=== PATIENT | male | born 1945 | race Caucasian/White ===

== ENCOUNTER 2020-04-07 11:55 | Day surgery (SDC) | payer MEDICARE, SELFPAY ==
[2020-04-04 17:33] VITALS: BMI 23.6
[2020-04-07] VITALS (7 sets, daily range): BP systolic 145–184; BP diastolic 70–89; PULSE 66–96; RESP 17–20; TEMP 36.2–36.4; O2SAT 97–100
--- NOTE | 2020-04-07 12:38 | W.PM.OPSUD ---
Surgery/Procedure H&P Update DATE OF PROCEDURE: April 07, 2020 DATE H&P PERFORMED: 03/31/20 H&P UPDATE INFORMATION: I have reviewed H&P completed within last 30 days, I have examined patient prior to procedure, No changes to prior documentation and H&P is in [facility] EMR on date indicated PREOP DIAGNOSIS: Chronic urinary retention with urethral erosion PLANNED PROCEDURE: Operation Date: 04/07/20 13:35 Proposed Procedures p Suprapubic Catheter Placement 61646 N36.8(Not Applicable) - Franklin Lopez MD s Cystoscopy(Not Applicable) - Franklin Lopez MD
--- NOTE | 2020-04-07 12:39 | P.OP_ITS ---
Operative Report Date of procedure: April 07, 2020 Pre-op Diagnosis: Chronic urinary retention with urethral erosion Post-op diagnosis: same Procedure Done: Cystoscopy, suprapubic tube placement Pathology: none sent Surgeon: John Anesthesia: General Estimated blood loss: Minimal Urine output: Not measured Complications: None Condition: stable Disposition: PACU Brief History: Mr. Lanza is a very pleasant 74-year-old white male with dementia who has a history of chronic urinary retention felt to be secondary to a flaccid neurogenic bladder. Multiple attempts at training with [facility] were pretty much unsuccessful and ultimately he insisted on indwelling catheter. Over time he developed some urethral erosion to the level of the manzano and at that point it was recommended that he undergo suprapubic tube placement. No abdominal scars. Procedure: After routine preoperative evaluation examination and obtaining of informed consent he was taken to the operating suite on 04/07/2020 where general anesthesia was administered without difficulty after appropriate timeout was performed, SCDs confirmed to be functioning, preoperative antibiotics administered, beta-sharyn protocol confirmed. Prepped and draped in usual sterile fashion in dorsolithotomy position pain careful attention to avoiding pressure points. 21 [place]an cystoscope with 30 degree lens was introduced into the urethral meatus and advanced into the bladder under videoscopy. Bladder was systematically examined. Bladder was distended and a 70 degree lens was utilized to help localize the site of entry of the suprapubic tube. A spinal needle was passed about 3 fingerbreadths above the symphysis pubis into the bladder near the dome with the bladder over distended. A puncture incision was made with a 15 blade, hemostats used to form a subcutaneous tunnel, and then a 20 [place]an peel-away suprapubic sheath with trocar was advanced under cystoscopic guidance into the distended bladder without difficulty. The trocar was removed and an 18 [place]an well-lubricated catheter was advanced through the sheath and the balloon inflated. Catheter function was confirmed prior to peeling away the sheath. The balloon was lightly snugged to the anterior abdominal wall and then the catheter secured to the skin with 2 large nonabsorbable sutures. Sterile drain dressing was applied. Catheter was confirmed to be functioning well and the procedure completed after the catheter was placed to drainage bag Tolerated procedure well without complications and was awakened in the operating room and returned to the care of room in stable condition.
--- NOTE | 2020-04-07 12:47 | ANES.PREANE2 ---
Pre-Anesthetic Assessment Pre-Anesthetic Assessment: Height/Weight: Height 1.78 m Weight 74.843 kg Temp Pulse Resp BP Pulse Ox 97.3 F L 66 18 153/70 99 04/07/20 12:18 04/07/20 12:18 04/07/20 12:18 04/07/20 12:18 04/07/20 12:18 Preop Diagnosis: Chronic urinary retention with urethral erosion Proposed Procedure: Operation Date: 04/07/20 13:35 Proposed Procedures p Suprapubic Catheter Placement 89589 N36.8(Not Applicable) - Franklin Lopez MD s Cystoscopy(Not Applicable) - Franklin Lopez MD Familial anesthetic complications: None Last intake: Intake Last Liquid Date 04/06/20 Last Liquid Time 19:00 Last Solid Date 04/06/20 Last Solid Time 19:00 Social: Social History: No alcohol and No tobacco Exam: Pre-Anes Outpt Exam: alert, oriented x 3, clear to auscultation bilaterally and regular rate & rhythm Airway: Cervical ROM: WNL MP: 2 Dentition: False Pulmonary: Pulmonary: None reported Metabolic: Metabolic: DM Anesthetic Plan: ASA status: 2 Anesthesia: General Risk of > 500 ml blood loss (7ml/kg in children): No PFSH Anesthesia PFSH: Medical History (Updated 03/31/20 @ 09:23 by Franklin Lopez MD) Bladder spasm Post-traumatic bulbous urethral stricture Urethral erosion Urinary retention Surgical History S/P dilation of urethra Scrotal abscess Family History Father , 84- Pneumonia No problems noted. Mother , 86 No problems noted. Social History Smoking and tobacco status: current some day smoker smokeless tobacco Alcohol intake: never Marital status: / Current occupational status: retired Data Anesthesia Cardiac Studies: No Data to Display
[2020-04-07] MEDS: sodium chloride 0.9% 1,000 ML 30 ML IV (13:02)
[2020-04-07 13:04] LABS: Glucose Point of Care 112 mg/dL (70-110)
[2020-04-07] MEDS: levofloxacin-dextrose 5 % 500 MG/100 ML PREMIX 100 MG IV (13:05)
[2020-04-07] MEDS: neomycin-poly-bacitracin oint 28 gm 1 APPLIC TOPICAL (13:30)
--- NOTE | 2020-04-07 13:49 | SUR.PHASEI ---
134 PATIENT TO PACU FROM OR. ORAL AIRWAY IN PLACE. SPO2 98% ON RA. CARRERA CATH IN PLACE, SECURED TO LEFT LEG.
--- NOTE | 2020-04-07 13:55 | SUR.PHASEI ---
1355 ORAL AIRWAY REMOVED. SPO2 100% ON RA.
--- NOTE | 2020-04-07 14:02 | ANE.PACU2 ---
Inpatient post-anesthesia follow up: Airway intact: Yes Vital signs: Temperature 97.6 F Pulse Rate 83 Respiratory Rate 17 Blood Pressure 178/86 Pulse Oximetry 97 Oxygen Delivery Me thod Room Air Oxygen Flow Rate Fraction of Inspir ed Oxygen Hydration adequate: Yes Nausea and vomiting: No Pain level: 1 Mental status: Baseline
--- NOTE | 2020-04-07 14:11 | SUR.PHASEI ---
1406 PATIENT TO OPS. DENIES PAIN. WHEN GETTING TO OPS PATIENT C/O NAUSEA. ZOFRAN GIVEN. SEE MAR.
[2020-04-07] MEDS: ondansetron 2 mg/ML SDV 2 mL 4 MG IVP (14:12)
== END 2020-04-07 15:04 | disposition home or self-care (01) ==
PROVIDERS: PCP Electrodiagnostic Medicine; Visit Provider Urology
PROC: (CPT 51102; principal; 2020-04-07 13:15)
PROC: 0TJB8ZZ Inspection of Bladder, Via Natural or Artificial Opening Endoscopic (ICD-10-PCS; CPT 52000; 2020-04-07 13:15)
DX: N36.8 Other specified disorders of urethra (principal); R33.9 Retention of urine, unspecified; E11.9 Type 2 diabetes mellitus without complications; N35.011 Post-traumatic bulbous urethral stricture; F17.290 Nicotine dependence, other tobacco product, uncomplicated; F03.90 Unspecified dementia, unspecified severity, without behavioral disturbance, psychotic disturbance, mood disturbance, and anxiety; N31.2 Flaccid neuropathic bladder, not elsewhere classified
CPT/HCPCS: 51102; 12345; 36416; 82962; J1956; J2405; J2704; J3010; J3490; J7030

== ENCOUNTER 2020-12-16 11:36 | Outpatient (CLI) | payer MEDICARE, SELFPAY ==
--- NOTE | 2020-12-16 12:12 | XRR_ITS ---
PROCEDURE INFORMATION: Exam: XR Chest Exam date and time: 12/16/2020 12:33 PM Age: 75 years old Clinical indication: Condition or disease; Lung condition and disease; Other: Acute bronchitis; Dyspnea; Additional info: Dyspnea on exertion/acute bronchitis TECHNIQUE: Imaging protocol: XR of the chest. Views: 2 views. COMPARISON: CR Chest 1 view [id number] 12/16/2017 5:44 PM FINDINGS: Lungs: Parenchymal densities seen in the right perihilar region increased compared to prior examination. Possible pneumonia or pulmonary edema. Low lung volumes seen. Pleural spaces: Unremarkable. No pleural effusion. No pneumothorax. Heart/Mediastinum: Unremarkable. No cardiomegaly. Bones/joints: Unremarkable. XR/XR chest 2V* [id number] IMPRESSION: 1. Right perihilar pneumonia or pulmonary edema . 2. Low lung volumes are seen. 3. Otherwise negative examination
== END 2020-12-16 11:37 | disposition home or self-care (01) ==
PROVIDERS: PCP Electrodiagnostic Medicine; Visit Provider Electrodiagnostic Medicine
DX: R06.09 Other forms of dyspnea (principal); J20.9 Acute bronchitis, unspecified
CPT/HCPCS: 71046

== ENCOUNTER 2020-12-19 16:26 | Inpatient (IN) | payer MEDICARE, SELFPAY ==
[2020-12-19 16:27] VITALS: BP 168/90; PULSE 118; RESP 22; TEMP 36.6; O2SAT 95; BMI 24.8
--- NOTE | 2020-12-19 16:33 | XRR_ITS ---
PROCEDURE INFORMATION: Exam: XR Chest Exam date and time: 12/19/2020 4:54 PM Age: 75 years old Clinical indication: Shortness of breath; Additional info: SOB TECHNIQUE: Imaging protocol: XR of the chest. Views: 1 view. Total images: 1 COMPARISON: 1. CR XR chest 2V* [id number] 12/16/2020 12:28 PM 2. CR Chest 1 view [id number] 12/16/2017 5:44:46 PM 3. CR Chest 2 views* [id number] 04/10/2014 1:43:11 PM FINDINGS: Lungs: Interval deterioration cardiopulmonary status with increased bilateral mixed reticulonodular interstitial and consolidated alveolar airspace disease of presumed active pneumonitis/pneumonia. Cannot exclude underlying component of pulmonary alveolitis or pulmonary hemorrhage. Pleural spaces: Suspected small subpulmonic pleural effusions. Heart/Mediastinum: Cardiac structures and configuration with arteriosclerosis. Bones/joints: Unremarkable for age. XR/XR chest 1V portable [id number] IMPRESSION: Interval deterioration cardiopulmonary status with increased bilateral mixed reticulonodular interstitial and consolidated alveolar airspace disease of presumed active pneumonitis/pneumonia.
--- NOTE | 2020-12-19 16:33 | ECG_ITS ---
[facility] Test Date: 2020-12-19 Pat Name: Jennifer Lanza Department: Room: Gender: Male [employer] Operator: : 1945 Requested By: Alejandra Kim I Order Number: [id number] Ann MD: Ricardo Aldrich M.D. Measurements Intervals [place] Rate: 114 P: 199 [place]: 114 QRS: 30 QRSD: 85 T: 92 QT: 324 QTc: 447 Interpretive Statements SINUS TACHYCARDIA WITH SHORT [place] INTERVAL WITH FREQUENT VENTRICULAR PREMATURE COMPLEXES POSSIBLE ANTERIOR MYOCARDIAL INFARCTION , OF INDETERMINATE AGE [30 ms Q WAVE IN V3/V4, OR R < 0.2 mV IN V4] Compared to ECG 12/16/2017 18:30:29 Short [place] interval now present Myocardial infarct finding now present Sinus rhythm no longer present Electronically Signed On 12-19-2020 21:48:33 CDT by Ricardo Aldrich M.D. [id number] f
[2020-12-19 16:35] LABS: ABG PCO2 34.2 mmHg (35-45); ABG PH Result 7.45 (7.35-7.45); Arterial Blood Gas Hematocrit 41.7 % (42-52); Base Excess ABG 0.2 mmol/L (-2.0-2.0); Blood Gas Allen Test Pos; Blood Gas Operator Identificat CAK; Blood Gas Sample Site Radial, left; Blood Gas Sample Type Arterial; HCO3 ABG 23.7 mmol/L (22-26); Oxygen Device NC; PO2 ABG 71.7 mmHg (80.0-100.0)
[2020-12-19 17:00] LABS: Basophils % 0.5 %; Eosinophils % 0.5 %; Hemoglobin 13.8 g/dL (11.7-16.6); Lymphocytes % 12.9 %; Mean Corpuscular HGB Conc 32.1 g/dL (30.0-36.0); Mean Corpuscular Hemoglobin 30.7 pg (28.0-34.0); Mean Corpuscular Volume 95.6 fL (80-94); Mean Platelet Volume 10.1 fL (7.4-10.4); Monocytes # 0.6 10^3/uL (0.2-0.9); Monocytes % 7.3 %; Neutrophils # 5.95 10^3/uL (1.8-7.7); Neutrophils % 77.5 %; Nucleated Red Blood Cells % 0 %; Platelet Count 180 10^3/cmm (130-400); Red Cell Distribution Width 15.2 % (12.1-15.1); White Blood Count 7.7 10^3/uL (4.0-10.0)
[2020-12-19 17:26] LABS: Troponin(5th) Baseline 32 ng/L (0-15)
[2020-12-19 17:33] LABS: Alanine Aminotransferase 6 U/L (0-41); Albumin Level 3.9 g/dL (3.5-5.2); Alkaline Phosphatase 503 IU/L (40-130); Anion Gap 17.5 (5-19); Aspartate Amino Transferase 11 U/L (0-40); Blood Urea Nitrogen 24 mg/dL (8-23); C Reactive Protein 7.1 mg/L (0.0-4.9); Calcium 8.5 mg/dL (8.5-10.5); Carbon Dioxide 23 mmol/L (22-29); Chloride 101 mmol/L (98-107); Globulin 2.7 g/dL (1.3-4.6); Glucose 242 mg/dL (65-115); NT Pro B Type Natriuretic Pept 9920 pg/mL (0-450); Osmolality Calculated 296 mOsm/kg (285-295); Potassium 4.5 mmol/L (3.5-5.1); Sodium 137 mmol/L (136-145); Total Bilirubin 0.2 mg/dL (0.15-1.2); Total Protein 6.6 g/dL (6.6-8.7)
--- NOTE | 2020-12-19 17:40 | ED_ITS ---
HPI - SOB/Dyspnea General: Chief Complaint: Shortness of Breath/Dyspnea Stated Complaint: DIFFICULTY BREATHING/ EDEMA Time Seen by Provider: 12/19/20 16:32 Source: patient Mode of arrival: EMS Limitations: no limitations History of Present Illness: HPI Narrative: Patient is a 75-year-old male with a history of diabetes mellitus and urinary retention who presented to the emergency department with shortness of breath that has been progressively worsening over the last 4 days. He denies any fever, denies any sick contacts. He denies cough but says he is having more trouble catching his breath. He endorses progressive leg swelling. He has a history of COPD but does not wear oxygen and has not required oxygen in the past. He went to urgent care today and he was noted to be hypoxic with oxygen saturation about 86% on room air. He was placed on oxygen and brought to the emergency department via EMS. MD elicited complaint: shortness of breath Pertinent past history: COPD Timing: constant Severity: severe Exacerbating factors: nothing Relieving factors: nothing Known history of: COPD Associated symptoms: Reports orthopnea; Deny abdominal pain, chest congestion, chest pain, cough, diaphoresis, dizziness, extremity pain, fever(s), hemoptysis, lightheadedness, myalgias, nausea, palpitations, paresthesias, polydipsia, polyuria, rash, sense of impending doom, syncope or vomiting Treatment prior to arrival: oxygen and bronchodilator Review of Systems General: Reports: 10 or more systems reviewed and unremarkable except in HPI and below Const: Denies: fever(s) or diaphoresis Card: Reports: orthopnea; Denies: chest pain, palpitations, lightheadedness or syncope Resp: Denies: hemoptysis or chest congestion GI: Denies: abdominal pain, nausea or vomiting Musc: Denies: extremity pain Neuro: Denies: dizziness Endo: Denies: polyuria or polydipsia [facility] ED PFSH: Medical History (Updated 12/19/20 @ 20:35 by Alejandra Kim [place], [facility] Bladder spasm DM type 2 (diabetes mellitus, type 2) Post-traumatic bulbous urethral stricture Suprapubic catheter Urethral erosion Urinary retention Surgical History S/P dilation of urethra Scrotal abscess Family History Father , 84- Pneumonia No problems noted. Mother , 86 No problems noted. Social History Smoking and tobacco status: former smoker Quit status (tobacco): has quit using tobacco Former quit date comment: Reportedly quit years ago. Currently chews smokeless tobacco. Alcohol intake: never Substance/Drug Use: never Lives independently: No Household members: other Details: Son Marital status: / Current occupational status: retired Physical Exam Const: COMMON NORMALS: no acute distress, average body habitus, patient oriented x3, no limitations, healthy appearing, alert and well nourished HENMT: COMMON NORMALS: normocephalic, atraumatic and moist oral mucous membranes HEAD & SCALP: normocephalic and atraumatic Neck/C-Spine: COMMON NORMALS: no meningeal signs and no JVD Chest: COMMONS NORMALS: normal inspection of the chest and normal palpation of entire chest wall Resp: COMMON NORMALS: normal respiratory effort, No retractions, No use of accessory muscles and percussion normal AUSCULTATION: rales bilateral throughout and diffuse PERCUSSION: percussion normal Cardio: COMMON NORMALS: no JVD, regular rate, regular rhythm, S1 normal heart sound present, S2 normal heart sound present, No gallops present (Cardio), No clicks present (Cardio), No murmurs present (Cardio), No rub (Cardio) and Peripheral pulses 2+ throughout RATE: regular rate RHYTHM: regular rhythm HEART SOUNDS: S1 normal heart sound present and S2 normal heart sound present PERIPHERAL PULSES: Peripheral pulses 2+ throughout GI: COMMON NORMALS: Normal to inspection, nondistended, normoactive bowel sounds present, Soft to palpation, non-tender, No hepatosplenomegaly present, no masses and no bruits PALPATION: Yes Soft to palpation and Yes No hepatosplenomegaly present Extremity: COMMON NORMALS: normal to inspection, full ROM, capillary refill normal and no calf tenderness GENERAL: Yes edema (2+ pitting bilaterally) Neuro: COMMON NORMALS: patient oriented x3 SENSORIUM/ORIENTATION: Yes alert MENINGEAL SIGNS: Yes no meningeal signs Skin: COMMON NORMALS: no rashes or lesions noted, no wounds, turgor normal, no jaundice, no petechiae and no mottling GENERAL SKIN EXAM: no rashes or lesions noted and turgor normal Course Reevaluation(s): Reevaluation #1: Discussed his lab and imaging findings with him, as well as my conversation with the hospitalist. Advised that he will benefit from hospital admission. Patient voiced understanding and is in agreement with the plan. Time: 18:18 Consultations: Consultation #1: Discussed the patient with Dr. Myers, hospitalist and he kindly accepted the patient to his service. Time: 18:13 Vital Signs: Vital signs: Vital Signs Temperature 98.1 F 12/19/20 19:58 Pulse Rate 93 12/19/20 19:58 Respiratory Rate 16 12/19/20 19:58 Blood Pressure 148/89 12/19/20 19:58 Pulse Oximetry 98 12/19/20 19:58 MDM - SOB/Dyspnea MDM Narrative: Medical decision making narrative: 75-year-old male who presents to the emergency department with shortness of breath requiring oxygen supplementation. He was hypoxic, had signs of congestive heart failure and imaging was also suggestive of pneumonia. White cell count is normal, he has no fever, and I do believe this is mostly due to CHF and less likely pneumonia. He is being admitted to the hospital for further evaluation and management. Medical Records: Attestation: I reviewed the patient's medical records. Lab Data: Attestation: I reviewed the patient's lab results. Labs: Lab Results 12/19/20 12/19/20 12/19/20 Range/Units 16:26 16:45 16:45 WBC 7.7 (4.0-10.0) 10^3/ uL RBC 4.50 (4.1-5.3) 10^6/u L Hgb 13.8 (11.7-16.6) g/dL Hct 43.0 (42.0-52.0) % MCV 95.6 H (80-94) fL MCH 30.7 (28.0-34.0) pg MCHC 32.1 (30.0-36.0) g/dL RDW 15.2 H (12.1-15.1) % Plt Count 180 (130-400) 10^3/c mm MPV 10.1 (7.4-10.4) fL Neut % (Auto) 77.5 % Lymph % (Auto) 12.9 % Martin % (Auto) 7.3 % Eos % (Auto) 0.5 % Baso % (Auto) 0.5 % Neut # (Auto) 5.95 (1.8-7.7) 10^3/u L Lymph # (Auto) 1.0 (0.8-4.8) 10^3/u L Martin # (Auto) 0.6 (0.2-0.9) 10^3/u L Eos # (Auto) 0.0 (0.0-0.8) 10^3/u L Baso # (Auto) 0.0 (0.0-0.1) 10^3/u L Nucleated RBC % (a uto) 0 % Nucleated RBCs # 0.0 /100WBC Specimen Type Arterial Sample Site Radial, left ABG pH 7.45 (7.35-7.45) ABG pCO2 34.2 L (35-45) mmHg ABG pO2 71.7 L (80.0-100.0) mmH g ABG HCO3 23.7 (22-26) mmol/L ABG Base Excess 0.2 (-2.0-2.0) mmol/ L Jas Test Pos Hematocrit 41.7 L (42-52) % O2 Delivery Device Nc O2 Liters/Min 4.0 % FiO2 33.0 % Lode Miner ID Cak Sodium 137 (136-145) mmol/L Potassium 4.5 (3.5-5.1) mmol/L Chloride 101 (98-107) mmol/L Carbon Dioxide 23 (22-29) mmol/L Anion Gap 17.5 (5-19) BUN 24 H (8-23) mg/dL Creatinine 1.2 (0.7-1.2) mg/dL GFR Calculation Not Reportable Glucose 242 H (65-115) mg/dL Calculated Osmolal ity 296 H (285-295) mOsm/k g Calcium 8.5 (8.5-10.5) mg/dL Total Bilirubin 0.2 (0.15-1.2) mg/dL AST 11 (0-40) U/L ALT 6 (0-41) U/L Alkaline Phosphata se 503 H (40-130) IU/L Troponin T Baselin e (0-15) ng/L C-Reactive Protein 7.1 H (0.0-4.9) mg/L NT-Pro-B Natriuret Pep 9920 H (0-450) pg/mL Total Protein 6.6 (6.6-8.7) g/dL Albumin 3.9 (3.5-5.2) g/dL Globulin 2.7 (1.3-4.6) g/dL SARS-CoV-2 Ag (Rap id) (Negative) 12/19/20 12/19/20 Range/Units 16:45 17:19 WBC (4.0-10.0) 10^3/ uL RBC (4.1-5.3) 10^6/u L Hgb (11.7-16.6) g/dL Hct (42.0-52.0) % MCV (80-94) fL MCH (28.0-34.0) pg MCHC (30.0-36.0) g/dL RDW (12.1-15.1) % Plt Count (130-400) 10^3/c mm MPV (7.4-10.4) fL Neut % (Auto) % Lymph % (Auto) % Martin % (Auto) % Eos % (Auto) % Baso % (Auto) % Neut # (Auto) (1.8-7.7) 10^3/u L Lymph # (Auto) (0.8-4.8) 10^3/u L Martin # (Auto) (0.2-0.9) 10^3/u L Eos # (Auto) (0.0-0.8) 10^3/u L Baso # (Auto) (0.0-0.1) 10^3/u L Nucleated RBC % (a uto) % Nucleated RBCs # /100WBC Specimen Type Sample Site ABG pH (7.35-7.45) ABG pCO2 (35-45) mmHg ABG pO2 (80.0-100.0) mmH g ABG HCO3 (22-26) mmol/L ABG Base Excess (-2.0-2.0) mmol/ L Jas Test Hematocrit (42-52) % O2 Delivery Device O2 Liters/Min % FiO2 % Lode Miner ID Sodium (136-145) mmol/L Potassium (3.5-5.1) mmol/L Chloride (98-107) mmol/L Carbon Dioxide (22-29) mmol/L Anion Gap (5-19) BUN (8-23) mg/dL Creatinine (0.7-1.2) mg/dL GFR Calculation Glucose (65-115) mg/dL Calculated Osmolal ity (285-295) mOsm/k g Calcium (8.5-10.5) mg/dL Total Bilirubin (0.15-1.2) mg/dL AST (0-40) U/L ALT (0-41) U/L Alkaline Phosphata se (40-130) IU/L Troponin T Baselin e 32 H (0-15) ng/L C-Reactive Protein (0.0-4.9) mg/L NT-Pro-B Natriuret Pep (0-450) pg/mL Total Protein (6.6-8.7) g/dL Albumin (3.5-5.2) g/dL Globulin (1.3-4.6) g/dL SARS-CoV-2 Ag (Rap id) Negative (Negative) Imaging Data^: CXR: Attestation: I personally reviewed and interpreted this imaging study as follows: Radiologist's impression: [address] [id number] ReportSigned Patient: Jennifer Lanza AUnit #: [id number]: 4Acct#:[id number]/Sex: 75 / MADM Date: 12/19/20Loc: ERRoom/Bed:Attending Dr: Ordering Provider/Ordering MD: Alejandra Kim [place], [facility] [place] of Service: 12/19/20 Procedure(s): XR chest 1V portable [id number] Accession Number(s): [id number] Report Number: [id number] PROCEDURE INFORMATION: Exam: XR Chest Exam date and time: 12/19/2020 4:54 PM Age: 75 years old Clinical indication: Shortness of breath; Additional info: SOB TECHNIQUE: Imaging protocol: XR of the chest. Views: 1 view. Total images: 1 COMPARISON: 1. CR XR chest 2V* [id number] 12/16/2020 12:28 PM 2. CR Chest 1 view [id number] 12/16/2017 5:44:46 PM 3. CR Chest 2 views* [id number] 04/10/2014 1:43:11 PM FINDINGS: Lungs: Interval deterioration cardiopulmonary status with increased bilateral mixed reticulonodular interstitial and consolidated alveolar airspace disease of presumed active pneumonitis/pneumonia. Cannot exclude underlying component of pulmonary alveolitis or pulmonary hemorrhage. Pleural spaces: Suspected small subpulmonic pleural effusions. Heart/Mediastinum: Cardiac structures and configuration with arteriosclerosis. Bones/joints: Unremarkable for age. XR/XR chest 1V portable [id number] IMPRESSION: Interval deterioration cardiopulmonary status with increased bilateral mixed reticulonodular interstitial and consolidated alveolar airspace disease of presumed active pneumonitis/pneumonia. Dictated By:Justus Walton By:Justus Walton Date/Time:12/19/20 1721DD/ 1719 CT Chest: Attestation: I personally reviewed and interpreted this imaging study as follows: Radiologist's impression: [address] [id number] Scan ReportSigned Patient: Jennifer Lanza AUnit #: [id number]: 4Acct#:[id number]/Sex: 75 / MADM Date: 12/19/20Loc: CSURoom/Bed[facility]: Alec Rosas MD Ordering Provider/Ordering MD: Alejandra Kim [place] [facility] [place] of Service: 12/19/20 Procedure(s): CT chest [facility] [address] Accession Number(s): [id number] Report Number: [id number] PROCEDURE INFORMATION: Exam: CT Chest Without Contrast; Diagnostic Exam date and time: 12/19/2020 6:13 PM Age: 75 years old Clinical indication: Shortness of breath; Additional info: SOB x 4 days TECHNIQUE: Imaging protocol: Diagnostic computed tomography of the chest without contrast. Total images: 280 Radiation optimization: All CT scans at this facility use at least one of these dose optimization techniques: automated exposure control; mA and/or kV adjustment per patient size (includes targeted exams where dose is matched to clinical indication); or iterative reconstruction. COMPARISON: CR XR chest 1V portable [id number] 12/19/2020 4:42 PM RADIATION DOSE METRICS: Total DLP (mGy-cm): 687.18 FINDINGS: Lungs: Bilateral interstitial lung disease with interseptal and interlobular thickening. Bilateral subsegmental and segmental alveolar airspace disease consolidation involving the dependent portions of the lung primarily posterior bilateral upper lobe and bilateral lower lobes sparing the right middle and right lower lobes consistent with pneumonia and atelectasis. Coexistent interstitial edema/pulmonary edema. Calcified granulomas of antecedent disease. Pleural spaces: Bilateral moderate volume pleural effusions. Heart: Cardiac size upper limits of normal. Small pericardial effusion. Mild coronary artery disease. Aorta: The thoracic aorta is nonaneurysmal. Moderate arteriosclerosis. Lymph nodes: Mediastinal and probable hilar lymphadenopathy. Prominent pretracheal lymph node measures 20 mm in the short axis. Also evidence of a calcified mediastinal and hilar complexes of antecedent granulomatous disease. Bones/joints: Diffuse skeletal sclerosis either from diffuse osteoblastic skeletal metastasis or from renal osteodystrophy. Favor metastatic prostate cancer. Past medical and past surgical history unknown to this observer. Soft tissues: Cachexia. CT/CT chest wo con [id number] IMPRESSION: 1. Findings most consistent with bilateral pneumonitis/pneumonia with associated interstitial edema/pulmonary edema as detailed in text. 2. Bilateral moderate volume pleural effusion. 3. Mediastinal and probable hilar lymphadenopathy. 4. Diffuse skeletal sclerosis either from diffuse osteoblastic skeletal metastasis or from renal osteodystrophy. Favor metastatic prostate cancer. 5. Evidence of antecedent granulomatous disease. 6. Cachexia. Radiation Dose CTDIVOL = (mGy): DLP = 687.18 (mGy-cm) Dictated By:Justus Walton By:Justus Walton Date/Time:12/19/202001DD/ 99 EKG Data^: EKG 1: Attestation: I personally reviewed and interpreted this EKG as follows: EKG Interpretation Date: 12/19/20 EKG interpretation time: 16:33 Prior EKG tracings: not available for review Interpretation: Sinus tachycardia with short ND interval and PVCs. Heart rate 114 beats per minutes. No ST changes. Discharge Plan Discharge Patient Disposition: Admitted As Inpatient Admit Provider: Alec Rosas Clinical Impression: Acute respiratory failure with hypoxia, Community acquired pneumonia, Congestive heart failure, Pleural effusion Condition: Stable Coding Level of Care Code ED Charge Accounts Audit Clerk for Chg Fwd Exam Comprehensive
[2020-12-19 18:00] LABS: SARS Covid-2 Antigen Negative (Negative)
[2020-12-19] MEDS: FUROsemide 10 mg/mL SDV 4mL 40 MG IVP (18:07)
--- NOTE | 2020-12-19 18:11 | CTR_ITS ---
PROCEDURE INFORMATION: Exam: CT Chest Without Contrast; Diagnostic Exam date and time: 12/19/2020 6:13 PM Age: 75 years old Clinical indication: Shortness of breath; Additional info: SOB x 4 days TECHNIQUE: Imaging protocol: Diagnostic computed tomography of the chest without contrast. Total images: 280 Radiation optimization: All CT scans at this facility use at least one of these dose optimization techniques: automated exposure control; mA and/or kV adjustment per patient size (includes targeted exams where dose is matched to clinical indication); or iterative reconstruction. COMPARISON: CR XR chest 1V portable [id number] 12/19/2020 4:42 PM RADIATION DOSE METRICS: Total DLP (mGy-cm): 687.18 FINDINGS: Lungs: Bilateral interstitial lung disease with interseptal and interlobular thickening. Bilateral subsegmental and segmental alveolar airspace disease consolidation involving the dependent portions of the lung primarily posterior bilateral upper lobe and bilateral lower lobes sparing the right middle and right lower lobes consistent with pneumonia and atelectasis. Coexistent interstitial edema/pulmonary edema. Calcified granulomas of antecedent disease. Pleural spaces: Bilateral moderate volume pleural effusions. Heart: Cardiac size upper limits of normal. Small pericardial effusion. Mild coronary artery disease. Aorta: The thoracic aorta is nonaneurysmal. Moderate arteriosclerosis. Lymph nodes: Mediastinal and probable hilar lymphadenopathy. Prominent pretracheal lymph node measures 20 mm in the short axis. Also evidence of a calcified mediastinal and hilar complexes of antecedent granulomatous disease. Bones/joints: Diffuse skeletal sclerosis either from diffuse osteoblastic skeletal metastasis or from renal osteodystrophy. Favor metastatic prostate cancer. Past medical and past surgical history unknown to this observer. Soft tissues: Cachexia. CT/CT chest wo con [id number] IMPRESSION: 1. Findings most consistent with bilateral pneumonitis/pneumonia with associated interstitial edema/pulmonary edema as detailed in text. 2. Bilateral moderate volume pleural effusion. 3. Mediastinal and probable hilar lymphadenopathy. 4. Diffuse skeletal sclerosis either from diffuse osteoblastic skeletal metastasis or from renal osteodystrophy. Favor metastatic prostate cancer. 5. Evidence of antecedent granulomatous disease. 6. Cachexia. Radiation Dose CTDIVOL = (mGy): DLP = 687.18 (mGy-cm)
[2020-12-19 18:13] VITALS: BP 162/88; PULSE 84; RESP 18; O2SAT 97
--- NOTE | 2020-12-19 18:33 | ECG_ITS ---
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 Measurements Intervals [place] Rate: 114 P: 199 ND: 114 QRS: 30 QRSD: 85 T: 92 QT: 324 QTc: 447 Interpretive Statements SINUS TACHYCARDIA WITH SHORT ND INTERVAL WITH FREQUENT VENTRICULAR PREMATURE COMPLEXES. NOn specific T wave changes POSSIBLE ANTERIOR MYOCARDIAL INFARCTION , OF INDETERMINATE AGE [30 ms Q WAVE IN V3/V4, OR R < 0.2 mV IN V4] Compared to ECG 12/16/2017 18:30:29 Short ND interval now present Myocardial infarct finding now present Sinus rhythm no longer present Electronically Signed On 12-20-2020 14:54:29 CDT by Pushpa Gamble M.D. [email or web address].[email or web address]/store/[id number] f
--- NOTE | 2020-12-19 19:21 | PM.HP ---
Providers/Chief Complaint Primary Care Provider: Leonard Navarro DO Chief Complaint: DIFFICULTY BREATHING/ EDEMA History of Present Illness Very pleasant 75-year-old gentleman with history of diabetes, chronic urethral stricture following remote trauma, with suprapubic catheter, remote smoker, with reported history of COPD, although he and his son deny the condition, has been gradually getting more short of breath over the past week, with dyspnea starting mostly on exertion, but recently progressing to addressed as well. This week he was also started on albuterol inhaler due to same, although says that it is barely effective. He denies fever or chills. He has been coughing, producing yellowish phlegm. He denies chest pain or pressure. Denies any hemoptysis. Denies muscle aches, headache, nausea vomiting or diarrhea. He completed his COVID-19 vaccination series at the end of November. In ER he is found hypoxic initially requiring 8 L of oxygen by nasal cannula. Reportedly earlier today in urgent care clinic he was saturating 86% on room air. Initially with sinus tachycardia 118, currently heart rates in the 80s, with oxygen saturations in the high 90s on 4 L nasal cannula. ABG on 4 L oxygen 7.45/34.2/71.7/23.7. He is afebrile, without leukocytosis. With unremarkable CBC. CMP with normal electrolytes, bicarbonate 23, anion gap 17.5, BUN 24, creatinine 1.2. Glucose 242. Elevation of alkaline phosphatase 503 with previously normal baseline, although without recent values since 2018. T bili, AST, LT normal. Total protein low normal 6.6, globulin 2.7, albumin 3.9. Baseline troponin is 32. CRP 7.1. BNP 9920. Rapid COVID-19 antigen obtained in ER was negative. Chest x-ray with increased bilateral mixed reticular nodular interstitial and consolidative alveolar airspace disease. Presumed pneumonitis/pneumonia. He and his son does not deny knowledge of prior heart failure or coronary artery disease. He does not normally require oxygen supplementation. In ER he received a dose of Lasix. CT scan of the chest is ordered and pending. He reports feeling slightly better already. In addition to his respiratory symptoms, he does note having orthopnea, having been needing to prop himself up to sleep. He denies any history of known sleep apnea, although states he used to snore when he used to be much heavier. He states he lost 68 pounds but a while ago back in 1992. He notes he has been getting lower extremity edema. He states his appetite has been good recently. Review of Systems Const: Denies: fever(s), chills, body aches or malaise Eyes: Denies: change in vision or eye redness ENMT: Denies: throat pain, oral sores or ear or mastoid pain Card: Reports: swelling of feet/ankles, dyspnea on exertion and orthopnea; Denies: chest pain, edema or pre-syncope Resp: Reports: dyspnea, productive cough and change in phlegm color; Denies: hemoptysis GI: Denies: abdominal pain, nausea, vomiting, diarrhea, constipation, hematochezia or melena : Denies: flank pain, difficulty urinating, urinary frequency or hematuria Musc: Denies: back pain, joint swelling or joint redness Skin/Breast: Denies: rash, sores or new lesions Neuro: Denies: headache(s), numbness in extremities, weakness in extremities, dizziness, confusion or seizure-like activity Endo: Denies: polyuria or polydipsia Faustino/Lymph: Denies: easy bleeding or purpura All/Imm: Denies: urticaria, throat swelling or tongue swelling Medications/Allergies Home Medications Medication Instructions Recorded Confirmed Last Taken Type glipizide 10 mg tablet 10 mg PO DAILY@0400 08/23/19 12/19/20 12/19/20 History metformin 1,000 mg tablet 1,000 mg PO BID@0400,1600 08/23/19 12/19/20 12/19/20 History cholecalciferol (vitamin D3) 1,250 1,250 mcg PO DAILY@0400 03/31/20 12/19/20 04/04/20 History mcg (50,000 unit) capsule albuterol sulfate 2 puff INHALATION QID PRN 12/19/20 12/19/20 12/19/20 History Allergies Allergy/AdvReac Type Severity Reaction Status Date / Time No Known Allergies Allergy Verified 12/19/20 17:05 PFSH Acute PFSH: Medical History (Updated 12/19/20 @ 19:59 by Alan Myers MD) Bladder spasm DM type 2 (diabetes mellitus, type 2) Post-traumatic bulbous urethral stricture Suprapubic catheter Urethral erosion Urinary retention Surgical History S/P dilation of urethra Scrotal abscess Family History Father , 84- Pneumonia No problems noted. Mother , 86 No problems noted. Social History Smoking and tobacco status: former smoker Quit status (tobacco): has quit using tobacco Former quit date comment: Reportedly quit years ago. Currently chews smokeless tobacco. Alcohol intake: never Substance/Drug Use: never Lives independently: No Household members: other Details: Son Marital status: / Current occupational status: retired Vitals/I&O/Wt Last Vital Signs Temp 97.8 F 12/19/20 16:27 Pulse 84 12/19/20 18:13 Resp 18 12/19/20 18:13 BP 162/88 12/19/20 18:13 Pulse Ox 97 12/19/20 18:13 Weight last 48 hrs Weight 78.471 kg Physical Exam Narrative: EXAM NARRATIVE: His son is at bedside. Const: COMMON NORMALS: no acute distress and patient oriented x3 GENERAL APPEARANCE: frail appearing HENMT: COMMON NORMALS: oropharynx normal Neck/C-Spine: COMMON NORMALS: no JVD Resp: COMMON NORMALS: normal respiratory effort AUSCULTATION: crackles, wheezes and diminished lung sounds Cardio: COMMON NORMALS: no JVD, regular rhythm, S1 normal heart sound present, S2 normal heart sound present and No murmurs present (Cardio) RATE: regular rate HEART SOUNDS: S1 normal heart sound present and S2 normal heart sound present GI: COMMON NORMALS: Normal to inspection, nondistended, normoactive bowel sounds present, Soft to palpation and non-tender PALPATION: Yes Soft to palpation Extremity: COMMON NORMALS: no joint enlargement GENERAL: Yes edema (2+) Neuro: COMMON NORMALS: patient oriented x3 and moves all extremities Skin: COMMON NORMALS: no rashes or lesions noted GENERAL SKIN EXAM: no rashes or lesions noted OTHER: Multiple moles Data : 12/19/20 16:45 12/19/20 16:45 A&P Assessment and plan (1) Acute respiratory failure with hypoxia: Not entirely clear etiology at moment, but appears may be multifactorial secondary to pneumonia/pneumonitis. As well as acute congestive heart failure of unknown type. CT chest has been ordered. Follow-up imaging. At this time will empirically cover for community-acquired pneumonia as discussed with him and his son, and will continue with diuresis for congestive heart failure. Ceftriaxone and azithromycin. Additional evaluation with sputum culture, urine bacterial antigens. TTE. Complete troponin EKG series. Would benefit after recovering from additional assessment by pulmonary function testing. There are reports of COPD, however, patient and son deny knowledge of this condition. He is a former smoker. Additionally may benefit from sleep study. Reports history of snoring in the past. Status: Acute (2) DM type 2 (diabetes mellitus, type 2): Status: Acute (3) Suprapubic catheter: Secondary to chronic urethral stricture, follows with urology. Status: Acute (4) Alkaline phosphatase elevation: No abodminal pain. Check GGT. Status: Acute Attestations Medical Necessity Statement*: Admission of over 2 midnights is going to be needed for assessment of management of acute respiratory failure with hypoxia, pneumonia, acute CHF. Coding Level of Care Code Acute Industrial Methods Consultant for [facility] Fwd Exam Comprehensive Diagnoses Acute respiratory failure with hypoxia J96.01 DM type 2 (diabetes mellitus, type 2) E11.9 Suprapubic catheter Z93.59 Alkaline phosphatase elevation R74.8
[2020-12-19 19:58] VITALS: BP 148/89; PULSE 93; RESP 16; TEMP 36.7; O2SAT 98
[2020-12-19 20:00] VITALS: BP 156/82; PULSE 93; RESP 22; TEMP 36.4; O2SAT 98
[2020-12-19 20:45] VITALS: O2SAT 95
[2020-12-19 20:46] LABS: Glucose Point of Care 236 mg/dL (70-110)
[2020-12-19] MEDS: cefTRIAXone 1,000 MG in sodium chloride 0.9% (plus) 50 ML 100 MG IV (20:55)
[2020-12-19] MEDS: enoxaparin 40 mg/0.4 mL Syringe SUBCUT (20:57)
[2020-12-19 21:01] LABS: Troponin 5 2HR 37.98 ng/L (0-15); Troponin 5 2HR Delta 5.98 ABS# (0-10)
[2020-12-19 21:09] LABS: Gamma Glutamyl Transferase 13 U/L (8-61); Thyroid Stimulating Hormone 3.13 uIU/mL (0.27-4.20)
[2020-12-19] MEDS: azithromycin 500 MG in sodium chloride 0.9% 250 ML 250 MG IV (21:22)
--- NOTE | 2020-12-19 22:33 | ECG_ITS ---
[facility] Test Date: 2020-12-19 Pat Name: Jennifer Lanza Department: Room: 106 Gender: Male Precision Dyer: yovani URBINAB: 1945 Requested By: Alejandra Kim I Order Number: [id number] Ann MD: Pushpa Gamble M.D. Measurements Intervals [place] Rate: 96 P: NM: QRS: 17 QRSD: 81 T: 90 QT: 357 QTc: 453 Interpretive Statements SUPRAVENTRICULAR RHYTHM NONSPECIFIC T-WAVE ABNORMALITY Compared to ECG 12/19/2020 16:33:07 Supraventricular rhythm now present T-wave abnormality now present Sinus tachycardia no longer present Short NM interval no longer present Myocardial infarct finding no longer present Electronically Signed On 12-20-2020 14:55:45 CDT by Pushpa Gamble M.D. [id number]
--- NOTE | 2020-12-19 23:30 | PC.NURSE ---
Pt has suprapubic catheter, changed leg bag to glover bag
[2020-12-19 23:32] VITALS: PULSE 96; RESP 18; O2SAT 97
[2020-12-20] VITALS (11 sets, daily range): BP systolic 121–162; BP diastolic 53–86; PULSE 79–116; RESP 13–21; TEMP 36.4–36.8; O2SAT 96–99
[2020-12-20 00:38] LABS: Troponin 5 6HR 42.43 ng/L (0-15); Troponin 5 6HR Delta 10.43 ng/L (0-12)
[2020-12-20 05:47] LABS: Basophils % 0.3 %; Eosinophils # 0.1 10^3/uL (0.0-0.8); Eosinophils % 0.7 %; Hematocrit 38.4 % (42.0-52.0); Hemoglobin 12.1 g/dL (11.7-16.6); Lymphocytes # 1.2 10^3/uL (0.8-4.8); Mean Corpuscular HGB Conc 31.5 g/dL (30.0-36.0); Mean Corpuscular Hemoglobin 30.8 pg (28.0-34.0); Mean Corpuscular Volume 97.7 fL (80-94); Mean Platelet Volume 11.2 fL (7.4-10.4); Monocytes # 0.8 10^3/uL (0.2-0.9); Monocytes % 11.5 %; Neutrophils # 4.82 10^3/uL (1.8-7.7); Neutrophils % 69.5 %; Nucleated Red Blood Cells % 0 %; Platelet Count 175 10^3/cmm (130-400); Red Blood Count 3.93 10^6/uL (4.1-5.3); Red Cell Distribution Width 15.5 % (12.1-15.1); White Blood Count 6.9 10^3/uL (4.0-10.0)
[2020-12-20] MEDS: FUROsemide 10 mg/mL SDV 4mL 40 MG IVP ×2 (06:00→17:58)
[2020-12-20 06:12] LABS: Chloride 103 mmol/L (98-107); Potassium 4.3 mmol/L (3.5-5.1); Sodium 139 mmol/L (136-145); Total Bilirubin 0.2 mg/dL (0.15-1.2)
[2020-12-20 06:32] LABS: Alanine Aminotransferase 6 U/L (0-41); Alkaline Phosphatase 409 IU/L (40-130); Anion Gap 15.3 (5-19); Aspartate Amino Transferase 12 U/L (0-40); Carbon Dioxide 25 mmol/L (22-29); Globulin 3.1 g/dL (1.3-4.6); Glucose 136 mg/dL (65-115); Total Protein 6.1 g/dL (6.6-8.7)
[2020-12-20 06:33] LABS: Glucose Point of Care 181 mg/dL (70-110)
[2020-12-20 06:35] LABS: Blood Urea Nitrogen 24 mg/dL (8-23); Calcium 8.2 mg/dL (8.5-10.5); Osmolality Calculated 294 mOsm/kg (285-295)
[2020-12-20 11:38] LABS: Glucose Point of Care 183 mg/dL (70-110)
[2020-12-20 16:36] LABS: Glucose Point of Care 120 mg/dL (70-110)
[2020-12-20] MEDS: cefTRIAXone 1,000 MG in sodium chloride 0.9% (plus) 50 ML 100 MG IV (19:48)
--- NOTE | 2020-12-20 19:58 | USCV_ITS ---
Jennifer Lanza Age: 75 Gender: M : 1945 Exam Date: 12/20/2020 09:19 Ordering Phys: Alan Myers MD Technologist: Arlen Cristobal [place] [facility] [place]: CHF BP: 121 / 53 HR: 78 Rhythm: Sinus Technical Quality: Good MEASUREMENTS (Male / Female) Normal Values 2D ECHO LV Diastolic Diameter PLAX 5.5 cm 4.2 - 5.9 / 3.9 - 5.3 cm LV Systolic Diameter PLAX 4.5 cm LV Chamber Size 5.3 cm IVS Diastolic Thickness 1.6 cm 0.6 - 1.0 / 0.6 - 0.9 cm IVS Systolic Thickness 1.6 cm LVPW Diastolic Thickness 0.9 cm 0.6 - 1.0 / 0.6 - 0.9 cm LVPW Systolic Thickness 1.4 cm RV Chamber Size 2.6 cm LVOT Diameter 2.0 cm LV Ejection Fraction 2D Teich 38.3 % LV Ejection Fraction MOD 2C 53.1 % LV Ejection Fraction 2C AL 56.6 % LA Diameter 2.7 cm LA Width 3.3 cm LA Height 4.5 cm RA Width 3.0 cm RA Height 4.8 cm Aorta at Sinotubular Diameter 2.4 cm M-MODE LV Diastolic Diameter MM 6.1 cm 4.2 - 5.9 / 3.9 - 5.3 cm LV Systolic Diameter MM 5.0 cm LV Ejection Fraction MM Teich 37.5 % IVS Diastolic Thickness MM 1.2 cm 0.6 - 1.0 / 0.6 - 0.9 cm IVS Systolic Thickness MM 1.2 cm LVPW Diastolic Thickness MM 1.6 cm 0.6 - 1.0 / 0.6 - 0.9 cm LVPW Systolic Thickness MM 1.9 cm RV Diastolic Diameter MM 1.0 cm Aortic Annulus Diameter 3.7 cm LA Ao Ratio MM 0.8 MV E Point Septal Separation 1.5 cm DOPPLER AV Peak Velocity 137.0 cm/s LVOT Peak Velocity 93.0 cm/s AV Area Cont Eq vti 2.1 cm squared AV Area Cont Eq pk 2.1 cm squared MV Area PHT 4.3 cm squared Mitral E to A Ratio 1.1 MV E' Velocity 43.5 cm/s Mitral E to MV E' Ratio 13.1 Mitral E to LV E' Lateral Ratio 12.9 Mitral E to LV E' Septal Ratio 13.3 TR Peak Velocity 264.5 cm/s TR Peak Gradient 28.0 mmHg TV Peak E Velocity 66.0 cm/s Right Atrial Pressure 3.0 mmHg Pulmonary Artery Systolic Pressu 31.0 mmHg PV Peak Velocity 70.0 cm/s RV Acceleration Time 0.1 s RV Ejection Time 0.3 s RV AcT/ET 0.3 FINDINGS Left Ventricle Diffuse hypokinesia of the left ventricle with ejection fraction of 43%. Right Ventricle The right ventricle is normal in size and function. Right Atrium Mildly increased right atrial size. Left Atrium Mildly increased left atrial size. A mobile filamentous, mobile structure was noted in the left atrium in the subcostal view. Soft tissue structure versus mirror artifact Mitral Valve Mild mitral valve regurgitation. Aortic Valve Structurally normal aortic valve without significant sclerosis or stenosis. There is no aortic regurgitation. Tricuspid Valve Mild to moderate tricuspid valve regurgitation. Pulmonic Valve Structurally normal pulmonic valve. Pericardium Trivial pericardial effusion. Large left-sided pleural effusion Aorta Normal ascending aorta dimension. CONCLUSIONS Diffuse hypokinesia of the left ventricle with ejection fraction of 43%. Mild biatrial enlargement Mild to moderate tricuspid valve regurgitation. Mild mitral valve regurgitation. Trivial pericardial effusion. Large left-sided pleural effusion. Estimated pulmonary artery peak systolic pressure 31 mmHg A filamentous mobile structure appears to be attached to the interatrial septum on the left atrial side, cannot exclude soft tissue mass. Consider repeat echocardiogram after thoracentesis No previous study is available for comparison. Dr Bergman was informed about this finding. Dr Pushpa Gamble MD [facility] (Electronically Signed) Final Date: 20 Dec 2020 11:01 S
[2020-12-20 20:26] LABS: Glucose Point of Care 231 mg/dL (70-110)
[2020-12-20] MEDS: azithromycin 500 MG in sodium chloride 0.9% 250 ML 250 MG IV (20:45)
--- NOTE | 2020-12-20 21:27 | PM.PN ---
Subjective Subjective: Interval history: Today he is slightly better. Breathing somewhat easier. Comfortable on nasal cannula, although still with wheezing. Denies chest pain. Discussed with him results of chest CT with finding of pleural effusions, reduced EF/CHF with results of the echo. Vitals/I&O/Wt Last Vital Signs Temp 97.6 F 12/20/20 19:04 Pulse 90 12/20/20 19:04 Resp 20 H 12/20/20 19:04 BP 134/74 12/20/20 19:04 Pulse Ox 98 12/20/20 15:13 12/20/20 12/20/20 12/20/20 06:59 14:59 22:59 Intake Total 420 / 420 590 / 1010 Output Total 550 / 1150 1300 / 1300 Balance -550 / -850 -880 / -880 590 / -290 Weight last 48 hrs Weight 81.783 kg Weight 80.558 kg Weight 78.471 kg Physical Exam Const: COMMON NORMALS: no acute distress and patient oriented x3 GENERAL APPEARANCE: frail appearing OTHER: Frail-appearing, awake, alert, pleasant, cooperative gentleman. HENMT: COMMON NORMALS: oropharynx normal Neck/C-Spine: COMMON NORMALS: no JVD Resp: COMMON NORMALS: normal respiratory effort AUSCULTATION: wheezes and diminished lung sounds Cardio: COMMON NORMALS: no JVD, regular rate, regular rhythm, S1 normal heart sound present, S2 normal heart sound present and No murmurs present (Cardio) RATE: regular rate RHYTHM: regular rhythm HEART SOUNDS: S1 normal heart sound present and S2 normal heart sound present GI: COMMON NORMALS: Normal to inspection, nondistended, normoactive bowel sounds present, Soft to palpation and non-tender PALPATION: Yes Soft to palpation Extremity: COMMON NORMALS: no joint enlargement GENERAL: Yes edema (2+) Neuro: COMMON NORMALS: patient oriented x3 and moves all extremities Skin: COMMON NORMALS: no rashes or lesions noted GENERAL SKIN EXAM: no rashes or lesions noted OTHER: Multiple moles Urinary Catheter Management^: Suprapubic: Cath Placed During This Visit: no Reason for Continuing Indwelling Catheter: Chronic Indwelling Urinary Catheter on Admission Data : 12/20/20 04:20 12/20/20 04:20 Micro: Microbiology 12/20/20 15:06 Blood Culture - Preliminary Blood SPECIMEN COLLECTED 12/20/20 14:55 Blood Culture - Preliminary Blood SPECIMEN COLLECTED 12/19/20 21:30 Legionella Urinary Antigen - Final Urine Suprapubic Bacterial Antigens - Final A&P Assessment and plan (1) Acute respiratory failure with hypoxia: Multifactorial secondary to congestive heart failure, large pleural effusion, pneumonia, and sounds like COPD exacerbation, although he had denied having COPD. I do not see PFT in our system. Appears to be diuresing but somewhat sluggishly, in negative balance. Renal function so far steady. Continue current dose diuretic for now for acute systolic CHF. EF noted 43%. We will try to see if can drain pleural effusion possibly tomorrow. Discussed with him. Continue antibiotics for pneumonia, COPD exacerbation. Add breathing treatments for COPD exacerbation. Would benefit after recovering from additional assessment by pulmonary function testing. There are reports of COPD, however, patient and son deny knowledge of this condition. He is a former smoker. Additionally may benefit from sleep study. Reports history of snoring in the past. Status: Acute (2) DM type 2 (diabetes mellitus, type 2): SSI. Add Lantus. Status: Acute (3) Suprapubic catheter: Secondary to chronic urethral stricture, follows with urology. Status: Acute (4) Alkaline phosphatase elevation: No abodminal pain. Normal GGT. May benefit from additional assessment for possible lesion. Status: Acute (5) Cardiac anomaly: A filamentous mobile structure appears to be attached to the interatrial septum on the left atrial side, cannot exclude soft tissue mass. Consider repeat echocardiogram after thoracentesis Status: Acute Additional A&P Information Trivial pericardial effusion Attestations Medical Necessity Statement*: Continue admission for assessment management of hypoxic respiratory failure, pneumonia, CHF, large pleural effusion, additional assessment of intracardiac anomaly. Coding Level of Care Code Acute Finishing Room Supervisor for [facility] Fwd Diagnoses Acute respiratory failure with hypoxia J96.01 DM type 2 (diabetes mellitus, type 2) E11.9 Suprapubic catheter Z93.59 Alkaline phosphatase elevation R74.8 Cardiac anomaly Q24.9
[2020-12-20] MEDS: insulin glargine 100 units/1 mL 10 UNIT SUBCUT (22:09)
[2020-12-21] VITALS (17 sets, daily range): BP systolic 111–134; BP diastolic 51–74; PULSE 76–144; RESP 9–31; TEMP 36.3–36.6; O2SAT 90–99
[2020-12-21] MEDS: trazodone 50 mg Tablet PO (00:01)
[2020-12-21] MEDS: ipratropium-albuterol 3 mL Neb INHALATION ×4 (03:34→20:17)
[2020-12-21 03:42] LABS: Basophils % 0.3 %; Eosinophils % 0.3 %; Hemoglobin 12.3 g/dL (11.7-16.6); Lymphocytes % 10.6 %; Mean Corpuscular HGB Conc 31.5 g/dL (30.0-36.0); Mean Corpuscular Hemoglobin 30.4 pg (28.0-34.0); Mean Corpuscular Volume 96.5 fL (80-94); Mean Platelet Volume 10.6 fL (7.4-10.4); Monocytes # 0.8 10^3/uL (0.2-0.9); Neutrophils # 7.04 10^3/uL (1.8-7.7); Neutrophils % 78.6 %; Nucleated Red Blood Cells % 0 %; Platelet Count 207 10^3/cmm (130-400); Red Blood Count 4.04 10^6/uL (4.1-5.3); Red Cell Distribution Width 15.5 % (12.1-15.1)
[2020-12-21 04:05] LABS: Alanine Aminotransferase 6 U/L (0-41); Albumin Level 3.3 g/dL (3.5-5.2); Alkaline Phosphatase 428 IU/L (40-130); Aspartate Amino Transferase 12 U/L (0-40); Blood Urea Nitrogen 35 mg/dL (8-23); Calcium 8.1 mg/dL (8.5-10.5); Carbon Dioxide 26 mmol/L (22-29); Chloride 102 mmol/L (98-107); Globulin 2.9 g/dL (1.3-4.6); Glucose 58 mg/dL (65-115); Osmolality Calculated 296 mOsm/kg (285-295); Sodium 140 mmol/L (136-145); Total Bilirubin 0.2 mg/dL (0.15-1.2); Total Protein 6.2 g/dL (6.6-8.7)
--- NOTE | 2020-12-21 04:43 | ECG_ITS ---
[facility] Test Date: 2020-12-21 Pat Name: Jennifer Lanza Department: Room: 106 Gender: Male Director Corporate Communications: yovani SHEIKH: 1945 Requested By: Alec Rosas Order Number: [id number] Reading MD: Pushpa Gamble M.D. Measurements Intervals [place] Rate: 144 P: [place]: QRS: 5 QRSD: 75 T: 120 QT: 295 QTc: 458 Interpretive Statements ATRIAL FIBRILLATION WITH RAPID VENTRICULAR RESPONSE NONSPECIFIC ST & T-WAVE ABNORMALITY Compared to ECG 12/19/2020 22:41:00 Supraventricular rhythm no longer present T-wave abnormality still present Electronically Signed On 12-21-2020 20:44:23 CDT by Pushpa Gamble M.D. [email or web address].[email or web address] regional medical centerL[facility]em [email or web address].[email or web address]/store/[id number]
[2020-12-21] MEDS: metoprolol tartrate 1 mg/1 mL SDV 5 mL 5 MG IV (04:52)
--- NOTE | 2020-12-21 05:02 | PC.NURSE ---
Addendum entered by Jennifer Arshad RN 12/21/20 05:42: Dr Rosas updated of afib ranging in low 100s to 120s, no further orders at this time Original Note: pt heart rate increased up to 160's, pt resting in bed, states he feels ok, denies pain or palpatations, Dr Rosas notified, EKG states afib c rvr at rate of 144, 5 mg IV metoprolol given, heart rate currently in low 100's
[2020-12-21 05:27] LABS: Glucose Point of Care 57 mg/dL (70-110)
[2020-12-21 05:37] LABS: Glucose Point of Care 76 mg/dL (70-110)
--- NOTE | 2020-12-21 05:40 | PC.NURSE ---
blood glucose 58 per am labs, juice and ice cream given, blood glucose increased to 76, pt alert and oriented, continuing po intake
[2020-12-21] MEDS: FUROsemide 10 mg/mL SDV 4mL 40 MG IVP ×2 (05:51→18:32)
[2020-12-21 07:33] LABS: Glucose Point of Care 121 mg/dL (70-110)
[2020-12-21 11:27] LABS: Glucose Point of Care 239 mg/dL (70-110)
--- NOTE | 2020-12-21 11:33 | PC.NURSE ---
THORACENTESIS PROCEDURE DONE AT BEDSIDE BY DR. WHITE. CULTURES COLLECTED FOR CYTOLOGY.
[2020-12-21 11:36] LABS: Body Fluid Polynuclear #Cells 0.018; Body Fluid WBC 225 /uL; Monocytes # Body Fluid 0.207
[2020-12-21 11:38] LABS: Apprearance, Body Fluid CLEAR; Color, Body Fluid PALE YELLOW
[2020-12-21 11:39] LABS: Body Fluid Specific Gravity 1.015
[2020-12-21 11:40] LABS: PATH Referral YES
[2020-12-21 12:05] LABS: Albumin Body Fluid 1.7 g/dL; Fluid Alkaline Phos. 50 IU/L
[2020-12-21 12:06] LABS: Amylase Body Fluid 24 U/L; Cholesterol Body Fluid 31 mg/dL (0-200); LDH Body Fluid 109 U/L; Triglycerides Body Fluid 12 mg/dL (0-150); Uric Acid Body Fluid 7 mg/dL
[2020-12-21] MEDS: metoprolol tartrate 25 mg Tablet PO ×2 (12:12→20:50)
[2020-12-21 12:48] LABS: Total Protein Pleural Fluid 2.8 g/dL
--- NOTE | 2020-12-21 13:27 | PM.CONSULT ---
Providers/Reason For Consult Consulting Physican/Specialty*: Arden Coelho MD / Pulmonary Critical Care Reason for Consult*: Left pleural effusion Requesting Physcian: Alan Myers Attending Physician: Alan Myers Primary Care Provider: Leonard Navarro DO History of Present Illness History of Present Illness Patient to go home without leukocytosis normal CMP with anion gap 17 Jennifer Lanza is a 75 year old male with past medical history diabetes, chronic urethral stricture following remote trauma, with suprapubic catheter, remote smoker, with documented history of COPD (although patient and his son denied the condition), presented to hospital for gradual worsening shortness of breath for last 1 week especially on exertion also associated lower extremity edema. He was started on albuterol but it did not help. He complained of associated productive cough with yellowish sputum, denied chest pain, hemoptysis, myalgias, headache, nausea, vomiting, diarrhea. Completed his COVID-19 vaccination 2 doses at the end of November. He was saturating 86% on room air in an urgent care clinic and was sent to ER where he was hypoxic requiring 8 L by nasal cannula. ABG on 4 L 7.4 //. On admission patient is afebrile without leukocytosis, unremarkable CMP with normal renal function and anion gap 17. LFTs were normal including albumin. BNP is 9920 and rapid COVID-19 antigen in ER was negative. Chest x-ray with increased bilateral mixed reticulonodular interstitial and consolidative alveolar airspace disease presumed to be pneumonitis/pneumonia. Patient and son denied history of heart failure or CAD and reported he does not require oxygen at home. In ER patient received a dose of Lasix mg. he reports feeling slightly better after Lasix. CT chest on admission 12/19/2020 reported findings consistent with bilateral pneumonitis/pneumonia with associated interstitial edema/pulmonary edema with bilateral moderate volume pleural effusions. Subsequent echo 12/20/2020 reported diffuse hypokinesia of left ventricle with EF 42%. Mild biatrial enlargement. Mild to moderate tricuspid valve regurgitation. Mild mitral regurgitation. Trivial pericardial effusion. Large left-sided pleural effusion. Estimated PASP 31. A filamentous mobile structure appeared to be attached to the interatrial septum on the left atrial side cannot exclude soft tissue mass. Consider repeat echocardiogram after thoracentesis. Dr. Myers hospitalist covering the patient consulted pulmonary for thoracentesis of left large pleural effusion Today patient seen at bedside -Currently on 2 L nasal cannula saturating 98% and not in respiratory distress -Currently on Lasix 40 mg IV twice daily -Afebrile since admission and no leukocytosis -Labs and imaging reviewed Review of Systems General: Reports: 10 or more systems reviewed and unremarkable except in HPI and below Meds/Allergies Home Medications and Allergies Home Medications Medication Instructions Recorded Confirmed Last Taken Type glipizide 10 mg tablet 10 mg PO DAILY@0400 08/23/19 12/19/20 12/19/20 History metformin 1,000 mg tablet 1,000 mg PO BID@0400,1600 08/23/19 12/19/20 12/19/20 History cholecalciferol (vitamin D3) 1,250 1,250 mcg PO DAILY@0400 03/31/20 12/19/20 04/04/20 History mcg (50,000 unit) capsule albuterol sulfate 2 puff INHALATION QID PRN 12/19/20 12/19/20 12/19/20 History Allergies Allergy/AdvReac Type Severity Reaction Status Date / Time No Known Allergies Allergy Verified 12/19/20 17:05 Current Medications Current Medications Generic Name Dose Route Start Last Admin Trade Name Freq PRN Reason Stop Dose Admin Albuterol/Ipratropium 3 ml 12/21/20 03:00 12/21/20 09:16 Ipratropium-Albuterol 3 Ml Neb INHALATION 3 ml Q6H.RESPIRATORY BRIGID Administration Furosemide 40 mg 12/20/20 06:00 12/21/20 05:51 Furosemide 10 Mg/Ml Sdv 4ml IVP 40 mg Q12H BRIGID Administration Ceftriaxone Sodium 1,000 mg/ 50 mls @ 100 mls/hr 12/19/20 20:00 12/20/20 20:46 Sodium Chloride IV Infused Q24H BRIGID Infusion Protocol Azithromycin 500 mg/ Sodium 250 mls @ 250 mls/hr 12/19/20 21:00 12/20/20 22:11 Chloride IV Infused Q24H BRIGID Infusion Protocol Insulin Aspart 0 unit 12/19/20 21:00 12/21/20 12:12 Insulin Aspart 100 Unit/1 Ml SUBCUT 6 unit WM&BEDTIME BRIGID Administration Protocol Insulin Glargine 10 unit 12/20/20 22:00 12/20/20 22:09 Insulin Glargine 100 Units/1 Ml SUBCUT 10 unit BEDTIME BRIGID Administration Metoprolol Tartrate 25 mg 12/21/20 11:49 12/21/20 12:12 Metoprolol Tartrate 25 Mg Tablet PO 25 mg BID@0900,2100 BRIGID Administration PFSH Acute PFSH: Medical History Bladder spasm DM type 2 (diabetes mellitus, type 2) Post-traumatic bulbous urethral stricture Suprapubic catheter Urethral erosion Urinary retention Surgical History S/P dilation of urethra Scrotal abscess Family History Father , 84- Pneumonia No problems noted. Mother , 86 No problems noted. Social History Smoking and tobacco status: former smoker Quit status (tobacco): has quit using tobacco Former quit date comment: Reportedly quit years ago. Currently chews smokeless tobacco. Alcohol intake: never Substance/Drug Use: never Lives independently: No Household members: other Details: Son Marital status: / Current occupational status: retired Vitals/I&O/Wt Last Vital Signs Temp 97.9 F 12/21/20 11:14 Pulse 115 H 12/21/20 11:14 Resp 31 H 12/21/20 11:14 BP 119/62 12/21/20 11:14 Pulse Ox 99 12/21/20 11:14 12/20/20 12/21/20 12/21/20 22:59 06:59 14:59 Intake Total 1175 / 1595 360 / 360 Output Total 1450 / 2750 950 / 3700 1000 / 1000 Balance -275 / -1155 -950 / -2105 -640 / -640 Weight last 48 hrs Weight 172 lb 11.2 oz Weight 180 lb 4.8 oz Weight 177 lb 9.6 oz Weight 173 lb Physical Exam Narrative: EXAM NARRATIVE: General: alert, NAD, on 2 L nasal cannula HEENT: conj clear, EOMI, PERRL, mmm, Neck: supple, no meningismus Heme: no cervical LAP Pulmonary: Reduced breath sounds on bilateral bases Cardiovascular: rrr, nl s1s2, no mrg Abdomen: soft, nt, nd, no r/g, bs+ Extremities: pulses +, 1+ pedal edema, no c/c : no CVA tenderness Skin: intact, no rash MSK: no back or neck pain Neurologic: grossly intact Urinary Catheter Management^: Suprapubic: Cath Placed During This Visit: no Reason for Continuing Indwelling Catheter: Chronic Indwelling Urinary Catheter on Admission Data Labs: Other Labs: Laboratory Results WBC 9.0 10^3/uL (4.0- 10.0) 12/21/20 03:02 RBC 4.04 10^6/uL (4.1 -5.3) L 12/21/20 03:02 Hgb 12.3 g/dL (11.7-1 6.6) 12/21/20 03:02 Hct 39.0 % (42.0-52.0 ) L 12/21/20 03:02 MCV 96.5 fL (80-94) H 12/21/20 03:02 MCH 30.4 pg (28.0-34. 0) 12/21/20 03:02 MCHC 31.5 g/dL (30.0-3 6.0) 12/21/20 03:02 RDW 15.5 % (12.1-15.1 ) H 12/21/20 03:02 Plt Count 207 10^3/cmm (130 -400) 12/21/20 03:02 MPV 10.6 fL (7.4-10.4 ) H 12/21/20 03:02 Neut % (Auto) 78.6 % 12/21/20 03:02 Lymph % (Auto) 10.6 % 12/21/20 03:02 Jennings % (Auto) 9.0 % 12/21/20 03:02 Eos % (Auto) 0.3 % 12/21/20 03:02 Baso % (Auto) 0.3 % 12/21/20 03:02 Neut # (Auto) 7.04 10^3/uL (1.8 -7.7) 12/21/20 03:02 Lymph # (Auto) 1.0 10^3/uL (0.8- 4.8) 12/21/20 03:02 Jennings # (Auto) 0.8 10^3/uL (0.2- 0.9) 12/21/20 03:02 Eos # (Auto) 0.0 10^3/uL (0.0- 0.8) 12/21/20 03:02 Baso # (Auto) 0.0 10^3/uL (0.0- 0.1) 12/21/20 03:02 Nucleated RBC % (a uto) 0 % 12/21/20 03:02 Nucleated RBCs # 0.0 /100WBC 12/21/20 03:02 Differential Comme nt Yes 12/21/20 11:05 Specimen Type Arterial 12/19/20 16:26 Sample Site Radial, left 12/19/20 16:26 ABG pH 7.45 (7.35-7.45) 12/19/20 16:26 ABG pCO2 34.2 mmHg (35-45) L 12/19/20 16:26 ABG pO2 71.7 mmHg (80.0-1 00.0) L 12/19/20 16:26 ABG HCO3 23.7 mmol/L (22-2 6) 12/19/20 16:26 ABG Base Excess 0.2 mmol/L (-2.0- 2.0) 12/19/20 16:26 Jas Test Pos 12/19/20 16:26 Hematocrit 41.7 % (42-52) L 12/19/20 16:26 O2 Delivery Device Nc 12/19/20 16:26 O2 Liters/Min 4.0 % 12/19/20 16:26 FiO2 33.0 % 12/19/20 16:26 Employee Relations Consultant ID Cak 12/19/20 16:26 Sodium 140 mmol/L (136-1 45) 12/21/20 03:02 Potassium 4.0 mmol/L (3.5-5 .1) 12/21/20 03:02 Chloride 102 mmol/L (98-10 7) 12/21/20 03:02 Carbon Dioxide 26 mmol/L (22-29) 12/21/20 03:02 Anion Gap 16.0 (5-19) 12/21/20 03:02 BUN 35 mg/dL (8-23) H 12/21/20 03:02 Creatinine 1.4 mg/dL (0.7-1. 2) H 12/21/20 03:02 GFR Calculation Not Reportable 12/21/20 03:02 Glucose 58 mg/dL (65-115) L 12/21/20 03:02 POC Glucose 239 mg/dL (70-110 ) H 12/21/20 11:11 Calculated Osmolal ity 296 mOsm/kg (285- 295) H 12/21/20 03:02 Calcium 8.1 mg/dL (8.5-10 .5) L 12/21/20 03:02 Magnesium 2.0 mg/dL (1.7-2. 3) 12/21/20 03:02 Total Bilirubin 0.2 mg/dL (0.15-1 .2) 12/21/20 03:02 GGT 13 U/L (8-61) 12/19/20 20:30 AST 12 U/L (0-40) 12/21/20 03:02 ALT 6 U/L (0-41) 12/21/20 03:02 Alkaline Phosphata se 428 IU/L (40-130) H 12/21/20 03:02 Troponin T Baselin e 32 ng/L (0-15) H 12/19/20 16:45 Troponin T 120 Min vickie 37.98 ng/L (0-15) H 12/19/20 20:30 Delta Troponin T 5.98 ABS# (0-10) 12/19/20 20:30 Troponin T Hi Sens 6Hr 42.43 ng/L (0-15) H 12/19/20 23:40 Troponin T Hi Sens 6Hr Delta 10.43 ng/L (0-12) 12/19/20 23:40 C-Reactive Protein 7.1 mg/L (0.0-4.9 ) H 12/19/20 16:45 NT-Pro-B Natriuret Pep 9920 pg/mL (0-450 ) H 12/19/20 16:45 Total Protein 6.2 g/dL (6.6-8.7 ) L 12/21/20 03:02 Albumin 3.3 g/dL (3.5-5.2 ) L 12/21/20 03:02 Globulin 2.9 g/dL (1.3-4.6 ) 12/21/20 03:02 TSH 3.13 uIU/mL (0.27 -4.20) 12/19/20 20:30 Fluid Color Pale yellow 12/21/20 11:05 Fluid Appearance Clear 12/21/20 11:05 Fluid Specific Gra v 1.015 12/21/20 11:05 Fluid pH 9.0 12/21/20 11:05 Fluid WBC 225 /uL 12/21/20 11:05 Fluid RBC 1.000 10^3/uL 12/21/20 11:05 Fld Polynuclear WB Cs # 0.018 12/21/20 11:05 Fld Polynuclear WB Cs % 8.000 % 12/21/20 11:05 Fl Mononucl WBCs # (Auto) 0.207 12/21/20 11:05 Fl Mononuclear % A uto 92.000 % 12/21/20 11:05 Fluid Glucose 169.0 mg/dL 12/21/20 11:05 Fluid Albumin 1.7 g/dL 12/21/20 11:05 Fluid LDH 109 U/L 12/21/20 11:05 Fluid Amylase 24 U/L 12/21/20 11:05 Fluid Alk Phosphat ase 50 IU/L 12/21/20 11:05 Fluid Cholesterol 31 mg/dL (0-200) 12/21/20 11:05 Fluid Triglyceride s 12 mg/dL (0-150) 12/21/20 11:05 Fluid Uric Acid 7 mg/dL 12/21/20 11:05 Pleural Total Prot ein 2.8 g/dL 12/21/20 11:05 SARS-CoV-2 Ag (Rap id) Negative (Negati ve) 12/19/20 17:19 Impressions Chest X-Ray 12/19/20 16:33 IMPRESSION: Interval deterioration cardiopulmonary status with increased bilateral mixed reticulonodular interstitial and consolidated alveolar airspace disease of presumed active pneumonitis/pneumonia. Chest CT 12/19/20 18:11 IMPRESSION: 1. Findings most consistent with bilateral pneumonitis/pneumonia with associated interstitial edema/pulmonary edema as detailed in text. 2. Bilateral moderate volume pleural effusion. 3. Mediastinal and probable hilar lymphadenopathy. 4. Diffuse skeletal sclerosis either from diffuse osteoblastic skeletal metastasis or from renal osteodystrophy. Favor metastatic prostate cancer. 5. Evidence of antecedent granulomatous disease. 6. Cachexia. Radiation Dose CTDIVOL = (mGy): DLP = 687.18 (mGy-cm) Micro: Micro: Microbiology 12/21/20 11:05 Gram Stain - Final Pleural Fluid 12/20/20 15:06 Blood Culture - Pr eliminary Blood SPECIMEN [facility] 12/20/20 14:55 Blood Culture - Pr eliminary Blood SPECIMEN [facility] A&P Assessment and plan (1) Acute respiratory failure with hypoxia: Status: Acute (2) Transudative pleural effusion: Status: Acute (3) Congestive heart failure: Status: Acute Qualifiers: Heart failure chronicity: acute Heart failure type: unspecified Qualified Code(s): I50.9 - Heart failure, unspecified (4) Community acquired pneumonia: Status: Acute Qualifiers: Laterality: unspecified laterality Qualified Code(s): J18.9 - Pneumonia, unspecified organism (5) Suprapubic catheter: Status: Acute (6) Cardiac anomaly: Status: Acute (7) Atrial fibrillation: Status: Acute Qualifiers: Atrial fibrillation type: unspecified chronic Qualified Code(s): I48.20 - Chronic atrial fibrillation, unspecified (8) PHILIP (acute kidney injury): Status: Acute Assessment and plan and recommendations: #Acute respiratory failure with hypoxia secondary to bilateral pleural effusions due to systolic heart failure #Suspected left atrial soft tissue #Atrial fibrillation, #Suspected community-acquired pneumonia based on CT #Urethral stricture due to trauma long time ago-currently suprapubic catheter ##PHILIP-on Lasix #Questionable history of COPD -Echo 12/20/2020 showed mildly reduced left ventricular function ejection fraction 43%, biatrial enlargement, large left pleural effusion, trivial pericardial effusion, mild to moderate TVR, mild MVR, estimated PASP 31, filamentous mobile structure appears to be attached to the interatrial septum on the left atrial side -Currently on 2 L nasal cannula and saturating 98%, not in acute respiratory distress -S/p left thoracentesis 12/21/2020-1300 cc of straw-colored fluid aspirated; -We will start him back on Lovenox 40 mg twice daily for A. fib -Fluid analysis revealed transudate of effusion-likely secondary to systolic CHF -Continue Lasix 40 mg IV twice daily and monitor input and output, electrolytes -Currently on metoprolol 20 mg p.o. twice daily for A. fib RVR, continue cardiac monitoring and electrolytes -PHILIP-on Lasix, monitor input output and renal functions -Patient denied any history of COPD-currently on DuoNeb every 6 scheduled-changed to as needed -Afebrile, no leukocytosis, bacterial antigens and urine Legionella negative, cultures negative so far-currently on Rocephin and azithromycin-can DC antibiotics if procalcitonin is negative Recommendations conveyed to Dr. Myers hospitalist covering the patient and RN taking care of the patient. Medical condition and plan of management explained to the patient and he verbalized understanding and agreed with the plan. , Consult Attestations Medical Necessity Statement: S/p thoracentesis of large left pleural effusion today, optimize medication for new onset CHF and A. fib RVR. . Need cardiology evaluation for etiology of CHF Time Spent in Patient Care: Greater than 35 minutes (>than 50% of time spent in counselling and/or direct pt care on unit). The high probability of a clinically significant, sudden or life threatening deterioration of the patient's respiratory, cardiac, renal system(s) required my full and direct attention, intervention and personal management. The critical care time is as shown. This time is in addition to time spent performing any reported procedures but includes the following: [x] Data and vital sign review and interpretation [x] Patient assessment, examination and intervention [x] Documentation [x] Medication orders and management Critical Care Time: Critical Care Time (min): 45 Coding Level of Care Code New Pt Acute Sports Administrator for g Fwd Patient Type New History Comprehensive Exam Comprehensive Medical Decision Making High Complexity Diagnoses Acute respiratory failure with hypoxia J96.01 Transudative pleural effusion J94.8 Congestive heart failure I50.9 Heart failure chronicity: acute Heart failure type: unspecified Community acquired pneumonia J18.9 Laterality: unspecified laterality Suprapubic catheter Z93.59 Cardiac anomaly Q24.9 Atrial fibrillation I48.20 Atrial fibrillation type: unspecified chronic PHILIP (acute kidney injury) N17.9 Time Spent (min) 45
--- NOTE | 2020-12-21 13:53 | P.PCN_ITS ---
Procedure/Consent Time out: Time Out Performed: Yes Consent: Consent for Procedure: Consent obtained from patient Procedure Narrative: Pulmonary & Critical Care Medicine Procedure -left pleural effusion thoracentesis Procedure: Left pleural effusion thoracentesis Indication: Left pleural effusion Cable Television Access Coordinator(s): Arden Watkinsr Consent: Signed and placed in chart Anesthesia: 10 cc 1% lidocaine without epinephrine Description: Left pleural effusion was localized using ultrasound guidance and the site was marked accordingly. After chlorhexidine skin prep, area was draped in a sterile manner. 1% lidocaine was used for local anesthesia. Thoracentesis catheter was then inserted into the pleural space with aspiration of 1300 cc of pleural fluid. Appearance was straw-colored. Pleural fluid sent for various studies including cytology. Ultrasound guidance used: Yes. Image saved to ultrasound machine yes. EBL: 5 cc Complications: None Prior to thoracentesis large left pleural effusion Post left pleural thoracentesis-aspirated 1300 cc straw-colored fluid Acute Procedures Epistaxis Control: Time out performed: Yes
[2020-12-21 14:23] LABS: Procalcitonin 0.12 ng/mL (0-0.5)
[2020-12-21 16:10] LABS: Glucose Point of Care 158 mg/dL (70-110)
[2020-12-21] MEDS: enoxaparin 80 mg/0.8 mL Syringe SUBCUT (18:32)
[2020-12-21 19:47] LABS: Glucose Point of Care 255 mg/dL (70-110)
[2020-12-21] MEDS: cefTRIAXone 1,000 MG in sodium chloride 0.9% (plus) 50 ML 100 MG IV (20:03)
--- NOTE | 2020-12-21 20:42 | PM.PN ---
Subjective Subjective: Interval history: He is feeling better after thoracentesis. Breathing better. No chest pain. Discussed with him again regarding atrial fibrillation. Discussed regarding risk of stroke with his age and underlying comorbidities. Discussed strategies to reduce risk of stroke. He is agreeable to proceed with anticoagulation. For now with Lovenox, and subsequently he is agreeable to consider transition to oral medication. Vitals/I&O/Wt Last Vital Signs Temp 97.9 F 12/21/20 19:40 Pulse 81 12/21/20 20:20 Resp 16 12/21/20 20:17 BP 134/69 12/21/20 19:40 Pulse Ox 97 12/21/20 20:17 12/21/20 12/21/20 12/21/20 06:59 14:59 22:59 Intake Total 360 / 360 270 / 630 Output Total 950 / 3700 1000 / 1000 Balance -950 / -2105 -640 / -640 270 / -370 Weight last 48 hrs Weight 78.335 kg Weight 81.783 kg Physical Exam Const: COMMON NORMALS: no acute distress and patient oriented x3 GENERAL APPEARANCE: frail appearing OTHER: He is appearing somewhat stronger today. Breathing much easier. Pleasant, conversant. HENMT: COMMON NORMALS: oropharynx normal Neck/C-Spine: COMMON NORMALS: no JVD Resp: COMMON NORMALS: normal respiratory effort and clear to auscultation bilaterally AUSCULTATION: clear to auscultation bilaterally and no wheezes OTHER: Much improved air entry in left lower lobe. Cardio: COMMON NORMALS: no JVD, regular rate, regular rhythm, S1 normal heart sound present, S2 normal heart sound present and No murmurs present (Cardio) RATE: regular rate RHYTHM: regular rhythm HEART SOUNDS: S1 normal heart sound present and S2 normal heart sound present GI: COMMON NORMALS: Normal to inspection, nondistended, normoactive bowel sounds present, Soft to palpation and non-tender PALPATION: Yes Soft to palpation Extremity: COMMON NORMALS: no joint enlargement GENERAL: Yes edema (2+) Neuro: COMMON NORMALS: patient oriented x3 and moves all extremities Skin: COMMON NORMALS: no rashes or lesions noted GENERAL SKIN EXAM: no rashes or lesions noted OTHER: Multiple moles Urinary Catheter Management^: Suprapubic: Cath Placed During This Visit: no Reason for Continuing Indwelling Catheter: Chronic Indwelling Urinary Catheter on Admission Data : 12/21/20 03:02 12/21/20 03:02 Micro: Microbiology 12/20/20 15:06 Blood Culture - Preliminary Blood NEGATIVE TO DATE 12/20/20 14:55 Blood Culture - Preliminary Blood NEGATIVE TO DATE 12/21/20 11:05 Gram Stain - Final Pleural Fluid A&P Assessment and plan (1) Cardiac anomaly: Underwent thoracentesis. Repeat TTE for closer assessment. Depending on results consider discussion with cardiology again whether LUCIA may be needed in case structures not well visualized. A filamentous mobile structure appears to be attached to the interatrial septum on the left atrial side, cannot exclude soft tissue mass. Blood culture so far negative. Status: Acute (2) Congestive heart failure: New onset systolic CHF, decreased EF on TTE. Not found to have active NE. So far diuresing well, although with worsening renal function. Giving albumin today. Reassess volume status, renal function. Consider additional assessment for possibility of progressive coronary artery disease contributing to new CHF. Status: Acute Qualifiers: Heart failure chronicity: acute Heart failure type: unspecified Qualified Code(s): I50.9 - Heart failure, unspecified (3) Atrial fibrillation: New atrial fibrillation. Transient. Heart rates responded well to metoprolol, converted to sinus rhythm. Elevated risk of CVA. Discussed with him. He is agreeable on anticoagulation. For now started on Lovenox. For now renal dosing given acute kidney injury. Consider redosing once renal function more stable. Transition to oral anticoagulation on discharge. Consider stress testing for additional risk stratification for coronary disease. TSH normal. Electrolytes within normal limits. Does not appear to have significant valvular disease. Status: Acute Qualifiers: Atrial fibrillation type: unspecified chronic Qualified Code(s): I48.20 - Chronic atrial fibrillation, unspecified (4) Acute respiratory failure with hypoxia: Today he underwent thoracentesis with removal of 1300 mL straw-colored fluid. Appears transudative. He is overall feeling much better. Still requiring 2 L of oxygen by nasal cannula. Given COPD with exacerbation, producing yellow sputum for now continues on antibiotics, but as per discussion with pulmonology does not appear to have pneumonia. Procalcitonin obtained and appears normal. Would complete only short antibiotic course discontinuing after 2 more days. Stop azithromycin. In negative balance. Diuresed well, however, with worsening renal function. We will give him a dose of albumin today, reassess renal function. Recheck renal function, consider de-escalation of diuretic depending on volume status. Continue current dose diuretic for now for acute systolic CHF. EF noted 43%. Continue antibiotics for COPD exacerbation. breathing treatments Would benefit after recovering from additional assessment by pulmonary function testing. There are reports of COPD, however, patient and son deny knowledge of this condition. He is a former smoker. Additionally may benefit from sleep study. Reports history of snoring in the past. Status: Acute (5) DM type 2 (diabetes mellitus, type 2): SSI. Add Lantus. Status: Acute (6) Suprapubic catheter: Secondary to chronic urethral stricture, follows with urology. Status: Acute (7) Alkaline phosphatase elevation: No abodminal pain. Normal GGT. May benefit from additional assessment for possible lesion. Status: Acute (8) PHILIP (acute kidney injury): Worsening creatinine with diuresis up to 1.4. Received 25 g of 25% albumin. Reassess renal function. Adjust diuretic depending on volume status, renal function. Status: Acute Additional A&P Information Trivial pericardial effusion Attestations Medical Necessity Statement*: Continue admission for assessment management of filamentous ventricular structure after thoracentesis, treatment of hypoxic respiratory failure, COPD exacerbation, assessment and treatment of new onset CHF, new atrial fibrillation. Coding Level of Care Code Acute Cloth Tester Quality for [facility] Diagnoses Cardiac anomaly Q24.9 Congestive heart failure I50.9 Heart failure chronicity: acute Heart failure type: unspecified Atrial fibrillation I48.20 Atrial fibrillation type: unspecified chronic Acute respiratory failure with hypoxia J96.01 DM type 2 (diabetes mellitus, type 2) E11.9 Suprapubic catheter Z93.59 Alkaline phosphatase elevation R74.8 PHILIP (acute kidney injury) N17.9
[2020-12-21] MEDS: azithromycin 500 MG in sodium chloride 0.9% 250 ML 250 MG IV (20:52)
[2020-12-21] MEDS: insulin glargine 100 units/1 mL 10 UNIT SUBCUT (20:54)
[2020-12-22] VITALS (15 sets, daily range): BP systolic 138–155; BP diastolic 68–85; PULSE 70–101; RESP 7–21; TEMP 36.6–36.8; O2SAT 90–96
[2020-12-22 03:29] LABS: Glucose Point of Care 65 mg/dL (70-110)
[2020-12-22] MEDS: ipratropium-albuterol 3 mL Neb INHALATION ×4 (03:47→20:41)
[2020-12-22 05:14] LABS: Basophils % 0.5 %; Eosinophils # 0.1 10^3/uL (0.0-0.8); Eosinophils % 0.8 %; Hematocrit 40.8 % (42.0-52.0); Hemoglobin 12.5 g/dL (11.7-16.6); Lymphocytes # 0.9 10^3/uL (0.8-4.8); Lymphocytes % 13.4 %; Mean Corpuscular HGB Conc 30.6 g/dL (30.0-36.0); Mean Corpuscular Hemoglobin 30.2 pg (28.0-34.0); Mean Corpuscular Volume 98.6 fL (80-94); Mean Platelet Volume 10.5 fL (7.4-10.4); Monocytes # 0.5 10^3/uL (0.2-0.9); Neutrophils # 5.07 10^3/uL (1.8-7.7); Neutrophils % 76.4 %; Nucleated Red Blood Cells % 0 %; Platelet Count 190 10^3/cmm (130-400); Red Blood Count 4.14 10^6/uL (4.1-5.3); Red Cell Distribution Width 15.4 % (12.1-15.1); White Blood Count 6.6 10^3/uL (4.0-10.0)
[2020-12-22 05:34] LABS: Alanine Aminotransferase 6 U/L (0-41); Albumin Level 3.4 g/dL (3.5-5.2); Alkaline Phosphatase 377 IU/L (40-130); Anion Gap 14.5 (5-19); Aspartate Amino Transferase 10 U/L (0-40); Blood Urea Nitrogen 42 mg/dL (8-23); Calcium 8.1 mg/dL (8.5-10.5); Carbon Dioxide 27 mmol/L (22-29); Chloride 103 mmol/L (98-107); Globulin 2.9 g/dL (1.3-4.6); Glucose 102 mg/dL (65-115); Osmolality Calculated 301 mOsm/kg (285-295); Potassium 4.5 mmol/L (3.5-5.1); Sodium 140 mmol/L (136-145); Total Bilirubin 0.2 mg/dL (0.15-1.2); Total Protein 6.3 g/dL (6.6-8.7)
[2020-12-22] MEDS: FUROsemide 10 mg/mL SDV 4mL 40 MG IVP (05:55)
[2020-12-22 07:16] LABS: Glucose Point of Care 97 mg/dL (70-110)
[2020-12-22] MEDS: metoprolol tartrate 25 mg Tablet PO (08:36)
--- NOTE | 2020-12-22 09:07 | PC.SOCIAL ---
IMM Updated Updated pt on Pg 2 IMM. No questions voiced. Provided pt a copy. Signed, dated, & timed copy in chart.
[2020-12-22 10:59] LABS: Glucose Point of Care 218 mg/dL (70-110)
--- NOTE | 2020-12-22 11:50 | PM.PN ---
Subjective Subjective: Interval history: Hospital course appreciated. Examination patient sitting comfortably in bed. Denies any nausea vomiting, headache. Saturating well on room air. Denies any further shortness of breath, dizziness. Has been up walking around the hallways without any difficulty in breathing. Vitals/I&O/Wt Last Vital Signs Temp 97.8 F 12/22/20 10:41 Pulse 83 12/22/20 10:41 Resp 18 12/22/20 10:41 BP 150/80 12/22/20 10:41 Pulse Ox 93 12/22/20 10:41 12/21/20 12/22/20 12/22/20 22:59 06:59 14:59 Intake Total 905 / 1265 120 / 1385 360 / 360 Output Total 1250 / 2250 350 / 2600 Balance -345 / -985 -230 / -1215 360 / 360 Weight last 48 hrs Weight 78.063 kg Weight 78.335 kg Physical Exam Const: COMMON NORMALS: no acute distress and patient oriented x3 GENERAL APPEARANCE: frail appearing OTHER: He is appearing somewhat stronger today. Breathing much easier. Pleasant, conversant. HENMT: COMMON NORMALS: oropharynx normal Neck/C-Spine: COMMON NORMALS: no JVD Resp: COMMON NORMALS: normal respiratory effort and clear to auscultation bilaterally AUSCULTATION: clear to auscultation bilaterally and no wheezes OTHER: Much improved air entry in left lower lobe. Cardio: COMMON NORMALS: no JVD, regular rate, regular rhythm, S1 normal heart sound present, S2 normal heart sound present and No murmurs present (Cardio) RATE: regular rate RHYTHM: regular rhythm HEART SOUNDS: S1 normal heart sound present and S2 normal heart sound present GI: COMMON NORMALS: Normal to inspection, nondistended, normoactive bowel sounds present, Soft to palpation and non-tender PALPATION: Yes Soft to palpation Extremity: COMMON NORMALS: no joint enlargement GENERAL: Yes edema (2+) Neuro: COMMON NORMALS: patient oriented x3 and moves all extremities Skin: COMMON NORMALS: no rashes or lesions noted GENERAL SKIN EXAM: no rashes or lesions noted OTHER: Multiple moles Urinary Catheter Management^: Suprapubic: Cath Placed During This Visit: no Reason for Continuing Indwelling Catheter: Chronic Indwelling Urinary Catheter on Admission Data : 12/22/20 04:54 12/22/20 04:54 Micro: Microbiology 12/21/20 11:05 Gram Stain - Final Pleural Fluid Anaerobic Culture - Preliminary Body Fluid Culture - Preliminary 12/20/20 15:06 Blood Culture - Preliminary Blood NEGATIVE TO DATE 12/20/20 14:55 Blood Culture - Preliminary Blood NEGATIVE TO DATE A&P Assessment and plan (1) Congestive heart failure: New onset congestive heart failure. Echocardiogram shows an EF of 43% with diffuse hypokinesia, left ventricular, biatrial enlargement, mild to moderate TR, mild MR, trivial pleural, trivial pericardial effusion. Strict input output charting. Daily weights. Overall 3.5 L negative since admission. Lasix 40 mg oral daily. Given new onset CHF and new finding of low EF will help to rule out CAD. Stress test tomorrow morning. N.p.o. after midnight. Change metoprolol to Coreg for better blood pressure control and as patient is low EF. For now hold off on starting ALICIA inhibitor because of ongoing PHILIP. Most likely need to be started as an outpatient. Status: Acute Qualifiers: Heart failure chronicity: acute Heart failure type: unspecified Qualified Code(s): I50.9 - Heart failure, unspecified (2) Atrial fibrillation: Transient. Normal sinus rhythm at present. Angel vas score: 5 given age, history of hypertension, diabetes, CHF For now continue with Lovenox 80 mg daily as per creatinine clearance. Most likely patient would need oral anticoagulation as an outpatient. TSH normal. Electrolytes within normal limits. Does not appear to have significant valvular disease. Status: Acute Qualifiers: Atrial fibrillation type: unspecified chronic Qualified Code(s): I48.20 - Chronic atrial fibrillation, unspecified (3) Cardiac anomaly: Echocardiogram done prior in the admission shows A filamentous mobile structure appears to be attached to the interatrial septum on the left atrial side, cannot exclude soft tissue mass. Underwent thoracentesis. Repeat TTE for closer assessment. Depending on results consider discussion with cardiology again whether LUCIA may be needed in case structures not well visualized. Blood culture so far negative. Status: Acute (4) PHILIP (acute kidney injury): Monitor forCreatinine stable. Most likely secondary to overdiuresis. Medical reconciliation done for nephrotoxic drugs. Lasix dose decreased as above. We will continue to monitor. Status: Acute (5) DM type 2 (diabetes mellitus, type 2): Check HbA1c in a.m. For now continue with sliding scale Lantus. Status: Acute (6) Acute respiratory failure with hypoxia: Most likely secondary to CHF. Resolved. Currently on room air. We will continue to monitor and try to do home O2 eval prior to discharge. Status: Acute (7) Alkaline phosphatase elevation: No abodminal pain. Normal GGT. May benefit from additional assessment for possible lesion. Status: Acute (8) Suprapubic catheter: Secondary to chronic urethral stricture, follows with urology. Status: Acute Additional A&P Information Trivial pericardial effusion Attestations Medical Necessity Statement*: Requires further hospitalization for management of new onset congestive heart failure while CAD ruled out. Time Spent in Patient Care: Greater than 35 minutes (>than 50% of time spent in counselling and/or direct pt care on unit). Coding Level of Care Code Acute Marking Clerk for Kyle Anastasiad Diagnoses Congestive heart failure I50.9 Heart failure chronicity: acute Heart failure type: unspecified Atrial fibrillation I48.20 Atrial fibrillation type: unspecified chronic Cardiac anomaly Q24.9 PHILIP (acute kidney injury) N17.9 DM type 2 (diabetes mellitus, type 2) E11.9 Acute respiratory failure with hypoxia J96.01 Alkaline phosphatase elevation R74.8 Suprapubic catheter Z93.59
[2020-12-22 12:41] LABS: NT Pro B Type Natriuretic Pept 5479 pg/mL (0-450)
[2020-12-22 12:55] LABS: Iron 18 ug/dL (59-158); Percent Saturation 10.2 % (20-50); Total Iron Binding Capacity 176 mcg/dl; Unsaturated Iron Binding 158 ug/dL (112-347)
[2020-12-22] MEDS: magnesium hydroxide 30 mL UDC PO (15:40)
[2020-12-22 16:15] LABS: Glucose Point of Care 192 mg/dL (70-110)
[2020-12-22] MEDS: enoxaparin 80 mg/0.8 mL Syringe SUBCUT (18:09)
[2020-12-22] MEDS: carvedilol 6.25 mg Tablet PO (18:09)
[2020-12-22 19:58] LABS: Glucose Point of Care 196 mg/dL (70-110)
--- NOTE | 2020-12-22 20:45 | USCV_ITS ---
Jennifer Lanza Age: 75 Gender: M : 1945 Exam Date: 12/22/2020 06:38 Ordering Phys: Alan Myers MD Technologist: [place] [facility] [place]: POST THORA BP: 142 / 72 HR: 83 Rhythm: Sinus Technical Quality: Good MEASUREMENTS (Male / Female) Normal Values 2D ECHO LV Diastolic Diameter PLAX 5.4 cm 4.2 - 5.9 / 3.9 - 5.3 cm LV Systolic Diameter PLAX 4.8 cm IVS Diastolic Thickness 1.2 cm 0.6 - 1.0 / 0.6 - 0.9 cm IVS Systolic Thickness 1.4 cm LVPW Diastolic Thickness 1.1 cm 0.6 - 1.0 / 0.6 - 0.9 cm LVPW Systolic Thickness 1.3 cm LVOT Diameter 2.0 cm LV Ejection Fraction 2D Teich 24.6 % LV Ejection Fraction MOD 2C 31.9 % LV Ejection Fraction 2C AL 32.5 % LA Diameter 3.8 cm LA Width 4.3 cm LA Height 5.1 cm RA Width 5.7 cm RA Height 4.7 cm Aorta at Sinotubular Diameter 2.5 cm M-MODE LV Diastolic Diameter MM 5.3 cm 4.2 - 5.9 / 3.9 - 5.3 cm LV Systolic Diameter MM 4.1 cm LV Ejection Fraction MM Teich 45.9 % IVS Diastolic Thickness MM 0.8 cm 0.6 - 1.0 / 0.6 - 0.9 cm IVS Systolic Thickness MM 1.3 cm LVPW Diastolic Thickness MM 1.3 cm 0.6 - 1.0 / 0.6 - 0.9 cm LVPW Systolic Thickness MM 1.8 cm RV Diastolic Diameter MM 1.2 cm Aortic Annulus Diameter 3.8 cm LA Ao Ratio MM 1.0 MV E Point Septal Separation 1.9 cm FINDINGS Left Ventricle Mildly increased left ventricular cavity size. Moderately decreased left ventricular systolic function. Left ventricular ejection fraction is estimated at 35 %. Moderate global hypokinesis. Right Ventricle Normal right ventricular size and systolic function. Right Atrium Mildly increased right atrial size. Left Atrium Moderately increased left atrial size. Mitral Valve Moderately thickened mitral valve. No mitral valve stenosis. Mild to moderate mitral valve regurgitation. Aortic Valve Structurally normal trileaflet aortic valve. No aortic valve stenosis. No aortic valve regurgitation. Tricuspid Valve Structurally normal tricuspid valve. Pulmonic Valve Structurally normal pulmonic valve. No pulmonary valve stenosis. Trace pulmonary valve regurgitation. Pericardium Trivial pericardial effusion. Aorta Normal size aortic root and proximal ascending aorta. CONCLUSIONS 1. Mildly increased left ventricular cavity size. Moderately decreased left ventricular systolic function. Left ventricular ejection fraction is estimated at 35 %. Moderate global hypokinesis. 2. Normal right ventricular size and systolic function. 3. Mild to moderate mitral valve regurgitation. 4. Filamentous structure noted in left atrium on previous echo on 12/20/20 was not visualized in the study. Lisandra Valdez MD (Electronically Signed) Final Date: 22 Dec 2020 18:14 S
[2020-12-22] MEDS: cefTRIAXone 1,000 MG in sodium chloride 0.9% (plus) 50 ML 100 MG IV (21:52)
[2020-12-23] VITALS (16 sets, daily range): BP systolic 117–160; BP diastolic 55–82; PULSE 67–95; RESP 12–24; TEMP 36.6–36.7; O2SAT 83–99
--- NOTE | 2020-12-23 | US_ITS ---
WS: [id number] ULTRASOUND ABDOMEN CLINICAL INFORMATION: ELEV ALT COMPARISON: None. FINDINGS: Liver Size: Enlarged Craniocaudal length: 17.1 cm. Echogenicity: Normal. Surface nodularity: None. Mass (size and location): None. Bile ducts Intrahepatic ducts: Normal. Common bile duct diameter: 0.4 cm. Gallbladder Contracted but otherwise normal Gallstones: None. Gallbladder sludge: None. Gallbladder wall thickening: None. Pericholecystic fluid: None. Sonographic Cain sign: Absent. Pancreas Normal as visualized. Spleen Splenomegaly: None. Craniocaudal length: 12.7 cm. Right kidney: Normal. Hydronephrosis: None. Size: 10.1 cm x 4.8 cm x 3.3 cm Left kidney: Normal. Hydronephrosis: None. Size: 11.0 cm x 4.3 cm x 4.1 cm. Abdominal aorta and IVC Visualized portions are normal. Ascites: None. US/US abdomen complete* [id number] IMPRESSION: 1. Mild hepatomegaly and splenomegaly. 2. Small amount of perihepatic and perisplenic ascites. 3. Contracted gallbladder otherwise normal. Normal common bile duct. 4. Pancreas not well visualized. 5. No hydronephrosis in either kidney.
[2020-12-23] MEDS: ipratropium-albuterol 3 mL Neb INHALATION (02:02)
--- NOTE | 2020-12-23 06:38 | ECG_ITS ---
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 Interpretive Statements NAME OF STUDY: LEXISCAN SESTAMIBI STRESS TEST INDICATION: New low ef, PROCEDURE: At the baseline, the EKG revealed normal sinus rhythm with a poor R wave progression. Nonspecific T wave changes. The baseline blood pressure was 143/71 mm Hg with a heart rate of 75 beats/min. Lexiscan was infused over a period of 20 seconds. A total of 0.4 milligrams of Lexiscan was infused. The stress phase was continued for a total of 5 minutes. Heart rate at the end of the stress phase was 108 with a blood pressure 154/75. The EKG at the peak infusion revealed no significant changes occasional PVCs were noted.. Sestamibi was injected 20 seconds after the Lexiscan infusion. Blood pressure at the end of the recovery phase was 122/69 with a heart rate of 94 per minute. CONCLUSION: 1. No significant EKG changes with the LexiScan infusion 2. No LexiScan induced chest pain or cardiac arrhythmia 3. Normal blood pressure and heart rate response 4. Sestamibi/sestamibi perfusion scan pending; see separate report. Electronically Signed On 12-23-2020 16:58:36 CDT by Pushpa Gamble M.D. [id number]
[2020-12-23 06:41] LABS: Glucose Point of Care 215 mg/dL (70-110)
[2020-12-23 07:33] LABS: Basophils % 0.4 %; Eosinophils # 0.1 10^3/uL (0.0-0.8); Hematocrit 42.9 % (42.0-52.0); Hemoglobin 13.5 g/dL (11.7-16.6); Lymphocytes % 13.9 %; Mean Corpuscular HGB Conc 31.5 g/dL (30.0-36.0); Mean Corpuscular Hemoglobin 30.8 pg (28.0-34.0); Mean Corpuscular Volume 97.9 fL (80-94); Mean Platelet Volume 10.7 fL (7.4-10.4); Monocytes # 0.6 10^3/uL (0.2-0.9); Neutrophils % 75.8 %; Nucleated Red Blood Cells % 0 %; Platelet Count 199 10^3/cmm (130-400); Red Blood Count 4.38 10^6/uL (4.1-5.3); Red Cell Distribution Width 15.2 % (12.1-15.1)
[2020-12-23 07:44] LABS: Estmated Average Glucose 169; Hemoglobin A1C 7.5 % (4.0-6.0)
[2020-12-23 07:51] LABS: Chol HDL Ratio 2.62 mg/dL (1.0-5.00); Cholesterol 144 mg/dL (0-200); HDL Cholesterol 55 mg/dL (60-100); LDL Cholesterol Calculated 70 mg/dL (50-129); Triglycerides 94 mg/dL (0-150); VLDL Cholestrol Calculation 19 mg/dL (0-30)
[2020-12-23 07:53] LABS: Alanine Aminotransferase 7 U/L (0-41); Albumin Level 3.4 g/dL (3.5-5.2); Alkaline Phosphatase 450 IU/L (40-130); Anion Gap 15.5 (5-19); Aspartate Amino Transferase 14 U/L (0-40); Blood Urea Nitrogen 39 mg/dL (8-23); Calcium 8.3 mg/dL (8.5-10.5); Carbon Dioxide 25 mmol/L (22-29); Chloride 100 mmol/L (98-107); Globulin 3.3 g/dL (1.3-4.6); Glucose 203 mg/dL (65-115); Osmolality Calculated 297 mOsm/kg (285-295); Potassium 4.5 mmol/L (3.5-5.1); Sodium 136 mmol/L (136-145); Total Bilirubin 0.3 mg/dL (0.15-1.2); Total Protein 6.7 g/dL (6.6-8.7)
[2020-12-23] MEDS: ondansetron 2 mg/ML SDV 2 mL 4 MG IVP (07:57)
[2020-12-23] MEDS: regadenoson 0.4 Mg/5 ml Syringe IVP (07:58)
[2020-12-23] MEDS: FUROsemide 40 mg Tablet PO (09:17)
[2020-12-23] MEDS: carvedilol 6.25 mg Tablet PO ×2 (09:18→17:46)
[2020-12-23 09:32] LABS: Glucose Point of Care 213 mg/dL (70-110)
[2020-12-23 11:29] LABS: Glucose Point of Care 285 mg/dL (70-110)
--- NOTE | 2020-12-23 12:09 | NMCV_ITS ---
NM ashley perf SPECT r/s* [id number] Jennifer Lanza Age: 75 Gender: M : 1945 Exam Date: 12/23/2020 06:54 Ordering Phys: Joey Brewster MD Technologist: VIRGEN Brody Exam Location: [facility] Indications: DIFFICULTY BREATHING/ EDEMA STRESS TEST Please [facility] IMAGE PROTOCOL Rest/Stress 1 Lexiscan Day Radiopharmaceutical Dose (mCi) Administration Site Administered by Rest: Tc-99m 11.0 IV VIRGEN Lewis Sestamibi Stress:Tc-99m 32.6 IV VIRGEN Lewis Sestamibi Rest: 23-Dec-2020 60 Discovery 630 Stress: 23-Dec-2020 30 Discovery 630 0.4mg Lexiscan. Supine position only as patient was unable to lay prone. SPECT RESULTS Technical Quality: Excellent Raw Data Analysis: Normal Image Corrections: No attenuation or motion correction applied Summed Stress Score: 1 Summed Rest Score: 0 Summed Difference Score: 1 PERFUSION FINDINGS To moderate area of decreased tracer uptake was noted in the basal and mid inferolateral and apical lateral segments a very small area of reversibility was noted in the apical lateral region FUNCTIONAL RESULTS (calculated via Gated SPECT) Stress Image LV EF (%): 31 Stress EDV (mL):182 TID: 1.13 Stress ESV (mL):125 FUNCTIONAL FINDINGS: Segmental wall motion analysis revealing diffuse hypokinesia left ventricle with an ejection fraction of 31%. IMPRESSIONS Myocardial perfusion may revealing a small to moderate area of of decreased tracer uptake in the inferolateral and apical lateral region, with a subtle area of reversibility, suggestive of myocardial scarring in the distribution of the left circumflex artery with a subtle area of mati-infarction ischemia. 2. Moderately diminished LV ejection fraction of 31%. 3. LV wall motion analysis revealing diffuse hypokinesia of the left ventricle. 4. Moderately dilated LV cavity with an end-systolic volume of 125 mL 5. Slightly elevated transient ischemic dilatation ratio of 1.13 may suggest endocardial ischemia. Balanced ischemia cannot be excluded. Clinical correlation is recommended Dr Pushpa Gamble MD FAC (Electronically Signed) Final Date: 23 Dec 2020 16:42 S
[2020-12-23] MEDS: enoxaparin 80 mg/0.8 mL Syringe SUBCUT ×2 (12:34→23:50)
[2020-12-23] MEDS: spironolactone 25 mg Tablet PO (12:34)
[2020-12-23 16:15] LABS: Glucose Point of Care 195 mg/dL (70-110)
--- NOTE | 2020-12-23 16:20 | PM.DCS ---
Discharge Providers Date of Admission: 12/19/20 18:56 Date of Discharge: December 23, 2020 Attending Provider at Admission: Alec Rosas MD Attending Provider at Discharge: Joey Brewster MD Primary Care Provider: Leonard Navarro DO Diagnoses at Discharge Discharge Diagnosis (1) Congestive heart failure: Status: Acute Qualifiers: Heart failure chronicity: acute Heart failure type: unspecified Qualified Code(s): I50.9 - Heart failure, unspecified (2) Atrial fibrillation: Status: Acute Qualifiers: Atrial fibrillation type: unspecified chronic Qualified Code(s): I48.20 - Chronic atrial fibrillation, unspecified (3) Cardiac anomaly: Status: Acute (4) PHILIP (acute kidney injury): Status: Acute (5) DM type 2 (diabetes mellitus, type 2): Status: Acute (6) Acute respiratory failure with hypoxia: Status: Acute (7) Alkaline phosphatase elevation: Status: Acute (8) Suprapubic catheter: Status: Acute Reason for Visit Reason for Visit: DIFFICULTY BREATHING/ EDEMA Hospital Course Hospital Course Very pleasant 75-year-old gentleman with history of diabetes, chronic urethral stricture following remote trauma, with suprapubic catheter, remote smoker, with reported history of COPD, although he and his son deny the condition, has been gradually getting more short of breath over the past week, with dyspnea starting mostly on exertion, but recently progressing to addressed as well. This week he was also started on albuterol inhaler due to same, although says that it is barely effective. He denies fever or chills. He has been coughing, producing yellowish phlegm. He denies chest pain or pressure. Denies any hemoptysis. Denies muscle aches, headache, nausea vomiting or diarrhea. He completed his COVID-19 vaccination series at the end of November. In ER he is found hypoxic initially requiring 8 L of oxygen by nasal cannula. Reportedly earlier today in urgent care clinic he was saturating 86% on room air. Initially with sinus tachycardia 118, currently heart rates in the 80s, with oxygen saturations in the high 90s on 4 L nasal cannula. ABG on 4 L oxygen 7.45/34.2/71.7/23.7. He is afebrile, without leukocytosis. With unremarkable CBC. CMP with normal electrolytes, bicarbonate 23, anion gap 17.5, BUN 24, creatinine 1.2. Glucose 242. Elevation of alkaline phosphatase 503 with previously normal baseline, although without recent values since 2018. T bili, AST, LT normal. Total protein low normal 6.6, globulin 2.7, albumin 3.9. Baseline troponin is 32. CRP 7.1. BNP 9920. Rapid COVID-19 antigen obtained in ER was negative. Chest x-ray with increased bilateral mixed reticular nodular interstitial and consolidative alveolar airspace disease. Presumed pneumonitis/pneumonia. He and his son does not deny knowledge of prior heart failure or coronary artery disease. He does not normally require oxygen supplementation. In ER he received a dose of Lasix. CT scan of the chest is ordered and pending. He reports feeling slightly better already. In addition to his respiratory symptoms, he does note having orthopnea, having been needing to prop himself up to sleep. He denies any history of known sleep apnea, although states he used to snore when he used to be much heavier. He states he lost 68 pounds but a while ago back in 1992. He notes he has been getting lower extremity edema. He states his appetite has been good recently. To the hospital for management of CHF. Echocardiogram was done which shows a new EF of 35% with diffuse regional wall motion abnormality, mild biatrial enlargement, mild to moderate TR, mild MR, trivial pericardial effusion, large pleural effusion. In the first echocardiogram there was a possibility of filamentous mobile structure in the interatrial septum though could not be concluded because of large left pleural effusion. Patient was started on aggressive IV diuresis to which he responded well and was net 3 L negative by the day of discharge. During hospitalization because of aggressive diuresis he developed PHILIP which resolved after monitoring of diuretic therapy. Patient underwent thoracentesis in which 1.2 L of fluid was drained which was transudative. After which repeat echocardiogram was done which ruled out any mobile structure in atrium. During hospitalization he was also found to have atrial fibrillation. His rate was well controlled. After discussing regarding anticoagulation potential benefits and risk factors patient agreed to start the anticoagulation for now he is been discharged on Eliquis 5 mg twice daily. For new severe LV dysfunction patient underwent stress test to rule out CAD for which results are still awaited. Patient is been discharged in hemodynamically stable condition on medications for congestive heart failure with advised to follow-up with his primary care provider within next 4 to 7 days and with golf ball cover treater in 2 weeks for up titration of his CHF regimen. Home O2 evaluation has been done prior to discharge. Physical Exam Const: COMMON NORMALS: no acute distress and patient oriented x3 GENERAL APPEARANCE: frail appearing OTHER: He is appearing somewhat stronger today. Breathing much easier. Pleasant, conversant. HENMT: COMMON NORMALS: oropharynx normal Neck/C-Spine: COMMON NORMALS: no JVD Resp: COMMON NORMALS: normal respiratory effort and clear to auscultation bilaterally AUSCULTATION: clear to auscultation bilaterally and no wheezes OTHER: Much improved air entry in left lower lobe. Cardio: COMMON NORMALS: no JVD, regular rate, regular rhythm, S1 normal heart sound present, S2 normal heart sound present and No murmurs present (Cardio) RATE: regular rate RHYTHM: regular rhythm HEART SOUNDS: S1 normal heart sound present and S2 normal heart sound present GI: COMMON NORMALS: Normal to inspection, nondistended, normoactive bowel sounds present, Soft to palpation and non-tender PALPATION: Yes Soft to palpation Extremity: COMMON NORMALS: no joint enlargement GENERAL: Yes edema (2+) Neuro: COMMON NORMALS: patient oriented x3 and moves all extremities Skin: COMMON NORMALS: no rashes or lesions noted GENERAL SKIN EXAM: no rashes or lesions noted OTHER: Multiple moles Urinary Catheter Management^: Suprapubic: Cath Placed During This Visit: no Reason for Continuing Indwelling Catheter: Accurate Measurement of Urinary Output in Critically Ill Patients Discharge Data Data Completed and Pending: Completed Studies During Hospitalization Category Date Time Status CT chest wo con 7 1250 Urgent Cat Scan 12/19/20 18:11 Completed Sestamibi Stress Test Request Routi ne Exams 12/23/20 06:38 Draft XR chest 1V jorge ble [id number] Stat Exams 12/19/20 16:33 Completed CV echo complete* [id number] Routine Ultrasound 12/20/20 19:58 Completed CV echo limited 9 [id number] Routine Ultrasound 12/22/20 20:45 Completed US abdomen comple te* [id number] Routine Ultrasound 12/23/20 Completed Pending at discharge Category Date Time Status Sestamibi Stress Test Request Routi ne Exams 12/22/20 12:09 Stop Req Anaerobic Culture Routine Lab 12/21/20 11:05 Results Blood Culture Sta t Lab 12/20/20 15:06 Results Body Fluid Cultur e & GS Routine Lab 12/21/20 11:05 Results Complete Blood Co unt w/Auto AM LABS Lab 12/24/20 04:00 Ordered Comprehensive Met abolic Panel AM LA BS Lab 12/24/20 04:00 Ordered Sputum Culture an d Gram Stain Routi ne Lab 12/19/20 19:58 Uncollected NM ashley perf SPECT r/s* [id number] Routin e Nuc Med 12/23/20 12:09 Taken Cytology [PTH] Ro utine Pth 12/21/20 11:15 Received Labs from last 24 hours 12/23/20 12/23/20 12/23/20 15:56 11:19 09:14 WBC RBC Hgb Hct MCV MCH MCHC RDW Plt Count MPV Neut % (Auto) Lymph % (Auto) [place] % (Auto) Eos % (Auto) Baso % (Auto) Neut # (Auto) Lymph # (Auto) [place] # (Auto) Eos # (Auto) Baso # (Auto) Nucleated RBC % (a uto) Nucleated RBCs # Sodium Potassium Chloride Carbon Dioxide Anion Gap BUN Creatinine GFR Calculation Glucose POC Glucose 195 H 285 H 213 H Estimat Average Gl ucose Hemoglobin A1c Calculated Osmolal ity Calcium Total Bilirubin AST ALT Alkaline Phosphata se Total Protein Albumin Globulin Triglycerides Cholesterol LDL Cholesterol, C alc Total VLDL Cholest bryn HDL Cholesterol Cholesterol/HDL Ra annabelle 12/23/20 12/23/20 12/23/20 06:53 06:53 06:53 WBC RBC Hgb Hct MCV MCH MCHC RDW Plt Count MPV Neut % (Auto) Lymph % (Auto) [place] % (Auto) Eos % (Auto) Baso % (Auto) Neut # (Auto) Lymph # (Auto) [place] # (Auto) Eos # (Auto) Baso # (Auto) Nucleated RBC % (a uto) Nucleated RBCs # Sodium 136 Potassium 4.5 Chloride 100 Carbon Dioxide 25 Anion Gap 15.5 BUN 39 H Creatinine 1.1 GFR Calculation Not Reportable Glucose 203 H POC Glucose Estimat Average Gl ucose 169 Hemoglobin A1c 7.5 H Calculated Osmolal ity 297 H Calcium 8.3 L Total Bilirubin 0.3 AST 14 ALT 7 Alkaline Phosphata se 450 H Total Protein 6.7 Albumin 3.4 L Globulin 3.3 Triglycerides 94 Cholesterol 144 LDL Cholesterol, C alc 70 Total VLDL Cholest bryn 19 HDL Cholesterol 55 L Cholesterol/HDL Ra annabelle 2.62 12/23/20 12/23/20 12/22/20 06:53 06:34 19:42 WBC 7.0 RBC 4.38 Hgb 13.5 Hct 42.9 MCV 97.9 H MCH 30.8 MCHC 31.5 RDW 15.2 H Plt Count 199 MPV 10.7 H Neut % (Auto) 75.8 Lymph % (Auto) 13.9 [place] % (Auto) 8.0 Eos % (Auto) 1.0 Baso % (Auto) 0.4 Neut # (Auto) 5.30 Lymph # (Auto) 1.0 [place] # (Auto) 0.6 Eos # (Auto) 0.1 Baso # (Auto) 0.0 Nucleated RBC % (a uto) 0 Nucleated RBCs # 0.0 Sodium Potassium Chloride Carbon Dioxide Anion Gap BUN Creatinine GFR Calculation Glucose POC Glucose 215 H 196 H Estimat Average Gl ucose Hemoglobin A1c Calculated Osmolal ity Calcium Total Bilirubin AST ALT Alkaline Phosphata se Total Protein Albumin Globulin Triglycerides Cholesterol LDL Cholesterol, C alc Total VLDL Cholest bryn HDL Cholesterol Cholesterol/HDL Ra annabelle Addt'l Data from Hospital Stay: Laboratory Results WBC 7.0 10^3/uL (4.0- 10.0) 12/23/20 06:53 RBC 4.38 10^6/uL (4.1 -5.3) 12/23/20 06:53 Hgb 13.5 g/dL (11.7-1 6.6) 12/23/20 06:53 Hct 42.9 % (42.0-52.0 ) 12/23/20 06:53 MCV 97.9 fL (80-94) H 12/23/20 06:53 MCH 30.8 pg (28.0-34. 0) 12/23/20 06:53 MCHC 31.5 g/dL (30.0-3 6.0) 12/23/20 06:53 RDW 15.2 % (12.1-15.1 ) H 12/23/20 06:53 Plt Count 199 10^3/cmm (130 -400) 12/23/20 06:53 MPV 10.7 fL (7.4-10.4 ) H 12/23/20 06:53 Neut % (Auto) 75.8 % 12/23/20 06:53 Lymph % (Auto) 13.9 % 12/23/20 06:53 [place] % (Auto) 8.0 % 12/23/20 06:53 Eos % (Auto) 1.0 % 12/23/20 06:53 Baso % (Auto) 0.4 % 12/23/20 06:53 Neut # (Auto) 5.30 10^3/uL (1.8 -7.7) 12/23/20 06:53 Lymph # (Auto) 1.0 10^3/uL (0.8- 4.8) 12/23/20 06:53 [place] # (Auto) 0.6 10^3/uL (0.2- 0.9) 12/23/20 06:53 Eos # (Auto) 0.1 10^3/uL (0.0- 0.8) 12/23/20 06:53 Baso # (Auto) 0.0 10^3/uL (0.0- 0.1) 12/23/20 06:53 Nucleated RBC % (a uto) 0 % 12/23/20 06:53 Nucleated RBCs # 0.0 /100WBC 12/23/20 06:53 Differential Comme nt Yes 12/21/20 11:05 Specimen Type Arterial 12/19/20 16:26 Sample Site Radial, left 12/19/20 16:26 ABG pH 7.45 (7.35-7.45) 12/19/20 16:26 ABG pCO2 34.2 mmHg (35-45) L 12/19/20 16:26 ABG pO2 71.7 mmHg (80.0-1 00.0) L 12/19/20 16:26 ABG HCO3 23.7 mmol/L (22-2 6) 12/19/20 16:26 ABG Base Excess 0.2 mmol/L (-2.0- 2.0) 12/19/20 16:26 Jas Test Pos 12/19/20 16:26 Hematocrit 41.7 % (42-52) L 12/19/20 16:26 O2 Delivery Device Nc 12/19/20 16:26 O2 Liters/Min 4.0 % 12/19/20 16:26 FiO2 33.0 % 12/19/20 16:26 Cardiac Rehabilitation Specialist ID Cak 12/19/20 16:26 Sodium 136 mmol/L (136-1 45) 12/23/20 06:53 Potassium 4.5 mmol/L (3.5-5 .1) 12/23/20 06:53 Chloride 100 mmol/L (98-10 7) 12/23/20 06:53 Carbon Dioxide 25 mmol/L (22-29) 12/23/20 06:53 Anion Gap 15.5 (5-19) 12/23/20 06:53 BUN 39 mg/dL (8-23) H 12/23/20 06:53 Creatinine 1.1 mg/dL (0.7-1. 2) 12/23/20 06:53 GFR Calculation Not Reportable 12/23/20 06:53 Glucose 203 mg/dL (65-115 ) H 12/23/20 06:53 POC Glucose 195 mg/dL (70-110 ) H 12/23/20 15:56 Estimat Average Gl ucose 169 12/23/20 06:53 Hemoglobin A1c 7.5 % (4.0-6.0) H 12/23/20 06:53 Calculated Osmolal ity 297 mOsm/kg (285- 295) H 12/23/20 06:53 Calcium 8.3 mg/dL (8.5-10 .5) L 12/23/20 06:53 Magnesium 2.0 mg/dL (1.7-2. 3) 12/21/20 03:02 Iron 18 ug/dL (59-158) L 12/22/20 04:54 TIBC 176 mcg/dl 12/22/20 04:54 % Saturation 10.2 % (20-50) L 12/22/20 04:54 Unsat Iron Binding 158 ug/dL (112-34 7) 12/22/20 04:54 Total Bilirubin 0.3 mg/dL (0.15-1 .2) 12/23/20 06:53 GGT 13 U/L (8-61) 12/19/20 20:30 AST 14 U/L (0-40) 12/23/20 06:53 ALT 7 U/L (0-41) 12/23/20 06:53 Alkaline Phosphata se 450 IU/L (40-130) H 12/23/20 06:53 Troponin T Baselin e 32 ng/L (0-15) H 12/19/20 16:45 Troponin T 120 Min vickie 37.98 ng/L (0-15) H 12/19/20 20:30 Delta Troponin T 5.98 ABS# (0-10) 12/19/20 20:30 Troponin T Hi Sens 6Hr 42.43 ng/L (0-15) H 12/19/20 23:40 Troponin T Hi Sens 6Hr Delta 10.43 ng/L (0-12) 12/19/20 23:40 C-Reactive Protein 7.1 mg/L (0.0-4.9 ) H 12/19/20 16:45 NT-Pro-B Natriuret Pep 5479 pg/mL (0-450 ) H 12/22/20 04:54 Total Protein 6.7 g/dL (6.6-8.7 ) 12/23/20 06:53 Albumin 3.4 g/dL (3.5-5.2 ) L 12/23/20 06:53 Globulin 3.3 g/dL (1.3-4.6 ) 12/23/20 06:53 Triglycerides 94 mg/dL (0-150) 12/23/20 06:53 Cholesterol 144 mg/dL (0-200) 12/23/20 06:53 LDL Cholesterol, C alc 70 mg/dL (50-129) 12/23/20 06:53 Total VLDL Cholest bryn 19 mg/dL (0-30) 12/23/20 06:53 HDL Cholesterol 55 mg/dL (60-100) L 12/23/20 06:53 Cholesterol/HDL Ra annabelle 2.62 mg/dL (1.0-5 .00) 12/23/20 06:53 Procalcitonin 0.12 ng/mL (0-0.5 ) 12/21/20 03:02 TSH 3.13 uIU/mL (0.27 -4.20) 12/19/20 20:30 Fluid Color Pale yellow 12/21/20 11:05 Fluid Appearance Clear 12/21/20 11:05 Fluid Specific Gra v 1.015 12/21/20 11:05 Fluid pH 9.0 12/21/20 11:05 Fluid WBC 225 /uL 12/21/20 11:05 Fluid RBC 1.000 10^3/uL 12/21/20 11:05 Fld Polynuclear WB Cs # 0.018 12/21/20 11:05 Fld Polynuclear WB Cs % 8.000 % 12/21/20 11:05 Fl Mononucl WBCs # (Auto) 0.207 12/21/20 11:05 Fl Mononuclear % A uto 92.000 % 12/21/20 11:05 Fluid Glucose 169.0 mg/dL 12/21/20 11:05 Fluid Albumin 1.7 g/dL 12/21/20 11:05 Fluid LDH 109 U/L 12/21/20 11:05 Fluid Amylase 24 U/L 12/21/20 11:05 Fluid Alk Phosphat ase 50 IU/L 12/21/20 11:05 Fluid Cholesterol 31 mg/dL (0-200) 12/21/20 11:05 Fluid Triglyceride s 12 mg/dL (0-150) 12/21/20 11:05 Fluid Uric Acid 7 mg/dL 12/21/20 11:05 Pleural Total Prot ein 2.8 g/dL 12/21/20 11:05 SARS-CoV-2 Ag (Rap id) Negative (Negati ve) 12/19/20 17:19 Impressions Chest X-Ray 12/19/20 16:33 IMPRESSION: Interval deterioration cardiopulmonary status with increased bilateral mixed reticulonodular interstitial and consolidated alveolar airspace disease of presumed active pneumonitis/pneumonia. Chest CT 12/19/20 18:11 IMPRESSION: 1. Findings most consistent with bilateral pneumonitis/pneumonia with associated interstitial edema/pulmonary edema as detailed in text. 2. Bilateral moderate volume pleural effusion. 3. Mediastinal and probable hilar lymphadenopathy. 4. Diffuse skeletal sclerosis either from diffuse osteoblastic skeletal metastasis or from renal osteodystrophy. Favor metastatic prostate cancer. 5. Evidence of antecedent granulomatous disease. 6. Cachexia. Radiation Dose CTDIVOL = (mGy): DLP = 687.18 (mGy-cm) Abdomen Ultrasound 12/23/20 00:00 IMPRESSION: 1. Mild hepatomegaly and splenomegaly. 2. Small amount of perihepatic and perisplenic ascites. 3. Contracted gallbladder otherwise normal. Normal common bile duct. 4. Pancreas not well visualized. 5. No hydronephrosis in either kidney. Microbiology 12/21/20 11:05 Pleural Fluid Gram Stain - Final 12/21/20 11:05 Pleural Fluid Anaerobic Culture - Preliminary 12/21/20 11:05 Pleural Fluid Body Fluid Culture - Preliminary 12/20/20 15:06 Blood Blood Culture - Preliminary NEGATIVE TO DATE 12/20/20 14:55 Blood Blood Culture - Preliminary NEGATIVE TO DATE 12/19/20 21:30 Urine Suprapubic Legionella Urinary Antigen - Final 12/19/20 21:30 Urine Suprapubic Bacterial Antigens - Final Vitals: Last Vital Signs Temp 97.8 F 12/23/20 15:57 Pulse 77 12/23/20 15:57 Resp 18 12/23/20 15:57 BP 141/69 12/23/20 15:57 Pulse Ox 98 12/23/20 15:57 Discharge Plan Discharge Patient Disposition: Home Condition: Stable Prescriptions: New furosemide 40 mg Tablet 40 mg PO DAILY@0800 30 Days Qty: 30 RF: 0 carvedilol 6.25 mg Tablet 6.25 mg PO BID 30 Days Qty: 60 RF: 0 spironolactone 25 mg Tablet 12.5 mg PO DAILY Qty: 30 RF: 0 lisinopril 5 mg Tablet 5 mg PO DAILY 30 Days Qty: 30 RF: 0 Eliquis 5 mg tablet 5 mg PO Q12H Qty: 60 RF: 0 Continued metformin 1,000 mg tablet 1,000 mg PO BID@0400,1600 RF: 0 glipizide 10 mg tablet 10 mg PO DAILY@0400 RF: 0 cholecalciferol (vitamin D3) 1,250 mcg (50,000 unit) capsule 1,250 mcg PO DAILY@0400 RF: 0 albuterol sulfate 90 mcg/actuation Hfa Aerosol Inhaler 2 puff INHALATION QID PRN (Reason: Shortness Of Breath) RF: 0 Other Ambulatory Orders: DME: Oxygen (Order) Location: None Selected Ordered By: Joey Brewster Referrals: Leonard Navarro DO [Primary Care Provider] - 4-7 days (Repeat BMP) Lisandra Valdez MD [Physician] - 2 weeks Discharge Diet: Cardiac Discharge Activity: Resume usual activity Patient Instructions: Opioid Safety Activity Restrictions/Additional Instructions: Please follow-up with your primary care provider within next 4 to 7 days for repeat BMP. Please follow-up with cardiology within next 2 weeks. Please maintain a blood pressure diary at home and follow-up with your primary care provider and golf ball cover treater for further titration of medications. Fluid restriction up to 2000 cc /day. Discharge Attestations Time Spent in Discharge Care*: greater than 30 min Specific Discharge Activities: educating patient, educating and/or supporting family/caregiver, discussing with pcp/other providers, discussing with case planner/social workers/dc planners, documenting/other paperwork and evaluating patient/reviewing data Status at Discharge: Cognitive status at discharge: cognitively intact, Behavioral status at discharge: cooperative, Functional status at discharge: independent ambulation Overall status at discharge: patient is back to baseline Quality Metrics Clinical Quality Measures During this hospital stay, did patient experience: None Coding Level of Care Code Acute Chg FW DC note Exam Comprehensive Diagnoses Congestive heart failure I50.9 Heart failure chronicity: acute Heart failure type: unspecified Atrial fibrillation I48.20 Atrial fibrillation type: unspecified chronic Cardiac anomaly Q24.9 PHILIP (acute kidney injury) N17.9 DM type 2 (diabetes mellitus, type 2) E11.9 Acute respiratory failure with hypoxia J96.01 Alkaline phosphatase elevation R74.8 Suprapubic catheter Z93.59
[2020-12-23] MEDS: aspirin 81 mg EC Tablet PO (17:46)
--- NOTE | 2020-12-23 19:35 | W.PM.OPSUD ---
Surgery/Procedure H&P Update DATE OF PROCEDURE: December 23, 2020 DATE H&P PERFORMED: 03/31/20 PREOP DIAGNOSIS: Chronic urinary retention with urethral erosion Related Problem List Diagnoses (1) DM type 2 (diabetes mellitus, type 2): (2) Alkaline phosphatase elevation: (3) Atrial fibrillation: Qualifiers: Atrial fibrillation type: unspecified chronic Qualified Code(s): I48.20 - Chronic atrial fibrillation, unspecified (4) PHILIP (acute kidney injury): (5) Congestive heart failure: Qualifiers: Heart failure chronicity: acute Heart failure type: unspecified Qualified Code(s): I50.9 - Heart failure, unspecified
[2020-12-23] MEDS: insulin glargine 100 units/1 mL 10 UNIT SUBCUT (20:42)
[2020-12-23] MEDS: cefTRIAXone 1,000 MG in sodium chloride 0.9% (plus) 50 ML 100 MG IV (20:43)
[2020-12-23] MEDS: atorvastatin 40 mg Tablet 20 MG PO (20:43)
[2020-12-23 20:52] LABS: Glucose Point of Care 242 mg/dL (70-110)
--- NOTE | 2020-12-23 21:00 | P.CONIM_ITS ---
Providers/Reason For Consult Consulting Physican/Specialty*: Geraldine Gamble MD/cardiology Reason for Consult*: Patient with abnormal myocardial perfusion imaging, LV dysfunction Attending Physician: Joey Brewster MD Primary Care Provider: Leonard Navarro DO History of Present Illness History of Present Illness Jennifer Lanza is a 75 year old male, is admitted to hospital with complaints of progressive shortness of breath. He was found to have a large pleural effusion. He also was found to have diffuse hypokinesia of the left ventricle with a diminished ejection fraction of 35%. He had a myocardial perfusion imaging today which revealed ejection fraction of around 31%. He had small to moderate area of decreased tracer uptake in inferolateral wall region with a subtle area of ischemia in the apical lateral region, suggestive of myocardial scarring with fusion of the left circumflex artery with a small area of mati-infarction ischemia. Cardiology consult is requested for further cardiac evaluation recommendations Denies any chest pain or chest tightness. His shortness of breath is improved since hospital admission. He had a thoracentesis taking about 1.5 l of fluid. Denies any fever or chills. No cough. No previous history for coronary disease, myocardial infarction or congestive heart failure. He has a history of high blood pressure and diabetes for the last many years. No family history for heart disease. Patient is known to have high blood pressure, dyslipidemia and COPD. His shortness of breath is significant improved, since the hospital admission. Review of Systems Narrative: CONSTITUTIONAL: No fever or chills. Aggressive shortness of breath and weakness EYES: No blurring of vision or other visual disturbances lately. ENT: No hoarseness of voice, auditory disturbances or sore throat. CARDIOVASCULAR: As mentioned above. RESPIRATORY: Occasional dry cough GASTROINTESTINAL: No hematemesis or melena. GENITOURINARY: No dysuria or hematuria. INTEGUMENTARY: No skin rashes or history of skin cancer. NEURO: No transient ischemic attacks or amaurosis. PSYCHIATRIC: No history of psychosis or major depression. HEMATOLOGIC: No bleeding disorders or significant anemia. ENDOCRINE: No history of polyuria or polydipsia. MUSCULOSKELETAL: Patient has chronic arthritis of the hip joints. Moves around with a cane or walker ALLERGY/IMMUNOLOGY: As mentioned above. Meds/Allergies Home Medications and Allergies Home Medications Medication Instructions Recorded Confirmed Last Taken Type glipizide 10 mg tablet 10 mg PO DAILY@0400 08/23/19 12/19/20 12/19/20 History metformin 1,000 mg tablet 1,000 mg PO BID@0400,1600 08/23/19 12/19/20 12/19/20 History cholecalciferol (vitamin D3) 1,250 1,250 mcg PO DAILY@0400 03/31/20 12/19/20 04/04/20 History mcg (50,000 unit) capsule albuterol sulfate 2 puff INHALATION QID PRN 12/19/20 12/19/20 12/19/20 History carvedilol 6.25 mg PO BID 30 Days #60 tab 12/23/20 Unknown Rx furosemide 40 mg PO DAILY@0800 30 Days #30 tab 12/23/20 Unknown Rx lisinopril 5 mg PO DAILY 30 Days #30 tab 12/23/20 Unknown Rx spironolactone 12.5 mg PO DAILY #30 tab 12/23/20 Unknown Rx Allergies Allergy/AdvReac Type Severity Reaction Status Date / Time No Known Allergies Allergy Verified 12/19/20 17:05 Current Medications Current Medications Generic Name Dose Route Start Last Admin Trade Name Freq PRN Reason Stop Dose Admin Albuterol/Ipratropium 3 ml 12/21/20 03:00 12/23/20 20:32 Ipratropium-Albuterol 3 Ml Neb INHALATION Not Given Q6H.RESPIRATORY BRIGID Aspirin 81 mg 12/23/20 17:30 12/23/20 17:46 Aspirin 81 Mg Ec Tablet PO 81 mg DAILY BRIGID Administration Atorvastatin Calcium 20 mg 12/23/20 21:00 12/23/20 20:43 Atorvastatin 40 Mg Tablet PO 20 mg BEDTIME BRIGID Administration Carvedilol 6.25 mg 12/22/20 18:00 12/23/20 17:46 Carvedilol 6.25 Mg Tablet PO 6.25 mg BID BRIGID Administration Enoxaparin Sodium 80 mg 12/23/20 12:00 12/23/20 12:34 Enoxaparin 80 Mg/0.8 Ml Syringe SUBCUT 80 mg Q12H BRIGID Administration Furosemide 40 mg 12/23/20 08:00 12/23/20 09:17 Furosemide 40 Mg Tablet PO 40 mg DAILY@0800 BRIGID Administration Ceftriaxone Sodium 1,000 mg/ 50 mls @ 100 mls/hr 12/19/20 20:00 12/23/20 20:43 Sodium Chloride IV 12/24/20 19:59 100 mls/hr Q24H BRIGID Administration Protocol Insulin Aspart 0 unit 12/19/20 21:00 12/23/20 20:41 Insulin Aspart 100 Unit/1 Ml SUBCUT 6 unit WM&BEDTIME BRIGID Administration Protocol Insulin Glargine 10 unit 12/20/20 22:00 12/23/20 20:42 Insulin Glargine 100 Units/1 Ml SUBCUT 10 unit BEDTIME BRIGID Administration Magnesium Hydroxide 30 ml 12/22/20 15:04 12/22/20 15:40 Magnesium Hydroxide 30 Ml Udc PO 30 ml DAILY PRN Administration CONSTIPATION Ondansetron HCl 4 mg 12/23/20 06:33 12/23/20 07:57 Ondansetron 2 Mg/Ml Sdv 2 Ml IVP 4 mg Q2M PRN Administration NAUSEA Spironolactone 25 mg 12/23/20 11:45 12/23/20 12:34 Spironolactone 25 Mg Tablet PO 25 mg DAILY BRIGID Administration PFSH Acute PFSH: Medical History Bladder spasm DM type 2 (diabetes mellitus, type 2) Post-traumatic bulbous urethral stricture Suprapubic catheter Urethral erosion Urinary retention Surgical History S/P dilation of urethra Scrotal abscess Family History Father , 84- Pneumonia No problems noted. Mother , 86 No problems noted. Social History Smoking and tobacco status: former smoker Quit status (tobacco): has quit using tobacco Former quit date comment: Reportedly quit years ago. Currently chews smokeless tobacco. Alcohol intake: never Substance/Drug Use: never Lives independently: No Household members: other Details: Son Marital status: / Current occupational status: retired Vitals/I&O/Wt Last Vital Signs Temp 98 F 12/23/20 20:00 Pulse 72 12/23/20 20:00 Resp 24 H 12/23/20 20:00 BP 134/64 12/23/20 20:00 Pulse Ox 95 12/23/20 20:00 12/23/20 12/23/20 12/23/20 06:59 14:59 22:59 Intake Total 170 / 1310 340 / 340 240 / 580 Output Total 900 / 2960 Balance -730 / -1650 340 / 340 240 / 580 Weight last 48 hrs Weight 172 lb 4.8 oz Weight 172 lb 1.6 oz Physical Exam Narrative: EXAM NARRATIVE: GENERAL: The patient is alert and oriented times three. Not in any acute distress. HEENT: No significant pallor, icterus or lymphadenopathy. The pupils are symm etrical. Oral cavity: There are no mucous membrane lesions. Funduscopic examination: The fundus is not visualized NECK: Trachea appears to be central. No masses noted. Prominent neck veins. No thyromegaly appreciated. No carotid bruit. RESPIRATORY: Chest is symmetrical. No intercostals muscle retraction or any accessory muscle activation. There is no chest wall tenderness. Breath sounds are heard bilaterally. Breath sounds are diminished in the bases. BREASTS: Deferred. HEART: The PMI could not be palpated. No other palpable precordial events. S1 and S2 are normal. No S3 or S4 heard. No pericardial rub or any click heard. Short systolic murmur at the left sternal border. ABDOMEN: No vessel pulsations or distention. No tenderness. No organomegaly appreciated. No abdominal bruit. Bowel sounds are normally heard. : Deferred. RECTAL: Deferred. LYMPHATIC: No lymphadenopathy noted in the neck or groin. EXTREMITIES: 1+ edema both lower extremities. No cyanosis. The peripheral pulses are palpable but weak bilaterally. MUSCULOSKELETAL: No acute joint deformities or swelling SKIN: There are no significant scars or skin rash noted. NEUROPSYCHIATRIC: The patient is alert and oriented x3. Appears to be in a good mood. The higher functions are grossly within normal limits. Slight intentional tremor with no rigidity Urinary Catheter Management^: Suprapubic: Cath Placed During This Visit: no Reason for Continuing Indwelling Catheter: Other Data Micro: Micro: Microbiology Laboratory Last Values WBC 7.0 10^3/uL (4.0- 10.0) 12/23/20 06:53 RBC 4.38 10^6/uL (4.1 -5.3) 12/23/20 06:53 Hgb 13.5 g/dL (11.7-1 6.6) 12/23/20 06:53 Hct 42.9 % (42.0-52.0 ) 12/23/20 06:53 MCV 97.9 fL (80-94) H 12/23/20 06:53 MCH 30.8 pg (28.0-34. 0) 12/23/20 06:53 MCHC 31.5 g/dL (30.0-3 6.0) 12/23/20 06:53 RDW 15.2 % (12.1-15.1 ) H 12/23/20 06:53 Plt Count 199 10^3/cmm (130 -400) 12/23/20 06:53 MPV 10.7 fL (7.4-10.4 ) H 12/23/20 06:53 Neut % (Auto) 75.8 % 12/23/20 06:53 Lymph % (Auto) 13.9 % 12/23/20 06:53 Elbert % (Auto) 8.0 % 12/23/20 06:53 Eos % (Auto) 1.0 % 12/23/20 06:53 Baso % (Auto) 0.4 % 12/23/20 06:53 Neut # (Auto) 5.30 10^3/uL (1.8 -7.7) 12/23/20 06:53 Lymph # (Auto) 1.0 10^3/uL (0.8- 4.8) 12/23/20 06:53 Elbert # (Auto) 0.6 10^3/uL (0.2- 0.9) 12/23/20 06:53 Eos # (Auto) 0.1 10^3/uL (0.0- 0.8) 12/23/20 06:53 Baso # (Auto) 0.0 10^3/uL (0.0- 0.1) 12/23/20 06:53 Nucleated RBC % (a uto) 0 % 12/23/20 06:53 Nucleated RBCs # 0.0 /100WBC 12/23/20 06:53 Differential Comme nt Yes 12/21/20 11:05 Specimen Type Arterial 12/19/20 16:26 Sample Site Radial, left 12/19/20 16:26 ABG pH 7.45 (7.35-7.45) 12/19/20 16:26 ABG pCO2 34.2 mmHg (35-45) L 12/19/20 16:26 ABG pO2 71.7 mmHg (80.0-1 00.0) L 12/19/20 16:26 ABG HCO3 23.7 mmol/L (22-2 6) 12/19/20 16:26 ABG Base Excess 0.2 mmol/L (-2.0- 2.0) 12/19/20 16:26 Jas Test Pos 12/19/20 16:26 Hematocrit 41.7 % (42-52) L 12/19/20 16:26 O2 Delivery Device Nc 12/19/20 16:26 O2 Liters/Min 4.0 % 12/19/20 16:26 FiO2 33.0 % 12/19/20 16:26 Child Adolescent Psychiatrist ID Cak 12/19/20 16:26 Sodium 136 mmol/L (136-1 45) 12/23/20 06:53 Potassium 4.5 mmol/L (3.5-5 .1) 12/23/20 06:53 Chloride 100 mmol/L (98-10 7) 12/23/20 06:53 Carbon Dioxide 25 mmol/L (22-29) 12/23/20 06:53 Anion Gap 15.5 (5-19) 12/23/20 06:53 BUN 39 mg/dL (8-23) H 12/23/20 06:53 Creatinine 1.1 mg/dL (0.7-1. 2) 12/23/20 06:53 GFR Calculation Not Reportable 12/23/20 06:53 Glucose 203 mg/dL (65-115 ) H 12/23/20 06:53 POC Glucose 242 mg/dL (70-110 ) H 12/23/20 20:09 Estimat Average Gl ucose 169 12/23/20 06:53 Hemoglobin A1c 7.5 % (4.0-6.0) H 12/23/20 06:53 Calculated Osmolal ity 297 mOsm/kg (285- 295) H 12/23/20 06:53 Calcium 8.3 mg/dL (8.5-10 .5) L 12/23/20 06:53 Magnesium 2.0 mg/dL (1.7-2. 3) 12/21/20 03:02 Iron 18 ug/dL (59-158) L 12/22/20 04:54 TIBC 176 mcg/dl 12/22/20 04:54 % Saturation 10.2 % (20-50) L 12/22/20 04:54 Unsat Iron Binding 158 ug/dL (112-34 7) 12/22/20 04:54 Total Bilirubin 0.3 mg/dL (0.15-1 .2) 12/23/20 06:53 GGT 13 U/L (8-61) 12/19/20 20:30 AST 14 U/L (0-40) 12/23/20 06:53 ALT 7 U/L (0-41) 12/23/20 06:53 Alkaline Phosphata se 450 IU/L (40-130) H 12/23/20 06:53 Troponin T Baselin e 32 ng/L (0-15) H 12/19/20 16:45 Troponin T 120 Min vickie 37.98 ng/L (0-15) H 12/19/20 20:30 Delta Troponin T 5.98 ABS# (0-10) 12/19/20 20:30 Troponin T Hi Sens 6Hr 42.43 ng/L (0-15) H 12/19/20 23:40 Troponin T Hi Sens 6Hr Delta 10.43 ng/L (0-12) 12/19/20 23:40 C-Reactive Protein 7.1 mg/L (0.0-4.9 ) H 12/19/20 16:45 NT-Pro-B Natriuret Pep 5479 pg/mL (0-450 ) H 12/22/20 04:54 Total Protein 6.7 g/dL (6.6-8.7 ) 12/23/20 06:53 Albumin 3.4 g/dL (3.5-5.2 ) L 12/23/20 06:53 Globulin 3.3 g/dL (1.3-4.6 ) 12/23/20 06:53 Triglycerides 94 mg/dL (0-150) 12/23/20 06:53 Cholesterol 144 mg/dL (0-200) 12/23/20 06:53 LDL Cholesterol, C alc 70 mg/dL (50-129) 12/23/20 06:53 Total VLDL Cholest bryn 19 mg/dL (0-30) 12/23/20 06:53 HDL Cholesterol 55 mg/dL (60-100) L 12/23/20 06:53 Cholesterol/HDL Ra annabelle 2.62 mg/dL (1.0-5 .00) 12/23/20 06:53 Procalcitonin 0.12 ng/mL (0-0.5 ) 12/21/20 03:02 TSH 3.13 uIU/mL (0.27 -4.20) 12/19/20 20:30 Fluid Color Pale yellow 12/21/20 11:05 Fluid Appearance Clear 12/21/20 11:05 Fluid Specific Gra v 1.015 12/21/20 11:05 Fluid pH 9.0 12/21/20 11:05 Fluid WBC 225 /uL 12/21/20 11:05 Fluid RBC 1.000 10^3/uL 12/21/20 11:05 Fld Polynuclear WB Cs # 0.018 12/21/20 11:05 Fld Polynuclear WB Cs % 8.000 % 12/21/20 11:05 Fl Mononucl WBCs # (Auto) 0.207 12/21/20 11:05 Fl Mononuclear % A uto 92.000 % 12/21/20 11:05 Fluid Glucose 169.0 mg/dL 12/21/20 11:05 Fluid Albumin 1.7 g/dL 12/21/20 11:05 Fluid LDH 109 U/L 12/21/20 11:05 Fluid Amylase 24 U/L 12/21/20 11:05 Fluid Alk Phosphat ase 50 IU/L 12/21/20 11:05 Fluid Cholesterol 31 mg/dL (0-200) 12/21/20 11:05 Fluid Triglyceride s 12 mg/dL (0-150) 12/21/20 11:05 Fluid Uric Acid 7 mg/dL 12/21/20 11:05 Pleural Total Prot ein 2.8 g/dL 12/21/20 11:05 SARS-CoV-2 Ag (Rap id) Negative (Negati ve) 12/19/20 17:19 12/21/20 11:05 Gram Stain - Final Pleural Fluid Anaerobic Culture - Preliminary Body Fluid Culture - Preliminary A&P Assessment and plan (1) Abnormal nuclear stress test: The implications of myocardial perfusion may results are discussed with the patient. In order to further evaluate the coronary status, he requires a cardiac catheterization. The risk of bleeding, hematoma, vascular injury, myocardial infarction, CVA, renal failure and other concomitant complications were explained in detail. Patient understood this well and has decided not to undergo any invasive interventional procedures. He just wants to be treated medically. Status: Acute (2) Atrial fibrillation: Patient currently is in a regular rhythm. He is on subcu Lovenox, therapeutic dose. Since the patient has no specific symptoms of arrhythmia or ischemia, may not require any further investigation at this point. May continue on the current medication. Status: Acute Qualifiers: Atrial fibrillation type: unspecified chronic Qualified Code(s): I48.20 - Chronic atrial fibrillation, unspecified (3) Congestive heart failure: Clinically compensated. May continue the current medications. Status: Acute Qualifiers: Heart failure chronicity: acute Heart failure type: unspecified Qualified Code(s): I50.9 - Heart failure, unspecified (4) Pleural effusion: To moderate pleural studies are still pending. Around 1300 cc of fluid was taken out. Status: Acute (5) DM type 2 (diabetes mellitus, type 2): The blood sugar needs to be closely monitored. Medication adjustments accordingly. 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 For further evaluation of his coronary status, he requires a cardiac catheterization. This was discussed with the patient in detail with risks and benefits. Patient has decided not to undergo cardiac catheterization or any coronary intervention. He seems to understand implications. At this point, we will try to optimize medical treatment. He may benefit from Entresto. Since he is on lisinopril, I may change the lisinopril to losartan 25 mg p.o. daily. If he tolerates the medication, we may change this to Entresto after 2 days. Status: Acute Qualifiers: Cardiomyopathy type: other Qualified Code(s): I42.8 - Other cardiomyopathies Additional A&P Information Other problems are Generalized debilitation High BUN/creatinine ratio Pleural effusion, etiology? Dyslipidemia COPD celebration based on the patient's clinical progress, further recommendations will be made. Thank you for the opportunity to eval this patient and make these recommendations Coding Level of Care Code Acute Private Mortgage Banker Safe for Stephen Fwd History Detailed Exam Detailed Medical Decision Making High Complexity Diagnoses Abnormal nuclear stress test R94.39 Atrial fibrillation I48.20 Atrial fibrillation type: unspecified chronic Congestive heart failure I50.9 Heart failure chronicity: acute Heart failure type: unspecified Pleural effusion J90 DM type 2 (diabetes mellitus, type 2) E11.65; Z79.4 Diabetes mellitus [facility] insulin use: with marine oil terminal superintendent use Diabetes mellitus complication status: with hyperglycemia Cardiomyopathy I42.8 Cardiomyopathy type: other Time Spent (min) 60
[2020-12-24] VITALS (8 sets, daily range): BP systolic 137–145; BP diastolic 67–86; PULSE 71–80; RESP 16–24; TEMP 36.6; O2SAT 93–98
[2020-12-24 03:36] LABS: Basophils % 0.2 %; Eosinophils # 0.1 10^3/uL (0.0-0.8); Eosinophils % 1.5 %; Hematocrit 40.9 % (42.0-52.0); Hemoglobin 12.7 g/dL (11.7-16.6); Lymphocytes # 1.5 10^3/uL (0.8-4.8); Lymphocytes % 18.1 %; Mean Corpuscular HGB Conc 31.1 g/dL (30.0-36.0); Mean Corpuscular Hemoglobin 30.9 pg (28.0-34.0); Mean Corpuscular Volume 99.5 fL (80-94); Monocytes # 0.8 10^3/uL (0.2-0.9); Monocytes % 10.3 %; Neutrophils # 5.63 10^3/uL (1.8-7.7); Nucleated Red Blood Cells % 0 %; Platelet Count 226 10^3/cmm (130-400); Red Blood Count 4.11 10^6/uL (4.1-5.3); Red Cell Distribution Width 15.1 % (12.1-15.1); White Blood Count 8.2 10^3/uL (4.0-10.0)
[2020-12-24 04:12] LABS: Alanine Aminotransferase 6 U/L (0-41); Alkaline Phosphatase 380 IU/L (40-130); Anion Gap 13.7 (5-19); Aspartate Amino Transferase 11 U/L (0-40); Blood Urea Nitrogen 46 mg/dL (8-23); Calcium 8.1 mg/dL (8.5-10.5); Carbon Dioxide 28 mmol/L (22-29); Chloride 101 mmol/L (98-107); Globulin 3.4 g/dL (1.3-4.6); Glucose 75 mg/dL (65-115); Osmolality Calculated 297 mOsm/kg (285-295); Potassium 4.7 mmol/L (3.5-5.1); Sodium 138 mmol/L (136-145); Total Bilirubin 0.2 mg/dL (0.15-1.2); Total Protein 6.4 g/dL (6.6-8.7)
[2020-12-24 06:49] LABS: Glucose Point of Care 99 mg/dL (70-110)
[2020-12-24] MEDS: spironolactone 25 mg Tablet PO (08:42)
[2020-12-24] MEDS: aspirin 81 mg EC Tablet PO (08:42)
[2020-12-24] MEDS: lisinopril 5 mg Tablet PO (08:42)
[2020-12-24] MEDS: FUROsemide 40 mg Tablet PO (08:42)
[2020-12-24] MEDS: carvedilol 6.25 mg Tablet PO ×2 (08:42→17:01)
--- NOTE | 2020-12-24 08:51 | PM.PN ---
Subjective Subjective: Interval history: Patient is feeling okay. Denies any chest pain. Has a baseline shortness of breath with activities which is significantly improved since hospital admission. No fever or chills. Vital signs remained stable. The blood pressure seems to be slightly elevated today Medications: Reviewed: Yes Medication Review Details: Current Medications Acetaminophen (Acetaminophen 325 Mg Tablet) 650 mg PO Q6H PRN PRN Reason: Mild/Mod Pain Or Temp >/= 101 Albuterol/Ipratropium (Ipratropium-Albuterol 3 Ml Neb) 3 ml INHALATION Q4H PRN PRN Reason: SHORTNESS OF BREATH Albuterol/Ipratropium (Ipratropium-Albuterol 3 Ml Neb) 3 ml INHALATION Q6H.[facility] Last Admin: 12/24/20 02:10 Dose: Not Given Documented by: Aspirin (Aspirin 81 Mg Ec Tablet) 81 mg PO DAILY [facility] Last Admin: 12/24/20 08:42 Dose: 81 mg Documented by: Atorvastatin Calcium (Atorvastatin 40 Mg Tablet) 20 mg PO BEDTIME [facility] Last Admin: 12/23/20 20:43 Dose: 20 mg Documented by: Carvedilol (Carvedilol 6.25 Mg Tablet) 6.25 mg PO BID [facility] Last Admin: 12/24/20 08:42 Dose: 6.25 mg Documented by: Dextrose (Dextrose 50% Syringe 50 Ml) 25 ml IVP ONCE PRN; Protocol PRN Reason: hypoglycemia protocol Dextrose (Dextrose 50% Syringe 50 Ml) 50 ml IVP PRN PRN; Protocol PRN Reason: hypoglycemia protocol Enoxaparin Sodium (Enoxaparin 80 Mg/0.8 Ml Syringe) 80 mg SUBCUT Q12H [facility] Last Admin: 12/23/20 23:50 Dose: 80 mg Documented by: Furosemide (Furosemide 40 Mg Tablet) 40 mg PO DAILY@0800 [facility] Last Admin: 12/24/20 08:42 Dose: 40 mg Documented by: Glucagon (Glucagon 1 Mg/Ml Inj 1 Ml) 1 mg IM ONCE PRN; Protocol PRN Reason: Adult Acute Hypoglycemia Prot. Ceftriaxone Sodium 1,000 mg/ (Sodium Chloride) 50 mls @ 100 mls/hr IV Q24H [facility]; Protocol Stop: 12/24/20 19:59 Last Infusion: 12/23/20 21:20 Dose: Infused Documented by: Dextrose (D5w) 500 mls @ 100 mls/hr IV ONCE PRN; Protocol PRN Reason: Adult Acute Hypoglycemia Prot Insulin Aspart (Insulin Aspart 100 Unit/1 Ml) 0 unit SUBCUT WM&BEDTIME BRIGID; Protocol Last Admin: 12/24/20 08:43 Dose: Not Given Documented by: Insulin Glargine (Insulin Glargine 100 Units/1 Ml) 10 unit SUBCUT BEDTIME [facility] Last Admin: 12/23/20 20:42 Dose: 10 unit Documented by: Losartan Potassium (Losartan 50 Mg Tablet) 50 mg PO DAILY [facility] Magnesium Hydroxide (Magnesium Hydroxide 30 Ml Udc) 30 ml PO DAILY PRN PRN Reason: CONSTIPATION Last Admin: 12/22/20 15:40 Dose: 30 ml Documented by: Ondansetron HCl (Ondansetron 2 Mg/Ml Sdv 2 Ml) 4 mg IVP Q2M PRN PRN Reason: NAUSEA Last Admin: 12/23/20 07:57 Dose: 4 mg Documented by: Spironolactone (Spironolactone 25 Mg Tablet) 25 mg PO DAILY [facility] Last Admin: 12/24/20 08:42 Dose: 25 mg Documented by: Vitals/I&O/Wt Last Vital Signs Temp 97.8 F 12/24/20 07:17 Pulse 74 12/24/20 07:17 Resp 21 H 12/24/20 07:17 BP 144/86 12/24/20 07:17 Pulse Ox 96 12/24/20 07:17 12/23/20 12/24/20 12/24/20 22:59 06:59 14:59 Intake Total 390 / 730 100 / 830 360 / 360 Output Total 700 / 700 Balance 390 / 730 -600 / 130 360 / 360 Weight last 48 hrs Weight 173 lb 8 oz Weight 172 lb 4.8 oz Physical Exam Narrative: EXAM NARRATIVE: GENERAL: The patient is alert and oriented times three. Not in any acute distress. HEENT: No significant pallor, icterus or lymphadenopathy. The pupils are symmetrical. Oral cavity: There are no mucous membrane lesions. NECK: Trachea appears to be central. No masses noted. Prominent neck veins. No thyromegaly appreciated. No carotid bruit. RESPIRATORY: Chest is symmetrical. No intercostals muscle retraction or any accessory muscle activation. There is no chest wall tenderness. Breath sounds are heard bilaterally. Breath sounds are diminished in the bases. BREASTS: Deferred. HEART: The PMI could not be palpated. No other palpable precordial events. S1 and S2 are normal. No S3 or S4 heard. No pericardial rub or any click heard. Short systolic murmur at the left sternal border. ABDOMEN: No vessel pulsations or distention. No tenderness. No organomegaly appreciated. No abdominal bruit. Bowel sounds are normally heard. : Deferred. RECTAL: Deferred. LYMPHATIC: No lymphadenopathy noted in the neck or groin. EXTREMITIES: 1+ edema both lower extremities. No cyanosis. The peripheral pulses are palpable but weak bilaterally. MUSCULOSKELETAL: No acute joint deformities or swelling SKIN: There are no significant scars or skin rash noted. NEUROPSYCHIATRIC: The patient is alert and oriented x3. No focal motor deficits. Urinary Catheter Management^: Suprapubic: Cath Placed During This Visit: no Reason for Continuing Indwelling Catheter: Chronic Indwelling Urinary Catheter on Admission Data : 12/24/20 03:00 12/24/20 03:00 Other Labs: Laboratory Last Values WBC 8.2 10^3/uL (4.0-10.0) 12/24/20 03:00 RBC 4.11 10^6/uL (4.1-5.3) 12/24/20 03:00 Hgb 12.7 g/dL (11.7-16.6) 12/24/20 03:00 Hct 40.9 % (42.0-52.0) L 12/24/20 03:00 MCV 99.5 fL (80-94) H 12/24/20 03:00 MCH 30.9 pg (28.0-34.0) 12/24/20 03:00 MCHC 31.1 g/dL (30.0-36.0) 12/24/20 03:00 RDW 15.1 % (12.1-15.1) 12/24/20 03:00 Plt Count 226 10^3/cmm (130-400) 12/24/20 03:00 MPV 11.0 fL (7.4-10.4) H 12/24/20 03:00 Neut % (Auto) 69.0 % 12/24/20 03:00 Lymph % (Auto) 18.1 % 12/24/20 03:00 [place] % (Auto) 10.3 % 12/24/20 03:00 Eos % (Auto) 1.5 % 12/24/20 03:00 Baso % (Auto) 0.2 % 12/24/20 03:00 Neut # (Auto) 5.63 10^3/uL (1.8-7.7) 12/24/20 03:00 Lymph # (Auto) 1.5 10^3/uL (0.8-4.8) 12/24/20 03:00 [place] # (Auto) 0.8 10^3/uL (0.2-0.9) 12/24/20 03:00 Eos # (Auto) 0.1 10^3/uL (0.0-0.8) 12/24/20 03:00 Baso # (Auto) 0.0 10^3/uL (0.0-0.1) 12/24/20 03:00 Nucleated RBC % (auto) 0 % 12/24/20 03:00 Nucleated RBCs # 0.0 /100WBC 12/24/20 03:00 Differential Comment Yes 12/21/20 11:05 Specimen Type Arterial 12/19/20 16:26 Sample Site Radial, left 12/19/20 16:26 ABG pH 7.45 (7.35-7.45) 12/19/20 16:26 ABG pCO2 34.2 mmHg (35-45) L 12/19/20 16:26 ABG pO2 71.7 mmHg (80.0-100.0) L 12/19/20 16:26 ABG HCO3 23.7 mmol/L (22-26) 12/19/20 16:26 ABG Base Excess 0.2 mmol/L (-2.0-2.0) 12/19/20 16:26 Jas Test Pos 12/19/20 16:26 Hematocrit 41.7 % (42-52) L 12/19/20 16:26 O2 Delivery Device Nc 12/19/20 16:26 O2 Liters/Min 4.0 % 12/19/20 16:26 FiO2 33.0 % 12/19/20 16:26 Barrel Assembler Helper ID Cak 12/19/20 16:26 Sodium 138 mmol/L (136-145) 12/24/20 03:00 Potassium 4.7 mmol/L (3.5-5.1) 12/24/20 03:00 Chloride 101 mmol/L (98-107) 12/24/20 03:00 Carbon Dioxide 28 mmol/L (22-29) 12/24/20 03:00 Anion Gap 13.7 (5-19) 12/24/20 03:00 BUN 46 mg/dL (8-23) H 12/24/20 03:00 Creatinine 1.1 mg/dL (0.7-1.2) 12/24/20 03:00 GFR Calculation Not Reportable 12/24/20 03:00 Glucose 75 mg/dL (65-115) 12/24/20 03:00 POC Glucose 99 mg/dL (70-110) 12/24/20 06:42 Estimat Average Glucose 169 12/23/20 06:53 Hemoglobin A1c 7.5 % (4.0-6.0) H 12/23/20 06:53 Calculated Osmolality 297 mOsm/kg (285-295) H 12/24/20 03:00 Calcium 8.1 mg/dL (8.5-10.5) L 12/24/20 03:00 Magnesium 2.0 mg/dL (1.7-2.3) 12/21/20 03:02 Iron 18 ug/dL (59-158) L 12/22/20 04:54 TIBC 176 mcg/dl 12/22/20 04:54 % Saturation 10.2 % (20-50) L 12/22/20 04:54 Unsat Iron Binding 158 ug/dL (112-347) 12/22/20 04:54 Total Bilirubin 0.2 mg/dL (0.15-1.2) 12/24/20 03:00 GGT 13 U/L (8-61) 12/19/20 20:30 AST 11 U/L (0-40) 12/24/20 03:00 ALT 6 U/L (0-41) 12/24/20 03:00 Alkaline Phosphatase 380 IU/L (40-130) H 12/24/20 03:00 Troponin T Baseline 32 ng/L (0-15) H 12/19/20 16:45 Troponin T 120 Minute 37.98 ng/L (0-15) H 12/19/20 20:30 Delta Troponin T 5.98 ABS# (0-10) 12/19/20 20:30 Troponin T Hi Sens 6Hr 42.43 ng/L (0-15) H 12/19/20 23:40 Troponin T Hi Sens 6Hr Delta 10.43 ng/L (0-12) 12/19/20 23:40 C-Reactive Protein 7.1 mg/L (0.0-4.9) H 12/19/20 16:45 NT-Pro-B Natriuret Pep 5479 pg/mL (0-450) H 12/22/20 04:54 Total Protein 6.4 g/dL (6.6-8.7) L 12/24/20 03:00 Albumin 3.0 g/dL (3.5-5.2) L 12/24/20 03:00 Globulin 3.4 g/dL (1.3-4.6) 12/24/20 03:00 Triglycerides 94 mg/dL (0-150) 12/23/20 06:53 Cholesterol 144 mg/dL (0-200) 12/23/20 06:53 LDL Cholesterol, Calc 70 mg/dL (50-129) 12/23/20 06:53 Total VLDL Cholesterol 19 mg/dL (0-30) 12/23/20 06:53 HDL Cholesterol 55 mg/dL (60-100) L 12/23/20 06:53 Cholesterol/HDL Ratio 2.62 mg/dL (1.0-5.00) 12/23/20 06:53 Procalcitonin 0.12 ng/mL (0-0.5) 12/21/20 03:02 TSH 3.13 uIU/mL (0.27-4.20) 12/19/20 20:30 Fluid Color Pale yellow 12/21/20 11:05 Fluid Appearance Clear 12/21/20 11:05 Fluid Specific Grav 1.015 12/21/20 11:05 Fluid pH 9.0 12/21/20 11:05 Fluid WBC 225 /uL 12/21/20 11:05 Fluid RBC 1.000 10^3/uL 12/21/20 11:05 Fld Polynuclear WBCs # 0.018 12/21/20 11:05 Fld Polynuclear WBCs % 8.000 % 12/21/20 11:05 Fl Mononucl WBCs #(Auto) 0.207 12/21/20 11:05 Fl Mononuclear % Auto 92.000 % 12/21/20 11:05 Fluid Glucose 169.0 mg/dL 12/21/20 11:05 Fluid Albumin 1.7 g/dL 12/21/20 11:05 Fluid LDH 109 U/L 12/21/20 11:05 Fluid Amylase 24 U/L 12/21/20 11:05 Fluid Alk Phosphatase 50 IU/L 12/21/20 11:05 Fluid Cholesterol 31 mg/dL (0-200) 12/21/20 11:05 Fluid Triglycerides 12 mg/dL (0-150) 12/21/20 11:05 Fluid Uric Acid 7 mg/dL 12/21/20 11:05 Pleural Total Protein 2.8 g/dL 12/21/20 11:05 SARS-CoV-2 Ag (Rapid) Negative (Negative) 12/19/20 17:19 Micro: Microbiology 12/21/20 11:05 Gram Stain - Final Pleural Fluid Anaerobic Culture - Preliminary Body Fluid Culture - Preliminary A&P Assessment and plan (1) Cardiomyopathy: In view of the LV dysfunction and the abnormal myocardial perfusion imaging, possibility of underlying coronary ischemia causing the symptoms is a consideration. For further evaluation of his coronary status, he requires a cardiac catheterization. This was discussed with the patient in detail with risks and benefits. Patient has decided not to undergo cardiac catheterization or any coronary intervention. He seems to understand implications. At this point, we will try to optimize medical treatment. He may benefit from Entresto. Since he is on lisinopril, I may change the lisinopril to losartan 50 mg p.o. daily. If he tolerates the medication, we may change this to Entresto after 2 days. Discussed with the patient about the cardiac defibrillator/LifeVest. Patient is not interested in this if it is only trying to prolong his life. So we will continue to optimize his medical treatment. Status: Acute Qualifiers: Cardiomyopathy type: other Qualified Code(s): I42.8 - Other cardiomyopathies (2) Abnormal nuclear stress test: The implications of myocardial perfusion may results are discussed with the patient. In order to further evaluate the coronary status, he requires a cardiac catheterization. The risk of bleeding, hematoma, vascular injury, myocardial infarction, CVA, contrast-induced nephropathy and other concomitant complications were explained in detail. Patient understood this well and has decided not to undergo any invasive interventional procedures. He just wants to be treated medically. This was discussed once again today. Patient consistently refuses to undergo any invasive/interventional procedures Status: Acute (3) Atrial fibrillation: Consider switching him to Eliquis. So far he seems to have no bleeding complications. Status: Acute Qualifiers: Atrial fibrillation type: unspecified chronic Qualified Code(s): I48.20 - Chronic atrial fibrillation, unspecified (4) Congestive heart failure: Clinically compensated. May continue the current medications. Status: Acute Qualifiers: Heart failure chronicity: acute Heart failure type: unspecified Qualified Code(s): I50.9 - Heart failure, unspecified (5) Pleural effusion: Some of the study results are still pending. Seems to have no significant reaccumulation of fluid. 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 Need to be seen in the [facility] next week as a nurse practitioner. Also make an appointment to be seen by me in 1 month Attestations Medical Necessity Statement*: Disposition as per the primary Coding Level of Care Code Acute Steamer Blocker for [facility] Fwd Diagnoses Cardiomyopathy I42.8 Cardiomyopathy type: other Abnormal nuclear stress test R94.39 Atrial fibrillation I48.20 Atrial fibrillation type: unspecified chronic Congestive heart failure I50.9 Heart failure chronicity: acute Heart failure type: unspecified Pleural effusion J90 DM type 2 (diabetes mellitus, type 2) E11.65; Z79.4 Diabetes mellitus custodial insulin use: with marine oil terminal superintendent use Diabetes mellitus complication status: with hyperglycemia
[2020-12-24] MEDS: ipratropium-albuterol 3 mL Neb INHALATION (08:52)
--- NOTE | 2020-12-24 10:33 | P.PN_ITS ---
Subjective Subjective: Interval history: Patient is feeling okay. Denies any chest pain. Has a baseline shortness of breath with activities which is significantly improved since hospital admission. No fever or chills. Vital signs remained stable. The blood pressure seems to be slightly elevated today Vitals/I&O/Wt Last Vital Signs Temp 97.8 F 12/24/20 07:17 Pulse 78 12/24/20 08:58 Resp 16 12/24/20 08:56 BP 144/86 12/24/20 07:17 Pulse Ox 96 12/24/20 08:56 12/23/20 12/24/20 12/24/20 22:59 06:59 14:59 Intake Total 390 / 730 100 / 830 360 / 360 Output Total 700 / 700 Balance 390 / 730 -600 / 130 360 / 360 Weight last 48 hrs Weight 78.698 kg Weight 78.154 kg Physical Exam Const: COMMON NORMALS: no acute distress and patient oriented x3 GENERAL APPEARANCE: frail appearing OTHER: He is appearing somewhat stronger today. Breathing much easier. Pleasant, conversant. HENMT: COMMON NORMALS: oropharynx normal Neck/C-Spine: COMMON NORMALS: no JVD Resp: COMMON NORMALS: normal respiratory effort and clear to auscultation bilaterally AUSCULTATION: clear to auscultation bilaterally and no wheezes OTHER: Much improved air entry in left lower lobe. Cardio: COMMON NORMALS: no JVD, regular rate, regular rhythm, S1 normal heart sound present, S2 normal heart sound present and No murmurs present (Cardio) RATE: regular rate RHYTHM: regular rhythm HEART SOUNDS: S1 normal heart s ound present and S2 normal heart sound present GI: COMMON NORMALS: Normal to inspection, nondistended, normoactive bowel sounds present, Soft to palpation and non-tender PALPATION: Yes Soft to pa lpation Extremity: COMMON NORMALS: no joint enlargement GENERAL: Yes edema (2+) Neuro: COMMON NORMALS: patient oriented x3 and moves all extremities Skin: COMMON NORMALS: no rashes or lesions noted GENERAL SKIN EXAM: no rashes or lesions noted OTHER: Multiple moles Urinary Catheter Management^: Suprapubic: Cath Placed During This Visit: no Reason for Continuing Indwelling Catheter: Chronic Indwelling Urinary Catheter on Admission Data : 12/24/20 03:00 12/24/20 03:00 Micro: Microbiology 12/21/20 11:05 Gram Stain - Final Pleural Fluid Anaerobic Culture - Preliminary Body Fluid Culture - Final A&P Assessment and plan (1) Congestive heart failure: New onset congestive heart failure. Echocardiogram shows an EF of 43% with diffuse hypokinesia, left ventricular, b iatrial enlargement, mild to moderate TR, mild MR, trivial pleural, trivial pericardial effusion. Strict input output charting. Daily weights. Overall 3.5 L negative since admission. Lasix 40 mg oral daily. Stress test positive. Plan for medical management and possible cardiac catheterization as an outpatient. Appreciate cardiology recommendations. Change lisinopril to losartan possibly Entresto as an outpatient. Status: Acute Qualifiers: Heart failure chronicity: acute Heart failure type: unspecified Qualified Code(s): I50.9 - Heart failure, unspecified (2) Atrial fibrillation: Transient. Normal sinus rhythm at present. Angel vas score: 5 given age, history of hypertension, diabetes, CHF For now continue with Lovenox 80 mg daily as per creatinine clearance. T [facility] as an outpatient. TSH normal. Electrolytes within normal limits. Does not appear to have significant valvular disease. Status: Acute Qualifiers: Atrial fibrillation type: unspecified chronic Qualified Code(s): I48.20 - Chronic atrial fibrillation, unspecified (3) Cardiac anomaly: Ruled out on repeat echocardiogram after thoracentesis. Status: Acute (4) PHILIP (acute kidney injury): Resolved. Status: Acute (5) DM type 2 (diabetes mellitus, type 2): Check HbA1c in a.m. For now continue with sliding scale Lantus. 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 Resolved. Currently on room air. We will continue to monitor and try to do home O2 eval prior to discharge. Status: Acute (7) Alkaline phosphatase elevation: No abodminal pain. Normal GGT. May benefit from additional assessment for possible lesion. Status: Acute (8) Suprapubic catheter: Secondary to chronic urethral stricture, follows with urology. Status: Acute Additional A&P Information Trivial pericardial effusion Plan for discharge today. Patient to follow-up with cardiology services in a week for further up titration of cardiac medications. Follow-up with your primary care provider within 1 week for repeat BMP. Attestations Medical Necessity Statement*: Patient required hospitalization for management of new CHF, work-up for positive stress test and optimization of cardiac medications. Time Spent in Patient Care: Greater than 35 minutes (>than 50% of time spent in counselling and/or direct pt care on unit) . Coding Level of Care Code Acute Party Plan Sales Host/Hostess for Kyleg Anastasiad Diagnoses Congestive heart failure I50.9 Heart failure chronicity: acute Heart failure type: unspecified Atrial fibrillation I48.20 Atrial fibrillation type: unspecified chronic Cardiac anomaly Q24.9 PHILIP (acute kidney injury) N17.9 DM type 2 (diabetes mellitus, type 2) E11.65; Z79.4 Diabetes mellitus prison insulin use: with prison use Diabetes mellitus complication status: with hyperglycemia Acute respiratory failure with hypoxia J96.01 Alkaline phosphatase elevation R74.8 Suprapubic catheter Z93.59
[2020-12-24 10:57] LABS: Glucose Point of Care 198 mg/dL (70-110)
--- NOTE | 2020-12-24 11:01 | PC.NURSE ---
call [facility] pharmacy for med to bed. Informed pharmacist that doctor will D/C the prior discharge med Lisinopril and start pt on Losartan.
--- NOTE | 2020-12-24 12:36 | PC.NURSE ---
Informed pt that his son will come and pick him up today at 5 pm. pt verbalizes understanding.
--- NOTE | 2020-12-24 14:08 | PC.SOCIAL ---
*IMM UPDATE* Gave patient IMM update. Provided him copy of pg 2 of IMM. Verbalized understanding. 12/24/20 @9968 Initialed, dated,timed and placed in chart.
[2020-12-24 16:22] LABS: Glucose Point of Care 201 mg/dL (70-110)
--- NOTE | 2020-12-24 17:05 | PC.NURSE ---
HOME called Informed [facility] that pt is discharge this evening.
--- NOTE | 2020-12-24 17:20 | PC.NURSE ---
Discharge to home with family instructed pt and family on pt's follow-up appointments. Educated pt and family regarding pt's new meds actions, dosing, timing for his CHF. Discharge packet provided to pt and family. They voiced understanding. Portable oxygen attached to pt.
== END 2020-12-24 18:19 | disposition home or self-care (01) | DRG 291 ==
LOC: ER 17:01 → CSU 19:47
PROVIDERS: Internal Medicine; Internal Medicine Pulmonary Disease; Admitting Provider Internal Medicine; Emergency Provider Family Medicine; PCP Electrodiagnostic Medicine; Visit Provider Student in an Organized Health Care Education/Training Program
DX: I50.21 Acute systolic (congestive) heart failure (principal); J96.01 Acute respiratory failure with hypoxia; J18.9 Pneumonia, unspecified organism; J44.1 Chronic obstructive pulmonary disease with (acute) exacerbation; J44.0 Chronic obstructive pulmonary disease with (acute) lower respiratory infection; I48.20 Chronic atrial fibrillation, unspecified; N17.9 Acute kidney failure, unspecified; J91.8 Pleural effusion in other conditions classified elsewhere; I42.8 Other cardiomyopathies; N35.011 Post-traumatic bulbous urethral stricture; R74.8 Abnormal levels of other serum enzymes; E11.65 Type 2 diabetes mellitus with hyperglycemia; F17.220 Nicotine dependence, chewing tobacco, uncomplicated; Z93.59 Other cystostomy status; Z79.84 Long term (current) use of oral hypoglycemic drugs
CPT/HCPCS: 36415; 36416; 36600; 71045; 71046; 71250; 76700; 78452; 80053; 80061; 80500; 82042; 82150; 82465; 82803; 82945; 82962; 82977; 83036; 83540; 83550; 83615; 83735; 83880; 83986; 84075; 84145; 84157; 84315; 84443; 84478; 84484; 84560; 85025; 86140; 86403; 87040; 87070; 87075; 87205; 87426; 87449; 88305; 89050; 93005; 93017; 93306; 93308; 94640; 94664; 96372; 97110; 97116; 97161; 97165; A9500; J0456; J0696; J1650; J1815 ×2; J1940; J2405; J2785; J3490; J7050; P9047

== ENCOUNTER 2020-12-29 08:58 | Outpatient (CLI) | payer MEDICARE, SELFPAY ==
--- NOTE | 2020-12-29 09:06 | XR_ITS ---
WS: [id number] Exam: XR chest 2V* [id number] Date/Time of Exam: 12/29/2020 9:07 AM Reason For Exam: PLEURAL EFFUSION Comparison 12/19/2020. Widespread bilateral pulmonary infiltrates show some improvement since previous exam. The lungs are f ully expanded. There are probably small bilateral pleural effusions. Mild cardiac enlargement noted. Pulmonary vascularity is increased. Extensive the osteoblastic bone lesions noted throughout the bila teral rib cage, clavicles and the bilateral scapulas. There may also be lesions in the thoracic spine . XR/XR chest 2V* [id number] IMPRESSION: 1. Improving bilateral pulmonary infiltrates since previous exam. 2. Mild cardiac enlargement with increased pulmonary vascularity suggesting marilin e degree of cardiac decompensation. Small bilateral pleural effusions. 3. 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 Hardy static prostate cancer might be a consideration.
== END 2020-12-29 08:59 | disposition home or self-care (01) ==
LOC: RAD 09:02
PROVIDERS: PCP Electrodiagnostic Medicine; Visit Provider Electrodiagnostic Medicine
DX: J90 Pleural effusion, not elsewhere classified (principal); I50.9 Heart failure, unspecified; I48.91 Unspecified atrial fibrillation; J18.9 Pneumonia, unspecified organism; R06.09 Other forms of dyspnea; R91.8 Other nonspecific abnormal finding of lung field; I51.7 Cardiomegaly
CPT/HCPCS: 71046

== ENCOUNTER 2021-01-22 13:47 | Outpatient (CLI) | payer MEDICARE, SELFPAY ==
--- NOTE | 2021-01-22 18:10 | ONC CON_ITS ---
Dr. Duran New Patient Note Patient: Jennifer Lanza Unit #: [id number]: 1945 Dicatated By: Edgar Duran M.D.Date of Visit: Jan 22, 2021 Onc MED New Patient/Consult Referring Physician: Dr. Franklin Lopez M.D. Chief Complaint: Prostate cancer. 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 He has a history of posttraumatic urethral stricture with associated chronic urinary retention. He has been followed by Dr. Lopez, and he now has an indwelling suprapubic tube. On 12/19/2020 he was admitted to the hospital after presenting to the emergency room with shortness of breath. On evaluation he was found to have evidence of congestive heart failure. He had associated atrial fibrillation. His chest CT showed bilateral pneumonitis/pneumonia with associated interstitial edema and moderate volume pleural effusion bilaterally, for which he underwent left thoracentesis. That study also showed diffuse skeletal sclerosis consistent with osteoblastic skeletal metastases or renal osteodystrophy. His echocardiogram showed diffuse hypokinesis of the left ventricle with estimated ejection fraction 43%. His myocardial perfusion imaging reported diffuse hypokinesis of the left ventricle with diminished LV ejection fraction at 31%. A small to moderate area of decreased tracer uptake in the inferolateral and apical lateral region with a subtle area of reversibility was suggestive of myocardial scarring in the distribution of the left circumflex artery with a subtle area of mati-infarction ischemia. His congestive failure improved on medical management. In the meantime, his laboratory studies also showed significantly elevated alkaline phosphatase level, in the range of 400-500 IU/L. His serum iron studies showed low transferrin saturation at 10%, suggesting possible iron deficiency, though his hemoglobin was only borderline low. Following discharge from the hospital his PSA level was found to be greater than 900 ng/mL. He then had follow-up with Dr. Lopez and his digital rectal exam was grossly abnormal, consistent with prostate cancer. With those findings he was started on treatment with bicalutamide 50 mg daily. He is seen now for further management of the prostate cancer. He is feeling much better generally since he has been home from the hospital, though he still has very limited activity. His family indicates that he is mostly sitting or lying down. His breathing, though, is much better now. His ECOG score is 3. Appetite is somewhat variable. He has had a gradual weight loss in the range of 15 to 20 pounds. He has not had fever. He occasionally has sweating at night. He has a little bit of sinus drainage. He has just occasional cough. He is not complaining of shortness of breath now and he has not had chest pain. He does not complain of any significant joint or bone pain. In fact, he says that he really does not hurt. He has been having constipation. He does not complain of headache or dizziness, and he has no focal neurologic symptoms. Past Medical History: His medical history includes atrial fibrillation, cardiomyopathy with congestive heart failure, dyslipidemia, history of urethral stricture and chronic urinary retention, hypertension, and type II diabetes. Past Surgical History: His surgical/procedural history includes jaw surgery for traumatic injury, cystoscopy with suprapubic tube placement in 2019, and partial scrotectomy for scrotal abscess in 2018. Medications: Adult Aspirin EC Low Strength (81 mg) Tablet, enteric coated Oral daily, Albuterol Sulfate HFA (108 (90 base) mcg/act) Aerosol, solution Inhalation four times a day PRN, Apixaban (5 mg) Tablet Oral b.i.d., Atorvastatin Calcium (20 mg) Tablet Oral at bedtime, Carvedilol (6.25 mg) Tablet Oral b.i.d., Furosemide (40 mg) Tablet Oral daily, glipiZIDE (10 mg) Tablet Oral daily, Losartan Potassium (50 mg) Tablet Oral daily, metFORMIN HCl (1000 mg) Tablet Oral b.i.d., Spironolactone (12.5 mg) Tablet Oral b.i.d. Allergies: No Known Allergies. Social History: Mr. Lanza is and he is retired. He has a history of smoking in the range of 1 pack of cigarettes daily. He quit smoking 8-10 years ago. He has since then chewed tobacco. He had some alcohol use in the past, but none for many years. Family History: Father of pneumonia at age 84. Mother at age 86 with natural causes . He had a total of 8 siblings. One brother had brain cancer and another had heart disease. A sister had colon cancer. There is no history of prostate cancer, breast cancer, or ovarian cancer in the family. Review Of Symptoms: Constitutional - He says he feels really good, but he does have very limited activity. His family indicates that he is mostly sitting or lying down. Appetite is variable. He has had gradual weight in the range of 15 to 20 pounds. He does not have fever. He occasionally has sweating at night. ECOG score is 3, Eyes - No change in vision, ENMT - He has hearing loss. No tinnitus. He has a little bit of sinus drainage. No mouth sores. No sore throat or difficulty swallowing, Hematologic/Lymphatic - He has easy bruising, Respiratory - He says his breathing is okay now. He has just occasional cough. No pleuritic pain or hemoptysis, Cardiovascular - No angina pain. No palpitations, Gastrointestinal - No nausea or vomiting. No heartburn or acid reflux. He has constipation. No blood in the stool or black stools, Genitourinary (M) - He has an indwelling suprapubic catheter due to urinary retention, Musculoskeletal - Not much joint or bone pain. He says he really does not hurt, Integumentary - No skin rash or other skin changes, Neurologic - No headache or dizziness. No numbness or tingling. No other focal neurologic symptoms, Psychiatric - No anxiety or depression. No insomnia. Vital Signs: Performed on Jan 22, 2021 15:15: 5, 0, 21.49, 1.85 sq.m, 70 in, 98 %, 73 /min, 18 /min, 132/76 mm(hg), 98 F (LOW), and 149.8 lbs (HIGH). Physical Examination: Constitutional - He appears generally weak and frail, Eyes - Sclerae nonicteric. Conjunctivae clear, ENMT - No lesions noted in the oral cavity, Neck - No mass or thyromegaly, Hematologic/Lymphatic - No cervical, clavicular, or axillary adenopathy, Respiratory - Lungs sound clear with pretty good air movement bilaterally, and both lungs watts are resonant to percussion, Cardiovascular - Heart rhythm is regular. There is no murmur, gallop, or rub noted, Abdomen - Soft and non-tender. Liver and spleen are not enlarged. There is no abdominal mass or ascites noted and there is no inguinal adenopathy, Back/Spine - No spine or CVA tenderness noted, Extremities - No edema. There are scattered purpuric lesions. I am not able to palpate pedal pulses, Integumentary - No rashes. No suspicious skin lesions noted, Neurologic - No focal neurologic deficits noted. Problem List: 1. 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 2. In December 2020 he was hospitalized with congestive heart failure. He had associated atrial fibrillation, and his cardiac evaluation appears to be consistent with ischemic cardiomyopathy. He has shown improvement on medical management. 3. Hypertension. 4. Dyslipidemia. 5. Type 2 diabetes. 6. History of posttraumatic urethral stricture and associated chronic urinary retention, now managed with indwelling suprapubic tube. 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 The pertinent findings include CT evidence of sclerotic bone lesions, significantly elevated alkaline phosphatase level, markedly elevated PSA level at > 900 ng/mL, and markedly abnormal QUIN. He has started treatment with bicalutamide. The above findings were reviewed with the patient and his family, and we discussed the clinical implications. He has obvious clinical evidence of metastatic prostate cancer. I would like to complete some additional staging with a bone scan and a CT abdomen/pelvis, but given the advanced stage of his disease and his underlying comorbidities, I do not feel that a biopsy is necessary at this time. He will need to start androgen deprivation therapy with either a GHRH analog or relugolix. I would prefer the latter, if I can get that available for him, as it would potentially have a lower risk of cardiac toxicity. In the meantime, I will also begin the process of transitioning his antiandrogen therapy to a second generation agent. For now he will continue the bicalutamide at 50 mg daily. I did review anticipated side effects with this treatment, the most significant of which will be hot flashes, though also with potential for fatigue and mood changes, among others. The probability of response, though, is very high with average duration of response in the range of 2 years. Signed By: Edgar Duran M.D. <<Signature on File>>
== END 2021-01-22 13:48 | disposition home or self-care (01) ==
LOC: ONCMED 13:55
PROVIDERS: PCP Electrodiagnostic Medicine; Visit Provider Internal Medicine Medical Oncology
DX: C61 Malignant neoplasm of prostate (principal); C79.51 Secondary malignant neoplasm of bone; I50.9 Heart failure, unspecified; I48.91 Unspecified atrial fibrillation; I25.5 Ischemic cardiomyopathy; I10 Essential (primary) hypertension; E78.5 Hyperlipidemia, unspecified; E11.9 Type 2 diabetes mellitus without complications; Z87.448 Personal history of other diseases of urinary system; Z79.899 Other long term (current) drug therapy
CPT/HCPCS: 99205

== ENCOUNTER 2021-02-06 07:57 | Outpatient (CLI) | payer MEDICARE, SELFPAY ==
--- NOTE | 2021-02-06 08:02 | NM_ITS ---
WS: [id number] NUCLEAR MEDICINE WHOLE BODY BONE SCAN HISTORY: METASTATIC PROSTATE CANCER COMPARISON: CT 02/06/2021. TECHNIQUE: The patient was injected with 27.4 mCi of Technetium 99m HDP and serial whole-body scintig shruthi have been performed with anterior and posterior images. There is significant uptake of the radionuclide throughout the skeleton. Significant involvement of t he pelvis, spine and ribs. Significant uptake in the RIGHT clavicle. Uptake in the proximal femora. V dav little soft tissue and renal uptake. NM/NM bone scan whole body* [id number] IMPRESSION: Extensive skeletal metastatic disease consistent with history of prostate carci noma. Findings correspond to bone involvement seen on a recent CT of the abdom en and pelvis.
--- NOTE | 2021-02-06 08:02 | CT_ITS ---
WS: [id number] CT ABDOMEN AND PELVIS WITH CONTRAST HISTORY: METASTATIC PROSTATE CANCER TECHNIQUE: Imaging performed of the abdomen and pelvis with IV contrast. Single phase imaging of the abdomen. Coronal and sagittal reformats are submitted. All CT scans at [facility] use at least one of these dose optimization techniques: automated exposure control; mA and/or kV adjustment per patient size (includes targeted exams where dose is matched to clinical indication); or iterativ e reconstruction. IV CONTRAST: Visipaque 320; 95 mL IV. Oral contrast: Yes. DLP: 1285.83 mGy.cm COMPARISON: None available. Lower thorax: Severe pulmonary fibrotic changes at the lung bases. Small LEFT pleural effusion. Slightly enlarged. Small pericardial effusion. Small hiatal hernia. Liver/biliary system: Normal size liver. Mild periportal edema. No mass. Common bile duct is slightly enlarged at 8 mm. Gallbladder: Normal. No gallstones or wall thickening. No pericholecystic fluid. Pancreas: Pancreatic atrophy. Spleen: Normal size spleen with granulomata. Adrenal glands: Normal. Right kidney: Moderate atrophy of the RIGHT kidney with multifocal areas of cortical thinning and sca rring. No obstruction. Left kidney: Normal size kidney with multifocal areas of mild cortical thinning and scarring. No obst ruction. Aorta: Mild atherosclerosis with no aneurysm. Lymphadenopathy: There are a few scattered posterior and mesenteric lymph nodes. Free fluid: Diffuse mesenteric and soft tissue edema and anasarca. GI tract: Marked diffuse constipation. Inspissated fecal material with: Dilatation. No transition poi nt identified. Abdominal wall: No hernia. Diffuse anasarca. Pelvis: Suprapubic Garza catheter. Bladder is not distended. Bones: Extensive osteoblastic bone disease involving the visualized ribs, spine and pelvis. There are sclerotic and blastic changes. Suspect diffuse metastatic involvement in the osteoblastic and osteol ytic areas. No pathological fracture is identified. CT/CT abdomen pelvis w con* [id number] IMPRESSION: 1. 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 2. Diffuse soft tissue anasarca. 3. Suprapubic Garza catheter. 4. 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 5. Small LEFT pleural effusion. 6. Diffuse constipation and obstipation. 7. No adenopathy identified but there is very little fat loops of b owel and subtle changes in the lymph nodes would be difficult to define. 8. Moderate atherosclerosis aorta. 9. Bilateral renal cortical thinning and scarring, greatest on the RIGHT.
[2021-02-06] MEDS: iohexol 300 mg/mL 50 mL Btl PO (08:47)
[2021-02-06 08:58] LABS: Blood Urea Nitrogen 34 mg/dL (8-23)
[2021-02-06] MEDS: iodixanol 320 mg/mL 100mL Btl IV (10:12)
== END 2021-02-06 07:58 | disposition home or self-care (01) ==
LOC: RAD 07:59
PROVIDERS: PCP Electrodiagnostic Medicine; Visit Provider Internal Medicine Medical Oncology
DX: C61 Malignant neoplasm of prostate (principal); R60.1 Generalized edema; Z96.0 Presence of urogenital implants; J98.4 Other disorders of lung; J90 Pleural effusion, not elsewhere classified; K59.00 Constipation, unspecified; I70.0 Atherosclerosis of aorta
CPT/HCPCS: 74177; 78306; 82565; 84520; A9561

== ENCOUNTER 2021-03-02 06:15 | Outpatient (CLI) | payer MEDICARE, SELFPAY ==
[2021-03-02 10:16] LABS: Basophils % 0.5 %; Eosinophils % 0.8 %; Hematocrit 39.2 % (42.0-52.0); Mean Corpuscular HGB Conc 30.6 g/dL (30.0-36.0); Mean Corpuscular Hemoglobin 30.8 pg (28.0-34.0); Mean Corpuscular Volume 100.8 fL (80-94); Mean Platelet Volume 10.6 fL (7.4-10.4); Monocytes # 0.2 10^3/uL (0.2-0.9); Monocytes % 6.6 %; Neutrophils # 2.35 10^3/uL (1.8-7.7); Neutrophils % 64.2 %; Nucleated Red Blood Cells % 0 %; Platelet Count 178 10^3/cmm (130-400); Red Blood Count 3.89 10^6/uL (4.1-5.3); Red Cell Distribution Width 14.7 % (12.1-15.1); White Blood Count 3.7 10^3/uL (4.0-10.0)
[2021-03-02 10:53] LABS: Alanine Aminotransferase < 5 U/L (0-41); Albumin Level 3.3 g/dL (3.5-5.2); Alkaline Phosphatase 786 IU/L (40-130); Anion Gap 15.8 (5-19); Aspartate Amino Transferase 8 U/L (0-40); Blood Urea Nitrogen 36 mg/dL (8-23); Carbon Dioxide 21 mmol/L (22-29); Chloride 102 mmol/L (98-107); Globulin 2.9 g/dL (1.3-4.6); Glucose 346 mg/dL (65-115); Osmolality Calculated 300 mOsm/kg (285-295); Potassium 4.8 mmol/L (3.5-5.1); Sodium 134 mmol/L (136-145); Total Bilirubin 0.2 mg/dL (0.15-1.2); Total Protein 6.2 g/dL (6.6-8.7)
--- NOTE | 2021-03-05 14:44 | ONC FU_ITS ---
Dr. Duran Patient Follow-Up Note Patient: Jennifer Lanza Unit #: [id number]: 1945 Dicatated By: Edgar Duran M.D.Date of Visit:Mar 02, 2021 Onc Med Follow-up/Prog Note Chief Complaint: Prostate cancer. 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 He has a history of posttraumatic urethral stricture with associated chronic urinary retention. He has been followed by Dr. Lopez, and he now has an indwelling suprapubic tube. On 12/19/2020 he was admitted to the hospital after presenting to the emergency room with shortness of breath. On evaluation he was found to have evidence of congestive heart failure. He had associated atrial fibrillation. His chest CT showed bilateral pneumonitis/pneumonia with associated interstitial edema and moderate volume pleural effusion bilaterally, for which he underwent left thoracentesis. That study also showed diffuse skeletal sclerosis consistent with osteoblastic skeletal metastases or renal osteodystrophy. His echocardiogram showed diffuse hypokinesis of the left ventricle with estimated ejection fraction 43%. His myocardial perfusion imaging reported diffuse hypokinesis of the left ventricle with diminished LV ejection fraction at 31%. A small to moderate area of decreased tracer uptake in the inferolateral and apical lateral region with a subtle area of reversibility was suggestive of myocardial scarring in the distribution of the left circumflex artery with a subtle area of mati-infarction ischemia. His congestive failure improved on medical management. In the meantime, his laboratory studies also showed significantly elevated alkaline phosphatase level, in the range of 400-500 IU/L. His serum iron studies showed low transferrin saturation at 10%, suggesting possible iron deficiency, though his hemoglobin was only borderline low. Following discharge from the hospital his PSA level was found to be greater than 900 ng/mL. He then had follow-up with Dr. Lopez and his digital rectal exam was grossly abnormal, consistent with prostate cancer. With clinical and laboratory findings consistent with metastatic prostate cancer, he was started on treatment with bicalutamide 50 mg daily. He was then seen here for further management, and beginning on 02/21/2021 his treatment was changed to regulolix 120 mg daily in combination with enzalutamide 160 mg daily. His medical illnesses, in addition to prostate cancer, include hypertension, dyslipidemia, type 2 diabetes, and ischemic cardiomyopathy with congestive heart failure. He has a history of posttraumatic urethral stricture with associated chronic urinary retention. It is managed with indwelling suprapubic tube. He has a history of smoking 1 pack of cigarettes daily, but he quit smoking 8 to 10 years ago. He has since then chewed tobacco. He is seen for a follow-up visit. He says he is feeling fairly good, but he does have fatigue and his extremity is very limited. He does note that he is not as steady on his feet now. His ECOG score is 3. He has good appetite. He has no fever, night sweats, or hot flashes. He does not complain of shortness of breath, cough, or chest pain. He had diarrhea for couple of days. He has no other GI complaints. He has chronic indwelling suprapubic tube. He has no significant joint or bone pain. He does not complain of headache. He has no focal neurologic symptoms. Medications: Adult Aspirin EC Low Strength (81 mg) Tablet, enteric coated Oral daily, Albuterol Sulfate HFA (108 (90 base) mcg/act) Aerosol, solution Inhalation four times a day PRN, Apixaban (5 mg) Tablet Oral b.i.d., Atorvastatin Calcium (20 mg) Tablet Oral at bedtime, Carvedilol (6.25 mg) Tablet Oral b.i.d., Furosemide (40 mg) Tablet Oral daily, glipiZIDE (10 mg) Tablet Oral daily, Losartan Potassium (50 mg) Tablet Oral daily, metFORMIN HCl (1000 mg) Tablet Oral b.i.d., Spironolactone (12.5 mg) Tablet Oral b.i.d. Allergies: No Known Allergies. Vital Signs: Performed on Mar 02, 2021 11:17 Height - 70.00 in Weight - 153.8 lbs (HIGH) BSA - 1.87 sq.m BMI - 22.07 Temperature - 97.6 F (LOW) Pulse - 68 /min Respiration - 18 /min BP - 110/58 mm(hg) O2 Sat - 96 % Pain - 0 Physical Examination: Constitutional - He appears generally weak and frail, Eyes - Sclerae nonicteric. Conjunctivae clear, ENMT - No lesions noted in the oral cavity, Hematologic/Lymphatic - No cervical, clavicular, or axillary adenopathy, Respiratory - Lungs sound clear, Cardiovascular - Heart rhythm is regular. There is no murmur, gallop, or rub noted, Abdomen - Soft. Liver and spleen are not enlarged. There is no abdominal mass or ascites noted and there is no inguinal adenopathy, Extremities - No edema, Neurologic - No focal neurologic deficits noted. Lab/Imaging: Test performed on Mar 02, 2021 09:39 Sodium 134 mmol/L Potassium 4.8 mmol/L Chloride 102 mmol/L CO2 21 mmol/L Anion Gap 15.8 BUN 36 mg/dL Creatinine 1.2 mg/dL Cr Clearance (Est) 50.87 mL/min Glucose 346 mg/dL Osmolality - Calculated 300 mOsm/kg Calcium 8.0 mg/dL Protein, Total 6.2 g/dL Albumin 3.3 g/dL Globulin 2.9 g/dL Bilirubin, Total 0.2 mg/dL ALT (SGPT) < 5 U/L AST (SGOT) 8 U/L Alkaline Phosphatase 786 IU/L WBC 3.7 10 3/uL RBC 3.89 10 6/uL HGB 12.0 g/dL HCT 39.2 % MCV 100.8 fL MCH 30.8 pg MCHC 30.6 g/dL RDW 14.7 % Platelet Count 178 10 3/cmm MPV 10.6 fL Neutrophils 2.35 10 3/uL Lymphocytes 1.0 10 3/uL Monocytes 0.2 10 3/uL Eosinophils 0.0 10 3/uL Basophils 0.0 10 3/uL Neutrophil % 64.2 % Lymphocyte % 26.0 % Monocyte % 6.6 % Eosinophil % 0.8 % Basophils % 0.5 % NRBC % 0 % PSA 61.360 ng/mL Problem List: 1. 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 2. In December 2020 he was hospitalized with congestive heart failure. He had associated atrial fibrillation, and his cardiac evaluation appears to be consistent with ischemic cardiomyopathy. He has shown improvement on medical management. 3. Hypertension. 4. Dyslipidemia. 5. Type 2 diabetes. 6. History of posttraumatic urethral stricture and associated chronic urinary retention, now managed with indwelling suprapubic tube. 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 The findings included CT evidence of sclerotic bone lesions, significantly elevated alkaline phosphatase level, markedly elevated PSA level at > 900 ng/mL, and markedly abnormal QUIN. Following his visit with Dr. oLpez on he had started treatment with bicalutamide. He was then seen here for further management on 02/21/2021 his treatment was changed to regulolix 120 mg daily together with enzalutamide 160 mg daily. Thus far he has been tolerating the treatment with acceptable toxicity. There has been a significant decline in his PSA level, but that would be attributable mainly to the bicalutamide. At least for now he will continue his same treatment. I will see him again in 1 month. Signed By: Edgar Duran M.D. <<Signature on File>>
== END 2021-03-02 06:16 | disposition home or self-care (01) ==
PROVIDERS: PCP Electrodiagnostic Medicine; Visit Provider Internal Medicine Medical Oncology
DX: C61 Malignant neoplasm of prostate (principal); C79.51 Secondary malignant neoplasm of bone; I11.0 Hypertensive heart disease with heart failure; I50.9 Heart failure, unspecified; E78.5 Hyperlipidemia, unspecified; E11.9 Type 2 diabetes mellitus without complications; Z87.448 Personal history of other diseases of urinary system; Z79.899 Other long term (current) drug therapy
CPT/HCPCS: 80053; 84153; 85025; 99214

== ENCOUNTER 2021-04-06 08:03 | Outpatient (CLI) | payer MEDICARE, SELFPAY ==
[2021-04-06 08:47] LABS: Basophils % 0.4 %; Eosinophils # 0.1 10^3/uL (0.0-0.8); Eosinophils % 1.4 %; Hematocrit 34.2 % (42.0-52.0); Hemoglobin 11.1 g/dL (11.7-16.6); Lymphocytes # 1.2 10^3/uL (0.8-4.8); Lymphocytes % 23.7 %; Mean Corpuscular HGB Conc 32.5 g/dL (30.0-36.0); Mean Corpuscular Hemoglobin 32.3 pg (28.0-34.0); Mean Corpuscular Volume 99.4 fl (80-94); Mean Platelet Volume 10.7 fL (7.4-10.4); Monocytes # 0.4 10^3/uL (0.2-0.9); Neutrophils # 3.32 10^3/uL (1.8-7.7); Neutrophils % 65.1 %; Nucleated Red Blood Cells % 0 %; Platelet Count 222 10^3/cmm (130-400); Red Blood Count 3.44 10^6/uL (4.1-5.3); Red Cell Distribution Width 14.5 % (12.1-15.1); White Blood Count 5.1 10^3/uL (4.0-10.0)
[2021-04-06 09:22] LABS: Estmated Average Glucose 180; Hemoglobin A1C 7.9 % (4.0-6.0)
[2021-04-06 09:37] LABS: Alanine Aminotransferase 7 U/L (0-41); Albumin Level 3.7 g/dL (3.5-5.2); Alkaline Phosphatase 678 IU/L (40-130); Anion Gap 14.9 (5-19); Aspartate Amino Transferase 9 U/L (0-40); Blood Urea Nitrogen 28 mg/dL (8-23); Calcium 8.6 mg/dL (8.5-10.5); Carbon Dioxide 24 mmol/L (22-29); Chloride 102 mmol/L (98-107); Globulin 2.9 g/dL (1.3-4.6); Glucose 215 mg/dL (65-115); Osmolality Calculated 294 mOsm/kg (285-295); Potassium 4.9 mmol/L (3.5-5.1); Sodium 136 mmol/L (136-145); Total Bilirubin 0.2 mg/dL (0.15-1.2); Total Protein 6.6 g/dL (6.6-8.7)
[2021-04-06 09:59] LABS: Testosterone Total 6.9 ng/dL (193-740)
--- NOTE | 2021-04-10 15:37 | ONC FU_ITS ---
Dr. Duran Patient Follow-Up Note Patient: Jennifer Lanza Unit #: [id number]: 1945 Dicatated By: Edgar Duran M.D.Date of Visit:Apr 06, 2021 Onc Med Follow-up/Prog Note Chief Complaint: Prostate cancer. 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 He has a history of posttraumatic urethral stricture with associated chronic urinary retention. He has been followed by Dr. Lopez, and he now has an indwelling suprapubic tube. On 12/19/2020 he was admitted to the hospital after presenting to the emergency room with shortness of breath. On evaluation he was found to have evidence of congestive heart failure. He had associated atrial fibrillation. His chest CT showed bilateral pneumonitis/pneumonia with associated interstitial edema and moderate volume pleural effusion bilaterally, for which he underwent left thoracentesis. That study also showed diffuse skeletal sclerosis consistent with osteoblastic skeletal metastases or renal osteodystrophy. His echocardiogram showed diffuse hypokinesis of the left ventricle with estimated ejection fraction 43%. His myocardial perfusion imaging reported diffuse hypokinesis of the left ventricle with diminished LV ejection fraction at 31%. A small to moderate area of decreased tracer uptake in the inferolateral and apical lateral region with a subtle area of reversibility was suggestive of myocardial scarring in the distribution of the left circumflex artery with a subtle area of mati-infarction ischemia. His congestive failure improved on medical management. In the meantime, his laboratory studies also showed significantly elevated alkaline phosphatase level, in the range of 400-500 IU/L. His serum iron studies showed low transferrin saturation at 10%, suggesting possible iron deficiency, though his hemoglobin was only borderline low. Following discharge from the hospital his PSA level was found to be greater than 900 ng/mL. He then had follow-up with Dr. Lopze and his digital rectal exam was grossly abnormal, consistent with prostate cancer. With clinical and laboratory findings consistent with metastatic prostate cancer, he was started on treatment with bicalutamide 50 mg daily. He was then seen here for further management, and beginning on 02/21/2021 his treatment was changed to regulolix 120 mg daily in combination with enzalutamide 160 mg daily. His medical illnesses, in addition to prostate cancer, include hypertension, dyslipidemia, type 2 diabetes, and ischemic cardiomyopathy with congestive heart failure. He has a history of posttraumatic urethral stricture with associated chronic urinary retention. It is managed with indwelling suprapubic tube. He has a history of smoking 1 pack of cigarettes daily, but he quit smoking 8 to 10 years ago. He has since then chewed tobacco. He has been feeling okay. He still has very limited activity, but his says he has been walking a little more than he had been. He still sleeps a lot. His ECOG score is 3. He says his appetite is decent. He does not have fever, night sweats, or hot flashes. He has some sinus drainage. He does not complain of sore throat or cough. He says his breathing is real good. He does not complain of chest pain. He occasionally has nausea and he has ongoing problems with constipation. He has a suprapubic catheter. He has no significant joint or bone pain. He does not complain of headache. He does have issues with balance. He has no numbness/paresthesia or other focal neurologic symptoms. Medications: Adult Aspirin EC Low Strength (81 mg) Tablet, enteric coated Oral daily, Albuterol Sulfate HFA (108 (90 base) mcg/act) Aerosol, solution Inhalation four times a day PRN, Apixaban (5 mg) Tablet Oral b.i.d., Atorvastatin Calcium (20 mg) Tablet Oral at bedtime, Carvedilol (6.25 mg) Tablet Oral b.i.d., Furosemide (40 mg) Tablet Oral daily, glipiZIDE (10 mg) Tablet Oral daily, Losartan Potassium (50 mg) Tablet Oral daily, metFORMIN HCl (1000 mg) Tablet Oral b.i.d., Spironolactone (12.5 mg) Tablet Oral b.i.d. Allergies: No Known Allergies. Vital Signs: Performed on Apr 06, 2021 08:33 Height - 70.00 in Weight - 154.2 lbs (HIGH) BSA - 1.87 sq.m BMI - 22.13 Temperature - 97.0 F (LOW) Pulse - 69 /min Respiration - 18 /min BP - 115/63 mm(hg) O2 Sat - 98 % Pain - 0 Fatigue - 6 Physical Examination: Constitutional - He appears generally weak, Eyes - Sclerae nonicteric. Conjunctivae clear, ENMT - No lesions noted in the oral cavity, Hematologic/Lymphatic - No cervical, clavicular, or axillary adenopathy, Respiratory - Lungs sound clear, Cardiovascular - Heart rhythm is regular. There is no murmur, gallop, or rub noted, Abdomen - Soft. Liver and spleen are not enlarged. There is no abdominal mass or ascites noted and there is no inguinal adenopathy, Extremities - No edema, Neurologic - No focal neurologic deficits noted. Lab/Imaging: Test performed on Apr 06, 2021 08:30 Sodium 136 mmol/L Testosterone, Total 6.9 ng/dL Potassium 4.9 mmol/L Chloride 102 mmol/L Est Avg Glucose (eAG) 180 mg/dL CO2 24 mmol/L Anion Gap 14.9 BUN 28 mg/dL Creatinine 1.0 mg/dL Cr Clearance (Est) 61.2000 mL/min Glucose 215 mg/dL Osmolality - Calculated 294 mOsm/kg Calcium 8.6 mg/dL Protein, Total 6.6 g/dL Albumin 3.7 g/dL Globulin 2.9 g/dL Bilirubin, Total 0.2 mg/dL ALT (SGPT) 7 U/L AST (SGOT) 9 U/L Alkaline Phosphatase 678 IU/L Hemoglobin A1C % 7.9 % WBC 5.1 10 3/uL RBC 3.44 10 6/uL HGB 11.1 g/dL HCT 34.2 % MCV 99.4 fl MCH 32.3 pg MCHC 32.5 g/dL RDW 14.5 % Platelet Count 222 10 3/cmm MPV 10.7 fL Neutrophils 3.32 10 3/uL Lymphocytes 1.2 10 3/uL Monocytes 0.4 10 3/uL Eosinophils 0.1 10 3/uL Basophils 0.0 10 3/uL Neutrophil % 65.1 % Lymphocyte % 23.7 % Monocyte % 8.0 % Eosinophil % 1.4 % Basophils % 0.4 % NRBC % 0 % PSA 15.100 ng/mL Problem List: 1. 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 2. In December 2020 he was hospitalized with congestive heart failure. He had associated atrial fibrillation, and his cardiac evaluation appears to be consistent with ischemic cardiomyopathy. He has shown improvement on medical management. 3. Hypertension. 4. Dyslipidemia. 5. Type 2 diabetes. 6. History of posttraumatic urethral stricture and associated chronic urinary retention, now managed with indwelling suprapubic tube. 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 The findings included CT evidence of sclerotic bone lesions, significantly elevated alkaline phosphatase level, markedly elevated PSA level at > 900 ng/mL, and markedly abnormal QUIN. Following his visit with Dr. Lopez on he had started treatment with bicalutamide. He was then seen here for further management on 02/21/2021. His treatment was then changed to regulolix 120 mg daily together with enzalutamide 160 mg daily. Thus far he has been tolerating the treatment well and he is showing a significant response by PSA level, which is now down to 15.100 ng/mL. As such, he will continue treatment with regulolix 120 mg daily together with enzalutamide 160 mg daily. I will see him again in 3 months, or sooner as needed. Signed By: Edgar Duran M.D. <<Signature on File>>
== END 2021-04-06 08:04 | disposition home or self-care (01) ==
LOC: ONCMED 08:06
PROVIDERS: PCP Electrodiagnostic Medicine; Visit Provider Internal Medicine Medical Oncology
DX: C61 Malignant neoplasm of prostate (principal); C79.51 Secondary malignant neoplasm of bone; I11.0 Hypertensive heart disease with heart failure; I50.9 Heart failure, unspecified; E78.5 Hyperlipidemia, unspecified; E11.9 Type 2 diabetes mellitus without complications; Z79.899 Other long term (current) drug therapy; I48.11 Longstanding persistent atrial fibrillation
CPT/HCPCS: 36415; 80053; 83036; 84153; 84403; 85025; 99214

== ENCOUNTER 2021-07-13 11:10 | Outpatient (CLI) | payer MEDICARE, SELFPAY ==
[2021-07-13 11:43] LABS: Basophils % 0.2 %; Eosinophils # 0.1 10^3/uL (0.0-0.8); Eosinophils % 1.3 %; Hematocrit 33.7 % (42.0-52.0); Hemoglobin 11.1 g/dL (11.7-16.6); Lymphocytes # 1.2 10^3/uL (0.8-4.8); Lymphocytes % 26.1 %; Mean Corpuscular HGB Conc 32.9 g/dL (30.0-36.0); Mean Corpuscular Hemoglobin 32.9 pg (28.0-34.0); Mean Platelet Volume 11.1 fL (7.4-10.4); Monocytes # 0.4 10^3/uL (0.2-0.9); Monocytes % 7.4 %; Neutrophils # 3.04 10^3/uL (1.8-7.7); Neutrophils % 64.4 %; Nucleated Red Blood Cells % 0 %; Platelet Count 199 10^3/cmm (130-400); Red Blood Count 3.37 10^6/uL (4.1-5.3); Red Cell Distribution Width 12.2 % (12.1-15.1); White Blood Count 4.7 10^3/uL (4.0-10.0)
[2021-07-13 12:13] LABS: Alanine Aminotransferase < 5 U/L (0-41); Alkaline Phosphatase 114 IU/L (40-130); Anion Gap 17.5 (5-19); Aspartate Amino Transferase 9 U/L (0-40); Blood Urea Nitrogen 37 mg/dL (8-23); Calcium 8.9 mg/dL (8.5-10.5); Carbon Dioxide 22 mmol/L (22-29); Chloride 103 mmol/L (98-107); Globulin 2.6 g/dL (1.3-4.6); Glucose 214 mg/dL (65-115); Osmolality Calculated 301 mOsm/kg (285-295); Potassium 4.5 mmol/L (3.5-5.1); Sodium 138 mmol/L (136-145); Testosterone Total 3.4 ng/dL (193-740); Total Bilirubin 0.2 mg/dL (0.15-1.2); Total Protein 6.6 g/dL (6.6-8.7)
--- NOTE | 2021-07-13 18:50 | ONC FU_ITS ---
Dr. Duran Patient Follow-Up Note Patient: Jennifer Lanza Unit #: [id number]: 1945 Dicatated By: Edgar Duran M.D.Date of Visit:Jul 13, 2021 Onc Med Follow-up/Prog Note Chief Complaint: Prostate cancer. 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 He has a history of posttraumatic urethral stricture with associated chronic urinary retention. He has been followed by Dr. Lopez, and he now has an indwelling suprapubic tube. On 12/19/2020 he was admitted to the hospital after presenting to the emergency room with shortness of breath. On evaluation he was found to have evidence of congestive heart failure. He had associated atrial fibrillation. His chest CT showed bilateral pneumonitis/pneumonia with associated interstitial edema and moderate volume pleural effusion bilaterally, for which he underwent left thoracentesis. That study also showed diffuse skeletal sclerosis consistent with osteoblastic skeletal metastases or renal osteodystrophy. His echocardiogram showed diffuse hypokinesis of the left ventricle with estimated ejection fraction 43%. His myocardial perfusion imaging reported diffuse hypokinesis of the left ventricle with diminished LV ejection fraction at 31%. A small to moderate area of decreased tracer uptake in the inferolateral and apical lateral region with a subtle area of reversibility was suggestive of myocardial scarring in the distribution of the left circumflex artery with a subtle area of mati-infarction ischemia. His congestive failure improved on medical management. In the meantime, his laboratory studies also showed significantly elevated alkaline phosphatase level, in the range of 400-500 IU/L. His serum iron studies showed low transferrin saturation at 10%, suggesting possible iron deficiency, though his hemoglobin was only borderline low. Following discharge from the hospital his PSA level was found to be greater than 900 ng/mL. He then had follow-up with Dr. Lopez and his digital rectal exam was grossly abnormal, consistent with prostate cancer. With clinical and laboratory findings consistent with metastatic prostate cancer, he was started on treatment with bicalutamide 50 mg daily. He was then seen here for further management, and beginning on 02/21/2021 his treatment was changed to regulolix 120 mg daily in combination with enzalutamide 160 mg daily. His medical illnesses, in addition to prostate cancer, include hypertension, dyslipidemia, type 2 diabetes, and ischemic cardiomyopathy with congestive heart failure. He has a history of posttraumatic urethral stricture with associated chronic urinary retention. It is managed with indwelling suprapubic tube. He has a history of smoking 1 pack of cigarettes daily, but he quit smoking 8 to 10 years ago. He has since then chewed tobacco. INTERIM HISTORY: He was seen for a follow-up visit on 04/06/2021. At that point he appeared to be tolerating his androgen deprivation therapy without significant adverse effects. He was showing significant response with his PSA level decreased to 15.100 ng/mL compared to a pretreatment level that was greater than 900 ng/mL. He continued regulolix 120 mg daily together with enzalutamide 160 mg daily. He is seen for a follow-up visit. He has been feeling okay except that he was having pretty severe diarrhea and intestinal gas for about 2 weeks. At this point it appears to be controlled with Imodium. He still does not have much activity and he spends most of his time in bed watching television. ECOG score is 3. His appetite is not real good, but his weight is stable. He does not have fever, night sweats, or hot flashes. He has not had sore mouth or throat. He does not complain of cough, and he has not been having shortness of breath or chest pain. He has no other GI complaints. He has indwelling Garza catheter. He sometimes has pain in his left leg, but he has no other joint or bone pain. He does not complain of headache or dizziness, and he has no focal neurologic symptoms. Medications: Adult Aspirin EC Low Strength (81 mg) Tablet, enteric coated Oral daily, Albuterol Sulfate HFA (108 (90 base) mcg/act) Aerosol, solution Inhalation four times a day PRN, Anti-Diarrheal 1 Tablet (of 2 mg) Oral PRN, Apixaban (5 mg) Tablet Oral b.i.d., Atorvastatin Calcium (20 mg) Tablet Oral at bedtime, Carvedilol (6.25 mg) Tablet Oral b.i.d., Fiber 1 Tablet Capsule Oral daily, Furosemide (40 mg) Tablet Oral daily, glipiZIDE (10 mg) Tablet Oral daily, Losartan Potassium (50 mg) Tablet Oral daily, metFORMIN HCl (1000 mg) Tablet Oral b.i.d., Spironolactone (12.5 mg) Tablet Oral b.i.d. Allergies: No Known Allergies. Vital Signs: Performed on Jul 13, 2021 13:38 Height - 70.00 in Weight - 154.2 lbs BSA - 1.87 sq.m BMI - 22.13 Temperature - 97.4 F (LOW) Pulse - 77 /min Respiration - 16 /min BP - 124/61 mm(hg) O2 Sat - 92 % (LOW) Pain - 0 Fatigue - 8 Physical Examination: Constitutional - He appears generally weak, Eyes - Sclerae nonicteric. Conjunctivae clear, ENMT - No lesions noted in the oral cavity, Hematologic/Lymphatic - No cervical, clavicular, or axillary adenopathy, Respiratory - Lungs sound clear, Cardiovascular - Heart rhythm is regular. There is no murmur, gallop, or rub noted, Abdomen - Soft. Liver and spleen are not enlarged. There is no abdominal mass or ascites noted and there is no inguinal adenopathy, Extremities - No edema, Neurologic - No focal neurologic deficits noted. Lab/Imaging: Test performed on Jul 13, 2021 11:35 Sodium 138 mmol/L Testosterone, Total 3.4 ng/dL Potassium 4.5 mmol/L Chloride 103 mmol/L CO2 22 mmol/L Anion Gap 17.5 BUN 37 mg/dL Creatinine 1.2 mg/dL Cr Clearance (Est) 51.0000 mL/min Glucose 214 mg/dL Osmolality - Calculated 301 mOsm/kg Calcium 8.9 mg/dL Protein, Total 6.6 g/dL Albumin 4.0 g/dL Globulin 2.6 g/dL Bilirubin, Total 0.2 mg/dL ALT (SGPT) < 5 U/L AST (SGOT) 9 U/L Alkaline Phosphatase 114 IU/L WBC 4.7 10 3/uL RBC 3.37 10 6/uL HGB 11.1 g/dL HCT 33.7 % MCV 100.0 fl MCH 32.9 pg MCHC 32.9 g/dL RDW 12.2 % Platelet Count 199 10 3/cmm MPV 11.1 fL Neutrophils 3.04 10 3/uL Lymphocytes 1.2 10 3/uL Monocytes 0.4 10 3/uL Eosinophils 0.1 10 3/uL Basophils 0.0 10 3/uL Neutrophil % 64.4 % Lymphocyte % 26.1 % Monocyte % 7.4 % Eosinophil % 1.3 % Basophils % 0.2 % NRBC % 0 % PSA 6.270 ng/mL Problem List: 1. 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 2. In December 2020 he was hospitalized with congestive heart failure. He had associated atrial fibrillation, and his cardiac evaluation appears to be consistent with ischemic cardiomyopathy. He has shown improvement on medical management. 3. Hypertension. 4. Dyslipidemia. 5. Type 2 diabetes. 6. History of posttraumatic urethral stricture and associated chronic urinary retention, now managed with indwelling suprapubic tube. 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 The findings included CT evidence of sclerotic bone lesions, significantly elevated alkaline phosphatase level, markedly elevated PSA level at > 900 ng/mL, and markedly abnormal QUIN. Following his visit with Dr. Lopez he had started treatment with bicalutamide. He was then seen here for further management on 02/21/2021. His treatment was then changed to regulolix 120 mg daily together with enzalutamide 160 mg daily. At his follow-up visit on 04/06/2021 he appeared to be tolerating the treatment without significant adverse effects, and he appeared to be showing a significant response with his PSA level decreased to 15.100 ng/mL. Since then there has been further decrease in the PSA level to 6.270 ng/mL. He has tolerated the treatment well other than he recently developed significant diarrhea, which I suspect is due to the enzalutamide. As such, he is advised to stop the enzalutamide. If the diarrhea is resolved without use of Imodium, he can then restart the enzalutamide at a reduced dosage of 120 mg daily. In the meantime, he will continue regulolix 120 mg daily. He will be scheduled for a follow-up visit in 3 months. Signed By: Edgar Duran M.D. <<Signature on File>>
== END 2021-07-13 11:11 | disposition home or self-care (01) ==
LOC: ONCMED 11:12
PROVIDERS: PCP Electrodiagnostic Medicine; Visit Provider Internal Medicine Medical Oncology
DX: C61 Malignant neoplasm of prostate (principal); C79.51 Secondary malignant neoplasm of bone; I50.9 Heart failure, unspecified; I48.91 Unspecified atrial fibrillation; I25.5 Ischemic cardiomyopathy; I11.0 Hypertensive heart disease with heart failure; E78.5 Hyperlipidemia, unspecified; E11.59 Type 2 diabetes mellitus with other circulatory complications; Z87.448 Personal history of other diseases of urinary system; Z79.899 Other long term (current) drug therapy; Z79.818 Long term (current) use of other agents affecting estrogen receptors and estrogen levels
CPT/HCPCS: 36415; 80053; 84153; 84403; 85025; 99214

== ENCOUNTER 2021-10-19 10:49 | Outpatient (CLI) | payer MEDICARE, SELFPAY ==
[2021-10-19 11:21] LABS: Basophils % 0.2 %; Eosinophils # 0.1 10^3/uL (0.0-0.8); Eosinophils % 1.5 %; Lymphocytes # 1.1 10^3/uL (0.8-4.8); Lymphocytes % 17.8 %; Mean Corpuscular HGB Conc 31.4 g/dL (30.0-36.0); Mean Corpuscular Hemoglobin 31.6 pg (28.0-34.0); Mean Corpuscular Volume 100.6 fl (80-94); Mean Platelet Volume 10.6 fL (7.4-10.4); Monocytes # 0.4 10^3/uL (0.2-0.9); Monocytes % 6.9 %; Neutrophils # 4.54 10^3/uL (1.8-7.7); Neutrophils % 73.3 %; Nucleated Red Blood Cells % 0 %; Platelet Count 208 10^3/cmm (130-400); Red Blood Count 3.48 10^6/uL (4.1-5.3); Red Cell Distribution Width 12.6 % (12.1-15.1); White Blood Count 6.2 10^3/uL (4.0-10.0)
[2021-10-19 11:51] LABS: Alanine Aminotransferase 6 U/L (0-41); Albumin Level 4.1 g/dL (3.5-5.2); Alkaline Phosphatase 82 IU/L (40-130); Anion Gap 15.5 (5-19); Aspartate Amino Transferase 9 U/L (0-40); Blood Urea Nitrogen 43 mg/dL (8-23); Calcium 9.1 mg/dL (8.5-10.5); Carbon Dioxide 23 mmol/L (22-29); Chloride 104 mmol/L (98-107); Globulin 2.9 g/dL (1.3-4.6); Glucose 243 mg/dL (65-115); Osmolality Calculated 305 mOsm/kg (285-295); Potassium 4.5 mmol/L (3.5-5.1); Sodium 138 mmol/L (136-145); Testosterone Total 2.5 ng/dL (193-740); Total Bilirubin 0.2 mg/dL (0.15-1.2)
[2021-10-19 12:07] LABS: Iron 86 ug/dL (59-158); Percent Saturation 38.7 % (20-50); Total Iron Binding Capacity 222 mcg/dl; Unsaturated Iron Binding 136 ug/dL (112-347)
--- NOTE | 2021-10-22 14:18 | ONC FU_ITS ---
Dr. Duran Patient Follow-Up Note Patient: Jennifer Lanza Unit #: [id number]: 1945 Dicatated By: Edgar Duran M.D.Date of Visit:Oct 19, 2021 Onc Med Follow-up/Prog Note Chief Complaint: Prostate cancer. 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 He has a history of posttraumatic urethral stricture with associated chronic urinary retention. He has been followed by Dr. Lopez, and he now has an indwelling suprapubic tube. On 12/19/2020 he was admitted to the hospital after presenting to the emergency room with shortness of breath. On evaluation he was found to have evidence of congestive heart failure. He had associated atrial fibrillation. His chest CT showed bilateral pneumonitis/pneumonia with associated interstitial edema and moderate volume pleural effusion bilaterally, for which he underwent left thoracentesis. That study also showed diffuse skeletal sclerosis consistent with osteoblastic skeletal metastases or renal osteodystrophy. His echocardiogram showed diffuse hypokinesis of the left ventricle with estimated ejection fraction 43%. His myocardial perfusion imaging reported diffuse hypokinesis of the left ventricle with diminished LV ejection fraction at 31%. A small to moderate area of decreased tracer uptake in the inferolateral and apical lateral region with a subtle area of reversibility was suggestive of myocardial scarring in the distribution of the left circumflex artery with a subtle area of mati-infarction ischemia. His congestive failure improved on medical management. In the meantime, his laboratory studies also showed significantly elevated alkaline phosphatase level, in the range of 400-500 IU/L. His serum iron studies showed low transferrin saturation at 10%, suggesting possible iron deficiency, though his hemoglobin was only borderline low. Following discharge from the hospital his PSA level was found to be greater than 900 ng/mL. He then had follow-up with Dr. Lopez and his digital rectal exam was grossly abnormal, consistent with prostate cancer. With clinical and laboratory findings consistent with metastatic prostate cancer, he was started on treatment with bicalutamide 50 mg daily. He was then seen here for further management, and beginning on 02/21/2021 his treatment was changed to regulolix 120 mg daily in combination with enzalutamide 160 mg daily. His medical illnesses, in addition to prostate cancer, include hypertension, dyslipidemia, type 2 diabetes, and ischemic cardiomyopathy with congestive heart failure. He has a history of posttraumatic urethral stricture with associated chronic urinary retention. It is managed with indwelling suprapubic tube. He has a history of smoking 1 pack of cigarettes daily, but he quit smoking 8 to 10 years ago. He has since then chewed tobacco. INTERIM HISTORY: He was seen for a follow-up visit on 04/06/2021. At that point he appeared to be tolerating his androgen deprivation therapy without significant adverse effects. He was showing significant response with his PSA level decreased to 15.100 ng/mL compared to a pretreatment level that was greater than 900 ng/mL. He continued regulolix 120 mg daily together with enzalutamide 160 mg daily. As of his follow-up visit on 07/13/2021 there was further decline in the PSA to 6.270 ng/mL. At that point the enzalutamide dosage was reduced to 120 mg daily due to diarrhea. It was then further reduced to 80 mg daily. He is seen for a follow-up visit. He has been feeling okay on the reduced dosage of enzalutamide, though he still does not have a whole lot of energy. He is up and around, though mostly sedentary. ECOG score is 2. He has good appetite. He has not had fever or night sweats. He has just occasional hot flashes. He has some sinus drainage. He has not had sore mouth or throat. He does not complain of cough, and he has not been having shortness of breath or chest pain. He now has mild constipation. He has no other GI complaints. He has an indwelling catheter, and he recently required treatment for urinary tract infection. He has no significant joint or bone pain. He does not complain of headache or dizziness, and he has no focal neurologic symptoms. Medications: Adult Aspirin EC Low Strength (81 mg) Tablet, enteric coated Oral daily, Albuterol Sulfate HFA (108 (90 base) mcg/act) Aerosol, solution Inhalation four times a day PRN, Anti-Diarrheal 1 Tablet (of 2 mg) Oral PRN, Apixaban (5 mg) Tablet Oral b.i.d., Atorvastatin Calcium (20 mg) Tablet Oral at bedtime, Carvedilol (6.25 mg) Tablet Oral b.i.d., Fiber 1 Tablet Capsule Oral daily, Furosemide (40 mg) Tablet Oral daily, glipiZIDE (10 mg) Tablet Oral daily, Losartan Potassium (50 mg) Tablet Oral daily, metFORMIN HCl (1000 mg) Tablet Oral b.i.d., Spironolactone (12.5 mg) Tablet Oral b.i.d. Allergies: No Known Allergies. Vital Signs: Performed on Oct 19, 2021 11:45 Height - 70.00 in Weight - 160.2 lbs (HIGH) BSA - 1.90 sq.m BMI - 22.99 Temperature - 98.1 F (LOW) Pulse - 79 /min Respiration - 18 /min BP - 99/58 mm(hg) O2 Sat - 99 % Pain - 0 Fatigue - 6 Physical Examination: Constitutional - He appears somewhat weak generally, Eyes - Sclerae nonicteric. Conjunctivae clear, ENMT - No lesions noted in the oral cavity, Hematologic/Lymphatic - No cervical, clavicular, or axillary adenopathy, Respiratory - Lungs sound clear, Cardiovascular - Heart rhythm is regular. There is no murmur, gallop, or rub noted, Abdomen - Soft. Liver and spleen are not enlarged. There is no abdominal mass or ascites noted and there is no inguinal adenopathy, Extremities - No edema, Neurologic - No focal neurologic deficits noted. Lab/Imaging: Test performed on Oct 19, 2021 11:10 Iron 86 mcg/dL Sodium 138 mmol/L Testosterone, Total 2.5 ng/dL Iron Binding Capacity (TIBC) 222 mcg/dl Potassium 4.5 mmol/L % Iron Saturation 38.7 % Chloride 104 mmol/L CO2 23 mmol/L UIBC 136 mcg/dL Anion Gap 15.5 BUN 43 mg/dL Creatinine 1.5 mg/dL Cr Clearance (Est) 42.3900 mL/min Glucose 243 mg/dL Osmolality - Calculated 305 mOsm/kg Calcium 9.1 mg/dL Protein, Total 7.0 g/dL Albumin 4.1 g/dL Globulin 2.9 g/dL Bilirubin, Total 0.2 mg/dL ALT (SGPT) 6 U/L AST (SGOT) 9 U/L Alkaline Phosphatase 82 IU/L WBC 6.2 10 3/uL RBC 3.48 10 6/uL HGB 11.0 g/dL HCT 35.0 % MCV 100.6 fl MCH 31.6 pg MCHC 31.4 g/dL RDW 12.6 % Platelet Count 208 10 3/cmm MPV 10.6 fL Neutrophils 4.54 10 3/uL Lymphocytes 1.1 10 3/uL Monocytes 0.4 10 3/uL Eosinophils 0.1 10 3/uL Basophils 0.0 10 3/uL Neutrophil % 73.3 % Lymphocyte % 17.8 % Monocyte % 6.9 % Eosinophil % 1.5 % Basophils % 0.2 % NRBC % 0 % PSA 1.770 ng/mL Problem List: 1. 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 2. In December 2020 he was hospitalized with congestive heart failure. He had associated atrial fibrillation, and his cardiac evaluation appears to be consistent with ischemic cardiomyopathy. He has shown improvement on medical management. 3. Hypertension. 4. Dyslipidemia. 5. Type 2 diabetes. 6. History of posttraumatic urethral stricture and associated chronic urinary retention, now managed with indwelling suprapubic tube. 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 The findings included CT evidence of sclerotic bone lesions, significantly elevated alkaline phosphatase level, markedly elevated PSA level at > 900 ng/mL, and markedly abnormal QUIN. Following his visit with Dr. Lopez he had started treatment with bicalutamide. He was then seen here for further management on 02/21/2021. His treatment was then changed to regulolix 120 mg daily together with enzalutamide 160 mg daily. At his follow-up visit on 04/06/2021 he appeared to be tolerating the treatment without significant adverse effects, and he appeared to be showing a significant response with his PSA level decreased to 15.100 ng/mL. As of July 2021 his PSA was down to 6.270 ng/mL. At that point the enzalutamide dosage was decreased to 100 mg daily due to diarrhea. There was then further decreased to 80 mg daily. He has since then been tolerating the treatment well. His overall clinical status has remained stable, and his PSA has continued to decline, now to 1.770 ng/mL. As such, he will continue treatment with regulolix 120 mg daily together with enzalutamide 80 mg daily. He will be scheduled for a follow-up visit in 3 months. Signed By: Edgar Duran M.D. <<Signature on File>>
== END 2021-10-19 10:50 | disposition home or self-care (01) ==
PROVIDERS: PCP Electrodiagnostic Medicine; Visit Provider Internal Medicine Medical Oncology
DX: C61 Malignant neoplasm of prostate (principal); C79.51 Secondary malignant neoplasm of bone; I10 Essential (primary) hypertension; E78.5 Hyperlipidemia, unspecified; E11.9 Type 2 diabetes mellitus without complications; I25.5 Ischemic cardiomyopathy; I50.9 Heart failure, unspecified; F17.220 Nicotine dependence, chewing tobacco, uncomplicated; Z79.899 Other long term (current) drug therapy
CPT/HCPCS: 36415; 80053; 83540; 83550; 84153; 84403; 85025; 99214

== ENCOUNTER 2021-12-11 09:03 | Oncology outpatient (recurring) (ONCR) | payer MEDICARE, SELFPAY ==
[2021-12-11 10:51] LABS: Alanine Aminotransferase 7 U/L (0-41); Albumin Level 3.5 g/dL (3.5-5.2); Alkaline Phosphatase 85 IU/L (40-130); Anion Gap 17.5 (5-19); Aspartate Amino Transferase 6 U/L (0-40); Blood Urea Nitrogen 25 mg/dL (8-23); Calcium 9.5 mg/dL (8.5-10.5); Carbon Dioxide 23 mmol/L (22-29); Chloride 101 mmol/L (98-107); Globulin 3.6 g/dL (1.3-4.6); Glucose 213 mg/dL (65-115); Osmolality Calculated 295 mOsm/kg (285-295); Potassium 4.5 mmol/L (3.5-5.1); Sodium 137 mmol/L (136-145); Total Bilirubin 0.2 mg/dL (0.15-1.2); Total Protein 7.1 g/dL (6.6-8.7)
== END 2022-01-05 23:59 | disposition home or self-care (01) ==
PROVIDERS: PCP Electrodiagnostic Medicine; Visit Provider Internal Medicine Medical Oncology
DX: C61 Malignant neoplasm of prostate (principal); C79.51 Secondary malignant neoplasm of bone
CPT/HCPCS: 80053; 84153; 99214; 99999

== ENCOUNTER → 2021-12-14 09:49 | Outpatient (BNVA) | payer MEDICARE, SELFPAY | PROVIDERS: PCP Electrodiagnostic Medicine; Visit Provider Nurse Practitioner Family | DX: Z93.59 Other cystostomy status (principal); R33.9 Retention of urine, unspecified | CPT/HCPCS: 51705 ==

== ENCOUNTER 2021-12-16 05:10 | Emergency (ER) | payer MEDICARE, SELFPAY ==
[2021-12-16 05:40] VITALS: BP 160/75; PULSE 77; RESP 16; TEMP 36.7; O2SAT 99; BMI 23.6
--- NOTE | 2021-12-16 05:55 | W.ED.MALEGU ---
HPI - Male Genitourinary General: Chief complaint: Urogenital-Male Stated complaint: Nothing coming out of cath Time Seen by Provider: 12/16/21 05:51 Source: patient Mode of arrival: ambulatory Limitations: no limitations History of Present Illness: 76-year-old male presents emergency room with complaints of bladder fullness. Patient has prostate CA with skeletal mets. He also has known urethral stricture with your chronic urinary retention is a suprapubic catheter placed. He has a leg bag at the end of the catheter it is full when he arrives here. He is complaining of fullness in the bladder. He just recently had the catheter replaced. He sees Dr. Duran for his prostate cancer. He follows with Dr. Lopez for his urinary retention and management of suprapubic catheter. Duration: constant Location: abdomen (Suprapubic) Severity: moderate Quality: aching and dull Relieving factors: none and other (Relieved by emptying leg bag after patient arrived in ER) Exacerbating factors: palpation Associated symptoms: Reports urinary retention (Chronic); Deny discharge, dysuria, fevers/chills, hematuria, nausea, rash, swelling, urinary incontinence, mass or vomiting Review of Systems Const: Denies: fever(s), chills, body aches, change in appetite, fatigue or malaise ENMT: Denies: throat pain, ear or mastoid pain, nasal discharge or nasal congestion Card: Denies: chest pain, palpitations, irregular heart rhythm, edema, dyspnea on exertion or orthopnea Resp: Denies: dyspnea, productive cough or non-productive cough GI: Reports: abdominal pain; Denies: nausea, vomiting, hematemesis or coffee ground emesis : Reports: difficulty urinating; Denies: flank pain, dysuria, urinary frequency, urinary urgency, urinary incontinence or hematuria Skin/Breast: Denies: rash or pruritus PFSH ED PFSH: Medical History Acute respiratory failure with hypoxia Bladder spasm Chronic kidney disease Community acquired pneumonia Diabetes DM type 2 (diabetes mellitus, type 2) Dyslipidemia Hypertension Pleural effusion 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 Mother , 86 No problems noted. Sister Cancer Denies family history of Diabetes CAD (coronary artery disease) Clotting disorder Dementia Chronic kidney disease (CKD) Suicide Anesthesia complication Bleeding disorder Lung disease Stroke Social History Smoking and tobacco status: former smoker Quit status (tobacco): has quit using tobacco Former quit date comment: Reportedly quit years ago. Currently chews smokeless tobacco. Alcohol intake: never Lives independently: No Household members: other Details: Son Marital status: / Current occupational status: retired Physical Exam Const: GENERAL APPEARANCE: cooperative and comfortable ORIENTATION/CONSCIOUSNESS: Yes awake, Yes oriented to person, Yes oriented to place and Yes oriented to time HENMT: COMMON NORMALS: normocephalic, atraumatic and hearing grossly normal bilaterally HEAD & SCALP: normocephalic and atraumatic Neck/C-Spine: COMMON NORMALS: no JVD Resp: COMMON NORMALS: normal respiratory effort, No retractions, No use of accessory muscles and clear to auscultation bilaterally AUSCULTATION: clear to auscultation bilaterally Cardio: COMMON NORMALS: no JVD, regular rate, regular rhythm and No murmurs present (Cardio) RATE: regular rate RHYTHM: regular rhythm GI: COMMON NORMALS: Soft to palpation and No hepatosplenomegaly present AUSCULTATION: Yes normoactive bowel sounds PALPATION: Yes Soft to palpation, No Tenderness to palpation present (GI), No Guarding due to palpation present (GI) and Yes No hepatosplenomegaly present Extremity: COMMON NORMALS: normal to inspection, capillary refill normal, no clubbing, cyanosis or edema, no calf tenderness and no pedal edema Neuro: SENSORIUM/ORIENTATION: Yes oriented to person, Yes oriented to place and Yes oriented to time Skin: COMMON NORMALS: no rashes or lesions noted GENERAL SKIN EXAM: no rashes or lesions noted Course Vital Signs: Vital signs: Vital Signs Temperature 98.0 F 12/16/21 05:40 Pulse Rate 71 12/16/21 07:35 Respiratory Rate 18 12/16/21 07:35 Blood Pressure 160/72 12/16/21 07:35 Pulse Oximetry 100 12/16/21 07:35 MDM - Male Medical Decision Making Catheter drained. And output is good he just needs to drain it more often no other changes follow-up with primary care and urology as previously scheduled. Medical Records I reviewed the patient's medical records. Lab Data I reviewed the patient's lab results. : 12/16/21 06:20 Laboratory Results Sodium 134 mmol/L (136-145) L 12/16/21 06:20 Potassium 3.7 mmol/L (3.5-5.1) 12/16/21 06:20 Chloride 98 mmol/L (98-107) 12/16/21 06:20 Carbon Dioxide 25 mmol/L (22-29) 12/16/21 06:20 Anion Gap 14.7 (5-19) 12/16/21 06:20 BUN 27 mg/dL (8-23) H 12/16/21 06:20 Creatinine 1.5 mg/dL (0.7-1.2) H 12/16/21 06:20 GFR Calculation Not Reportable 12/16/21 06:20 Glucose 209 mg/dL (65-115) H 12/16/21 06:20 Calculated Osmolality 289 mOsm/kg (285-295) 12/16/21 06:20 Calcium 9.7 mg/dL (8.5-10.5) 12/16/21 06:20 Total Bilirubin 0.2 mg/dL (0.15-1.2) 12/16/21 06:20 AST 6 U/L (0-40) 12/16/21 06:20 ALT < 5 U/L (0-41) 12/16/21 06:20 Alkaline Phosphatase 82 IU/L (40-130) 12/16/21 06:20 Total Protein 7.3 g/dL (6.6-8.7) 12/16/21 06:20 Albumin 3.9 g/dL (3.5-5.2) 12/16/21 06:20 Globulin 3.4 g/dL (1.3-4.6) 12/16/21 06:20 Urine Color Yellow (Yellow) 12/16/21 06:22 Urine Appearance Cloudy (CLEAR) 12/16/21 06:22 Urine pH 6.5 (5-7) 12/16/21 06:22 Ur Specific [place] 1.010 (1.005-1.030) 12/16/21 06:22 Urine Protein Neg (Negative) 12/16/21 06:22 Urine Glucose (UA) Norm (Normal) 12/16/21 06:22 Urine Ketones Negative (Negative) 12/16/21 06:22 Urine Blood 3+ (Negative) H 12/16/21 06:22 Urine Nitrate Negative (Negative) 12/16/21 06:22 Urine Bilirubin Neg (Negative) 12/16/21 06:22 Urine Urobilinogen Norm mg/dL (Negative) 12/16/21 06:22 Ur Leukocyte Esterase 2+ (Negative) H 12/16/21 06:22 Urine RBC 25-40 /hpf (0-2) H 12/16/21 06:22 Urine WBC 25-40 /hpf (0-5) H 12/16/21 06:22 Ur Squamous Epith Cells 0-4 /hpf (0-5) H 12/16/21 06:22 Amorphous Sediment Not Reportable 12/16/21 06:22 Urine Bacteria 3+ /hpf (NONE) H 12/16/21 06:22 Discharge Plan Discharge Patient Disposition: Home Clinical Impression: Urinary retention, Chronic kidney disease, Suprapubic catheter, Cystitis Condition: Stable Prescriptions: New Macrobid 100 mg capsule 100 mg PO BID 7 Days Qty: 14 0RF Rx Instructions: must administer with a meal/food No Action Orgovyx 120 mg tablet 120 mg PO DAILY 0RF Xtandi 40 mg capsule 80 mg PO DAILY 0RF ferrous sulfate [iron] 325 mg (65 mg iron) tablet 325 mg PO DAILY 0RF Trulicity 1.5 mg/0.5 mL pen injector 1.5 mg SUBCUT .weekly 0RF carvedilol 6.25 mg tablet 6.25 mg PO BID 0RF Rx Instructions: must administer with a meal/food magnesium citrate Solution 150 ml PO BID PRN0RF sennosides-docusate sodium [Senna-S] 8.6-50 mg tablet 1 tab-cap PO BID PRN0RF psyllium husk [Daily Fiber] 0.4 gram capsule 0.4 g PO DAILY 0RF albuterol sulfate 90 mcg/actuation Hfa Aerosol Inhaler 2 puff INHALATION QID PRN (Reason: Shortness Of Breath) 0RF spironolactone 25 mg Tablet 12.5 mg PO DAILY Qty: 30 0RF Eliquis 5 mg tablet 5 mg PO Q12H Qty: 60 0RF losartan 50 mg Tablet 50 mg PO DAILY Qty: 30 0RF Discharge Orders: Discharge ED (Routine); Ordered 12/16/21 Ordered By: Sean Rowley Referrals: Leonard Navarro, [Primary Care Provider] - Discharge Diet: Usual diet Discharge Activity: Resume usual activity Patient Instructions: Opioid Safety Activity Restrictions/Additional Instructions: Follow-up with Dr. Lopez within 1 week. Pending results of urine culture recommend he start the antibiotics we will call with final result when available. Coding Level of Care Code ED Tobacco Sprayer for Stephen Mathew Exam Comprehensive
[2021-12-16 06:25] VITALS: BP 153/59; PULSE 72; RESP 16; O2SAT 97
[2021-12-16 06:45] VITALS: BP 157/77; PULSE 70; RESP 17; O2SAT 98
[2021-12-16 06:48] LABS: Alanine Aminotransferase < 5 U/L (0-41); Albumin Level 3.9 g/dL (3.5-5.2); Alkaline Phosphatase 82 IU/L (40-130); Anion Gap 14.7 (5-19); Aspartate Amino Transferase 6 U/L (0-40); Blood Urea Nitrogen 27 mg/dL (8-23); Calcium 9.7 mg/dL (8.5-10.5); Carbon Dioxide 25 mmol/L (22-29); Chloride 98 mmol/L (98-107); Globulin 3.4 g/dL (1.3-4.6); Glucose 209 mg/dL (65-115); Osmolality Calculated 289 mOsm/kg (285-295); Potassium 3.7 mmol/L (3.5-5.1); Sodium 134 mmol/L (136-145); Total Bilirubin 0.2 mg/dL (0.15-1.2); Total Protein 7.3 g/dL (6.6-8.7)
[2021-12-16 07:06] LABS: Add Urine Culture? Yes; Add Urine Microscopic? YES; Bacteria Urine 3+ /hpf; Bilirubin Urine Neg (Negative); Blood Urine 3+ (Negative); Glucose Urine UA Norm (Normal); Ketones Urine Negative (Negative); Leukocyte Esterase Urine 2+ (Negative); Nitrate Urine Negative (Negative); Protein Urine Neg (Negative); RBC Urine 25-40 /hpf (0-2); Squamous Epithelial Cell Urine 0-4 /hpf (0-5); Urine Appearance Cloudy (CLEAR); Urine Color Yellow (Yellow); Urobilinogen Urine Norm (Negative); WBC Urine 25-40 /hpf (0-5); pH Urine 6.5 (5-7)
[2021-12-16 07:35] VITALS: BP 160/72; PULSE 71; RESP 18; O2SAT 100
== END 2021-12-16 07:36 | disposition home or self-care (01) ==
PROVIDERS: Emergency Provider Family Medicine; PCP Electrodiagnostic Medicine
DX: N30.90 Cystitis, unspecified without hematuria (principal); R33.9 Retention of urine, unspecified; I12.9 Hypertensive chronic kidney disease with stage 1 through stage 4 chronic kidney disease, or unspecified chronic kidney disease; E11.22 Type 2 diabetes mellitus with diabetic chronic kidney disease; N18.9 Chronic kidney disease, unspecified; F17.220 Nicotine dependence, chewing tobacco, uncomplicated; Z96.0 Presence of urogenital implants; Z79.01 Long term (current) use of anticoagulants
CPT/HCPCS: 80053; 81001; 87077; 87086; 87186; 99282

== ENCOUNTER → 2021-12-28 10:46 | Outpatient (BNVA) | payer MEDICARE, SELFPAY | PROVIDERS: PCP Electrodiagnostic Medicine; Visit Provider Nurse Practitioner Family | DX: Z93.59 Other cystostomy status (principal); R33.9 Retention of urine, unspecified; R39.89 Other symptoms and signs involving the genitourinary system | CPT/HCPCS: 51705; 99212 ==

== ENCOUNTER 2022-01-18 13:07 | Oncology outpatient (recurring) (ONCR) | payer MEDICARE, SELFPAY ==
[2022-01-18 14:05] LABS: Basophils % 0.4 %; Eosinophils # 0.1 10^3/uL (0.0-0.8); Eosinophils % 1.6 %; Hematocrit 30.3 % (42.0-52.0); Hemoglobin 10.1 g/dL (11.7-16.6); Lymphocytes # 1.2 10^3/uL (0.8-4.8); Lymphocytes % 24.3 %; Mean Corpuscular HGB Conc 33.3 g/dL (30.0-36.0); Mean Corpuscular Hemoglobin 31.7 pg (28.0-34.0); Mean Platelet Volume 11.3 fL (7.4-10.4); Monocytes # 0.4 10^3/uL (0.2-0.9); Monocytes % 7.7 %; Neutrophils # 3.23 10^3/uL (1.8-7.7); Neutrophils % 65.6 %; Nucleated Red Blood Cells % 0 %; Platelet Count 199 10^3/cmm (130-400); Red Blood Count 3.19 10^6/uL (4.1-5.3); Red Cell Distribution Width 12.5 % (12.1-15.1); White Blood Count 4.9 10^3/uL (4.0-10.0)
== END 2022-02-04 23:59 | disposition home or self-care (01) ==
PROVIDERS: PCP Electrodiagnostic Medicine; Visit Provider Internal Medicine Medical Oncology
DX: C61 Malignant neoplasm of prostate (principal); C79.51 Secondary malignant neoplasm of bone; D64.9 Anemia, unspecified
CPT/HCPCS: 36415; 80053; 82607; 83615; 83921; 84153; 84403; 84443; 85025; 85045; 99214

== ENCOUNTER → 2022-02-01 10:14 | Outpatient (BNVA) | payer MEDICARE, SELFPAY | PROVIDERS: PCP Electrodiagnostic Medicine; Visit Provider Nurse Practitioner Family | DX: Z93.59 Other cystostomy status (principal); R33.9 Retention of urine, unspecified | CPT/HCPCS: 51705 ==

== ENCOUNTER 2022-03-01 08:51 | Oncology outpatient (recurring) (ONCR) | payer MEDICARE, SELFPAY ==
[2022-03-01 09:15] VITALS: BP 125/68; PULSE 57; RESP 18; TEMP 36.7; O2SAT 99
[2022-03-01] MEDS: cyanocobalamin 1,000 mcg/mL SDV 1000 MCG IM (09:27)
[2022-03-01 09:28] VITALS: BP 143/66; PULSE 58; RESP 18; TEMP 36.7; O2SAT 96
== END 2022-03-07 23:59 | disposition home or self-care (01) ==
PROVIDERS: PCP Electrodiagnostic Medicine; Visit Provider Internal Medicine Medical Oncology
DX: C61 Malignant neoplasm of prostate (principal); C79.51 Secondary malignant neoplasm of bone; D64.9 Anemia, unspecified; Z79.899 Other long term (current) drug therapy
CPT/HCPCS: 51702; 96372; J3420

== ENCOUNTER 2022-04-05 12:30 | Oncology outpatient (recurring) (ONCR) | payer MEDICARE, SELFPAY ==
[2022-03-08 11:00] VITALS: BP 123/59; PULSE 55; RESP 16; TEMP 36.1
[2022-03-08] MEDS: cyanocobalamin 1,000 mcg/mL SDV 1000 MCG IM (11:39)
[2022-03-15 09:21] VITALS: BP 111/62; PULSE 67; RESP 16; TEMP 36.8; O2SAT 98
[2022-03-15] MEDS: cyanocobalamin 1,000 mcg/mL SDV 1000 MCG IM (09:27)
[2022-03-22 10:58] VITALS: BP 128/56; PULSE 66; RESP 18; TEMP 36.6; O2SAT 100
[2022-03-22] MEDS: cyanocobalamin 1,000 mcg/mL SDV 1000 MCG IM (10:59)
[2022-04-05 10:16] LABS: Basophils % 0.1 %; Eosinophils # 0.1 10^3/uL (0.0-0.8); Eosinophils % 1.3 %; Hemoglobin 11.4 g/dL (11.7-16.6); Lymphocytes # 1.3 10^3/uL (0.8-4.8); Lymphocytes % 18.4 %; Mean Corpuscular HGB Conc 31.7 g/dL (30.0-36.0); Mean Corpuscular Hemoglobin 31.4 pg (28.0-34.0); Mean Corpuscular Volume 99.2 fl (80-94); Mean Platelet Volume 10.6 fL (7.4-10.4); Monocytes # 0.5 10^3/uL (0.2-0.9); Monocytes % 7.5 %; Neutrophils % 72.3 %; Nucleated Red Blood Cells % 0 %; Platelet Count 202 10^3/cmm (130-400); Red Blood Count 3.63 10^6/uL (4.1-5.3); White Blood Count 6.9 10^3/uL (4.0-10.0)
[2022-04-05 10:52] LABS: Add On to Lab Order(s) Added
[2022-04-05 11:08] LABS: Alanine Aminotransferase 7 U/L (0-41); Albumin Level 3.8 g/dL (3.5-5.2); Alkaline Phosphatase 257 U/L (40-130); Anion Gap 13.8 (5-19); Aspartate Amino Transferase 7 U/L (0-40); Blood Urea Nitrogen 37 mg/dL (8-23); Calcium 8.8 mg/dL (8.5-10.5); Carbon Dioxide 25 mmol/L (22-29); Chloride 105 mmol/L (98-107); Globulin 2.9 g/dL (1.3-4.6); Glucose 106 mg/dL (65-115); Osmolality Calculated 297 mOsm/kg (285-295); Potassium 4.8 mmol/L (3.5-5.1); Sodium 139 mmol/L (136-145); Testosterone Total 309.3 ng/dL (193-740); Thyroid Stimulating Hormone 2.14 uIU/mL (0.27-4.20); Total Bilirubin 0.2 mg/dL (0.15-1.2); Total Protein 6.7 g/dL (6.6-8.7)
[2022-04-05 11:42] LABS: Vitamin B12 528 pg/mL (232-1245)
[2022-04-05] MEDS: cyanocobalamin 1,000 mcg/mL SDV 1000 MCG IM (14:49)
[2022-04-05] MEDS: leuprolide 22.5 mg Kit IM (15:05)
[2022-04-08 09:52] LABS: Methylmalonic Acid 198 nmol/L (87-318)
== END 2022-04-07 23:59 | disposition home or self-care (01) ==
PROVIDERS: PCP Electrodiagnostic Medicine; Visit Provider Internal Medicine Medical Oncology
DX: C61 Malignant neoplasm of prostate (principal); C79.51 Secondary malignant neoplasm of bone; R97.21 Rising PSA following treatment for malignant neoplasm of prostate; D51.9 Vitamin B12 deficiency anemia, unspecified; Z79.818 Long term (current) use of other agents affecting estrogen receptors and estrogen levels; Z79.899 Other long term (current) drug therapy; Z92.25 Personal history of immunosuppression therapy; Z87.891 Personal history of nicotine dependence
CPT/HCPCS: 36415; 51705; 80053; 82607; 83921; 84153; 84403; 84443; 85025; 96372; 96402; 99212; 99214; 99215; J3420; J9217

== ENCOUNTER → 2022-04-26 08:13 | Outpatient (BNVA) | payer MEDICARE, SELFPAY | PROVIDERS: PCP Electrodiagnostic Medicine; Visit Provider Nurse Practitioner Family | DX: N30.90 Cystitis, unspecified without hematuria (principal); R33.9 Retention of urine, unspecified; Z93.59 Other cystostomy status | CPT/HCPCS: 51705 ==

== ENCOUNTER → 2022-05-24 08:21 | Outpatient (BNVA) | payer MEDICARE, SELFPAY | PROVIDERS: PCP Electrodiagnostic Medicine; Visit Provider Nurse Practitioner Family | DX: Z93.59 Other cystostomy status (principal) | CPT/HCPCS: 51705 ==

== ENCOUNTER → 2022-06-22 08:15 | Outpatient (BNVA) | payer MEDICARE, SELFPAY | PROVIDERS: PCP Electrodiagnostic Medicine; Visit Provider Urology | DX: R33.9 Retention of urine, unspecified (principal); N30.90 Cystitis, unspecified without hematuria; C61 Malignant neoplasm of prostate; C79.51 Secondary malignant neoplasm of bone | CPT/HCPCS: 51705 ==

== ENCOUNTER 2022-07-13 14:19 | Oncology outpatient (recurring) (ONCR) | payer MEDICARE, SELFPAY ==
[2022-07-13 14:42] LABS: Basophils % 0.2 %; Eosinophils # 0.1 10^3/uL (0.0-0.8); Eosinophils % 2.8 %; Hematocrit 36.8 % (42.0-52.0); Hemoglobin 11.5 g/dL (11.7-16.6); Lymphocytes # 1.1 10^3/uL (0.8-4.8); Lymphocytes % 26.7 %; Mean Corpuscular HGB Conc 31.3 g/dL (30.0-36.0); Mean Corpuscular Volume 102.5 fl (80-94); Mean Platelet Volume 11.5 fL (7.4-10.4); Monocytes # 0.4 10^3/uL (0.2-0.9); Monocytes % 9.8 %; Neutrophils # 2.56 10^3/uL (1.8-7.7); Nucleated Red Blood Cells % 0 %; Platelet Count 200 10^3/cmm (130-400); Red Blood Count 3.59 10^6/uL (4.1-5.3); Red Cell Distribution Width 12.8 % (12.1-15.1); White Blood Count 4.3 10^3/uL (4.0-10.0)
[2022-07-13 15:16] LABS: Alanine Aminotransferase 6 U/L (0-41); Albumin Level 3.7 g/dL (3.5-5.2); Alkaline Phosphatase 165 U/L (40-130); Anion Gap 13.3 (5-19); Aspartate Amino Transferase 8 U/L (0-40); Blood Urea Nitrogen 33 mg/dL (8-23); Calcium 8.7 mg/dL (8.5-10.5); Carbon Dioxide 20 mmol/L (22-29); Chloride 103 mmol/L (98-107); Globulin 3.1 g/dL (1.3-4.6); Glucose 127 mg/dL (65-115); Osmolality Calculated 283 mOsm/kg (285-295); Potassium 4.3 mmol/L (3.5-5.1); Sodium 132 mmol/L (136-145); Testosterone Total 2.5 ng/dL (193-740); Total Bilirubin 0.2 mg/dL (0.15-1.2); Total Protein 6.8 g/dL (6.6-8.7)
[2022-07-13] MEDS: cyanocobalamin 1,000 mcg/mL SDV 1000 MCG IM (16:02)
[2022-07-13] MEDS: leuprolide 22.5 mg Kit IM (16:05)
[2022-07-13 16:08] VITALS: BP 124/78; PULSE 68; RESP 18; TEMP 36.6; O2SAT 97
== END 2022-08-07 23:59 | disposition home or self-care (01) ==
PROVIDERS: PCP Electrodiagnostic Medicine; Visit Provider Internal Medicine Medical Oncology
DX: C61 Malignant neoplasm of prostate (principal); C79.51 Secondary malignant neoplasm of bone; D51.9 Vitamin B12 deficiency anemia, unspecified; Z79.818 Long term (current) use of other agents affecting estrogen receptors and estrogen levels; Z79.899 Other long term (current) drug therapy
CPT/HCPCS: 36415; 51705; 80053; 84153; 84403; 85025; 96372; 96402; 99214; J3420; J9217

== ENCOUNTER → 2022-07-22 08:58 | Outpatient (BNVA) | payer MEDICARE, SELFPAY | PROVIDERS: PCP Electrodiagnostic Medicine; Visit Provider Urology | DX: C61 Malignant neoplasm of prostate (principal); C79.51 Secondary malignant neoplasm of bone; R33.9 Retention of urine, unspecified | CPT/HCPCS: 51705 ==

== ENCOUNTER 2022-10-05 14:00 | Oncology outpatient (recurring) (ONCR) | payer MEDICARE, SELFPAY ==
[2022-09-14] MEDS: cyanocobalamin 1,000 mcg/mL SDV 1000 MCG IM (14:43)
[2022-10-05 14:25] LABS: Basophils % 0.5 %; Eosinophils # 0.2 10^3/uL (0.0-0.8); Eosinophils % 2.4 %; Hematocrit 35.7 % (42.0-52.0); Hemoglobin 11.7 g/dL (11.7-16.6); Lymphocytes # 1.3 10^3/uL (0.8-4.8); Lymphocytes % 19.2 %; Mean Corpuscular HGB Conc 32.8 g/dL (30.0-36.0); Mean Corpuscular Hemoglobin 31.5 pg (28.0-34.0); Mean Corpuscular Volume 96.2 fl (80-94); Mean Platelet Volume 12.2 fL (7.4-10.4); Monocytes # 0.5 10^3/uL (0.2-0.9); Monocytes % 7.5 %; Neutrophils # 4.56 10^3/uL (1.8-7.7); Neutrophils % 69.6 %; Nucleated Red Blood Cells % 0 %; Platelet Count 223 10^3/cmm (130-400); Red Blood Count 3.71 10^6/uL (4.1-5.3); Red Cell Distribution Width 12.9 % (12.1-15.1); White Blood Count 6.6 10^3/uL (4.0-10.0)
[2022-10-05 15:26] LABS: Testosterone Total < 2.5 ng/dL (193-740)
[2022-10-05] MEDS: leuprolide 22.5 mg Kit IM (16:32)
== END 2022-10-05 23:59 | disposition home or self-care (01) ==
PROVIDERS: PCP Electrodiagnostic Medicine; Visit Provider Internal Medicine Medical Oncology
DX: C61 Malignant neoplasm of prostate (principal); C79.51 Secondary malignant neoplasm of bone; Z79.899 Other long term (current) drug therapy; D51.9 Vitamin B12 deficiency anemia, unspecified; Z79.890 Hormone replacement therapy; R19.7 Diarrhea, unspecified; R39.89 Other symptoms and signs involving the genitourinary system
CPT/HCPCS: 36415; 84153; 84403; 85025; 96372; 96402; 99214; J3420; J9217

== ENCOUNTER 2022-10-12 13:49 | Oncology outpatient (recurring) (ONCR) | payer MEDICARE, SELFPAY ==
[2022-10-12] MEDS: cyanocobalamin 1,000 mcg/mL SDV 1000 MCG IM (14:32)
== END 2022-11-05 23:59 | disposition home or self-care (01) ==
PROVIDERS: PCP Electrodiagnostic Medicine; Visit Provider Internal Medicine Medical Oncology
DX: D51.9 Vitamin B12 deficiency anemia, unspecified; Z79.899 Other long term (current) drug therapy
CPT/HCPCS: 96372; J3420

== ENCOUNTER 2022-11-09 13:43 | Oncology outpatient (recurring) (ONCR) | payer MEDICARE, SELFPAY ==
[2022-11-09 13:47] VITALS: BP 131/58; PULSE 64; TEMP 36.5; O2SAT 99
[2022-11-09] MEDS: cyanocobalamin 1,000 mcg/mL SDV 1000 MCG IM (13:54)
== END 2022-12-05 23:59 | disposition home or self-care (01) ==
LOC: ONCMED 13:44
PROVIDERS: PCP Electrodiagnostic Medicine; Visit Provider Internal Medicine Medical Oncology
DX: D51.9 Vitamin B12 deficiency anemia, unspecified (principal); Z79.899 Other long term (current) drug therapy
CPT/HCPCS: 96372; J3420

== ENCOUNTER 2022-12-28 13:00 | Oncology outpatient (recurring) (ONCR) | payer MEDICARE, SELFPAY ==
[2022-12-07 13:59] VITALS: BP 116/69; PULSE 64; RESP 18; TEMP 36; O2SAT 99
[2022-12-07] MEDS: cyanocobalamin 1,000 mcg/mL SDV 1000 MCG IM (14:02)
[2022-12-07 14:08] VITALS: BP 116/69; PULSE 64; RESP 16; TEMP 36; O2SAT 99
[2022-12-28 13:07] LABS: Basophils % 0.3 %; Eosinophils # 0.2 10^3/uL (0.0-0.8); Eosinophils % 2.8 %; Hematocrit 34.2 % (42.0-52.0); Hemoglobin 10.8 g/dL (11.7-16.6); Lymphocytes # 1.5 10^3/uL (0.8-4.8); Lymphocytes % 24.5 %; Mean Corpuscular HGB Conc 31.6 g/dL (30.0-36.0); Mean Corpuscular Hemoglobin 31.5 pg (28.0-34.0); Mean Corpuscular Volume 99.7 fl (80-94); Mean Platelet Volume 12.1 fL (7.4-10.4); Monocytes # 0.4 10^3/uL (0.2-0.9); Monocytes % 6.7 %; Neutrophils % 63.7 %; Nucleated Red Blood Cells % 0 %; Platelet Count 247 10^3/cmm (130-400); Red Blood Count 3.43 10^6/uL (4.1-5.3); Red Cell Distribution Width 12.4 % (12.1-15.1); White Blood Count 6.1 10^3/uL (4.0-10.0)
[2022-12-28 13:41] LABS: Alanine Aminotransferase < 5 U/L (0-41); Alkaline Phosphatase 74 U/L (40-130); Aspartate Amino Transferase 7 U/L (0-40); Blood Urea Nitrogen 36 mg/dL (8-23); Calcium 9.5 mg/dL (8.5-10.5); Carbon Dioxide 23 mmol/L (22-29); Chloride 102 mmol/L (98-107); Globulin 3.1 g/dL (1.3-4.6); Glucose 144 mg/dL (65-115); Osmolality Calculated 295 mOsm/kg (285-295); Sodium 137 mmol/L (136-145); Testosterone Total 46.2 ng/dL (193-740); Total Bilirubin 0.3 mg/dL (0.15-1.2); Total Protein 7.1 g/dL (6.6-8.7)
[2022-12-28] MEDS: leuprolide 22.5 mg Kit IM (14:30)
[2022-12-28] MEDS: cyanocobalamin 1,000 mcg/mL SDV 1000 MCG IM (14:30)
[2022-12-28 15:12] LABS: Bilirubin Urine Neg (Negative); Blood Urine 3+ (Negative); Glucose Urine UA Norm (Normal); Ketones Urine Negative (Negative); Leukocyte Esterase Urine 2+ (Negative); Nitrate Urine Negative (Negative); Protein Urine 1+ (Negative); Urine Appearance Clear (CLEAR); Urine Color Light yellow (Yellow); Urobilinogen Urine Norm (Negative); pH Urine 5 (5-7)
[2022-12-28 15:13] LABS: Add Urine Microscopic? YES; Bacteria Urine TRACE /hpf; RBC Urine 15-25 /hpf (0-2)
[2022-12-28 15:14] LABS: Add Urine Culture? Yes
== END 2023-01-05 23:59 | disposition home or self-care (01) ==
PROVIDERS: Nurse Practitioner Family; PCP Electrodiagnostic Medicine; Visit Provider Internal Medicine Medical Oncology
DX: C61 Malignant neoplasm of prostate (principal); C79.51 Secondary malignant neoplasm of bone; D51.9 Vitamin B12 deficiency anemia, unspecified; N32.89 Other specified disorders of bladder; Z79.818 Long term (current) use of other agents affecting estrogen receptors and estrogen levels; Z79.899 Other long term (current) drug therapy
CPT/HCPCS: 36415; 80053; 81001; 83540; 83550; 84153; 84403; 85025; 87086; 96372; 96401; 99214; J3420; J9217

== ENCOUNTER 2023-02-02 08:08 | Oncology outpatient (recurring) (ONCR) | payer MEDICARE, SELFPAY ==
[2023-02-02 08:34] VITALS: BP 112/57; PULSE 64; RESP 18; TEMP 36.7
[2023-02-02 08:48] LABS: Basophils % 0.3 %; Eosinophils # 0.1 10^3/uL (0.0-0.8); Hematocrit 32.8 % (42.0-52.0); Hemoglobin 10.5 g/dL (11.7-16.6); Lymphocytes % 16.3 %; Mean Corpuscular Hemoglobin 31.3 pg (28.0-34.0); Mean Corpuscular Volume 97.6 fl (80-94); Mean Platelet Volume 11.3 fL (7.4-10.4); Monocytes # 0.5 10^3/uL (0.2-0.9); Monocytes % 7.8 %; Neutrophils # 4.47 10^3/uL (1.8-7.7); Neutrophils % 73.1 %; Nucleated Red Blood Cells % 0 %; Platelet Count 194 10^3/cmm (130-400); Red Blood Count 3.36 10^6/uL (4.1-5.3); Red Cell Distribution Width 12.2 % (12.1-15.1); White Blood Count 6.1 10^3/uL (4.0-10.0)
[2023-02-02 09:21] LABS: Alanine Aminotransferase < 5 U/L (0-41); Albumin Level 3.7 g/dL (3.5-5.2); Alkaline Phosphatase 75 U/L (40-130); Blood Urea Nitrogen 19 mg/dL (8-23); Calcium 9.1 mg/dL (8.5-10.5); Carbon Dioxide 27 mmol/L (22-29); Chloride 100 mmol/L (98-107); Globulin 2.9 g/dL (1.3-4.6); Glucose 249 mg/dL (65-115); Osmolality Calculated 293 mOsm/kg (285-295); Sodium 136 mmol/L (136-145); Total Bilirubin 0.2 mg/dL (0.15-1.2); Total Protein 6.6 g/dL (6.6-8.7)
[2023-02-02 09:31] LABS: Anion Gap 13.2 (5-19); Aspartate Amino Transferase 9 U/L (0-40); Potassium 4.2 mmol/L (3.5-5.1)
[2023-02-02 11:00] LABS: Ferritin 192 ng/mL (30-400); Iron 50 ug/dL (59-158); Thyroid Stimulating Hormone 2.79 uIU/mL (0.27-4.20)
[2023-02-02 11:04] LABS: Percent Saturation 25.6 % (20-50); Total Iron Binding Capacity 195 mcg/dl; Unsaturated Iron Binding 145 ug/dL (112-347)
== END 2023-02-04 23:59 | disposition home or self-care (01) ==
PROVIDERS: Nurse Practitioner; PCP Electrodiagnostic Medicine; Visit Provider Internal Medicine Medical Oncology
DX: D64.9 Anemia, unspecified (principal); C61 Malignant neoplasm of prostate; C79.51 Secondary malignant neoplasm of bone; R53.83 Other fatigue; Z79.818 Long term (current) use of other agents affecting estrogen receptors and estrogen levels; Z79.899 Other long term (current) drug therapy
CPT/HCPCS: 36415; 80053; 82728; 83540; 83550; 84153; 84443; 85025; 99214

== ENCOUNTER 2023-04-12 09:11 | Oncology outpatient (recurring) (ONCR) | payer MEDICARE, SELFPAY ==
[2023-04-12 09:18] VITALS: BP 91/55; PULSE 56; RESP 18; TEMP 36.1; O2SAT 99; BMI 24.2
[2023-04-12 09:39] LABS: Basophils % 0.3 %; Eosinophils # 0.1 10^3/uL (0.0-0.8); Eosinophils % 1.8 %; Hematocrit 34.4 % (37-53); Lymphocytes % 17.1 %; Mean Corpuscular HGB Conc 31.7 g/dL (30-55); Mean Corpuscular Hemoglobin 30.9 pg (27-33); Mean Corpuscular Volume 97.5 fl (82-101); Mean Platelet Volume 11.5 fL (7.4-10.4); Monocytes # 0.4 10^3/uL (0.2-0.9); Monocytes % 6.4 %; Neutrophils # 4.48 10^3/uL (1.8-7.7); Neutrophils % 73.9 %; Nucleated Red Blood Cells % 0 %; Platelet Count 192 10^3/cmm (157-399); Red Blood Count 3.53 10^6/uL (3.85-5.65); Red Cell Distribution Width 13.2 % (12.1-15.1); White Blood Count 6.07 10^3/uL (3.29-11.43)
[2023-04-12 10:00] LABS: Alanine Aminotransferase < 5 U/L (0-41); Albumin Level 4.1 g/dL (3.5-5.2); Alkaline Phosphatase 72 U/L (40-130); Anion Gap 12.6 (5-19); Aspartate Amino Transferase 6 U/L (0-40); Blood Urea Nitrogen 45 mg/dL (8-23); Calcium 9.2 mg/dL (8.5-10.5); Carbon Dioxide 26 mmol/L (22-29); Chloride 105 mmol/L (98-107); Globulin 2.9 g/dL (1.3-4.6); Glucose 235 mg/dL (65-115); Osmolality Calculated 307 mOsm/kg (285-295); Potassium 4.6 mmol/L (3.5-5.1); Sodium 139 mmol/L (136-145); Testosterone Total 2.5 ng/dL (193-740); Total Bilirubin 0.2 mg/dL (0.15-1.2)
[2023-04-12] MEDS: leuprolide 22.5 mg Kit IM (11:18)
[2023-04-12] MEDS: cyanocobalamin 1,000 mcg/mL SDV 1000 MCG IM (11:18)
[2023-04-12 11:23] VITALS: BP 98/55; PULSE 67; RESP 17; TEMP 36.2
== END 2023-05-07 23:59 | disposition home or self-care (01) ==
PROVIDERS: Nurse Practitioner; PCP Electrodiagnostic Medicine; Visit Provider Internal Medicine Medical Oncology
DX: D51.9 Vitamin B12 deficiency anemia, unspecified (principal); C61 Malignant neoplasm of prostate; C79.51 Secondary malignant neoplasm of bone; Z51.11 Encounter for antineoplastic chemotherapy; Z79.899 Other long term (current) drug therapy
CPT/HCPCS: 36415; 80053; 84153; 84403; 85025; 96372; 96402; 99214; J3420; J9217

== ENCOUNTER 2023-07-05 13:15 | Oncology outpatient (recurring) (ONCR) | payer MEDICARE, SELFPAY ==
[2023-07-05 13:36] VITALS: BP 114/60; PULSE 61; RESP 16; TEMP 36.7
[2023-07-05 14:06] LABS: Basophils % 0.4 %; Eosinophils # 0.1 10^3/uL (0.0-0.8); Eosinophils % 2.1 %; Lymphocytes # 1.4 10^3/uL (0.8-4.8); Lymphocytes % 27.3 %; Mean Corpuscular HGB Conc 32.1 g/dL (30-55); Mean Corpuscular Hemoglobin 30.9 pg (27-33); Mean Corpuscular Volume 96.3 fl (82-101); Mean Platelet Volume 10.9 fL (7.4-10.4); Monocytes # 0.5 10^3/uL (0.2-0.9); Neutrophils # 3.18 10^3/uL (1.8-7.7); Nucleated Red Blood Cells % 0 %; Platelet Count 200 10^3/cmm (157-399); Red Blood Count 3.53 10^6/uL (3.85-5.65); Red Cell Distribution Width 12.8 % (12.1-15.1); White Blood Count 5.21 10^3/uL (3.29-11.43)
[2023-07-05 14:59] LABS: Alanine Aminotransferase 6 U/L (0-41); Alkaline Phosphatase 73 U/L (40-130); Anion Gap 15.8 (5-19); Aspartate Amino Transferase 8 U/L (0-40); Blood Urea Nitrogen 27 mg/dL (8-23); Calcium 9.2 mg/dL (8.5-10.5); Carbon Dioxide 24 mmol/L (22-29); Chloride 102 mmol/L (98-107); Globulin 2.8 g/dL (1.3-4.6); Glucose 149 mg/dL (65-115); Osmolality Calculated 294 mOsm/kg (285-295); Potassium 3.8 mmol/L (3.5-5.1); Sodium 138 mmol/L (136-145); Testosterone Total 2.5 ng/dL (193-740); Total Bilirubin 0.2 mg/dL (0.15-1.2); Total Protein 6.8 g/dL (6.6-8.7)
[2023-07-05] MEDS: cyanocobalamin 1,000 mcg/mL SDV 1000 MCG IM (15:54)
[2023-07-05] MEDS: leuprolide 22.5 mg Kit IM (15:57)
== END 2023-07-07 23:59 | disposition home or self-care (01) ==
PROVIDERS: Nurse Practitioner Family; PCP Electrodiagnostic Medicine; Visit Provider Internal Medicine Medical Oncology
DX: D51.9 Vitamin B12 deficiency anemia, unspecified (principal); C61 Malignant neoplasm of prostate; C79.51 Secondary malignant neoplasm of bone; Z79.899 Other long term (current) drug therapy
CPT/HCPCS: 36415; 80053; 84153; 84403; 85025; 96372; 96401; 99214; J3420; J9217

== ENCOUNTER 2023-09-02 09:48 | Oncology outpatient (recurring) (ONCR) | payer MEDICARE, SELFPAY ==
[2023-09-02 10:16] VITALS: BP 152/71; PULSE 56; RESP 16; TEMP 36.1
[2023-09-02 10:17] VITALS: BMI 26.0
[2023-09-02] MEDS: cyanocobalamin 1,000 mcg/mL SDV 1000 MCG IM (10:31)
== END 2023-09-07 23:59 | disposition home or self-care (01) ==
PROVIDERS: PCP Electrodiagnostic Medicine; Visit Provider Internal Medicine Medical Oncology
DX: D51.9 Vitamin B12 deficiency anemia, unspecified (principal); C61 Malignant neoplasm of prostate; C79.51 Secondary malignant neoplasm of bone
CPT/HCPCS: 96401; J3420

== ENCOUNTER 2023-09-30 09:15 | Oncology outpatient (recurring) (ONCR) | payer MEDICARE, SELFPAY ==
[2023-09-27 14:17] LABS: Basophils % 0.3 %; Eosinophils # 0.1 10^3/uL (0.0-0.8); Eosinophils % 1.2 %; Hematocrit 36.1 % (37-53); Lymphocytes # 1.4 10^3/uL (0.8-4.8); Mean Corpuscular HGB Conc 31.9 g/dL (30-55); Mean Corpuscular Hemoglobin 30.5 pg (27-33); Mean Corpuscular Volume 95.8 fl (82-101); Mean Platelet Volume 10.8 fL (7.4-10.4); Monocytes # 0.5 10^3/uL (0.2-0.9); Monocytes % 8.5 %; Neutrophils # 3.77 10^3/uL (1.8-7.7); Neutrophils % 65.7 %; Nucleated Red Blood Cells % 0 %; Platelet Count 199 10^3/cmm (157-399); Red Blood Count 3.77 10^6/uL (3.85-5.65); Red Cell Distribution Width 13.1 % (12.1-15.1); White Blood Count 5.75 10^3/uL (3.29-11.43)
[2023-09-27 14:29] LABS: Estmated Average Glucose 131; Hemoglobin A1C 6.2 % (4.0-6.0)
[2023-09-27 14:47] LABS: Alanine Aminotransferase < 5 U/L (0-41); Albumin Level 3.9 g/dL (3.5-5.2); Alkaline Phosphatase 72 U/L (40-130); Anion Gap 13.3 (5-19); Aspartate Amino Transferase 8 U/L (0-40); Blood Urea Nitrogen 32 mg/dL (8-23); Carbon Dioxide 28 mmol/L (22-29); Chloride 104 mmol/L (98-107); Globulin 3.2 g/dL (1.3-4.6); Glucose 149 mg/dL (65-115); Osmolality Calculated 302 mOsm/kg (285-295); Potassium 4.3 mmol/L (3.5-5.1); Sodium 141 mmol/L (136-145); Testosterone Total 2.5 ng/dL (193-740); Total Bilirubin 0.2 mg/dL (0.15-1.2); Total Protein 7.1 g/dL (6.6-8.7)
[2023-09-27] MEDS: cyanocobalamin 1,000 mcg/mL SDV 1000 MCG IM (15:52)
[2023-09-27] MEDS: leuprolide 22.5 mg Kit IM (15:53)
== END 2023-10-06 23:59 | disposition home or self-care (01) ==
PROVIDERS: Family Medicine; Nurse Practitioner Family; PCP Electrodiagnostic Medicine; Visit Provider Internal Medicine Medical Oncology
DX: C61 Malignant neoplasm of prostate (principal); Z53.9 Procedure and treatment not carried out, unspecified reason; C79.81 Secondary malignant neoplasm of breast
CPT/HCPCS: 36415; 80053; 83036; 84153; 84403; 85025; 96372; 96402; 99214; J3420; J9217

== ENCOUNTER 2023-10-11 15:35 | Outpatient (CLI) | payer MEDICARE, SELFPAY ==
[2023-10-11 16:42] LABS: Urine Appearance Hazy (CLEAR); Urine Color Yellow (Yellow)
[2023-10-11 16:44] LABS: Add Urine Microscopic? YES; Bilirubin Urine Neg (Negative); Blood Urine 3+ (Negative); Glucose Urine UA Norm (Normal); Ketones Urine 1+ (Negative); Leukocyte Esterase Urine 2+ (Negative); Nitrate Urine Negative (Negative); Protein Urine 2+ (Negative); Specific Gravity, Urine 1.015 (1.005-1.030); Urobilinogen Urine Norm (Negative); pH Urine 5 (5-7)
[2023-10-11 16:48] LABS: Add Urine Culture? No; Bacteria Urine TRACE /hpf; RBC Urine TOO NUMEROUS TO CNT /hpf (0-2); Squamous Epithelial Cell Urine 0-4 /hpf (0-5); WBC Urine 15-25 /hpf (0-5)
== END 2023-10-11 15:36 | disposition home or self-care (01) ==
PROVIDERS: PCP Electrodiagnostic Medicine; Visit Provider Urology
DX: Z43.5 Encounter for attention to cystostomy (principal); Z46.6 Encounter for fitting and adjustment of urinary device; C61 Malignant neoplasm of prostate; N40.0 Benign prostatic hyperplasia without lower urinary tract symptoms
CPT/HCPCS: 81001; 87086

== ENCOUNTER 2023-11-15 09:58 | Oncology outpatient (recurring) (ONCR) | payer MEDICARE, SELFPAY ==
[2023-11-15 10:33] LABS: Basophils % 0.3 %; Eosinophils # 0.1 10^3/uL (0.0-0.8); Eosinophils % 1.4 %; Hematocrit 33.5 % (37-53); Lymphocytes # 1.1 10^3/uL (0.8-4.8); Mean Corpuscular HGB Conc 32.5 g/dL (30-55); Mean Corpuscular Hemoglobin 31.3 pg (27-33); Mean Corpuscular Volume 96.3 fl (82-101); Mean Platelet Volume 10.2 fL (7.4-10.4); Monocytes # 0.5 10^3/uL (0.2-0.9); Monocytes % 7.6 %; Neutrophils % 73.2 %; Nucleated Red Blood Cells % 0 %; Platelet Count 176 10^3/cmm (157-399); Red Blood Count 3.48 10^6/uL (3.85-5.65); Red Cell Distribution Width 13.6 % (12.1-15.1); White Blood Count 6.29 10^3/uL (3.29-11.43)
[2023-11-15 11:07] LABS: Alanine Aminotransferase 6 U/L (0-41); Albumin Level 3.8 g/dL (3.5-5.2); Alkaline Phosphatase 77 U/L (40-130); Aspartate Amino Transferase 7 U/L (0-40); Blood Urea Nitrogen 24 mg/dL (8-23); Carbon Dioxide 24 mmol/L (22-29); Chloride 108 mmol/L (98-107); Creatinine Clr Calc Pharmacy 48.3847; Glucose 120 mg/dL (65-115); Osmolality Calculated 295 mOsm/kg (285-295); Sodium 140 mmol/L (136-145); Testosterone Total 2.5 ng/dL (193-740); Total Bilirubin 0.3 mg/dL (0.15-1.2); Total Protein 6.8 g/dL (6.6-8.7)
[2023-11-15 13:06] LABS: Ferritin 122 ng/mL (30-400); Iron 39 ug/dL (59-158); Total Iron Binding Capacity 185 mcg/dl; Unsaturated Iron Binding 146 ug/dL (112-347)
== END 2023-12-06 23:59 | disposition home or self-care (01) ==
PROVIDERS: Internal Medicine; PCP Electrodiagnostic Medicine; Visit Provider Internal Medicine Medical Oncology
DX: D51.9 Vitamin B12 deficiency anemia, unspecified (principal); C61 Malignant neoplasm of prostate; C79.51 Secondary malignant neoplasm of bone; Z79.899 Other long term (current) drug therapy
CPT/HCPCS: 36415; 80053; 82728; 83540; 83550; 84153; 84403; 85025; 99215

== ENCOUNTER 2023-12-05 12:09 | Outpatient (CLI) | payer MEDICARE, SELFPAY ==
--- NOTE | 2023-12-05 12:15 | USCV_ITS ---
Jennifer Lanza Age: 78 Gender: M : 1945 Exam Date: 12/05/2023 12:26 Ordering Phys: Amina Gardiner MD Technologist: CT Exam Location: [facility] [place]_ Indication: BP: 130 / 81 HR: 64 Rhythm: Sinus Technical Quality: Adequate MEASUREMENTS (Male / Female) Normal Values 2D ECHO LVOT Diameter 2.1 cm LV Ejection Fraction MOD 2C 57.6 % LV Ejection Fraction 2C AL 58.1 % LA Diameter 4.0 cm RA Systolic Volume 4C AL 62.1 ml RA Systolic Volume 4C MOD 59.5 ml LA Sys Volume AL 68.8 cm cubed LA Sys Volume Index AL 33.2 cm cubed/m squared Aorta at Sinotubular Diameter 2.4 cm IVC Diameter 2.0 cm M-MODE LA Ao Ratio MM 1.5 AV Cusp Separation MM 2.2 cm DOPPLER AV Peak Velocity 152.0 cm/s LVOT Peak Velocity 87.0 cm/s AV Area Cont Eq vti 2.1 cm squared AV Area Cont Eq pk 2.1 cm squared MV Peak Velocity 102.0 cm/s MV Area PHT 3.2 cm squared Mitral E to A Ratio 1.4 TR Peak Velocity 377.0 cm/s TR Peak Gradient 56.9 mmHg TV Peak E Velocity 66.0 cm/s Right Atrial Pressure 3.0 mmHg Pulmonary Artery Systolic Pressu 59.9 mmHg PV Peak Velocity 100.0 cm/s FINDINGS Left Ventricle Left ventricle is normal size. LV systolic function is normal with EF of 55 to 60%. No regional wall motion abnormalities are seen. Right Ventricle Normal in size and function. Right Atrium Normal in size Left Atrium Dilated Mitral Valve Structurally normal mitral valve. Mild mitral regurgitation. Aortic Valve Structurally normal aortic valve. No significant stenosis or regurgitation. Tricuspid Valve Moderate tricuspid regurgitation. RVSP is 55 to 60 mmHg. This is consistent with moderate pulmonary hypertension. Pulmonic Valve Not well-visualized Pericardium Normal Aorta Normal in size IVC Appears to be normal. CONCLUSIONS LV systolic function is normal with EF of 55 to 60%. Left atrial dilation Mild mitral regurgitation Moderate tricuspid regurgitation. Moderate pulmonary hypertension Ricardo Aldrich MD (Electronically Signed) Final Date: 10 Dec 2023 23:05 S
== END 2023-12-05 12:10 | disposition home or self-care (01) ==
LOC: RAD 12:10
PROVIDERS: PCP Electrodiagnostic Medicine; Visit Provider Internal Medicine
DX: C61 Malignant neoplasm of prostate (principal); C79.51 Secondary malignant neoplasm of bone; I34.0 Nonrheumatic mitral (valve) insufficiency; I07.1 Rheumatic tricuspid insufficiency; I27.20 Pulmonary hypertension, unspecified
CPT/HCPCS: 93306

== ENCOUNTER 2023-12-20 11:28 | Oncology outpatient (recurring) (ONCR) | payer MEDICARE, SELFPAY ==
[2023-12-20 11:56] LABS: Basophils % 0.2 %; Eosinophils % 0.5 %; Hematocrit 36.9 % (37-53); Lymphocytes # 0.7 10^3/uL (0.8-4.8); Lymphocytes % 11.8 %; Mean Corpuscular HGB Conc 31.4 g/dL (30-55); Mean Corpuscular Hemoglobin 30.6 pg (27-33); Mean Corpuscular Volume 97.4 fl (82-101); Mean Platelet Volume 10.5 fL (7.4-10.4); Monocytes # 0.2 10^3/uL (0.2-0.9); Monocytes % 3.9 %; Neutrophils # 5.07 10^3/uL (1.8-7.7); Neutrophils % 82.9 %; Nucleated Red Blood Cells % 0 %; Platelet Count 214 10^3/cmm (157-399); Red Blood Count 3.79 10^6/uL (3.85-5.65); Red Cell Distribution Width 13.5 % (12.1-15.1); White Blood Count 6.11 10^3/uL (3.29-11.43)
[2023-12-20 12:27] LABS: Alanine Aminotransferase 9 U/L (0-41); Albumin Level 3.8 g/dL (3.5-5.2); Alkaline Phosphatase 90 U/L (40-130); Anion Gap 12.5 (5-19); Aspartate Amino Transferase 11 U/L (0-40); Blood Urea Nitrogen 21 mg/dL (8-23); Calcium 8.8 mg/dL (8.5-10.5); Carbon Dioxide 24 mmol/L (22-29); Chloride 104 mmol/L (98-107); Creatinine Clr Calc Pharmacy 59.6292; Globulin 3.1 g/dL (1.3-4.6); Glucose 168 mg/dL (65-115); Osmolality Calculated 289 mOsm/kg (285-295); Potassium 4.5 mmol/L (3.5-5.1); Sodium 136 mmol/L (136-145); Testosterone Total 2.5 ng/dL (193-740); Total Bilirubin 0.4 mg/dL (0.15-1.2); Total Protein 6.9 g/dL (6.6-8.7)
[2023-12-20 12:46] LABS: Ferritin 98 ng/mL (30-400); Iron 34 ug/dL (59-158); Percent Saturation 15.3 % (20-50); Total Iron Binding Capacity 222 mcg/dl; Unsaturated Iron Binding 188 ug/dL (112-347)
[2023-12-20] MEDS: cyanocobalamin 1,000 mcg/mL SDV 1000 MCG IM (14:02)
[2023-12-20] MEDS: leuprolide 22.5 mg Kit IM (14:02)
[2023-12-20 14:08] VITALS: BP 153/60; PULSE 62; RESP 18; O2SAT 94
== END 2024-01-06 23:59 | disposition home or self-care (01) ==
PROVIDERS: Nurse Practitioner Family; PCP Electrodiagnostic Medicine; Visit Provider Internal Medicine Medical Oncology
DX: Z79.899 Other long term (current) drug therapy (principal); C61 Malignant neoplasm of prostate; C79.51 Secondary malignant neoplasm of bone; F17.290 Nicotine dependence, other tobacco product, uncomplicated; E11.65 Type 2 diabetes mellitus with hyperglycemia; Z79.4 Long term (current) use of insulin; D64.9 Anemia, unspecified; Z51.11 Encounter for antineoplastic chemotherapy; I27.20 Pulmonary hypertension, unspecified
CPT/HCPCS: 36415; 80053; 82728; 83540; 83550; 84153; 84403; 85025; 96372; 96402; 99214; J3420; J9217

== ENCOUNTER 2024-01-30 11:00 | Oncology outpatient (recurring) (ONCR) | payer MEDICARE, SELFPAY ==
[2024-01-17 14:27] LABS: Basophils % 0.2 %; Eosinophils # 0.1 10^3/uL (0.0-0.8); Eosinophils % 1.1 %; Hematocrit 35.8 % (37-53); Lymphocytes % 15.6 %; Mean Corpuscular HGB Conc 31.6 g/dL (30-55); Mean Corpuscular Hemoglobin 30.9 pg (27-33); Mean Corpuscular Volume 97.8 fl (82-101); Mean Platelet Volume 11.4 fL (7.4-10.4); Monocytes # 0.4 10^3/uL (0.2-0.9); Monocytes % 6.5 %; Neutrophils # 4.94 10^3/uL (1.8-7.7); Neutrophils % 76.3 %; Nucleated Red Blood Cells % 0 %; Platelet Count 168 10^3/cmm (157-399); Red Blood Count 3.66 10^6/uL (3.85-5.65); Red Cell Distribution Width 13.9 % (12.1-15.1); White Blood Count 6.47 10^3/uL (3.29-11.43)
[2024-01-17] MEDS: cyanocobalamin 1,000 mcg/mL SDV 1000 MCG IM (14:33)
[2024-01-17 14:34] VITALS: BP 170/66; PULSE 76; RESP 16; TEMP 36.3; O2SAT 93
[2024-01-17 15:02] LABS: Alanine Aminotransferase 6 U/L (0-41); Albumin Level 3.6 g/dL (3.5-5.2); Alkaline Phosphatase 81 U/L (40-130); Anion Gap 13.2 (5-19); Aspartate Amino Transferase 15 U/L (0-40); Blood Urea Nitrogen 28 mg/dL (8-23); Calcium 8.7 mg/dL (8.5-10.5); Carbon Dioxide 24 mmol/L (22-29); Chloride 109 mmol/L (98-107); Globulin 2.6 g/dL (1.3-4.6); Glucose 143 mg/dL (65-115); Osmolality Calculated 302 mOsm/kg (285-295); Potassium 4.2 mmol/L (3.5-5.1); Sodium 142 mmol/L (136-145); Total Bilirubin 0.2 mg/dL (0.15-1.2); Total Protein 6.2 g/dL (6.6-8.7)
[2024-01-17 15:03] LABS: Testosterone Total < 2.5 ng/dL (193-740)
[2024-01-17 15:17] LABS: Ferritin 81 ng/mL (30-400); Iron 30 ug/dL (59-158); Percent Saturation 13.4 % (20-50); Total Iron Binding Capacity 223 mcg/dl; Unsaturated Iron Binding 193 ug/dL (112-347)
[2024-01-17 15:36] LABS: Vitamin B12 469 pg/mL (232-1245)
[2024-01-30 11:21] VITALS: BP 148/62; PULSE 58; RESP 17; TEMP 36.9; O2SAT 98
[2024-01-30] MEDS: ferric carboxy (IVPB) 750 MG in sodium chloride 0.9% (100 ml) 100 ML 345 MG IV (11:48)
[2024-01-30 12:27] VITALS: BP 172/78; PULSE 66; RESP 18; TEMP 36; O2SAT 99
== END 2024-02-05 23:59 | disposition home or self-care (01) ==
PROVIDERS: Internal Medicine; Nurse Practitioner Family; PCP Electrodiagnostic Medicine; Visit Provider Internal Medicine Medical Oncology
DX: D51.9 Vitamin B12 deficiency anemia, unspecified; Z53.9 Procedure and treatment not carried out, unspecified reason
CPT/HCPCS: 36415; 80053; 82607; 82728; 83540; 83550; 84153; 84403; 85025; 96365; 96372; 99214; J1439; J3420

== ENCOUNTER 2024-02-06 10:52 | Oncology outpatient (recurring) (ONCR) | payer MEDICARE, SELFPAY ==
[2024-02-06 11:01] VITALS: BP 138/63; PULSE 62; RESP 16; O2SAT 94
[2024-02-06] MEDS: ferric carboxy (PYXIS) 750 MG in sodium chloride 0.9% (100 ml) 100 ML 345 MG IV (11:13)
[2024-02-06 11:45] VITALS: BP 129/68; PULSE 62; RESP 16; TEMP 36.6; O2SAT 96
== END 2024-03-07 23:59 | disposition home or self-care (01) ==
PROVIDERS: PCP Electrodiagnostic Medicine; Visit Provider Internal Medicine Medical Oncology
DX: D51.9 Vitamin B12 deficiency anemia, unspecified (principal)
CPT/HCPCS: 96365; J1439

== ENCOUNTER → 2024-02-27 09:50 | Outpatient (BNVA) | payer MEDICARE, SELFPAY | PROVIDERS: PCP Family Medicine; Referring Provider Internal Medicine; Visit Provider Internal Medicine Cardiovascular Disease | DX: I48.20 Chronic atrial fibrillation, unspecified (principal); Z79.01 Long term (current) use of anticoagulants; E78.5 Hyperlipidemia, unspecified; I11.0 Hypertensive heart disease with heart failure; I50.20 Unspecified systolic (congestive) heart failure; I42.8 Other cardiomyopathies; E11.65 Type 2 diabetes mellitus with hyperglycemia; Z79.4 Long term (current) use of insulin; C78.01 Secondary malignant neoplasm of right lung; C78.02 Secondary malignant neoplasm of left lung; Z87.891 Personal history of nicotine dependence | CPT/HCPCS: 99214 ==

== ENCOUNTER 2024-03-13 08:32 | Oncology outpatient (recurring) (ONCR) | payer MEDICARE, SELFPAY ==
[2024-03-13 09:00] LABS: Basophils % 0.3 %; Eosinophils # 0.1 10^3/uL (0.0-0.8); Eosinophils % 1.5 %; Hematocrit 39.9 % (37-53); Lymphocytes # 1.1 10^3/uL (0.8-4.8); Lymphocytes % 14.3 %; Mean Corpuscular HGB Conc 32.1 g/dL (30-55); Mean Corpuscular Hemoglobin 31.9 pg (27-33); Mean Corpuscular Volume 99.5 fl (82-101); Mean Platelet Volume 11.2 fL (7.4-10.4); Monocytes # 0.5 10^3/uL (0.2-0.9); Monocytes % 6.2 %; Neutrophils # 5.79 10^3/uL (1.8-7.7); Neutrophils % 76.9 %; Nucleated Red Blood Cells % 0 %; Platelet Count 148 10^3/cmm (157-399); Red Blood Count 4.01 10^6/uL (3.85-5.65); Red Cell Distribution Width 15.5 % (12.1-15.1); White Blood Count 7.53 10^3/uL (3.29-11.43)
[2024-03-13 09:41] LABS: Alanine Aminotransferase 8 U/L (0-41); Albumin Level 3.6 g/dL (3.5-5.2); Alkaline Phosphatase 93 U/L (40-130); Anion Gap 13.9 (5-19); Aspartate Amino Transferase 7 U/L (0-40); Blood Urea Nitrogen 20 mg/dL (8-23); Calcium 8.7 mg/dL (8.5-10.5); Carbon Dioxide 23 mmol/L (22-29); Chloride 105 mmol/L (98-107); Ferritin 372 ng/mL (30-400); Globulin 2.8 g/dL (1.3-4.6); Glucose 179 mg/dL (65-115); Iron 70 ug/dL (59-158); Osmolality Calculated 293 mOsm/kg (285-295); Percent Saturation 40.9 % (20-50); Potassium 3.9 mmol/L (3.5-5.1); Sodium 138 mmol/L (136-145); Total Bilirubin 0.3 mg/dL (0.15-1.2); Total Iron Binding Capacity 171 mcg/dl; Total Protein 6.4 g/dL (6.6-8.7); Unsaturated Iron Binding 101 ug/dL (112-347)
[2024-03-13] MEDS: cyanocobalamin 1,000 mcg/mL SDV 1000 MCG IM (10:48)
[2024-03-13] MEDS: leuprolide 22.5 mg Kit IM (10:49)
== END 2024-04-07 23:55 | disposition home or self-care (01) ==
PROVIDERS: PCP Family Medicine; Visit Provider Internal Medicine Medical Oncology
DX: C79.51 Secondary malignant neoplasm of bone; C61 Malignant neoplasm of prostate; E11.65 Type 2 diabetes mellitus with hyperglycemia; Z79.85 Long-term (current) use of injectable non-insulin antidiabetic drugs; Z51.11 Encounter for antineoplastic chemotherapy; Z79.818 Long term (current) use of other agents affecting estrogen receptors and estrogen levels; Z79.52 Long term (current) use of systemic steroids
CPT/HCPCS: 36415; 80053; 82728; 83540; 83550; 84153; 85025; 96372; 96402; 99214; J3420; J9217

== ENCOUNTER 2024-05-08 12:11 | Outpatient (CLI) | payer MEDICARE, SELFPAY ==
[2024-05-08 12:42] LABS: Bilirubin Urine Negative (Negative); Blood Urine 1+ (Negative); Glucose Urine UA Negative (Normal); Ketones Urine Negative (Negative); Leukocyte Esterase Urine 3+ (Negative); Nitrate Urine Negative (Negative); Protein Urine 2+ (Negative); Urine Appearance Cloudy (CLEAR); Urine Color Yellow (Yellow); pH Urine 6.5 (5-7)
[2024-05-08 12:59] LABS: UA Manual Slide Review YES; UA Slide Review UA Slide Review Perf
[2024-05-08 13:15] LABS: Add Urine Culture? Yes; Add Urine Microscopic? YES; Amorphous Sediment Urine 1+ /hpf; Bacteria Urine 2+ /hpf; Mucus Urine TRACE /hpf; Squamous Epithelial Cell Urine 0-4 /hpf (0-5); Transitional Epi Cells Urine 0-4 /hpf; WBC Urine 15-25 /hpf (0-5)
== END 2024-05-08 12:12 | disposition home or self-care (01) ==
LOC: LAB 12:12
PROVIDERS: PCP Family Medicine; Visit Provider Urology
DX: Z87.440 Personal history of urinary (tract) infections (principal)
CPT/HCPCS: 81001; 87077; 87086; 87186

== ENCOUNTER 2024-06-05 09:00 | Oncology outpatient (recurring) (ONCR) | payer MEDICARE, SELFPAY ==
[2024-05-08] MEDS: cyanocobalamin 1,000 mcg/mL SDV 1000 MCG IM (12:49)
[2024-06-04 12:24] LABS: Basophils % 0.3 %; Eosinophils # 0.1 10^3/uL (0.0-0.8); Eosinophils % 1.3 %; Hematocrit 41.1 % (37-53); Lymphocytes # 0.8 10^3/uL (0.8-4.8); Lymphocytes % 12.6 %; Mean Corpuscular HGB Conc 31.6 g/dL (30-55); Mean Corpuscular Hemoglobin 31.3 pg (27-33); Mean Corpuscular Volume 98.8 fl (82-101); Mean Platelet Volume 11.7 fL (7.4-10.4); Monocytes # 0.4 10^3/uL (0.2-0.9); Monocytes % 6.5 %; Neutrophils # 4.89 10^3/uL (1.8-7.7); Neutrophils % 78.8 %; Nucleated Red Blood Cells % 0 %; Platelet Count 157 10^3/cmm (157-399); Red Blood Count 4.16 10^6/uL (3.85-5.65); Red Cell Distribution Width 13.2 % (12.1-15.1)
[2024-06-04 12:53] LABS: Alanine Aminotransferase 6 U/L (0-41); Albumin Level 3.6 g/dL (3.5-5.2); Alkaline Phosphatase 105 U/L (40-130); Aspartate Amino Transferase 9 U/L (0-40); Blood Urea Nitrogen 17 mg/dL (8-23); Calcium 8.2 mg/dL (8.5-10.5); Carbon Dioxide 26 mmol/L (22-29); Chloride 104 mmol/L (98-107); Globulin 2.7 g/dL (1.3-4.6); Glucose 175 mg/dL (65-115); Osmolality Calculated 292 mOsm/kg (285-295); Sodium 138 mmol/L (136-145); Total Bilirubin 0.5 mg/dL (0.15-1.2); Total Protein 6.3 g/dL (6.6-8.7)
[2024-06-05] MEDS: leuprolide 22.5 mg Kit IM (09:13)
[2024-06-05] MEDS: cyanocobalamin 1,000 mcg/mL SDV 1000 MCG IM (09:14)
== END 2024-06-07 23:59 | disposition home or self-care (01) ==
PROVIDERS: Internal Medicine Medical Oncology; PCP Family Medicine; Visit Provider Internal Medicine Hematology & Oncology
DX: C79.51 Secondary malignant neoplasm of bone (principal); C61 Malignant neoplasm of prostate; Z53.9 Procedure and treatment not carried out, unspecified reason; Z51.11 Encounter for antineoplastic chemotherapy; Z79.899 Other long term (current) drug therapy; D51.9 Vitamin B12 deficiency anemia, unspecified
CPT/HCPCS: 36415; 80053; 84153; 85025; 96372; 96402; 99214; J3420; J9217

== ENCOUNTER 2024-06-08 09:58 | Outpatient (CLI) | payer MEDICARE, SELFPAY ==
[2024-06-08 10:09] LABS: Bilirubin Urine Negative (Negative); Blood Urine 3+ (Negative); Glucose Urine UA Negative (Normal); Ketones Urine Trace (Negative); Leukocyte Esterase Urine 2+ (Negative); Nitrate Urine Negative (Negative); Protein Urine 3+ (Negative); Specific Gravity, Urine 1.018 (1.005-1.030); Urine Appearance Cloudy (CLEAR); pH Urine 6.5 (5-7)
[2024-06-08 10:14] LABS: Add Urine Microscopic? YES; Bacteria Urine 1+ /hpf; Hyaline Casts Urine 14.87 /lpf; RBC Urine >100 /hpf (0-2); Squamous Epithelial Cell Urine 0-5 /hpf (0-5); WBC Urine 21-50 /hpf (0-5)
[2024-06-08 10:46] LABS: Urine Color Orange (Yellow)
[2024-06-08 10:47] LABS: Add Urine Culture? No; Mucus Urine TRACE /hpf; UA Slide Review UA Slide Review Perf
== END 2024-06-08 09:59 | disposition home or self-care (01) ==
PROVIDERS: PCP Family Medicine; Visit Provider Urology
DX: Z01.89 Encounter for other specified special examinations (principal)
CPT/HCPCS: 81001

== ENCOUNTER 2024-07-02 13:40 | Oncology outpatient (recurring) (ONCR) | payer MEDICARE, SELFPAY ==
[2024-07-02] MEDS: cyanocobalamin 1,000 mcg/mL SDV 1000 MCG IM (15:04)
[2024-07-02 15:10] LABS: Basophils % 0.2 %; Eosinophils # 0.1 10^3/uL (0.0-0.8); Eosinophils % 1.3 %; Hematocrit 36.7 % (37-53); Lymphocytes # 1.1 10^3/uL (0.8-4.8); Lymphocytes % 12.4 %; Mean Corpuscular Hemoglobin 31.5 pg (27-33); Mean Corpuscular Volume 95.6 fl (82-101); Mean Platelet Volume 11.8 fL (7.4-10.4); Monocytes # 0.6 10^3/uL (0.2-0.9); Monocytes % 6.5 %; Neutrophils # 7.05 10^3/uL (1.8-7.7); Neutrophils % 78.8 %; Nucleated Red Blood Cells % 0 %; Platelet Count 145 10^3/cmm (157-399); Red Blood Count 3.84 10^6/uL (3.85-5.65); Red Cell Distribution Width 14.2 % (12.1-15.1); White Blood Count 8.95 10^3/uL (3.29-11.43)
[2024-07-02 15:43] LABS: Alanine Aminotransferase 9 U/L (0-41); Albumin Level 3.5 g/dL (3.5-5.2); Alkaline Phosphatase 97 U/L (40-130); Anion Gap 14.1 (5-19); Aspartate Amino Transferase 16 U/L (0-40); Blood Urea Nitrogen 21 mg/dL (8-23); Calcium 8.4 mg/dL (8.5-10.5); Carbon Dioxide 25 mmol/L (22-29); Chloride 103 mmol/L (98-107); Creatinine Clr Calc Pharmacy 50.6379; Globulin 2.5 g/dL (1.3-4.6); Glucose 147 mg/dL (65-115); Osmolality Calculated 294 mOsm/kg (285-295); Potassium 3.1 mmol/L (3.5-5.1); Sodium 139 mmol/L (136-145); Testosterone Total 2.5 ng/dL (193-740); Total Bilirubin 0.6 mg/dL (0.15-1.2)
== END 2024-07-07 23:59 | disposition home or self-care (01) ==
PROVIDERS: Internal Medicine Medical Oncology; PCP Family Medicine; Visit Provider Internal Medicine Hematology & Oncology
DX: C79.51 Secondary malignant neoplasm of bone (principal); C61 Malignant neoplasm of prostate; D51.9 Vitamin B12 deficiency anemia, unspecified; Z79.899 Other long term (current) drug therapy; Z51.11 Encounter for antineoplastic chemotherapy; E11.65 Type 2 diabetes mellitus with hyperglycemia; Z79.85 Long-term (current) use of injectable non-insulin antidiabetic drugs; Z79.818 Long term (current) use of other agents affecting estrogen receptors and estrogen levels; Z79.52 Long term (current) use of systemic steroids
CPT/HCPCS: 36415; 80053; 84153; 84403; 85025; 96372; 99214; J3420

== ENCOUNTER 2024-07-06 08:21 | Outpatient (CLI) | payer MEDICARE, SELFPAY ==
--- NOTE | 2024-07-06 08:26 | XRR_ITS ---
PROCEDURE INFORMATION: Exam: XR Left Ribs Exam date and time: 07/06/2024 8:32 AM Age: 78 years old Clinical indication: Injury or trauma; Rib area, left side; Blunt trauma; Injury date: 5 days ago; Injury details: X5 days fall down stairs, left sided flank pain; Prior surgery; Surgery date: 6+ months; Surgery type: Tracheotomy, jaw surgery; Patient HX: HX of prostate, lymph, bone cancer; Additional info: Fall - rib pain TECHNIQUE: Imaging protocol: Radiologic exam of the left ribs. Views: 2 views. COMPARISON: CR XR chest 2V* [id number] 07/06/2024 8:32 AM FINDINGS: Bones/joints: Bones are diffusely demineralized. There may be a fracture involving the anterior 5th rib. This is not definite. No definite fractures are otherwise appreciated. Soft tissues: Normal. XR/XR ribs LT 2V* [id number] IMPRESSION: 1. Bony demineralization. 2. Possible fracture involving the left 5th rib.
--- NOTE | 2024-07-06 08:26 | XRR_ITS ---
PROCEDURE INFORMATION: Exam: XR Chest Exam date and time: 07/06/2024 8:32 AM Age: 78 years old Clinical indication: Injury or trauma; Fall; Wheezing; Blunt trauma (contusions or hematomas); Prior surgery; Surgery date: 6+ months; Surgery type: Tracheotomy, jaw surgery; Patient HX: HX of prostate, lymph, bone cancer; Additional info: Fall - wheezing TECHNIQUE: Imaging protocol: Radiologic exam of the chest. Views: 2 views. COMPARISON: CR XR chest 2V* [id number] 12/29/2020 9:10 AM FINDINGS: Lungs: There are bilateral opacities. Findings are slightly worse on today's exam when compared to prior exam. Findings are likely related to chronic interstitial lung disease with superimposed pneumonitis or edema. No lobar consolidation is appreciated. Pleural spaces: There may be trace pleural effusions. No pneumothorax is appreciated. Heart/Mediastinum: The heart is slightly enlarged. There is calcified plaque involving the aorta. Bones/joints: Unremarkable. XR/XR chest 2V* [id number] IMPRESSION: 1. Cardiomegaly. 2. Bilateral opacities. Again findings are likely related to underlying chronic interstitial lung disease with superimposed edema or pneumonitis.
== END 2024-07-06 08:22 | disposition home or self-care (01) ==
LOC: RAD 08:22
PROVIDERS: PCP Family Medicine; Visit Provider Nurse Practitioner
DX: M85.80 Other specified disorders of bone density and structure, unspecified site (principal); R93.7 Abnormal findings on diagnostic imaging of other parts of musculoskeletal system; I51.7 Cardiomegaly; I70.0 Atherosclerosis of aorta; J84.10 Pulmonary fibrosis, unspecified; W19.XXXA Unspecified fall, initial encounter
CPT/HCPCS: 71046; 71100

== ENCOUNTER 2024-07-09 16:58 | Emergency (ER) | payer MEDICARE, SELFPAY ==
--- NOTE | 2024-07-09 17:05 | ECG_ITS ---
[employer] Test Date: 2024-07-09 Pat Name: Jennifer Lanza Department: Room: Gender: Male Director Of Digital Platforms: : 1945 Requested By: Jaspreet Guadalupe Order Number: [id number] Ann MD: Ricardo Aldrich M.D. Measurements Intervals [place] Rate: 103 P: 0 MO: 0 QRS: -60 QRSD: 147 T: 66 QT: 398 QTc: 522 Interpretive Statements ATRIAL FIBRILLATION WITH RAPID VENTRICULAR RESPONSE WITH ABERRANT CONDUCTION OR VENTRICULAR PREMATURE COMPLEXES RIGHT BUNDLE BRANCH BLOCK [120+ ms QRS DURATION, UPRIGHT V1, 40+ ms S IN I/aVL/V4/V5/V6] ANTERIOR MYOCARDIAL INFARCTION , PROBABLY OLD [40+ ms Q WAVE AND/OR ST/T ABNORMALITY IN V3/V4] INFERIOR MYOCARDIAL INFARCTION , OF INDETERMINATE AGE [40+ ms Q WAVE AND/OR ST/T ABNORMALITY IN II/aVF] Compared to ECG 12/21/2020 04:53:39 Aberrant conduction of supraventricular beat(s) now present Myocardial infarct finding now present T-wave abnormality no longer present Electronically Signed On 07-10-2024 21:36:46 [employer] MANAGER by Ricardo Aldrich M.D. [email or web address]
[2024-07-09 17:06] VITALS: BP 132/82; PULSE 99; RESP 18; TEMP 36.7; O2SAT 96; BMI 28.0
--- NOTE | 2024-07-09 18:13 | XRR_ITS ---
PROCEDURE INFORMATION: Exam: XR Chest Exam date and time: 07/09/2024 6:21 PM Age: 78 years old Clinical indication: Pain; Chest pressure; Prior surgery; Surgery date: 6+ months; Surgery type: Trach; Additional info: Cp TECHNIQUE: Imaging protocol: Radiologic exam of the chest. Views: 1 view. COMPARISON: CR XR chest 2V* [id number] 07/06/2024 8:32 AM FINDINGS: Tubes, catheters and devices: None. Lungs: Lung volumes are decreased. Bilateral pleuroparenchymal pulmonary linear scarring, fibrotic changes identified within lungs. Bilateral pulmonary linear interstitial opacities identified within lower lungs. Progression of bilateral lower lung opacities is demonstrated. Pleural spaces: Small volume bilateral pleural effusions. No pneumothorax identified. Heart/Mediastinum: Cardiac silhouette appears [id number] enlarged. Vasculature: Mild atherosclerotic calcification demonstrated within the aorta. Bones/joints: Diffusely decreased bone density. Moderate to severe generalized bony degenerative changes. XR/XR chest 1V portable [id number] IMPRESSION: 1. Small bilateral pleural effusions. 2. Pulmonary fibrosis. 3. [id number] enlarged cardiac silhouette. 4. Pulmonary atelectasis or acute infiltrates within lower chest bilaterally.
[2024-07-09 19:03] LABS: Basophils % 0.1 %; Eosinophils % 0.5 %; Hematocrit 39.4 % (37-53); Lymphocytes # 0.8 10^3/uL (0.8-4.8); Lymphocytes % 10.6 %; Mean Corpuscular HGB Conc 31.7 g/dL (30-55); Mean Corpuscular Hemoglobin 31.3 pg (27-33); Mean Corpuscular Volume 98.7 fl (82-101); Mean Platelet Volume 11.9 fL (7.4-10.4); Monocytes # 0.5 10^3/uL (0.2-0.9); Monocytes % 6.6 %; Neutrophils # 6.44 10^3/uL (1.8-7.7); Neutrophils % 81.2 %; Nucleated Red Blood Cells % 0 %; Platelet Count 229 10^3/cmm (157-399); Red Blood Count 3.99 10^6/uL (3.85-5.65); Red Cell Distribution Width 14.4 % (12.1-15.1); White Blood Count 7.93 10^3/uL (3.29-11.43)
[2024-07-09 19:10] VITALS: BP 135/96; PULSE 104; RESP 17; O2SAT 93
[2024-07-09 19:21] LABS: INR 1.62 (0.8-1.2)
[2024-07-09 19:25] LABS: Troponin(5th) Baseline 39 ng/L (0-15)
--- NOTE | 2024-07-09 19:25 | W.ED.WEAKNES ---
HPI - Weakness General: Chief complaint: Weakness Stated complaint: right arm and left leg swollen, chest discomfort N Time Seen by Provider: 07/09/24 18:37 Source: family Mode of arrival: ambulatory Limitations: no limitations History of Present Illness: Patient is an 78-year-old male with past medical history of prostate cancer, A-fib, CHF, and type 2 diabetes who presents to the emergency department with family, who is stating that the patient has had multiple falls and has been increasingly weak over the past couple of weeks. Also do note, reporting increased swelling to extremities, specifically to the left lower extremity into the right upper extremity. Family states they called primary care's office to obtain water pills, however were told to present to the ED after patient had been complaining of some chest pain. Patient overall poor historian, he has no complaints but family is stating he always says this. Was diagnosed with prostate cancer 4 years ago, has not underwent any chemo or radiation, does have presence of suprapubic catheter. He sees urology in [place], has seen Dr. Duran here for oncology. Patient this morning had his suprapubic catheter changed. With one of the recent falls, family states patient was on the ground for 5 hours before being found. He does live at home alone. No review of systems is provided from the patient. Vitals are normal at this time, he has A-fib on the monitor and does take a blood thinner. He takes abiraterone and vibegron for prostate/bladder. No fever, chills, respiratory distress, blood in urine, or other symptoms reported by family member. No changes in medication have been reported. MD Complaint: generalized weakness Onset (ago): week(s) Duration: constant and progressively worsening Location: generalized Associated symptoms: Reports chest pain; Denies dysuria, fever(s) or vomiting Review of Systems General: Reports: 10 or more systems reviewed and unremarkable except in HPI and below Const: Denies: fever(s) Card: Reports: chest pain Resp: Denies: dyspnea or productive cough GI: Denies: abdominal pain, vomiting, diarrhea, constipation or hematochezia : Denies: difficulty urinating, dysuria or hematuria Musc: Reports: extremity swelling Neuro: Reports: weakness in extremities and frequent falls PFS ED PFSH: Medical History Bladder spasm Chronic cystitis Heart failure with reduced ejection fraction Chronic kidney disease Hypertension Dyslipidemia Prostate cancer metastatic to bone Pleural effusion Community acquired pneumonia DM type 2 (diabetes mellitus, type 2) Suprapubic catheter Urinary retention Post-traumatic bulbous urethral stricture Surgical History S/P dilation of urethra Scrotal abscess Family History Father , 84- Pneumonia No problems noted. Mother , 86 No problems noted. Sister Cancer Other Hyperlipidemia Hypertension Denies family history of Diabetes CAD (coronary artery disease) Autoimmune disease Clotting disorder Dementia Chronic kidney disease (CKD) Suicide Anesthesia complication Bleeding disorder Lung disease Stroke Social History Smoking and tobacco/nicotine status: never used tobacco/nicotine Quit status (tobacco/nicotine): considering quitting Alcohol intake: never Substance/Drug Use: never Lives independently: No Household members: other Details: Son Marital status: / Current occupational status: retired Physical Exam Const: COMMON NORMALS: no acute distress, average body habitus and alert EXAM LIMITATIONS: physical limitations (Hard of hearing, poor historian) GENERAL APPEARANCE: comfortable ORIENTATION/CONSCIOUSNESS: Yes awake HENMT: COMMON NORMALS: normocephalic, atraumatic, moist oral mucous membranes and oropharynx normal HEAD & SCALP: normocephalic and atraumatic OTHER: No signs of head trauma such as hematoma or palpable skull fracture Eye: COMMON NORMALS: Equal, round and reactive pupils present, EOMs intact bilaterally and conjunctivae normal CONJUNCTIVA: Yes conjunctivae normal PUPIL: Yes Equal, round and reactive pupils present Neck/C-Spine: COMMON NORMALS: full ROM and no meningeal signs Chest: COMMONS NORMALS: normal inspection of the chest and normal palpation of entire chest wall Resp: COMMON NORMALS: normal respiratory effort, No retractions and No use of accessory muscles AUSCULTATION: crackles Laterality: left, no rhonchi, no wheezes and lung sounds not diminished Cardio: COMMON NORMALS: No gallops present (Cardio), No murmurs present (Cardio), No rub (Cardio) and Peripheral pulses 2+ throughout RATE: tachycardic RHYTHM: abnormal rhythm irregularly irregular PERIPHERAL PULSES: Peripheral pulses 2+ throughout GI: COMMON NORMALS: Normal to inspection, nondistended, normoactive bowel sounds present, Soft to palpation and non-tender PALPATION: Yes Soft to palpation Extremity: NARRATIVE EXTREMITY EXAM: There is 2+ pitting edema to bilateral lower extremities up to the knee. Neuro: COMMON NORMALS: moves all extremities, no focal motor deficits and no sensory deficits noted SENSORIUM/ORIENTATION: Yes alert MENINGEAL SIGNS: Yes no meningeal signs Skin: NARRATIVE SKIN EXAM: Scabbed over abrasions to right upper extremity Course Vital Signs: Vital signs: Vital Signs Temperature 98.0 F 07/09/24 17:06 Pulse Rate 86 07/09/24 20:00 Respiratory Rate 17 07/09/24 20:00 Blood Pressure 140/105 07/09/24 20:00 Pulse Oximetry 95 07/09/24 20:00 Oxygen Delivery Me thod Room Air 07/09/24 20:00 MDM - Weakness Medical Decision Making Patient brought in by family for falls, weakness, and peripheral edema. He is not currently on any diuretics. Lives at home with family. Vitals stable on arrival, patient's condition has remained stable throughout ED course. He has been requesting to leave throughout stating that he feels nothing is wrong. On exam he did have pitting edema up to the knees bilaterally, indicative of fluid overload. His B[place] is chronically [place] [id number]. Chest x-ray showing chronic findings, bilateral pleural effusions present. His troponin and delta troponin were unremarkable. Kidney function normal and the rest of his lab work normal. IV was placed and he is given 80 of Lasix, I believe his weakness is causing his falls, weakness likely secondary to the fluid buildup. After dose of Lasix here, encouraged him to closely follow-up with primary care in regards to further treatment, due to his clinical stability we will discharge him home after discussion of patient's case with Dr. Guadalupe here in the ER. Family comfortable with this plan, and general return precautions given. Lab Data 07/09/24 18:43 07/09/24 18:43 Radiology Impressions Chest X-Ray 07/09/24 18:13 IMPRESSION: 1. Small bilateral pleural effusions. 2. Pulmonary fibrosis. 3. [id number] enlarged cardiac silhouette. 4. Pulmonary atelectasis or acute infiltrates within lower chest bilaterally. Laboratory Results WBC 7.93 10^3/uL (3.29-11.43) 07/09/24 18:43 RBC 3.99 10^6/uL (3.85-5.65) 07/09/24 18:43 Hgb 12.50 g/dL (11.27-16.99) 07/09/24 18:43 Hct 39.4 % (37-53) 07/09/24 18:43 MCV 98.7 fl (82-101) 07/09/24 18:43 MCH 31.3 pg (27-33) 07/09/24 18:43 MCHC 31.7 g/dL (30-55) 07/09/24 18:43 RDW 14.4 % (12.1-15.1) 07/09/24 18:43 Plt Count 229 10^3/cmm (157-399) 07/09/24 18:43 MPV 11.9 fL (7.4-10.4) H 07/09/24 18:43 Neut % (Auto) 81.2 % 07/09/24 18:43 Lymph % (Auto) 10.6 % 07/09/24 18:43 Brown % (Auto) 6.6 % 07/09/24 18:43 Eos % (Auto) 0.5 % 07/09/24 18:43 Baso % (Auto) 0.1 % 07/09/24 18:43 Neut # (Auto) 6.44 10^3/uL (1.8-7.7) 07/09/24 18:43 Lymph # (Auto) 0.8 10^3/uL (0.8-4.8) 07/09/24 18:43 Brown # (Auto) 0.5 10^3/uL (0.2-0.9) 07/09/24 18:43 Eos # (Auto) 0.0 10^3/uL (0.0-0.8) 07/09/24 18:43 Baso # (Auto) 0.0 10^3/uL (0.0-0.1) 07/09/24 18:43 Nucleated RBC % (auto) 0 % 07/09/24 18:43 Nucleated RBCs # 0.0 /100WBC 07/09/24 18:43 PT 19.80 SECONDS (12.1-14.9) H 07/09/24 18:43 INR 1.62 (0.8-1.2) H 07/09/24 18:43 Sodium 137 mmol/L (136-145) 07/09/24 18:43 Potassium 3.9 mmol/L (3.5-5.1) 07/09/24 18:43 Chloride 101 mmol/L (98-107) 07/09/24 18:43 Carbon Dioxide 25 mmol/L (22-29) 07/09/24 18:43 Anion Gap 14.9 (5-19) 07/09/24 18:43 BUN 26 mg/dL (8-23) H 07/09/24 18:43 Creatinine 1.5 mg/dL (0.7-1.2) H 07/09/24 18:43 GFR Calculation Not Reportable 07/09/24 18:43 Glucose 181 mg/dL (65-115) H 07/09/24 18:43 Calculated Osmolality 293 mOsm/kg (285-295) 07/09/24 18:43 Lactic Acid 1.7 mmol/L (0.5-2.2) 07/09/24 18:51 Calcium 9.3 mg/dL (8.5-10.5) 07/09/24 18:43 Total Bilirubin 0.6 mg/dL (0.15-1.2) 07/09/24 18:43 AST 8 U/L (0-40) 07/09/24 18:43 ALT 8 U/L (0-41) 07/09/24 18:43 Alkaline Phosphatase 131 U/L (40-130) H 07/09/24 18:43 Creatine Kinase 45 U/L (39-308) 07/09/24 18:43 Troponin T Baseline 39 ng/L (0-15) H 07/09/24 18:43 Troponin T 120 Minute 36.42 ng/L (0-15) H 07/09/24 20:18 Delta Troponin T -2.58 ABS# (0-10) L 07/09/24 20:18 NT-Pro-B Natriuret Pep 46125 pg/mL (0-450) H 07/09/24 18:43 Total Protein 6.3 g/dL (6.6-8.7) L 07/09/24 18:43 Albumin 3.8 g/dL (3.5-5.2) 07/09/24 18:43 Globulin 2.5 g/dL (1.3-4.6) 07/09/24 18:43 Urine Color Yellow (Yellow) 07/09/24 19:15 Urine Appearance Slightly cloudy (CLEAR) 07/09/24 19:15 Urine pH (5-7) 07/09/24 19:15 Ur Specific [place] Not Reportable 07/09/24 19:15 Urine Protein Not Reportable 07/09/24 19:15 Urine Glucose (UA) Not Reportable 07/09/24 19:15 Urine Ketones Not Reportable 07/09/24 19:15 Urine Blood Not Reportable 07/09/24 19:15 Urine Nitrate Not Reportable 07/09/24 19:15 Urine Bilirubin Not Reportable 07/09/24 19:15 Urine Urobilinogen Not Reportable 07/09/24 19:15 Ur Leukocyte Esterase Not Reportable 07/09/24 19:15 Urine RBC 5-10 /hpf (0-2) H 07/09/24 19:15 Urine WBC 5-10 /hpf (0-5) H 07/09/24 19:15 Ur Squamous Epith Cells 0-4 /hpf (0-5) H 07/09/24 19:15 Ur Transition Epith Cell 0-4 /hpf 07/09/24 19:15 Amorphous Sediment Trace /hpf 07/09/24 19:15 Urine Bacteria 1+ /hpf (NONE) H 07/09/24 19:15 Hyaline Casts 0-4 /lpf H 07/09/24 19:15 Urine Mucus Trace /hpf 07/09/24 19:15 Coronavirus (PCR) Negative (Negative) 07/09/24 19:25 Influenza A (PCR) Negative (Negative) 07/09/24 19:25 Influenza Type B (PCR) Negative (Negative) 07/09/24 19:25 RSV (PCR) Negative (Negative) 07/09/24 19:25 All radiology interpretation(s) finalized by discharge EKG Data EKG 1: I personally reviewed and interpreted this EKG as follows: EKG interpretation date: 07/09/24 EKG interpretation time: 17:06 Prior EKG tracings: available for review Interpretation: EKG reviewed with physician. A-fib. Rate 103. Right bundle branch block. No STEMI. Discharge Plan Discharge Patient Disposition: Home Clinical Impression: Congestive heart failure, Fatigue, Atrial fibrillation Condition: Stable Prescriptions: No Action Trulicity 1.5 mg/0.5 mL pen injector 1.5 mg SUBCUT .weekly melatonin 10 mg tablet 10 mg PO DAILY Qty: 60 2RF trazodone 50 mg tablet 50 mg PO .qhs Qty: 30 0RF Rx Instructions: use 30 minutes before bedtime escitalopram oxalate [Lexapro] 10 mg tablet 10 mg PO DAILY Qty: 90 1RF ascorbic acid (vitamin C) 1,000 mg tablet 1 g PO BID Qty: 180 2RF polyethylene glycol 3350 [Miralax] 17 gram/dose powder 34 g PO DAILY Qty: 850 2RF Rx Instructions: 2 scoops every day ciprofloxacin HCl 500 mg tablet PO diclofenac sodium 3 % gel 1 applic topical BID PRN (Reason: pain) Qty: 100 0RF (DME) 19oz Leg Bag FIERRO See Rx Instructions .Route .MEDSUPPLY Qty: 12 0RF Rx Instructions: As directed (DME) Dexcom G6 Tax Representative Misc See Rx Instructions .MEDSUPPLY Qty: 1 0RF Rx Instructions: Use as directed for checking blood sugar (DME) Dexcom G6 Transmitter Device See Rx Instructions .MEDSUPPLY Qty: 1 3RF Rx Instructions: Change every 3 months; Use as directed for checking blood sugar Gemtesa 75 mg tablet See Rx Instructions .ROUTE .COMPLEX Qty: 90 1RF Dose Instruction: TAKE ONE TABLET BY MOUTH DAILY Rx Instructions: TAKE ONE TABLET BY MOUTH DAILY methenamine hippurate 1 gram tablet See Rx Instructions .ROUTE .COMPLEX Qty: 180 2RF Dose Instruction: TAKE ONE TABLET BY MOUTH TWICE DAILY with 1000mg of vitamin CAPSULE Rx Instructions: TAKE ONE TABLET BY MOUTH TWICE DAILY with 1000mg of vitamin CAPSULE abiraterone 500 mg tablet 1,000 mg PO DAILY Qty: 60 2RF Rx Instructions: must be taken on empty stomach, at least 1 hr before or 2 hrs after a meal/food carvedilol 6.25 mg tablet 6.25 mg PO BID Qty: 180 1RF Rx Instructions: must administer with a meal/food Eliquis 5 mg tablet 5 mg PO Q12H Qty: 180 0RF hydrocodone-acetaminophen 5-325 mg tablet 1 tab PO BID PRN (Reason: pain) 30 Days Qty: 60 0RF Rx Instructions: sever pain greater than 7/10 prednisone 10 mg tablet 5 mg PO DAILY Qty: 30 1RF losartan 50 mg Tablet 50 mg PO DAILY Qty: 30 0RF Discharge Orders: Discharge ED (Routine); Ordered 07/09/24 Ordered By: Arnaldo Neumann Referrals: Bart Conway MD [Primary Care Provider] - Patient Instructions: Congestive Heart Failure Activity Restrictions/Additional Instructions: Close follow-up with your primary care provider as discussed. Continue taking medications at home. If you start developing any shortness of breath, worsening chest pain, or other concerning symptoms please return to the emergency department for reevaluation. Coding Level of Care Code ED Drum Barker Operator for [facility] Fwd Related Data Home Medications Medication Instructions Recorded Confirmed dulaglutide 1.5 mg/0.5 mL 1.5 mg SUBCUT .weekly 08/10/21 07/06/24 subcutaneous pen injector (Trulicity) ciprofloxacin HCl 500 mg tablet mg PO 06/04/24 07/06/24 Previous Rx's Medication Instructions Recorded losartan 50 mg tablet 50 mg PO DAILY #30 tabs 12/24/20 19oz Leg Bag FIERRO #12 ea 04/13/23 ascorbic acid (vitamin C) 1,000 mg 1 g PO BID #180 tabs 06/20/23 tablet polyethylene glycol 3350 17 34 g PO DAILY #850 grams 06/20/23 gram/dose oral powder (Miralax) melatonin 10 mg tablet 10 mg PO DAILY #60 tabs 09/23/23 trazodone 50 mg tablet 50 mg PO .qhs #30 tabs 11/11/23 blood-glucose meter,continuous #1 ea 02/13/24 (Dexcom G6 Tax Representative) blood-glucose transmitter (Dexcom #1 ea 02/13/24 G6 Transmitter device) vibegron 75 mg tablet (Gemtesa) See Rx Instructions .Route 02/23/24 .COMPLEX #90 tabs methenamine hippurate 1 gram tablet See Rx Instructions .Route 03/12/24 .COMPLEX #180 tabs abiraterone 500 mg tablet 1,000 mg (2 x 500 mg) PO DAILY #60 04/16/24 tabs carvedilol 6.25 mg tablet 6.25 mg PO BID #180 tabs 09/19/24 apixaban 5 mg tablet (Eliquis) 5 mg PO Q12H #180 tabs 05/16/24 hydrocodone 5 mg-acetaminophen 325 1 tab PO BID PRN pain 30 days #60 05/16/24 mg tablet tabs prednisone 10 mg tablet 5 mg (1/2 x 10 mg) PO DAILY #30 06/14/24 tabs escitalopram oxalate 10 mg tablet 10 mg PO DAILY #90 tabs 06/26/24 (Lexapro) diclofenac sodium 3 % topical gel 1 applic topical BID PRN pain #100 07/06/24 grams Allergies Allergy/AdvReac Type Severity Reaction Status Date / Time No Known Allergies Allergy Verified 07/06/24 07:44
[2024-07-09 19:27] LABS: Lactic Sepsis W/Reflex 1.7 mmol/L (0.5-2.2)
[2024-07-09 19:29] LABS: Add Urine Microscopic? YES; Urine Appearance Slightly Cloudy (CLEAR); Urine Color Yellow (Yellow)
[2024-07-09 19:30] VITALS: BP 153/100; PULSE 106; RESP 17; O2SAT 97
[2024-07-09 19:30] LABS: UA Manual Slide Review YES; UA Slide Review UA Slide Review Perf
--- NOTE | 2024-07-09 19:30 | ECG_ITS ---
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 Measurements Intervals [place] Rate: 102 P: 0 PA: 0 QRS: -60 QRSD: 151 T: 78 QT: 415 QTc: 542 Interpretive Statements ATRIAL FIBRILLATION WITH RAPID VENTRICULAR RESPONSE RIGHT BUNDLE BRANCH BLOCK [120+ ms QRS DURATION, UPRIGHT V1, 40+ ms S IN I/aVL/V4/V5/V6] MINIMAL VOLTAGE CRITERIA FOR LVH, CONSIDER NORMAL VARIANT [MEETS CRITERIA IN ONE OF: R(aVL), S(V1), R(V5), R(V5/V6)+S(V1)] POSSIBLE ANTERIOR MYOCARDIAL INFARCTION , OF INDETERMINATE AGE [30 ms Q WAVE IN V3/V4, OR R < 0.2 mV IN V4] INFERIOR MYOCARDIAL INFARCTION , OF INDETERMINATE AGE [40+ ms Q WAVE AND/OR ST/T ABNORMALITY IN II/aVF] Compared to ECG 07/09/2024 17:05:01 Ventricular premature complex(es) no longer present Electronically Signed On 07-10-2024 21:55:46 RESIDENT ATHLETIC TRAINER by Ricardo Aldrich M.D. [email or web address]
[2024-07-09 19:32] LABS: Bacteria Urine 1+ /hpf; Mucus Urine TRACE /hpf; Squamous Epithelial Cell Urine 0-4 /hpf (0-5); Transitional Epi Cells Urine 0-4 /hpf
[2024-07-09 19:33] LABS: Add Urine Culture? No; Amorphous Sediment Urine TRACE /hpf; Hyaline Casts Urine 0-4 /lpf
[2024-07-09 19:42] LABS: Alanine Aminotransferase 8 U/L (0-41); Albumin Level 3.8 g/dL (3.5-5.2); Alkaline Phosphatase 131 U/L (40-130); Anion Gap 14.9 (5-19); Aspartate Amino Transferase 8 U/L (0-40); Blood Urea Nitrogen 26 mg/dL (8-23); Calcium 9.3 mg/dL (8.5-10.5); Carbon Dioxide 25 mmol/L (22-29); Chloride 101 mmol/L (98-107); Creatinine Clr Calc Pharmacy 42.7184; Globulin 2.5 g/dL (1.3-4.6); Glucose 181 mg/dL (65-115); NT Pro B Type Natriuretic Pept 19262 pg/mL (0-450); Osmolality Calculated 293 mOsm/kg (285-295); Potassium 3.9 mmol/L (3.5-5.1); Sodium 137 mmol/L (136-145); Total Bilirubin 0.6 mg/dL (0.15-1.2); Total Protein 6.3 g/dL (6.6-8.7)
[2024-07-09 20:00] VITALS: BP 140/105; PULSE 86; RESP 17; O2SAT 95
[2024-07-09] MEDS: FUROsemide 10 mg/mL SDV 10mL 80 MG IVP (20:05)
[2024-07-09 20:18] LABS: Covid PCR NEGATIVE (Negative); Influenza A NEGATIVE (Negative); Influenza B NEGATIVE (Negative); Respiratory Syncytial Virus Ce NEGATIVE (Negative)
[2024-07-09 20:20] LABS: Creatine Phosphokinase 45 U/L (39-308)
[2024-07-09 20:40] LABS: Troponin 5 2HR 36.42 ng/L (0-15)
[2024-07-09 20:43] LABS: Troponin 5 2HR Delta -2.58 ABS# (0-10)
[2024-07-09 22:40] VITALS: BP 142/95; PULSE 112; O2SAT 98
== END 2024-07-09 21:30 | disposition home or self-care (01) ==
PROVIDERS: Emergency Medicine; Emergency Provider Physician Assistant; PCP Family Medicine
DX: E11.22 Type 2 diabetes mellitus with diabetic chronic kidney disease (principal); I13.0 Hypertensive heart and chronic kidney disease with heart failure and stage 1 through stage 4 chronic kidney disease, or unspecified chronic kidney disease; N18.9 Chronic kidney disease, unspecified; I50.9 Heart failure, unspecified; Z79.01 Long term (current) use of anticoagulants; Z11.52 Encounter for screening for COVID-19; E78.5 Hyperlipidemia, unspecified; Z85.46 Personal history of malignant neoplasm of prostate
CPT/HCPCS: 0241U; 36415; 71045; 80053; 81001; 82550; 83605; 83880; 84484; 85025; 85610; 87040; 93005; 96374; 99285; J1940

== ENCOUNTER 2024-07-30 08:34 | Oncology outpatient (recurring) (ONCR) | payer MEDICARE, SELFPAY ==
[2024-07-30 09:15] LABS: Basophils % 0.3 %; Eosinophils # 0.1 10^3/uL (0.0-0.8); Eosinophils % 1.7 %; Hematocrit 40.7 % (37-53); Lymphocytes # 0.9 10^3/uL (0.8-4.8); Lymphocytes % 13.9 %; Mean Corpuscular HGB Conc 31.4 g/dL (30-55); Mean Corpuscular Volume 98.5 fl (82-101); Monocytes # 0.5 10^3/uL (0.2-0.9); Monocytes % 7.4 %; Neutrophils # 4.79 10^3/uL (1.8-7.7); Neutrophils % 76.1 %; Nucleated Red Blood Cells % 0 %; Platelet Count 226 10^3/cmm (157-399); Red Blood Count 4.13 10^6/uL (3.85-5.65); Red Cell Distribution Width 14.2 % (12.1-15.1); White Blood Count 6.31 10^3/uL (3.29-11.43)
[2024-07-30 09:28] VITALS: BP 147/69; PULSE 69; RESP 15; TEMP 36.1; O2SAT 98
[2024-07-30 09:53] LABS: Alanine Aminotransferase < 5 U/L (0-41); Albumin Level 3.1 g/dL (3.5-5.2); Alkaline Phosphatase 128 U/L (40-130); Anion Gap 15.4 (5-19); Aspartate Amino Transferase 7 U/L (0-40); Blood Urea Nitrogen 20 mg/dL (8-23); Calcium 8.4 mg/dL (8.5-10.5); Carbon Dioxide 22 mmol/L (22-29); Chloride 101 mmol/L (98-107); Creatinine Clr Calc Pharmacy 41.0879; Globulin 2.5 g/dL (1.3-4.6); Glucose 176 mg/dL (65-115); Osmolality Calculated 287 mOsm/kg (285-295); Potassium 3.4 mmol/L (3.5-5.1); Sodium 135 mmol/L (136-145); Testosterone Total 2.5 ng/dL (193-740); Total Bilirubin 0.3 mg/dL (0.15-1.2); Total Protein 5.6 g/dL (6.6-8.7)
== END 2024-08-07 23:59 | disposition home or self-care (01) ==
LOC: ONCMED 08:35
PROVIDERS: PCP Family Medicine; Visit Provider Internal Medicine Medical Oncology
DX: C79.51 Secondary malignant neoplasm of bone (principal); C61 Malignant neoplasm of prostate; D51.9 Vitamin B12 deficiency anemia, unspecified; Z79.899 Other long term (current) drug therapy
CPT/HCPCS: 36415; 80053; 84153; 84403; 85025; 99214

== ENCOUNTER 2024-08-13 08:25 | Inpatient (IN) | payer MEDICARE, SELFPAY ==
[2024-08-13] VITALS (10 sets, daily range): BP systolic 80–120; BP diastolic 43–70; PULSE 64–127; RESP 12–22; TEMP 36.6–37.1; O2SAT 92–99; BMI 29.5; BMI 40.6
--- NOTE | 2024-08-13 08:31 | XR_ITS ---
WS: [id number] PORTABLE CHEST HISTORY: dyspnea/cough COMPARISON: 07/09/2024, 07/06/2024, 12/29/2020 Increased consolidation at the RIGHT lung base obscuring portions of the RIGHT diaphragm. Additional reticulations throughout both lungs, predominantly in the periphery. Reticulations have progressed si nce 2020. No fluid overload. No pleural effusion or pneumothorax. Cardiac size: Mildly enlarged cardiac silhouette. Mediastinum/Aorta: Mild atherosclerosis aorta. Osteopenia. XR/XR chest 1V portable [id number] IMPRESSION: 1. New and increasing consolidation at the RIGHT lung base consistent with pne umonia. 2. Pneumonia is superimposed on pulmonary fibrosis and interstitial lung disea se which has progressed since 2020.
--- NOTE | 2024-08-13 08:34 | ED_ITS ---
HPI - General Adult 2 General: Chief complaint: Shortness of Breath/Dyspnea Stated complaint: retaining fluid, low o2 sent from [facility] Time Seen by Provider: 08/13/24 08:30 History of Present Illness: 78-year-old male presents emergency room with rapid heart rate shortness of breath and increased swelling when he sat persistently over the last 2 weeks he denies chest pain at this time. He was seen his primary care doctor's office and directed the emergency room because of congestive heart failure. Further review of the chart found the patient also has prostate cancer which at this point is not treatable and he has been discussions about hospice. Associated symptoms: Reports chest pain and dyspnea; Deny rash Related Data Home Medications Medication Instructions Recorded Confirmed dulaglutide 1.5 mg/0.5 mL 1.5 mg SUBCUT .weekly 08/10/21 08/13/24 subcutaneous pen injector (Trulicity) acetaminophen 500 mg tablet 1,000 mg PO TID PRN Pain 08/13/24 08/13/24 (Tylenol Extra Strength) doxycycline hyclate 100 mg capsule 100 mg PO BID 08/13/24 08/13/24 vibegron 75 mg tablet (Gemtesa) 75 mg PO DAILY 08/13/24 08/13/24 Previous Rx's Medication Instructions Recorded losartan 50 mg tablet 50 mg PO DAILY #30 tabs 12/24/20 19oz Leg Bag FIERRO #12 ea 04/13/23 ascorbic acid (vitamin C) 1,000 mg 1 g PO BID #180 tabs 06/20/23 tablet melatonin 10 mg tablet 10 mg PO DAILY #60 tabs 09/23/23 blood-glucose meter,continuous #1 ea 02/13/24 (Dexcom G6 Transfer Engineer) blood-glucose transmitter (Dexcom #1 ea 02/13/24 G6 Transmitter device) methenamine hippurate 1 gram tablet See Rx Instructions .Route 03/12/24 .COMPLEX #180 tabs carvedilol 6.25 mg tablet 6.25 mg PO BID #180 tabs 04/26/24 apixaban 5 mg tablet (Eliquis) 5 mg PO Q12H #180 tabs 05/16/24 hydrocodone 5 mg-acetaminophen 325 1 tab PO BID PRN pain 30 days #60 05/16/24 mg tablet tabs prednisone 10 mg tablet 5 mg (1/2 x 10 mg) PO DAILY #30 06/14/24 tabs escitalopram oxalate 10 mg tablet 10 mg PO DAILY #90 tabs 06/26/24 (Lexapro) diclofenac sodium 3 % topical gel 1 applic topical BID PRN pain #100 07/06/24 grams lidocaine 5 % topical patch 1 patch topical BID #30 ea 07/12/24 Allergies Allergy/AdvReac Type Severity Reaction Status Date / Time No Known Allergies Allergy Verified 08/13/24 08:04 Review of Systems 2 Const: Denies: fever(s) or chills Card: Reports: chest pain, irregular heart rhythm, edema, swelling of feet/ankles, dyspnea on exertion and orthopnea Resp: Reports: dyspnea GI: Denies: abdominal pain : Denies: dysuria, urinary frequency or urinary urgency Musc: Denies: neck pain or back pain Skin/Breast: Denies: rash PFSH ED 2 PFSH: Medical History Bladder spasm Chronic cystitis Heart failure with reduced ejection fraction Chronic kidney disease Hypertension Dyslipidemia Prostate cancer metastatic to bone Pleural effusion Community acquired pneumonia DM type 2 (diabetes mellitus, type 2) Suprapubic catheter Urinary retention Post-traumatic bulbous urethral stricture Surgical History S/P dilation of urethra Scrotal abscess Family History Father , 84- Pneumonia No problems noted. Mother , 86 No problems noted. Sister Cancer Other Hyperlipidemia Hypertension Denies family history of Diabetes CAD (coronary artery disease) Autoimmune disease Clotting disorder Dementia Chronic kidney disease (CKD) Suicide Anesthesia complication Bleeding disorder Lung disease Stroke Social History Smoking and tobacco/nicotine status: never used tobacco/nicotine Quit status (tobacco/nicotine): considering quitting Alcohol intake: never Substance/Drug Use: never Lives independently: No Household members: other Details: Son Marital status: / Current occupational status: retired Physical Exam 2 Const: GENERAL APPEARANCE: cooperative ORIENTATION/CONSCIOUSNESS: Yes awake, Yes oriented to person, Yes oriented to place and Yes oriented to time HENMT: COMMON NORMALS: normocephalic, atraumatic and hearing grossly normal bilaterally HEAD & SCALP: normocephalic and atraumatic Resp: COMMON NORMALS: normal respiratory effort, No retractions, No use of accessory muscles and clear to auscultation bilaterally AUSCULTATION: clear to auscultation bilaterally Cardio: COMMON NORMALS: No murmurs present (Cardio) RATE: tachycardic R HYTHM: abnormal rhythm irregularly irregular GI: COMMON NORMALS: Soft to palpation and No hepatosplenomegaly present A USCULTATION: Yes normoactive bowel sounds PALPATION: Yes Soft to palpation, No Tenderness to palpation present (GI), No Guarding due to palpation present (GI) and Yes No hepatosplenomegaly present Extremity: OTHER: 3+ edema lower extremities anasarca exte nds to the level of the xiphoid. Neuro: SENSORIUM/ORIENTATION: Yes oriented to person, Yes oriented to place and Yes oriented to time Skin: COMMON NORMALS: no rashes or lesions noted GENERAL SKIN EXAM: no rashes or lesions noted Course 2 Vital Signs: Vital signs: Vital Signs Temperature 98.1 F 08/13/24 08:35 Pulse Rate 94 08/13/24 16:29 Respiratory Rate 21 H 08/13/24 13:06 Blood Pressure 100/70 08/13/24 16:29 Pulse Oximetry 99 08/13/24 16:29 Oxygen Delivery Me thod Room Air 08/13/24 13:06 Oxygen Flow Rate 2 08/13/24 12:26 MDM - General Adult Medical Decision Making A-fib with RVR extensive congestive heart failure patient improved with Cardizem given Lasix discussed with hospitalist orders written. Dr. Dr. Worthington had a conversation with the patient and family regarding CODE STATUS and hospice in regards to these current diagnosis. Ultimately they decided they did want to treat these issues and then will reconsider his status after this. Medical Records I reviewed the patient's medical records. Lab Data I reviewed the patient's lab results. 08/13/24 09:15 08/13/24 09:15 Radiology Impressions Chest X-Ray 08/13/24 08:31 IMPRESSION: 1. New and increasing consolidation at the RIGHT lung base consistent with pneumonia. 2. Pneumonia is superimposed on pulmonary fibrosis and interstitial lung disease which has progressed since 2020. Laboratory Results WBC 8.48 10^3/uL (3.29-11.43) 08/13/24 09:15 RBC 4.38 10^6/uL (3.85-5.65) 08/13/24 09:15 Hgb 13.60 g/dL (11.27-16.99) 08/13/24 09:15 Hct 42.9 % (37-53) 08/13/24 09:15 MCV 97.9 fl (82-101) 08/13/24 09:15 MCH 31.1 pg (27-33) 08/13/24 09:15 MCHC 31.7 g/dL (30-55) 08/13/24 09:15 RDW 14.6 % (12.1-15.1) 08/13/24 09:15 Plt Count 224 10^3/cmm (157-399) 08/13/24 09:15 MPV 11.4 fL (7.4-10.4) H 08/13/24 09:15 Neut % (Auto) 78.5 % 08/13/24 09:15 Lymph % (Auto) 11.2 % 08/13/24 09:15 [place] % (Auto) 7.9 % 08/13/24 09:15 Eos % (Auto) 1.1 % 08/13/24 09:15 Baso % (Auto) 0.6 % 08/13/24 09:15 Neut # (Auto) 6.66 10^3/uL (1.8-7.7) 08/13/24 09:15 Lymph # (Auto) 1.0 10^3/uL (0.8-4.8) 08/13/24 09:15 [place] # (Auto) 0.7 10^3/uL (0.2-0.9) 08/13/24 09:15 Eos # (Auto) 0.1 10^3/uL (0.0-0.8) 08/13/24 09:15 Baso # (Auto) 0.1 10^3/uL (0.0-0.1) 08/13/24 09:15 Nucleated RBC % (auto) 0 % 08/13/24 09:15 Nucleated RBCs # 0.0 /100WBC 08/13/24 09:15 Sodium 136 mmol/L (136-145) 08/13/24 09:15 Potassium 3.8 mmol/L (3.5-5.1) 08/13/24 09:15 Chloride 101 mmol/L (98-107) 08/13/24 09:15 Carbon Dioxide 20 mmol/L (22-29) L 08/13/24 09:15 Anion Gap 18.8 (5-19) 08/13/24 09:15 BUN 35 mg/dL (8-23) H 08/13/24 09:15 Creatinine 1.8 mg/dL (0.7-1.2) H 08/13/24 09:15 GFR Calculation Not Reportable 08/13/24 09:15 Glucose 170 mg/dL (65-115) H 08/13/24 09:15 Calculated Osmolality 294 mOsm/kg (285-295) 08/13/24 09:15 Calcium 8.9 mg/dL (8.5-10.5) 08/13/24 09:15 Magnesium 2.1 mg/dL (1.7-2.3) 08/13/24 09:15 Total Bilirubin 0.4 mg/dL (0.15-1.2) 08/13/24 09:15 AST 7 U/L (0-40) 08/13/24 09:15 ALT < 5 U/L (0-41) 08/13/24 09:15 Alkaline Phosphatase 126 U/L (40-130) 08/13/24 09:15 Troponin T Baseline 46 ng/L (0-15) H 08/13/24 09:15 Troponin T 120 Minute 47.17 ng/L (0-15) H 08/13/24 11:04 Delta Troponin T 1.17 ABS# (0-10) 08/13/24 11:04 NT-Pro-B Natriuret Pep 19939 pg/mL (0-450) H 08/13/24 09:15 Total Protein 6.3 g/dL (6.6-8.7) L 08/13/24 09:15 Albumin 3.4 g/dL (3.5-5.2) L 08/13/24 09:15 Globulin 2.9 g/dL (1.3-4.6) 08/13/24 09:15 TSH 3.22 uIU/mL (0.27-4.20) 08/13/24 09:15 Urine Color Yellow (Yellow) 08/13/24 09:50 Urine Appearance Cloudy (CLEAR) A 08/13/24 09:50 Urine pH 5.5 (5-7) 08/13/24 09:50 Ur Specific [place] 1.022 (1.005-1.030) 08/13/24 09:50 Urine Protein 2+ (Negative) A 08/13/24 09:50 Urine Glucose (UA) Negative (Normal) 08/13/24 09:50 Urine Ketones Trace (Negative) 08/13/24 09:50 Urine Blood Non-haemolysed trace (Negative) 08/13/24 09:50 Urine Nitrate Negative (Negative) 08/13/24 09:50 Urine Bilirubin Negative (Negative) 08/13/24 09:50 Urine Urobilinogen 1.0 mg/dL (Negative) 08/13/24 09:50 Ur Leukocyte Esterase 1+ (Negative) A 08/13/24 09:50 Urine RBC 21-50 /hpf (0-2) H 08/13/24 09:50 Urine WBC 11-20 /hpf (0-5) H 08/13/24 09:50 Ur Squamous Epith Cells 11-20 /hpf (0-5) 08/13/24 09:50 Calcium Oxalate Crystal 5-10 /hpf H 08/13/24 09:50 Amorphous Sediment Not Reportable 08/13/24 09:50 Urine Bacteria None seen /hpf (NONE) 08/13/24 09:50 Hyaline Casts 12.41 /lpf 08/13/24 09:50 Ur Oval Fat Bodies 3+ /hpf 08/13/24 09:50 All radiology interpretation(s) finalized by discharge Discharge Plan Discharge Patient Disposition: Admitted As Inpatient Admit Provider: Sky Worthington Clinical Impression: Atrial fibrillation, Congestive heart failure, PHILIP (acute kidney injury), Cardiomyopathy, Prostate cancer metastatic to bone, DM type 2 (diabetes mellitus, type 2) Condition: Stable Coding Level of Care Code ED Papier Mache Molder for Stephen Mathew
--- NOTE | 2024-08-13 08:37 | ECG_ITS ---
[employer] Test Date: 2024-08-13 Pat Name: Jennifer Lanza Department: Room: Gender: Male Financial Coach: : 1945 Requested By: Sean Turner Order Number: [id number] Ann MD: Pushpa Gamble M.D. Measurements Intervals [place] Rate: 137 P: 0 W[place]: 0 QRS: -64 QRSD: 145 T: 89 QT: 353 QTc: 533 Interpretive Statements ATRIAL FIBRILLATION WITH RAPID VENTRICULAR RESPONSE WITH ABERRANT CONDUCTION OR VENTRICULAR PREMATURE COMPLEXES RIGHT BUNDLE BRANCH BLOCK [120+ ms QRS DURATION, UPRIGHT V1, 40+ ms S IN I/aVL/V4/V5/V6] ANTERIOR MYOCARDIAL INFARCTION , PROBABLY OLD [40+ ms Q WAVE AND/OR ST/T ABNORMALITY IN V3/V4] INFERIOR MYOCARDIAL INFARCTION , OF INDETERMINATE AGE [40+ ms Q WAVE AND/OR ST/T ABNORMALITY IN II/aVF] Compared to ECG 07/09/2024 19:30:53. Ventricular premature complex(es) now present Aberrant conduction of supraventricular beat(s) now present.Myocardial infarct finding still present Electronically Signed On 08-13-2024 17:03:38 PARK INTERPRETIVE RANGER by Pushpa Gamble M.D. [email or web address]
[2024-08-13] MEDS: dilTIAZem 5 mg/mL SDV 5 mL 20 MG IVP (08:53)
[2024-08-13] MEDS: dilTIAZem 100 MG in sodium chloride 0.9% (add-van) 100 ML IV (08:55)
[2024-08-13 09:23] LABS: Basophils # 0.1 10^3/uL (0.0-0.1); Basophils % 0.6 %; Eosinophils # 0.1 10^3/uL (0.0-0.8); Eosinophils % 1.1 %; Hematocrit 42.9 % (37-53); Lymphocytes % 11.2 %; Mean Corpuscular HGB Conc 31.7 g/dL (30-55); Mean Corpuscular Hemoglobin 31.1 pg (27-33); Mean Corpuscular Volume 97.9 fl (82-101); Mean Platelet Volume 11.4 fL (7.4-10.4); Monocytes # 0.7 10^3/uL (0.2-0.9); Monocytes % 7.9 %; Neutrophils # 6.66 10^3/uL (1.8-7.7); Neutrophils % 78.5 %; Nucleated Red Blood Cells % 0 %; Platelet Count 224 10^3/cmm (157-399); Red Blood Count 4.38 10^6/uL (3.85-5.65); Red Cell Distribution Width 14.6 % (12.1-15.1); White Blood Count 8.48 10^3/uL (3.29-11.43)
[2024-08-13 09:39] LABS: Troponin(5th) Baseline 46 ng/L (0-15)
[2024-08-13 09:46] LABS: Alanine Aminotransferase < 5 U/L (0-41); Albumin Level 3.4 g/dL (3.5-5.2); Alkaline Phosphatase 126 U/L (40-130); Aspartate Amino Transferase 7 U/L (0-40); Blood Urea Nitrogen 35 mg/dL (8-23); Calcium 8.9 mg/dL (8.5-10.5); Carbon Dioxide 20 mmol/L (22-29); Chloride 101 mmol/L (98-107); Creatinine Clr Calc Pharmacy 36.4385; Globulin 2.9 g/dL (1.3-4.6); Glucose 170 mg/dL (65-115); NT Pro B Type Natriuretic Pept 21613 pg/mL (0-450); Osmolality Calculated 294 mOsm/kg (285-295); Sodium 136 mmol/L (136-145); Total Bilirubin 0.4 mg/dL (0.15-1.2); Total Protein 6.3 g/dL (6.6-8.7)
[2024-08-13 09:50] LABS: Anion Gap 18.8 (5-19); Potassium 3.8 mmol/L (3.5-5.1)
[2024-08-13 10:05] LABS: Bilirubin Urine Negative (Negative); Blood Urine Non-haemolysed trace (Negative); Glucose Urine UA Negative (Normal); Ketones Urine Trace (Negative); Leukocyte Esterase Urine 1+ (Negative); Nitrate Urine Negative (Negative); Protein Urine 2+ (Negative); Specific Gravity, Urine 1.022 (1.005-1.030); Urine Appearance Cloudy (CLEAR); Urine Color Yellow (Yellow); pH Urine 5.5 (5-7)
[2024-08-13 10:10] LABS: Add Urine Microscopic? YES; Bacteria Urine None Seen /hpf; Hyaline Casts Urine 12.41 /lpf; RBC Urine 21-50 /hpf (0-2)
--- NOTE | 2024-08-13 10:31 | ECG_ITS ---
[facility] Date: 2024-08-13 Pat Name: Jennifer Lanza Department: Room: Gender: Male Nuclear Spectroscopist: : 1945 Requested By: Sean Turner Order Number: [id number] Ann MD: Pushpa Gamble M.D. Measurements Intervals [place] Rate: 93 P: 0 RI: 0 QRS: -62 QRSD: 148 T: 76 QT: 413 QTc: 516 Interpretive Statements ATRIAL FIBRILLATION WITH ABERRANT CONDUCTION OR VENTRICULAR PREMATURE COMPLEXES RIGHT BUNDLE BRANCH BLOCK [120+ ms QRS DURATION, UPRIGHT V1, 40+ ms S IN I/aVL/V4/V5/V6] INFERIOR MYOCARDIAL INFARCTION , OF INDETERMINATE AGE [40+ ms Q WAVE AND/OR ST/T ABNORMALITY IN II/aVF] Compared to ECG 08/13/2024 08:37:13 No significant changes Electronically Signed On 08-13-2024 17:16:04 FOREIGN BANKNOTE TELLER by Pushpa Gamble M.D. [email or web address]
[2024-08-13 10:40] LABS: UA Slide Review UA Slide Review Perf
[2024-08-13 10:41] LABS: Add Urine Culture? Yes
[2024-08-13 10:42] LABS: Oval Fat Bodies Urine 3+ /hpf
--- NOTE | 2024-08-13 11:10 | P.HP_ITS ---
Providers/Chief Complaint 2 Admitting Physician: Sky Worthington MD Primary Care Provider: Bart Conway MD Chief Complaint: retaining fluid, low o2 sent from [facility] History of Present Illness Jennifer Lanza is a 78 year old male with prostate cancer now not amenable to treatment, atrial fibrillation, diabetes, etc. presenting from home. For many weeks he has had increasing swelling. He was very short of breath today, hypoxic, and found to be in A-fib with RVR in his physician's office. There is recently been talks of placing him on hospice for his prostate cancer. He has not had any fever, significant cough, vomiting. He was put on some antibiotic, doxycycline by his urologist for a possible UTI. This happened 2 to 3 days ago. No issues recently with his suprapubic catheter. He denies any chest pain. Review of Systems 2 General: Reports: 10 or more systems reviewed and unremarkable except in HPI and below Card: Denies: chest pain Resp: Reports: dyspnea Medications/Allergies Home Medications Medication Instructions Recorded Confirmed Last Taken Type losartan 50 mg tablet 50 mg PO DAILY #30 tabs 12/24/20 08/13/24 08/12/24 Rx dulaglutide 1.5 mg/0.5 mL 1.5 mg SUBCUT .weekly 08/10/21 08/13/24 08/12/24 History subcutaneous pen injector (Trulicity) 19oz Leg Bag FIERRO #12 ea 04/13/23 08/13/24 Unknown Rx ascorbic acid (vitamin C) 1,000 mg 1 g PO BID #180 tabs 06/20/23 08/13/24 08/12/24 Rx tablet melatonin 10 mg tablet 10 mg PO DAILY #60 tabs 09/23/23 08/13/24 Unknown Rx blood-glucose meter,continuous #1 ea 02/13/24 08/13/24 Unknown Rx (Dexcom G6 Carpet Cleaning Technician) blood-glucose transmitter (Dexcom #1 ea 02/13/24 08/13/24 Unknown Rx G6 Transmitter device) methenamine hippurate 1 gram tablet See Rx Instructions .Route 03/12/24 08/13/24 08/12/24 Rx .COMPLEX #180 tabs carvedilol 6.25 mg tablet 6.25 mg PO BID #180 tabs 04/26/24 08/13/24 08/12/24 Rx apixaban 5 mg tablet (Eliquis) 5 mg PO Q12H #180 tabs 05/16/24 08/13/24 08/12/24 Rx hydrocodone 5 mg-acetaminophen 325 1 tab PO BID PRN pain 30 days #60 05/16/24 08/13/24 Unknown Rx mg tablet tabs prednisone 10 mg tablet 5 mg (1/2 x 10 mg) PO DAILY #30 06/14/24 08/13/24 08/12/24 Rx tabs escitalopram oxalate 10 mg tablet 10 mg PO DAILY #90 tabs 06/26/24 08/13/24 08/12/24 Rx (Lexapro) diclofenac sodium 3 % topical gel 1 applic topical BID PRN pain #100 07/06/24 08/13/24 Unknown Rx grams lidocaine 5 % topical patch 1 patch topical BID #30 ea 07/12/24 08/13/24 08/12/24 Rx acetaminophen 500 mg tablet 1,000 mg PO TID PRN Pain 08/13/24 08/13/24 08/12/24 History (Tylenol Extra Strength) doxycycline hyclate 100 mg capsule 100 mg PO BID 08/13/24 08/13/24 08/12/24 History vibegron 75 mg tablet (Gemtesa) 75 mg PO DAILY 08/13/24 08/13/24 08/12/24 History Allergies Allergy/AdvReac Type Severity Reaction Status Date / Time No Known Allergies Allergy Verified 08/13/24 08:04 PFSH Acute 2 PFSH: Medical History Bladder spasm Chronic cystitis Heart failure with reduced ejection fraction Chronic kidney disease Hypertension Dyslipidemia Prostate cancer metastatic to bone Pleural effusion Community acquired pneumonia DM type 2 (diabetes mellitus, type 2) Suprapubic catheter Urinary retention Post-traumatic bulbous urethral stricture Surgical History S/P dilation of urethra Scrotal abscess Family History Father , 84- Pneumonia No problems noted. Mother , 86 No problems noted. Sister Cancer Other Hyperlipidemia Hypertension Denies family history of Diabetes CAD (coronary artery disease) Autoimmune disease Clotting disorder Dementia Chronic kidney disease (CKD) Suicide Anesthesia complication Bleeding disorder Lung disease Stroke Social History Smoking and tobacco/nicotine status: never used tobacco/nicotine Quit status (tobacco/nicotine): considering quitting Alcohol intake: never Substance/Drug Use: never Lives independently: No Household members: other Details: Son Marital status: / Current occupational status: retired Vitals/I&O/Wt Last Vital Signs Temp 98.1 F 08/13/24 08:35 Pulse 85 08/13/24 09:42 Resp 20 H 08/13/24 08:35 BP 110/66 08/13/24 09:42 Pulse Ox 97 08/13/24 09:42 O2 Del Method Room Air 08/13/24 09:42 Weight last 48 hrs Weight 90.718 kg Physical Exam 2 Narrative: General exam is a white male, obviously short of breath who is able to complete 4-5 word sentences. Respiratory rate when I examined him was around 26. He had mild retractions. He was hard of hearing, and family supplemented his history and physical. HEENT: Pupils equally round. Oropharynx clear Neck is supple Cardiovascular irregular irregular, with controlled rate on Cardizem at 5 mg/h. Heart rate significantly elevated at 120 when he arrived Lungs crackles at the bases Abdomen is soft nontender exam demonstrates suprapubic catheter Extremities 4+ edema. He has anasarca with edema up into his waist. Skin no rash Neuro no obvious focal deficits Data 08/13/24 09:15 08/13/24 09:15 Other Labs: LFTs are normal Initial troponin 46 BNP 2163 Albumin 3.4, calcium 8.9 Urinalysis 21-50 red blood cells, 11-20 white blood cells. No bacteria seen. Chest x-ray with cardiomegaly,, atherosclerosis, interstitial changes, bilateral infiltrates right greater than left, possible pleural effusion Echo in November of this year demonstrated preserved EF but previous echo demonstrated EF of 35%. Moderate pulmonary hypertension. Initial EKG demonstrated atrial fibrillation with rapid ventricular response, right bundle branch block. Repeat EKG right bundle branch block, A-fib with controlled rate around 90 A&P Assessment and plan (1) Congestive heart failure: Patient with significant acute congestive heart failure superimposed on chronic diastolic heart failure. Most likely the acute heart failure is a mixed picture. His most recent echo had a normal EF, but he has had significantly low EF in the past. At this point I do not think another echocardiogram would be useful. Lasix 80 mg IV every 12 hours Monitor output, renal function Qualifiers: Heart failure chronicity: acute Heart failure type: unspecified Qualified Code(s): I50.9 - Heart failure, unspecified (2) Atrial fibrillation with RVR: Patient presented with A-fib with RVR We he was placed on a Cardizem drip Wean off Cardizem as tolerated Continue carvedilol, adjust dose as needed Hold losartan currently to make room for blood pressure and also considering acute kidney injury. Tele (3) Diabetes: Consistent carb diet, sliding scale insulin (4) UTI (urinary tract infection): Patient was recently diagnosed with a UTI by urology, and placed on doxycycline 2 days ago. Continue doxycycline. Await our culture here. Does not appear to have an invasive UTI currently. (5) Prostate cancer metastatic to bone: Patient with prostate cancer metastatic to the bone. No other treatment available according to oncology and last notes. Potentially candidate for hospice in the near future. Discussed with family, they will discuss with discharge planning, potential admission to hospice after this hospital stay. Continue his chronic prednisone (6) PHILIP (acute kidney injury): Has acute kidney injury superimposed on chronic kidney disease Likely component of cardiorenal Avoid renal toxic medication Monitor renal function daily Hold ARB Plan Multiple other medical problems as outlined in past medical history Allow natural , discussed with patient and family Joseis will suffice for DVT prophylaxis Attestations 2 Medical Necessity Statement*: Will need greater than 2 midnight stay for evaluation and treatment of anasarca requiring IV diuresis. I suspect he has at least 8 L or more of fluid overload currently. Diagnoses Congestive heart failure I50.9 Heart failure chronicity: acute Heart failure type: unspecified Atrial fibrillation with RVR I48.91 Diabetes E11.9 UTI (urinary tract infection) N39.0 Prostate cancer metastatic to bone C61; C79.51 PHILIP (acute kidney injury) N17.9 Time Spent (min) 64
[2024-08-13] MEDS: FUROsemide 10 mg/mL SDV 10mL 60 MG IVP (11:13)
[2024-08-13 11:27] LABS: Troponin 5 2HR 47.17 ng/L (0-15); Troponin 5 2HR Delta 1.17 ABS# (0-10)
[2024-08-13 12:01] LABS: Magnesium 2.1 mg/dL (1.7-2.3); Thyroid Stimulating Hormone 3.22 uIU/mL (0.27-4.20)
[2024-08-13] MEDS: apixaban 5 mg Tablet PO (13:37)
[2024-08-13] MEDS: insulin lispro 100 unit/1 mL SUBCUT ×2 (13:43→22:07)
[2024-08-13 13:46] LABS: Glucose Point of Care 186 mg/dL (70-110)
--- NOTE | 2024-08-13 14:26 | PC.NURSE ---
PT moved to hospital bed
--- NOTE | 2024-08-13 15:14 | ECG_ITS ---
[facility]24[facility]13 Pat Name: Jennifer Lanza Department: Room: EDIP Gender: Male Rabbler: : 1945 Requested By: Sean Turner Order Number: [id number] Ann MD: Pushpa Gamble M.D. Measurements Intervals [place] Rate: 90 P: 0 AR: 0 QRS: -67 QRSD: 153 T: 78 QT: 428 QTc: 524 Interpretive Statements ATRIAL FIBRILLATION WITH ABERRANT CONDUCTION OR VENTRICULAR PREMATURE COMPLEXES INTRAVENTRICULAR CONDUCTION DELAY [130+ ms QRS DURATION] INFERIOR MYOCARDIAL INFARCTION , PROBABLY OLD [40+ ms Q WAVE AND/OR ST/T ABNORMALITY IN II/aVF] Compared to ECG 08/13/2024 11:07:42 Intraventricular conduction delay now present Right bundle-branch block no longer present Myocardial infarct finding still present Electronically Signed On 08-13-2024 17:15:58 TAKER OUT by Pushpa Gamble M.D. [email or web address]
[2024-08-13 15:34] LABS: Troponin 5 6HR 43.35 ng/L (0-15)
[2024-08-13 15:40] LABS: Troponin 5 6HR Delta -2.65 ng/L (0-12)
--- NOTE | 2024-08-13 16:42 | PC.NURSE ---
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
[2024-08-13 17:08] LABS: Glucose Point of Care 130 mg/dL (70-110)
[2024-08-13] MEDS: lidocaine 5% Patch 1 PATCH TOPICAL (18:14)
[2024-08-13] MEDS: carvedilol 6.25 mg Tablet PO (18:14)
[2024-08-13] MEDS: doxycycline 100 mg Tablet PO (18:14)
[2024-08-13 20:58] LABS: Glucose Point of Care 163 mg/dL (70-110)
[2024-08-13] MEDS: FUROsemide 10 mg/mL SDV 10mL 80 MG IVP (22:00)
[2024-08-14] VITALS (8 sets, daily range): BP systolic 98–136; BP diastolic 61–78; PULSE 70–117; RESP 15–20; TEMP 36.3–37; O2SAT 85–96
[2024-08-14] MEDS: apixaban 5 mg Tablet PO ×2 (01:18→13:30)
[2024-08-14 06:27] LABS: Basophils # 0.1 10^3/uL (0.0-0.1); Basophils % 0.8 %; Eosinophils # 0.1 10^3/uL (0.0-0.8); Eosinophils % 1.5 %; Hematocrit 40.9 % (37-53); Lymphocytes # 1.3 10^3/uL (0.8-4.8); Lymphocytes % 17.3 %; Mean Corpuscular HGB Conc 30.8 g/dL (30-55); Mean Corpuscular Hemoglobin 31.5 pg (27-33); Mean Corpuscular Volume 102.3 fl (82-101); Mean Platelet Volume 11.4 fL (7.4-10.4); Monocytes # 0.7 10^3/uL (0.2-0.9); Monocytes % 9.5 %; Neutrophils # 5.33 10^3/uL (1.8-7.7); Neutrophils % 70.5 %; Nucleated Red Blood Cells % 0 %; Platelet Count 214 10^3/cmm (157-399); Red Cell Distribution Width 14.9 % (12.1-15.1); White Blood Count 7.56 10^3/uL (3.29-11.43)
[2024-08-14 06:31] LABS: Glucose Point of Care 155 mg/dL (70-110)
[2024-08-14 06:50] LABS: Alanine Aminotransferase < 5 U/L (0-41); Albumin Level 3.1 g/dL (3.5-5.2); Alkaline Phosphatase 119 U/L (40-130); Anion Gap 18.9 (5-19); Aspartate Amino Transferase 9 U/L (0-40); Blood Urea Nitrogen 35 mg/dL (8-23); Calcium 8.5 mg/dL (8.5-10.5); Carbon Dioxide 20 mmol/L (22-29); Chloride 105 mmol/L (98-107); Creatinine Clr Calc Pharmacy 44.0494; Glucose 113 mg/dL (65-115); Magnesium 2.1 mg/dL (1.7-2.3); Osmolality Calculated 299 mOsm/kg (285-295); Potassium 3.9 mmol/L (3.5-5.1); Sodium 140 mmol/L (136-145); Total Bilirubin 0.4 mg/dL (0.15-1.2); Total Protein 6.1 g/dL (6.6-8.7)
[2024-08-14] MEDS: carvedilol 6.25 mg Tablet PO (08:33)
[2024-08-14] MEDS: doxycycline 100 mg Tablet PO ×2 (08:33→17:47)
[2024-08-14] MEDS: lidocaine 5% Patch 1 PATCH TOPICAL ×2 (08:33→17:55)
[2024-08-14] MEDS: escitalopram 10 mg Tablet PO (08:33)
[2024-08-14] MEDS: predniSONE 5 mg Tablet PO (08:33)
[2024-08-14] MEDS: insulin lispro 100 unit/1 mL SUBCUT ×3 (08:38→17:47)
--- NOTE | 2024-08-14 09:04 | P.PN_ITS ---
Subjective 2 Subjective: Patient without any significant complaints other than shortness of breath. Able to complete 3-5 word sentences. Has not diuresed significantly since yesterday despite significant doses of Lasix. Medications: Reviewed: Yes Vitals/I&O/Wt Last Vital Signs Temp 97.7 F 08/14/24 08:00 Pulse 117 H 08/14/24 08:00 Resp 15 08/14/24 08:00 BP 120/78 08/14/24 08:00 Pulse Ox 92 08/14/24 08:00 O2 Del Method Room Air 08/14/24 08:00 O2 Flow Rate 2 08/13/24 12:26 08/13/24 08/14/24 08/14/24 22:59 06:59 14:59 Intake Total 560 / 587.916 120 / 707.916 360 / 360 Output Total 500 / 500 Balance 560 / 587.916 -380 / 207.916 360 / 360 Weight last 48 hrs Weight 128.367 kg Weight 128.367 kg Weight 90.718 kg Physical Exam 2 Narrative: General exam is a white male, moderate retractions Neck is supple Cardiovascular irregular irregular, with controlled rate on Cardizem at 5 mg/h. Heart rate significantly elevated at 120 when he arrived Lungs crackles at the bases Abdomen is soft nontender exam demonstrates suprapubic catheter Extremities 4+ edema. He has anasarca with edema up into his waist. Data 08/14/24 06:16 08/14/24 06:16 Micro: Microbiology 08/13/24 09:50 Urine Culture - Preliminary Urine,Clean Catch A&P Assessment and plan (1) Congestive heart failure: Patient with significant acute congestive heart failure superimposed on chronic diastolic heart failure. Most likely the acute heart failure is a mixed picture. His most recent echo had a normal EF, but he has had significantly low EF in the past. At this point I do not think another echocardiogram would be useful. Continue Lasix 80 mg IV every 12 hours Add albumin to facilitate diuresis. His albumin level is low, he is third spacing significantly. Zaroxolyn 5 mg p.o. x 1 Monitor output, renal function Qualifiers: Heart failure chronicity: acute Heart failure type: unspecified Qualified Code(s): I50.9 - Heart failure, unspecified (2) Atrial fibrillation with RVR: Patient presented with A-fib with RVR Now off Cardizem Increase carvedilol Hold losartan secondary to acute kidney injury, try to prevent hypotension. Tele (3) Diabetes: Consistent carb diet, sliding scale insulin (4) UTI (urinary tract infection): Patient was recently diagnosed with a UTI by urology, and placed on doxycycline 2 days ago. Continue doxycycline. Await our culture here. Does not appear to have an invasive UTI currently. (5) Prostate cancer metastatic to bone: Patient with prostate cancer metastatic to the bone. No other treatment available according to oncology and last notes. Potentially candidate for hospice in the near future. Discussed with family, they will discuss with discharge planning, potential admission to hospice after this hospital stay. Continue his chronic prednisone (6) PHILIP (acute kidney injury): Has acute kidney injury superimposed on chronic kidney disease Likely component of cardiorenal Avoid renal toxic medication Monitor renal function daily Hold ARB Renal function unchanged today Plan Multiple other medical problems as outlined in past medical history Allow natural , discussed with patient and family [place] will suffice for DVT prophylaxis Attestations 2 Medical Necessity Statement*: Needs continued hospital stay for further diuresis secondary to his anasarca, acute congestive heart failure with significant respiratory impairment with moderate retractions and tachypnea. While I was in the room his respiratory rate was 26, he had difficulty completing sentences secondary to his tachypnea. Diagnoses Congestive heart failure I50.9 Heart failure chronicity: acute Heart failure type: unspecified Atrial fibrillation with RVR I48.91 Diabetes E11.9 UTI (urinary tract infection) N39.0 Prostate cancer metastatic to bone C61; C79.51 PHILIP (acute kidney injury) N17.9 Time Spent (min) 24
[2024-08-14] MEDS: metOLazone 5 MG Tablet PO (09:05)
[2024-08-14] MEDS: carvedilol 12.5 mg Tablet PO ×2 (09:05→17:47)
[2024-08-14] MEDS: albumin 25 G/100 ML BAG 60 G IV ×2 (09:05→17:47)
--- NOTE | 2024-08-14 09:13 | PC.CHAP ---
Pastoral Care Encounter/Spiritual Assessment Type of Contact [] Declined mixer runner visit [] Patient/Family/Request visit [] Outpatient visit [] Follow-up visit [] Physician referral [] Code/Alert [x] Routine visit [] Staff referral [] Actively dying [] Patient sleeping [] Family support [] [] Out of room [] Palliative care [] [] Receiving care in room [] Pre-surgical visit [] Trauma [] Long length of stay [] ICU visit [] Other: Relational/Emotional Strength [x] Patient feels connected with others/family/visitors/staff [] Distress [] Loneliness/isolation [] Abandonment Spirituality of Patient [x] Person of Erum [] Attends Gnosticism of their Erum [x] Believes in Prayer [] Reads Bible or Gnosticism materials [] There are Spiritual issues to be addressed Bariatric Coordinator Interventions [x] Prayer [] Active listening [x] Non-anxious presence [x] Spiritual/emotional support [] Crisis/trauma care [] Spiritual counseling [] Bereavement support [] Provided bereavement packet [] Provided Bible/devotional materials [] Provided toy/stuffed animal, coloring book to patient or family member [] Provided Communion [] Anointing/[place] [] Salvation [x] Completed spiritual assessment [] Other: Impact on Illness or Injury [] Angry [] Fearful [] Anxious [] Often cries [] Exhaustion [] Unable to work [] Unable to attend adventist [] Unable to walk/stand [] Unable to read [] Unable to drive [] Unable to eat/drink [] Unable to sleep [] Unable to be with family [] Patient intubated [] Other: Summary Time spent with patient 5 min
[2024-08-14 10:44] LABS: Glucose Point of Care 157 mg/dL (70-110)
[2024-08-14] MEDS: FUROsemide 10 mg/mL SDV 10mL 80 MG IVP (11:43)
[2024-08-14 16:18] LABS: Glucose Point of Care 217 mg/dL (70-110)
[2024-08-14] MEDS: HYDROcodone-acetaminophen 5-325 mg Tablet 1 TAB PO ×2 (17:52→23:31)
[2024-08-14 20:49] LABS: Glucose Point of Care 139 mg/dL (70-110)
[2024-08-15] VITALS (10 sets, daily range): BP systolic 95–130; BP diastolic 52–76; PULSE 81–99; RESP 16–20; TEMP 36.3–36.8; O2SAT 90–99; BMI 24.3
[2024-08-15] MEDS: apixaban 5 mg Tablet PO ×2 (00:50→12:13)
[2024-08-15] MEDS: albumin 25 G/100 ML BAG 60 G IV ×3 (00:51→16:09)
[2024-08-15 06:49] LABS: Glucose Point of Care 163 mg/dL (70-110)
[2024-08-15 06:50] LABS: Basophils % 0.7 %; Eosinophils # 0.1 10^3/uL (0.0-0.8); Eosinophils % 1.8 %; Hematocrit 39.3 % (37-53); Lymphocytes % 17.1 %; Mean Corpuscular HGB Conc 30.5 g/dL (30-55); Mean Corpuscular Hemoglobin 31.2 pg (27-33); Mean Corpuscular Volume 102.1 fl (82-101); Monocytes # 0.5 10^3/uL (0.2-0.9); Neutrophils # 4.25 10^3/uL (1.8-7.7); Neutrophils % 71.1 %; Nucleated Red Blood Cells % 0 %; Platelet Count 162 10^3/cmm (157-399); Red Blood Count 3.85 10^6/uL (3.85-5.65); Red Cell Distribution Width 14.9 % (12.1-15.1); White Blood Count 5.98 10^3/uL (3.29-11.43)
[2024-08-15 07:12] LABS: Anion Gap 19.3 (5-19); Blood Urea Nitrogen 43 mg/dL (8-23); Calcium 8.8 mg/dL (8.5-10.5); Carbon Dioxide 21 mmol/L (22-29); Chloride 103 mmol/L (98-107); Glucose 182 mg/dL (65-115); Osmolality Calculated 303 mOsm/kg (285-295); Potassium 4.3 mmol/L (3.5-5.1); Sodium 139 mmol/L (136-145)
[2024-08-15] MEDS: FUROsemide 10 mg/mL SDV 10mL 80 MG IVP ×2 (08:09→16:09)
[2024-08-15] MEDS: ondansetron 2 mg/ML SDV 2 mL 4 MG IVP (08:09)
[2024-08-15] MEDS: predniSONE 5 mg Tablet PO (08:15)
[2024-08-15] MEDS: doxycycline 100 mg Tablet PO ×2 (08:15→17:21)
[2024-08-15] MEDS: escitalopram 10 mg Tablet PO (08:15)
[2024-08-15] MEDS: lidocaine 5% Patch 1 PATCH TOPICAL (09:55)
--- NOTE | 2024-08-15 10:24 | P.PN_ITS ---
Subjective 2 Subjective: Patient is nauseated this morning. He states he feels pretty rough currently. He has not really diuresed much, only about 700 to 800 cc in the last 24 hours. 1 dose of Lasix was held as his blood pressure has been low. Medications: Reviewed: Yes Vitals/I&O/Wt Last Vital Signs Temp 97.4 F L 08/15/24 08:00 Pulse 85 08/15/24 08:00 Resp 16 08/15/24 08:00 BP 118/73 08/15/24 08:00 Pulse Ox 95 08/15/24 08:00 O2 Del Method Nasal Cannula 08/15/24 08:00 O2 Flow Rate 2 08/13/24 12:26 08/14/24 08/15/24 08/15/24 22:59 06:59 14:59 Intake Total 100 / 620 100 / 720 100 / 100 Output Total 900 / 900 250 / 1150 Balance -800 / -280 -150 / -430 75 / 75 Weight last 48 hrs Weight 76.685 kg Weight 128.367 kg Weight 128.367 kg Physical Exam 2 Narrative: General exam is a white male, moderate retractions Neck is supple Cardiovascular irregular irregular, with controlled rate on Cardizem at 5 mg/h. Heart rate significantly elevated at 120 when he arrived Lungs crackles at the bases Abdomen is soft nontender exam demonstrates suprapubic catheter Extremities 4+ edema. He has anasarca with edema up into his waist. Data 08/15/24 06:36 08/15/24 06:36 Micro: Microbiology 08/13/24 09:50 Urine Culture - Final Urine,Clean Catch A&P Assessment and plan (1) Congestive heart failure: Patient with significant acute congestive heart failure superimposed on chronic diastolic heart failure. Most likely the acute heart failure is a mixed picture. His most recent echo had a normal EF, but he has had significantly low EF in the past. At this point I do not think another echocardiogram would be useful. Lasix was increased to 80 mg every 8 hours Zaroxolyn 2.5 mg p.o. x 1 Continue albumin Overall not improving despite trying to maximize IV diuresis. I do not think I can provide him with significant sustained improvement considering his metastatic prostate cancer now not amenable to treatment with severe weakness. I have discussed this with him and his family, who are suspecting this. They are transitioning to hospice and hopefully we can arrange for discharge to hospice by tomorrow. For now, continue diuresis to help with shortness of breath at least in the short-term. No labs needed tomorrow as likely will transition to hospice. Qualifiers: Heart failure chronicity: acute Heart failure type: unspecified Qualified Code(s): I50.9 - Heart failure, unspecified (2) Atrial fibrillation with RVR: Patient presented with A-fib with RVR Now off Cardizem Reduce carvedilol dosing. Some may still need to be held secondary to hypotension at times. Hold losartan secondary to acute kidney injury, try to prevent hypotension. Tele (3) Diabetes: Consistent carb diet, sliding scale insulin (4) UTI (urinary tract infection): Patient was recently diagnosed with a UTI by urology, and placed on doxycycline 2 days ago. Continue doxycycline. Await our culture here. Does not appear to have an invasive UTI currently. (5) Prostate cancer metastatic to bone: Patient with prostate cancer metastatic to the bone. No other treatment available according to oncology and last notes. Potentially candidate for hospice in the near future. Discussed with family, they will discuss with discharge planning, potential admission to hospice after this hospital stay. Continue his chronic prednisone (6) PHILIP (acute kidney injury): Has acute kidney injury superimposed on chronic kidney disease Likely component of cardiorenal Avoid renal toxic medication Hold ARB Renal function unchanged today Plan Multiple other medical problems as outlined in past medical history Allow natural , discussed with patient and family Eliquis will suffice for DVT prophylaxis Attestations 2 Medical Necessity Statement*: Needs continued hospital stay for further diuresis secondary to anasarca, now exploring placement with hospice which will transpire in the next 24 hours. Diagnoses Congestive heart failure I50.9 Heart failure chronicity: acute Heart failure type: unspecified Atrial fibrillation with RVR I48.91 Diabetes E11.9 UTI (urinary tract infection) N39.0 Prostate cancer metastatic to bone C61; C79.51 PHILIP (acute kidney injury) N17.9 Time Spent (min) 21
[2024-08-15 12:02] LABS: Glucose Point of Care 160 mg/dL (70-110)
--- NOTE | 2024-08-15 12:11 | PC.SOCIAL ---
IMM updated Updated pt on IMM. No questions voiced. Provided pt a copy. Initialed, dated, & timed a copy & placed in chart.
[2024-08-15] MEDS: metOLazone 5 MG Tablet 2.5 MG PO (12:13)
[2024-08-15] MEDS: insulin lispro 100 unit/1 mL SUBCUT ×3 (12:13→21:34)
[2024-08-15 17:13] LABS: Glucose Point of Care 175 mg/dL (70-110)
[2024-08-15] MEDS: carvedilol 6.25 mg Tablet PO (17:21)
[2024-08-15 20:33] LABS: Glucose Point of Care 225 mg/dL (70-110)
[2024-08-16] MEDS: apixaban 5 mg Tablet PO (00:13)
[2024-08-16] MEDS: albumin 25 G/100 ML BAG 60 G IV ×2 (00:22→08:59)
[2024-08-16 04:02] VITALS: BP 111/71; PULSE 92; RESP 19; TEMP 36.6; O2SAT 97
[2024-08-16 05:38] VITALS: PULSE 94
[2024-08-16 06:35] VITALS: BP 126/72
[2024-08-16 06:35] LABS: Glucose Point of Care 159 mg/dL (70-110)
[2024-08-16] MEDS: FUROsemide 10 mg/mL SDV 10mL 80 MG IVP (06:35)
[2024-08-16 07:51] VITALS: BP 150/72; PULSE 111; RESP 17; TEMP 36.4; O2SAT 95
--- NOTE | 2024-08-16 08:20 | PM.DCS ---
Discharge Providers Date of Admission: 08/13/24 12:54 Date of Discharge: August 16, 2024 Attending Provider at Admission: Sky Worthington MD Attending Provider at Discharge: Sky Worthington MD Primary Care Provider: Bart Conway MD Diagnoses at Discharge Discharge Diagnosis (1) Congestive heart failure: Status: Acute Qualifiers: Heart failure chronicity: acute Heart failure type: unspecified Qualified Code(s): I50.9 - Heart failure, unspecified (2) Atrial fibrillation with RVR: Status: Acute (3) Diabetes: Status: Acute (4) UTI (urinary tract infection): Status: Acute (5) Prostate cancer metastatic to bone: Status: Acute (6) PHILIP (acute kidney injury): Status: Acute Reason for Visit Reason for Visit: retaining fluid, low o2 sent from [facility] Course Hospital Course Patient is an 78-year-old man, with prostate cancer currently not amenable to treatment with consideration for hospice per his oncologist who presented to the emergency department with swelling, A-fib with RVR. On placing in the hospital large doses of IV diuretics were given, without a significant effect. Albumin and Zaroxolyn was added without a significant effect. Heart rate was under control just with oral medications. There were issues with kidney function that did not improve, and low blood pressures. The decision was made to proceed with hospice, which was arranged and patient was able to discharge on August. Family and patient were in agreements. Physical Exam Narrative: General exam, moderate retractions with minimal activity Neck is supple Cardiovascular irregular, irregular Lungs diminished breath sounds bilaterally Abdomen soft Extremities 4+ edema, generalized anasarca Discharge Data Studies Completed and Pending Completed Studies During Hospitalization Category Date Time Status XR chest 1V portable [id number] Stat Exams 08/13/24 08:31 Completed Radiology Impressions Chest X-Ray 08/13/24 08:31 IMPRESSION: 1. New and increasing consolidation at the RIGHT lung base consistent with pneumonia. 2. Pneumonia is superimposed on pulmonary fibrosis and interstitial lung disease which has progressed since 2020. Laboratory Results WBC 5.98 10^3/uL (3.29-11.43) 08/15/24 06:36 RBC 3.85 10^6/uL (3.85-5.65) 08/15/24 06:36 Hgb 12.00 g/dL (11.27-16.99) 08/15/24 06:36 Hct 39.3 % (37-53) 08/15/24 06:36 MCV 102.1 fl (82-101) H 08/15/24 06:36 MCH 31.2 pg (27-33) 08/15/24 06:36 MCHC 30.5 g/dL (30-55) 08/15/24 06:36 RDW 14.9 % (12.1-15.1) 08/15/24 06:36 Plt Count 162 10^3/cmm (157-399) 08/15/24 06:36 MPV 11.0 fL (7.4-10.4) H 08/15/24 06:36 Neut % (Auto) 71.1 % 08/15/24 06:36 Lymph % (Auto) 17.1 % 08/15/24 06:36 [place] % (Auto) 9.0 % 08/15/24 06:36 Eos % (Auto) 1.8 % 08/15/24 06:36 Baso % (Auto) 0.7 % 08/15/24 06:36 Neut # (Auto) 4.25 10^3/uL (1.8-7.7) 08/15/24 06:36 Lymph # (Auto) 1.0 10^3/uL (0.8-4.8) 08/15/24 06:36 [place] # (Auto) 0.5 10^3/uL (0.2-0.9) 08/15/24 06:36 Eos # (Auto) 0.1 10^3/uL (0.0-0.8) 08/15/24 06:36 Baso # (Auto) 0.0 10^3/uL (0.0-0.1) 08/15/24 06:36 Nucleated RBC % (auto) 0 % 08/15/24 06:36 Nucleated RBCs # 0.0 /100WBC 08/15/24 06:36 Sodium 139 mmol/L (136-145) 08/15/24 06:36 Potassium 4.3 mmol/L (3.5-5.1) 08/15/24 06:36 Chloride 103 mmol/L (98-107) 08/15/24 06:36 Carbon Dioxide 21 mmol/L (22-29) L 08/15/24 06:36 Anion Gap 19.3 (5-19) H 08/15/24 06:36 BUN 43 mg/dL (8-23) H 08/15/24 06:36 Creatinine 1.9 mg/dL (0.7-1.2) H 08/15/24 06:36 GFR Calculation Not Reportable 08/15/24 06:36 Glucose 182 mg/dL (65-115) H 08/15/24 06:36 POC Glucose 159 mg/dL (70-110) H 08/16/24 06:22 Calculated Osmolality 303 mOsm/kg (285-295) H 08/15/24 06:36 Calcium 8.8 mg/dL (8.5-10.5) 08/15/24 06:36 Magnesium 2.0 mg/dL (1.7-2.3) 08/15/24 06:36 Total Bilirubin 0.4 mg/dL (0.15-1.2) 08/14/24 06:16 AST 9 U/L (0-40) 08/14/24 06:16 ALT < 5 U/L (0-41) 08/14/24 06:16 Alkaline Phosphatase 119 U/L (40-130) 08/14/24 06:16 Troponin T Baseline 46 ng/L (0-15) H 08/13/24 09:15 Troponin T 120 Minute 47.17 ng/L (0-15) H 08/13/24 11:04 Delta Troponin T 1.17 ABS# (0-10) 08/13/24 11:04 Troponin T Hi Sens 6Hr 43.35 ng/L (0-15) H 08/13/24 15:05 Troponin T Hi Sens 6Hr Delta -2.65 ng/L (0-12) L 08/13/24 15:05 NT-Pro-B Natriuret Pep 49654 pg/mL (0-450) H 08/13/24 09:15 Total Protein 6.1 g/dL (6.6-8.7) L 08/14/24 06:16 Albumin 3.1 g/dL (3.5-5.2) L 08/14/24 06:16 Globulin 3.0 g/dL (1.3-4.6) 08/14/24 06:16 TSH 3.22 uIU/mL (0.27-4.20) 08/13/24 09:15 Urine Color Yellow (Yellow) 08/13/24 09:50 Urine Appearance Cloudy (CLEAR) A 08/13/24 09:50 Urine pH 5.5 (5-7) 08/13/24 09:50 Ur Specific [place] 1.022 (1.005-1.030) 08/13/24 09:50 Urine Protein 2+ (Negative) A 08/13/24 09:50 Urine Glucose (UA) Negative (Normal) 08/13/24 09:50 Urine Ketones Trace (Negative) 08/13/24 09:50 Urine Blood Non-haemolysed trace (Negative) 08/13/24 09:50 Urine Nitrate Negative (Negative) 08/13/24 09:50 Urine Bilirubin Negative (Negative) 08/13/24 09:50 Urine Urobilinogen 1.0 mg/dL (Negative) 08/13/24 09:50 Ur Leukocyte Esterase 1+ (Negative) A 08/13/24 09:50 Urine RBC 21-50 /hpf (0-2) H 08/13/24 09:50 Urine WBC 11-20 /hpf (0-5) H 08/13/24 09:50 Ur Squamous Epith Cells 11-20 /hpf (0-5) 08/13/24 09:50 Calcium Oxalate Crystal 5-10 /hpf H 08/13/24 09:50 Amorphous Sediment Not Reportable 08/13/24 09:50 Urine Bacteria None seen /hpf (NONE) 08/13/24 09:50 Hyaline Casts 12.41 /lpf 08/13/24 09:50 Ur Oval Fat Bodies 3+ /hpf 08/13/24 09:50 Vitals Last Vital Signs Temp 97.5 F L 08/16/24 07:51 Pulse 111 H 08/16/24 07:51 Resp 17 08/16/24 07:51 BP 150/72 08/16/24 07:51 Pulse Ox 95 08/16/24 07:51 O2 Del Method Nasal Cannula 08/16/24 07:51 O2 Flow Rate 2 08/16/24 07:51 Discharge Plan Discharge Patient Disposition: Hospice - Home Condition: Stable Prescriptions: New bumetanide 2 mg tablet 2 mg PO BID Qty: 60 0RF Continued melatonin 10 mg tablet 10 mg PO DAILY Qty: 60 2RF escitalopram oxalate [Lexapro] 10 mg tablet 10 mg PO DAILY Qty: 90 1RF lidocaine 5 % adhesive patch,medicated 1 patch topical BID Qty: 30 0RF Rx Instructions: leave on most painful area for up to 12 hrs diclofenac sodium 3 % gel 1 applic topical BID PRN (Reason: pain) Qty: 100 0RF (DME) 19oz Leg Bag FIERRO See Rx Instructions .Route .MEDSUPPLY Qty: 12 0RF Rx Instructions: As directed (DME) Dexcom G6 Machine Edge Bander Misc See Rx Instructions .MEDSUPPLY Qty: 1 0RF Rx Instructions: Use as directed for checking blood sugar (DME) Dexcom G6 Transmitter Device See Rx Instructions .MEDSUPPLY Qty: 1 3RF Rx Instructions: Change every 3 months; Use as directed for checking blood sugar methenamine hippurate 1 gram tablet See Rx Instructions .ROUTE .COMPLEX Qty: 180 2RF Dose Instruction: TAKE ONE TABLET BY MOUTH TWICE DAILY with 1000mg of vitamin CAPSULE Rx Instructions: TAKE ONE TABLET BY MOUTH TWICE DAILY with 1000mg of vitamin CAPSULE carvedilol 6.25 mg tablet 6.25 mg PO BID Qty: 180 1RF Rx Instructions: must administer with a meal/food Eliquis 5 mg tablet 5 mg PO Q12H Qty: 180 0RF hydrocodone-acetaminophen 5-325 mg tablet 1 tab PO BID PRN (Reason: pain) 30 Days Qty: 60 0RF Rx Instructions: sever pain greater than 7/10 prednisone 10 mg tablet 5 mg PO DAILY Qty: 30 1RF ondansetron 4 mg tablet,disintegrating 4 mg translingual Q4H PRN (Reason: nausea) Qty: 5 0RF Rx Instructions: Dissolve 1 tablet under tongue every 4 hours PRN for nausea bisacodyl 10 mg suppository 10 mg MS DAILY PRN (Reason: constipation) Qty: 5 0RF Rx Instructions: 1 suppository per rectum every day PRN for constipation. lorazepam 2 mg/mL concentrate 2 mg sublingual Q4H PRN (Reason: Anxiety/Seizure) Qty: 30 0RF Rx Instructions: 0.25ml-1ml q4H PRN Anxiety/Seizure Start 0.25ml may increase to 0.5ml-1ml q4H morphine concentrate 100 mg/5 mL (20 mg/mL) solution 20 mg sublingual DIRECTED PRN (Reason: Pain/SOB) 14 Days Qty: 30 0RF Rx Instructions: 0.25ml-1ml q1H PRN may increase to 0.5ml-1ml Q1H PRN diphenhydramine HCl 25 mg tablet 25 mg PO Q4H Qty: 5 0RF Rx Instructions: Take one tablet by mouth every 4 hours as needed for allergic reaction including: Rash and/or Itching hydroxyzine HCl 25 mg tablet 25 mg PO TID PRN (Reason: Itching) Qty: 5 0RF Rx Instructions: Take 1 table by mouth as needed three times a day for itching atropine 1 % drops 4 drp sublingual Q4H PRN (Reason: secretions) Qty: 5 0RF Rx Instructions: 4 drops SL q 4 hours PRN for terminal congestion/excessive secretions. Gemtesa 75 mg tablet 75 mg PO DAILY Rx Instructions: TAKE ONE TABLET BY MOUTH DAILY acetaminophen [Tylenol Extra Strength] 500 mg Tablet 1,000 mg PO TID PRN (Reason: Pain) Discontinued Trulicity 1.5 mg/0.5 mL pen injector 1.5 mg SUBCUT .weekly ascorbic acid (vitamin C) 1,000 mg tablet 1 g PO BID Qty: 180 2RF losartan 50 mg Tablet 50 mg PO DAILY Qty: 30 0RF doxycycline hyclate 100 mg capsule 100 mg PO BID Discharge Orders: Discharge Order (Routine); Ordered 08/16/24 Ordered By: Sky Worthington Referrals: Bart Conway MD [Primary Care Provider] - Discharge Diet: Usual diet Activity Restrictions/Additional Instructions: Discharged on hospice Discharge Attestations Time Spent in Discharge Care*: less than 30 min Status at Discharge: Cognitive status at discharge: cognitively intact, Behavioral status at discharge: cooperative, Quality Metrics Clinical Quality Measures [ No reported AMI, CVA or VTE this stay] Coding Level of Care Code 78614 Total time (in minutes) for Discharge: 31 Diagnoses Congestive heart failure I50.9 Heart failure chronicity: acute Heart failure type: unspecified Atrial fibrillation with RVR I48.91 Diabetes E11.9 UTI (urinary tract infection) N39.0 Prostate cancer metastatic to bone C61; C79.51 PHILIP (acute kidney injury) N17.9
[2024-08-16] MEDS: predniSONE 5 mg Tablet PO (08:58)
[2024-08-16] MEDS: insulin lispro 100 unit/1 mL SUBCUT (08:58)
[2024-08-16] MEDS: escitalopram 10 mg Tablet PO (08:58)
[2024-08-16] MEDS: carvedilol 6.25 mg Tablet PO (08:58)
[2024-08-16] MEDS: doxycycline 100 mg Tablet PO (08:58)
[2024-08-16] MEDS: lidocaine 5% Patch 1 PATCH TOPICAL (09:07)
[2024-08-16 10:49] LABS: Glucose Point of Care 304 mg/dL (70-110)
[2024-08-16 11:56] VITALS: BP 150/72; PULSE 111; RESP 17; O2SAT 95
== END 2024-08-16 11:57 | disposition hospice, home (50) | DRG 291 ==
LOC: ER 11:13 → ER IP 12:56 → MEDSURG 15:59
PROVIDERS: Admitting Provider Internal Medicine; Emergency Provider Family Medicine; PCP Family Medicine; Visit Provider Internal Medicine
DX: I13.0 Hypertensive heart and chronic kidney disease with heart failure and stage 1 through stage 4 chronic kidney disease, or unspecified chronic kidney disease (principal); I50.33 Acute on chronic diastolic (congestive) heart failure; N17.9 Acute kidney failure, unspecified; N39.0 Urinary tract infection, site not specified; C79.51 Secondary malignant neoplasm of bone; E11.22 Type 2 diabetes mellitus with diabetic chronic kidney disease; N18.9 Chronic kidney disease, unspecified; I48.91 Unspecified atrial fibrillation; C61 Malignant neoplasm of prostate; Z79.02 Long term (current) use of antithrombotics/antiplatelets; Z79.01 Long term (current) use of anticoagulants; Z79.85 Long-term (current) use of injectable non-insulin antidiabetic drugs
CPT/HCPCS: 36415; 36416; 71045; 80048; 80053; 81001; 82962; 83735; 83880; 84443; 84484; 85025; 87086; 93005; 96372; 96374; 96375; 99285; J1815; J1940; J2405; J3490; J7512; P9046